=== PATIENT | male | born 1940 | race Caucasian/White ===

== ENCOUNTER 2016-11-30 15:25 | Inpatient (IN) | payer OTHER, MEDICARE ==
[2016-11-30] VITALS (10 sets, daily range): BP systolic 147–159; BP diastolic 80–94; PULSE 90–141; RESP 17–18; TEMP 97.8–98.4; O2SAT 95–98
[2016-11-30] MEDS ORDERED: IPRA0.02 NEB (18:33)
[2016-11-30] MEDS ORDERED: LEVO25TA4 PO (18:33)
[2016-11-30] MEDS ORDERED: APIX2.5T PO (18:33)
[2016-11-30] MEDS ORDERED: SPIR25 PO (18:33)
[2016-11-30] MEDS ORDERED: PROT40TA PO (18:33)
[2016-11-30] MEDS ORDERED: ALBU0.08 NEB (18:33)
[2016-11-30] MEDS ORDERED: TAMS0.4C4 PO (18:33)
[2016-11-30] MEDS ORDERED: LOSA50TA PO (18:33)
[2016-11-30] MEDS ORDERED: METO25TA3 PO (18:33)
[2016-11-30] MEDS ORDERED: CARD120C4 PO (18:33)
[2016-11-30] MEDS ORDERED: CYMB60CA PO (18:33)
[2016-11-30] MEDS ORDERED: MECL1TAB42 (18:33)
[2016-11-30] MEDS ORDERED: FURO20TA PO (18:33)
[2016-11-30] MEDS ORDERED: NITR1SUB3 SL (18:33)
[2016-11-30 19:02] LABS: AUTOMATED NEUTROPHIL # 4.7 TH/MM3 (1.8-7.7); BASOPHIL # 0.1 TH/MM3 (0-0.2); BASOPHIL % 0.8 % (0.0-2.0); EOSINOPHIL # 0.2 TH/MM3 (0-0.4); EOSINOPHIL % 2.5 % (0.0-4.0); HEMATOCRIT 32.7 % (39.0-51.0); HEMO FLAGS DIFF FINAL; LYMPH % 13.7 % (9.0-44.0); MEAN CELL VOLUME 86.7 FL (80.0-100.0); MEAN CORPUSCULAR HEMOGLOBIN 28.3 PG (27.0-34.0); MEAN CORPUSCULAR HGB CONC 32.6 % (32.0-36.0); MONO % 15.8 % (0.0-8.0); NEUT % 67.2 % (16.0-70.0); PLATELET COUNT 237 TH/MM3 (150-450); RED BLOOD COUNT 3.77 MIL/MM3 (4.50-5.90); RED CELL DISTRIBUTION WIDTH 15.2 % (11.6-17.2)
[2016-11-30 19:23] LABS: ANION GAP 7 MEQ/L (5-15); AST (GOT) LESS THAN 3 U/L (15-37); BICARBONATE 28.3 MEQ/L (21.0-32.0); BLOOD UREA NITROGEN 19 MG/DL (7-18); CHLORIDE 90 MEQ/L (98-107); GLOMERULAR FILTRATION RATE 39 ML/MIN (>89); POTASSIUM 4.2 MEQ/L (3.5-5.1); SODIUM (NA) 125 MEQ/L (136-145)
[2016-11-30 19:24] LABS: ALT (GPT) 17 U/L (12-78); APTT (PATIENT) 39.4 SEC (24.3-30.1)
[2016-11-30 19:26] LABS: ALKALINE PHOSPHATASE 126 U/L (45-117); TOTAL BILIRUBIN ADULT 0.4 MG/DL (0.2-1.0)
[2016-11-30] MEDS: AMIODARONE 200 MG TAB PO SCH (19:31)
[2016-11-30] MEDS: RESP: IPRATROPIUM 0.5 MG/2.5 ML NEB NEB SCH ×2 (20:00→23:20)
[2016-11-30] MEDS: APIXABAN 2.5 MG TABLET PO SCH (21:36)
[2016-11-30] MEDS: FUROSEMIDE 40 MG/4 ML VIAL IV PUSH SCH ×2 (21:36→22:00)
[2016-11-30] MEDS: TAMSULOSIN HCL 0.4 MG CAP PO SCH (21:36)
[2016-12-01] VITALS (29 sets, daily range): BP systolic 126–167; BP diastolic 66–93; PULSE 86–126; RESP 14–18; TEMP 98.3–98.7; O2SAT 93–99
[2016-12-01] MEDS: RESP: IPRATROPIUM 0.5 MG/2.5 ML NEB NEB SCH ×5 (03:39→20:06)
[2016-12-01] MEDS: FUROSEMIDE 40 MG/4 ML VIAL IV PUSH SCH ×2 (05:52→13:43)
[2016-12-01] MEDS: LEVOTHYROXINE SODIUM 25 MCG TAB PO SCH (05:52)
--- NOTE | 2016-12-01 06:24 | MA ---
cc: AZAEL BREEN M.D. DATE 11/30/2016 PROCEDURE Cardioversion. INDICATIONS Mr. Drummond is a 75-year-old gentleman with previous atrial fibrillation, ablation seen at my office due to tachyarrhythmia. Heart rate was around 140 beats per minute, symptomatic. The patient was referred to the emergency room and admitted. Decision for cardioversion was taken. The patient already on anticoagulation. The risks, the nature and the benefit of the procedure are clearly stated to him. The risks include pneumothorax, cardiac perforation, stroke and even . The patient understood and agreed to proceed. PROCEDURE After written informed consent was obtained, the patient was evaluated by the anesthesiologist. Anterolateral pads were placed. Subsequently a 200 sync biphasic joule was delivered that converted the patient into sinus rhythm. No incident reported. The patient tolerated procedure. CONCLUSION Successful cardioversion, COMMENT AND RECOMMENDATIONS The patient's Cardizem and metoprolol will be discontinued. Amiodarone will be initiated. If the patient is stable and in sinus rhythm in the morning, will be discharged home. Azael Breen MD HS/SSB /7:30 PM /6:17 AM
--- NOTE | 2016-12-01 07:47 | EKG ---
Date Performed: 11/30/2016 Time Performed: 17:48:10 PTAGE: 75 years EKG: Atrial flutter with rapid ventricular response. Left axis deviation Inferior infarct - age undetermined Non-specific ST/T wave changes Low QRS voltages in precordial leads Abnormal ECG NO PREV IOUS TRACING DOCTOR: Armaan Polanco Interpretating Date/Time 12/01/2016 07:46:29
[2016-12-01] MEDS: AMIODARONE 200 MG TAB PO SCH (08:03)
[2016-12-01] MEDS: SPIRONOLACTONE 25 MG TAB PO SCH (08:03)
[2016-12-01] MEDS: PANTOPRAZOLE SOD 40 MG DELAYED RELEASE TAB PO SCH (08:03)
[2016-12-01] MEDS: LOSARTAN 50 MG TAB PO SCH (08:03)
[2016-12-01] MEDS: APIXABAN 2.5 MG TABLET PO SCH (08:03)
[2016-12-01] MEDS: DULoxetine HCl DR 60 MG CAP PO SCH ×2 (08:05→22:16)
[2016-12-01] MEDS ORDERED: FUROSEMIDE 20 MG TAB PO SCH (09:00)
[2016-12-01] MEDS ORDERED: AMIODARONE INJ 300 MG in DEXTROSE 5% IN WATER 100ML INJ 94 ML IV ONE ×2 (10:00)
[2016-12-01] MEDS ORDERED: AMIODARONE INJ 450 MG in D5W (EXCEL BAG) 241 ML IV SCH (10:20)
--- NOTE | 2016-12-01 11:53 | RADRPT ---
EXAM DATE/TIME: 12/01/2016 11:07 [facility] COMPARISON: No previous studies available for comparison. INDICATIONS : Abdomen pain, distention. MEDICAL HISTORY : None. SURGICAL HISTORY : None. ENCOUNTER: Initial ACUITY: 1 day PAIN SCORE: 6/10 LOCATION: Bilateral abdomen FINDINGS: 2 AP supine views of the abdomen. Moderately distended air-filled colon diffusely. Multiple air-fille d loops of small bowel. Longitudinal metallic rods in the lower thoracic and lumbar region. Severe de generative findings of the lumbar spine. CONCLUSION: Diffuse air-filled distention of the colon, likely representing ileus. Maninder Mg MD on December 01, 2016 at 11:35 Board Certified Radiologist. This report was verified electronically.
--- NOTE | 2016-12-01 13:03 | HHI.PR ---
Subjective Remarks Abdominal pain. Less SOB than yesterday Objective Vital Signs Date Time Temp Pulse Resp B/P Pulse Ox O2 Delivery O2 Flow Rate FiO2 12/01/16 12:00 126 12/01/16 11:00 98.6 97 16 167/83 97 12/01/16 11:00 117 12/01/16 10:00 114 12/01/16 09:17 97 Nasal Cannula 2.00 12/01/16 09:00 114 12/01/16 08:00 114 12/01/16 07:00 110 12/01/16 07:00 98.5 110 14 163/87 97 12/01/16 06:00 117 12/01/16 05:13 100 12/01/16 04:00 108 12/01/16 03:00 105 12/01/16 03:00 98.7 106 18 160/93 97 12/01/16 02:00 105 12/01/16 01:06 106 12/01/16 00:00 108 11/30/16 23:21 97 Nasal Cannula 2.00 11/30/16 23:00 98 11/30/16 23:00 98.4 94 18 159/94 96 11/30/16 22:00 98 11/30/16 21:00 90 11/30/16 20:50 97.8 94 18 156/80 98 11/30/16 20:00 90 11/30/16 19:00 116 11/30/16 18:00 129 11/30/16 17:48 115 11/30/16 17:00 98.1 141 17 147/84 95 I/O 11/30/16 11/30/16 11/30/16 12/01/16 12/01/16 12/01/16 07:00 15:00 23:00 07:00 15:00 23:00 Intake Total 960 ml Output Total 650 ml Balance 310 ml Intake Oral 960 ml Output Urine Total 650 ml # Bowel Movements 1 Result Diagram: 11/30/16183711/30/16 183 Imaging Alert, fully oriented, in bed Lungs: ventilated Heart: S1, S2 irregular, tachycardia Abdomen: distended, no mass, pain on palpation Ext: minimal edema Last Impressions Abdomen X-Ray 12/01/16 0000 Signed Impressions: Service Date/Time: December 11:07 - CONCLUSION: Diffuse air-filled distention of the colon, likely representing ileus. Maninder Mg MD Current Medications Medications (Trade) Dose Ordered Sig/Manuel Route Start Time Stop Time Status Last Admin (Cymbalta Dr) 60 mg DAILY PO 12/01/16 09:00 (Synthroid) 25 mcg DAILY@06 PO 12/01/16 06:00 12/01/16 05:52 (Cozaar) 50 mg DAILY PO 12/01/16 09:00 12/01/16 08:03 (Protonix) 40 mg DAILY PO 12/01/16 09:00 12/01/16 08:03 (Aldactone) 25 mg DAILY PO 12/01/16 09:00 12/01/16 08:03 (Flomax) 0.4 mg HS PO 11/30/16 21:00 11/30/16 21:36 (Lasix Inj) 40 mg Q8HR IV PUSH 11/30/16 19:30 12/01/16 19:00 12/01/16 05:52 Temazepam 15 mg 15 mg HS PRN PO 11/30/16 19:30 (Cordarone Inj/ D5W ([place]) Inj) 250 ml @ 0 mls/hr CONTINUOUS IV 12/01/16 10:20 12/01/16 11:07 Assessment and Plan Problem List: (1) Atrial fibrillation Status: Acute Plan: Previous ablation. Was in atrial tach/ atrial fib with FVR yesterday. Refers abdominal pain in the last 3 days. HR was very high. Was cardioverted and amio initiated. Back into afib. Because of dark stool, eliquis was held. Patient taking Iron. Recent GI work up was apparently negative. Medical management for now. (2) Palpitations Status: Acute Plan: Symptomatic. But improving (3) SOB (shortness of breath) Status: Acute Plan: Edema decreases. SOB improves (4) Abdominal pain Status: Acute Plan: Patient complaining about abdominal discomfort. Dark stool. Recent GI workup was negative. On iron due to chronic anemia. Will request surgery and GI evaluation. Case discussed with patient and general surgery Sarina Sutton MD Dec 01, 2016 13:03
--- NOTE | 2016-12-01 13:20 | PD.CONS ---
HPI History of Present Illness This is a 75 year old [gentleman] was hospitalized by his nps for AF, s /p cardioversion. He began experiencing abdominal pain that "moves around like a turd that's moving through". He had a BM last night that was mostly "gas" and some liquid stool. He has not eaten in 2d, has no appetite. He says he normally has alternating large stools "like a brick" and liquid stools. He has black stools when he takes his iron pill. He has EGD and colonoscopy recently wit Dr Dubose in [place] and does not recall results but says it was nothing "bad. " He also had capsule endoscopy and says the camera stayed in him for 8 days. He was not yet given the results. He is plassing some flatus but less than usual. KUB this morning shows diffuse air filled distention of colon, likely representing ileus. (Nova James) PFSH Past Medical History AF COPD CKD IV hx prostate ca Past Surgical History [place] surgery back surgery peripheral artery stenting TURP (Nova James) Coded Allergies: No Known Allergies (Unverified , 11/30/16) Family History none Social History ETOH 3 drinks x day no tobacco or illicit drugs (Nova James) Review of Systems Constitutional: DENIES: Fever Eyes: DENIES: Blurred vision Ears, nose, mouth, throat: DENIES: Hearing loss Respiratory: DENIES: Cough Cardiovascular: DENIES: Lower Extremity Edema Gastrointestinal: COMPLAINS OF: Abdominal pain, Black stools (when he takes iron), Constipation, Diarrhea, Swelling of Abdomen, DENIES: Bloody stools, Nausea, Vomiting Genitourinary: DENIES: Hematuria Musculoskeletal: DENIES: Muscle aches Integumentary: DENIES: Rash Hematologic/lymphatic: DENIES: Bruising Neurologic: DENIES: Abnormal gait Psychiatric: DENIES: Confusion (Nova James) GI Exam Vitals I&O Vital Signs Date Time Temp Pulse Resp B/P Pulse Ox O2 Delivery O2 Flow Rate FiO2 12/01/16 12:00 126 12/01/16 11:00 98.6 97 16 167/83 97 12/01/16 11:00 117 12/01/16 10:00 114 12/01/16 09:17 97 Nasal Cannula 2.00 12/01/16 09:00 114 12/01/16 08:00 114 12/01/16 07:00 110 12/01/16 07:00 98.5 110 14 163/87 97 12/01/16 06:00 117 12/01/16 05:13 100 12/01/16 04:00 108 12/01/16 03:00 105 12/01/16 03:00 98.7 106 18 160/93 97 12/01/16 02:00 105 12/01/16 01:06 106 12/01/16 00:00 108 11/30/16 23:21 97 Nasal Cannula 2.00 11/30/16 23:00 98 11/30/16 23:00 98.4 94 18 159/94 96 11/30/16 22:00 98 11/30/16 21:00 90 11/30/16 20:50 97.8 94 18 156/80 98 11/30/16 20:00 90 11/30/16 19:00 116 11/30/16 18:00 129 11/30/16 17:48 115 11/30/16 17:00 98.1 141 17 147/84 95 I/O 11/30/16 11/30/16 11/30/16 12/01/16 12/01/16 12/01/16 07:00 15:00 23:00 07:00 15:00 23:00 Intake Total 960 ml Output Total 650 ml Balance 310 ml Intake Oral 960 ml Output Urine Total 650 ml # Bowel Movements 1 Imaging Last Impressions Abdomen X-Ray 12/01/16 0000 Signed Impressions: Service Date/Time: December 11:07 - CONCLUSION: Diffuse air-filled distention of the colon, likely representing ileus. Maninder Mg MD Laboratory Test 11/30/16 18:38 White Blood Count 7.0 TH/MM3 Red Blood Count 3.77 MIL/MM3 Hemoglobin 10.7 GM/DL Hematocrit 32.7 % Mean Corpuscular Volume 86.7 FL Mean Corpuscular Hemoglobin 28.3 PG Mean Corpuscular Hemoglobin 32.6 % Concent Red Cell Distribution Width 15.2 % Platelet Count 237 TH/MM3 Mean Platelet Volume 6.4 FL Neutrophils (%) (Auto) 67.2 % Lymphocytes (%) (Auto) 13.7 % Monocytes (%) (Auto) 15.8 % Eosinophils (%) (Auto) 2.5 % Basophils (%) (Auto) 0.8 % Neutrophils # (Auto) 4.7 TH/MM3 Lymphocytes # (Auto) 1.0 TH/MM3 Monocytes # (Auto) 1.1 TH/MM3 Eosinophils # (Auto) 0.2 TH/MM3 Basophils # (Auto) 0.1 TH/MM3 CBC Comment DIFF FINAL Differential Comment Prothrombin Time 11.0 SEC Prothromb Time International 1.0 RATIO Ratio Activated Partial 39.4 SEC Thromboplast Time Sodium Level 125 MEQ/L Potassium Level 4.2 MEQ/L Chloride Level 90 MEQ/L Carbon Dioxide Level 28.3 MEQ/L Anion Gap 7 MEQ/L Blood Urea Nitrogen 19 MG/DL Creatinine 1.70 MG/DL Estimat Glomerular Filtration 39 ML/MIN Rate Random Glucose 111 MG/DL Calcium Level 9.1 MG/DL Total Bilirubin 0.4 MG/DL Aspartate Amino Transf LESS THAN 3 U/L (AST/SGOT) Alanine Aminotransferase 17 U/L (ALT/SGPT) Alkaline Phosphatase 126 U/L Total Protein 7.8 GM/DL Albumin 3.6 GM/DL Physical Examination HEENT: EOMI; normocephalic; atraumatic; no jaundice. CHEST: CTA CARDIAC: irregularly irr HR ABDOMEN: somewhat firm, distended, diffusely tender; upper abd tympanitic, lower abd dull; bowel sounds are present in all four quadrants. EXTREMITIES: No clubbing, cyanosis, or edema. SKIN: Normal; no rash; no jaundice. SPARERIBS TRIMMER: No focal deficits; alert and oriented times three. (Nova James) Assessment and Plan Plan ASSESSMENT - abd pain - possible ileus. KUB 12/01/16 --> shows diffuse air filled distention of colon, likely representing ileus. Onset abd pain 1 w ago. BM last night mostly gas and some liquid stool. GS following, CTabd pending. PLAN - IV reglan - await results CT - NPO - Further recommendations based on results above This pt seen by myself and Dr Dey and this note is written on his behalf (Nova James) Physician Comments Seen and examined, plan as above, CT pending, conservative treatment for now with rectal tube and Reglan and endoscopic decompression if all fail. Will follow up with you for further recommendations. (Hilaria Dey MD) Nova James Dec 01, 2016 13:20 Hilaria Dey MD Dec 01, 2016 21:53
[2016-12-01] MEDS: METOCLOPRAMIDE HCL 10 MG/2 ML VIAL IV PUSH SCH ×2 (13:43→22:16)
[2016-12-01] MEDS ORDERED: DIATRIZOATE MEGLUM/DIATRIZOATE SOD 9 ML CUP PO ONE (13:45)
[2016-12-01] MEDS ORDERED: METOPROLOL TARTRATE 25 MG TAB PO SCH (14:00)
--- NOTE | 2016-12-01 14:02 | HHI.HP ---
[facility] Ad[facility] Diagnosis Diagnoses: (1) Atrial fibrillation Diagnosis: Principal (2) Palpitations (3) SOB (shortness of breath) (4) Abdominal pain Chief Complaint: Shortness of breath and palpitations Abdominal pain x 3 days Travel History International Travel<30 Days: No Contact w/Intl Traveler <30 Da: No Traveled to Known Affected Are: No History of Present Illness Mr. Drummond is a 75-year-old male patient with a known history of atrial fibrillation with history of ablation 1 week ago, COPD, HTN, CHF, AAA, PAD and CABG x 3 stents. Supposedly patient had an ablation one week ago with Dr. Sutton. Yesterday afternoon patient presented to his office for a follow up appointment. While in his office patient developed shortness of breath and palpitations. EKG was performed and patient was found to be in afib RVR, then sent to the ER immediately. Upon presentation, Dr. Sutton performed a cardioversion and placed on Amiodarone IV infusion with bolus. Hospitalist team consulted for assuming of care and medical management. Patient seen and examined today. He is lying in bed, short of breath and significant abdominal pain and distention. Patient states that he has had abdominal pain on and off for 3 days now, with diminished appetite and PO intake. At this time patient does admit to passing gas and belching. Does admit to dark colored stools with one bout of diarrhea last evening. Patient on iron supplements. Denies any n/v or diarrhea. Denies any recent fever, chills, cough, chest pain or dysuria. Review of Systems Respiratory: COMPLAINS OF: Wheezing, Shortness of breath Cardiovascular: COMPLAINS OF: Palpitations, Dyspnea on Exertion, Orthopnea Gastrointestinal: COMPLAINS OF: Abdominal pain Except as stated in HPI: all other systems reviewed are Neg Past Family Social History Past Medical History Congestive heart failure Coronary artery disease Chronic obstructive pulmonary disease Atrial fibrillation with ablation 1 week ago Abdominal aortic aneurysm Peripheral artery disease Hypertension Benign Prostate hypertrophy Past Surgical History PAD with femoral stenting CABG x 3 stent placement Bilateral cataract surgery Cardiac ablation Cardioversion TURP Reported Medications Active Reported Tamsulosin (Tamsulosin HCl) 0.4 Mg Cap 0.4 Mg PO HS Aldactone (Spironolactone) 25 Mg Tab 25 Mg PO DAILY Protonix (Pantoprazole Sodium) 40 Mg Tab 40 Mg PO DAILY Nitroglycerin SL (Nitroglycerin) 0.4 Mg Subl 0.4 Mg SL DIRECTED PRN ONE TABLET UNDER THE TONGUE NEEDED FOR CHEST PAIN, MAY REPEAT EVERY FIVE MINUTES FOR A TOTAL OF 3 DOSES OR CALL 911 IF NO RELIEF Meclizine 25 (Meclizine HCl) 25 Mg Tab Losartan (Losartan Potassium) 50 Mg Tab 50 Mg PO DAILY Levothyroxine (Levothyroxine Sodium) 25 Mcg Tab 25 Mcg PO DAILY Ipratropium Neb (Ipratropium [place]) 0.5 Mg/2.5 Ml Amp 0.5 Mg NEB Q4HR NEB Furosemide 20 Mg Tab 20 Mg PO DAILY Cymbalta DR (Duloxetine HCl) 60 Mg Capdr 60 Mg PO DAILY Eliquis (Apixaban) 2.5 Mg Tab 2.5 Mg PO BID Albuterol Neb (Albuterol Sulfate) 2.5 Mg/3 Ml Neb 2.5 Mg NEB QID NEB Allergies: Coded Allergies: No Known Allergies (Unverified , 11/30/16) Active Ordered Medications Current Medications Medications (Trade) Dose Ordered Sig/Manuel Route Start Time Stop Time Status Last Admin (Cymbalta Dr) 60 mg DAILY PO 12/01/16 09:00 (Synthroid) 25 mcg DAILY@06 PO 12/01/16 06:00 12/01/16 05:52 (Cozaar) 50 mg DAILY PO 12/01/16 09:00 12/01/16 08:03 (Protonix) 40 mg DAILY PO 12/01/16 09:00 12/01/16 08:03 (Aldactone) 25 mg DAILY PO 12/01/16 09:00 12/01/16 08:03 (Flomax) 0.4 mg HS PO 11/30/16 21:00 11/30/16 21:36 (Lasix Inj) 40 mg Q8HR IV PUSH 11/30/16 19:30 12/01/16 19:00 12/01/16 05:52 Temazepam 15 mg 15 mg HS PRN PO 11/30/16 19:30 (Cordarone Inj/ D5W ([place]) Inj) 250 ml @ 0 mls/hr CONTINUOUS IV 12/01/16 10:20 12/01/16 11:07 Family History Maternal medical history significant for cardiovascular disease. Denies any significant medical history of father's side. Social History Patient is a , with cancer in April of last year. Denies any current tobacco use, states he has stopped smoking 35 years ago. Does admit to 2-3 shots of whiskey daily. Denies any illicit drug use. Physical Exam Vital Signs Vital Signs Date Time Temp Pulse Resp B/P Pulse Ox O2 Delivery O2 Flow Rate FiO2 12/01/16 13:13 93 12/01/16 12:00 126 12/01/16 11:00 98.6 97 16 167/83 97 12/01/16 11:00 117 12/01/16 10:00 114 12/01/16 09:17 97 Nasal Cannula 2.00 12/01/16 09:00 114 12/01/16 08:00 114 12/01/16 07:00 110 12/01/16 07:00 98.5 110 14 163/87 97 12/01/16 06:00 117 12/01/16 05:13 100 12/01/16 04:00 108 12/01/16 03:00 105 12/01/16 03:00 98.7 106 18 160/93 97 12/01/16 02:00 105 12/01/16 01:06 106 12/01/16 00:00 108 11/30/16 23:21 97 Nasal Cannula 2.00 11/30/16 23:00 98 11/30/16 23:00 98.4 94 18 159/94 96 11/30/16 22:00 98 11/30/16 21:00 90 11/30/16 20:50 97.8 94 18 156/80 98 11/30/16 20:00 90 11/30/16 19:00 116 11/30/16 18:00 129 11/30/16 17:48 115 11/30/16 17:00 98.1 141 17 147/84 95 Physical Exam GENERAL: Well-nourished, well-developed patient, lying in bed with presence of abdominal pain and shortness of breath. SKIN: No rashes, ecchymoses or lesions. Warm and dry. HEENT: Atraumatic. Normocephalic. Pupils equal round and reactive. Extraocular motions intact. No scleral icterus. No injection or drainage. Nose without bleeding. Airway patent. NECK: Trachea midline. No JVD or lymphadenopathy. Supple. CARDIOVASCULAR: Irregularly irregular rhythm. No murmur appreciated. No gallops , or rubs. RESPIRATORY: Expiratory wheeze to bilateral bases. Breath sounds equal bilaterally. No wheezes, rales, or rhonchi. GASTROINTESTINAL: Abdomen hard, distended and tender to palpation. Bowel sounds hypoactive x 4. MUSCULOSKELETAL: Extremities without clubbing, cyanosis. Bilateral erythema noted, history of peripheral vascular disease. Bilateral DP pulses 1+. No edema noted. NEUROLOGICAL: Awake and alert. Cranial nerves II through XII intact. Motor and sensory grossly within normal limits. Five out of 5 muscle strength in all muscle groups. Normal speech. Laboratory Laboratory Tests Test 11/30/16 18:38 White Blood Count 7.0 Red Blood Count 3.77 Hemoglobin 10.7 Hematocrit 32.7 Mean Corpuscular Volume 86.7 Mean Corpuscular Hemoglobin 28.3 Mean Corpuscular Hemoglobin 32.6 Concent Red Cell Distribution Width 15.2 Platelet Count 237 Mean Platelet Volume 6.4 Neutrophils (%) (Auto) 67.2 Lymphocytes (%) (Auto) 13.7 Monocytes (%) (Auto) 15.8 Eosinophils (%) (Auto) 2.5 Basophils (%) (Auto) 0.8 Neutrophils # (Auto) 4.7 Lymphocytes # (Auto) 1.0 Monocytes # (Auto) 1.1 Eosinophils # (Auto) 0.2 Basophils # (Auto) 0.1 CBC Comment DIFF FINAL Differential Comment Prothrombin Time 11.0 Prothromb Time International 1.0 Ratio Activated Partial 39.4 Thromboplast Time Sodium Level 125 Potassium Level 4.2 Chloride Level 90 Carbon Dioxide Level 28.3 Anion Gap 7 Blood Urea Nitrogen 19 Creatinine 1.70 Estimat Glomerular Filtration 39 Rate Random Glucose 111 Calcium Level 9.1 Total Bilirubin 0.4 Aspartate Amino Transf LESS THAN 3 (AST/SGOT) Alanine Aminotransferase 17 (ALT/SGPT) Alkaline Phosphatase 126 Total Protein 7.8 Albumin 3.6 Result Diagram: 11/30/16 1838 11/30/16 1838 Imaging Last Impressions Abdomen X-Ray 12/01/16 0000 Signed Impressions: Service Date/Time: December 11:07 - CONCLUSION: Diffuse air-filled distention of the colon, likely representing ileus. Maninder Mg MD Assessment and Plan Assessment and Plan Mr. Drummond is a 75-year-old male patient with a known history of atrial fibrillation with history of ablation 1 week ago, COPD, HTN, CHF, AAA, PAD and CABG x 3 stents. Supposedly patient had an ablation one week ago with Dr. Sutton. Yesterday afternoon patient presented to his office for a follow up appointment. While in his office patient developed shortness of breath and palpitations. EKG was performed and patient was found to be in afib RVR, then sent to the ER immediately. Upon presentation, Dr. Sutton performed a cardioversion and placed on Amiodarone IV infusion with bolus. Hospitalist team consulted for assuming of care and medical management. Atrial fibrillation status post RVR with cardioversion 11/30/16. - Outpatient ablation [address] Sutton. - EKG reviewed, atrial fibrillation with RVR. - Continue Amiodarone drip per cardiology recommendations. - Continue continuous cardiac telemetry. Hypertension, chronic - Spoke with Cardiology. Will start Cardizem 30 mg PO Q6hr.Continue Cozaar 50 mg PO daily. - Monitor HR and BP closely. Acute kidney injury suspect secondary to CHF exacerbation. - Creatinine upon presentation 1.79. Repeat creatinine 1.66. Repeat in am. Follow. - Monitor intake and output. Daily weights. Abdominal ileus, acute - Abdominal x-ray reviewed and showing diffuse air-filled distention of the colon, likely representing ileus. - GI consulted, appreciate input. General surgery consulted, appreciate input. - Rest bowel. NPO for now. Continue Reglan. - Await CT abdomen/pelvis results. Chronic obstructive pulmonary disease - DuoNebs scheduled and PRN for wheezing. Supplemental oxygen as needed to keep O2 sats >92%. - Chest x-ray ordered and reviewed, mild patchy bilateral lower lung zone parenchymal opacity and low lung volumes. Congestive heart failure, acute on chronic - BNP ordered and pending. - Continue Lasix 40 mg IV Q8hr. Continue Spironolactone 25 mg PO daily. - Request 2D-echo results from Dr. Sutton office. - CXR reviewed, see above. Hyponatremia suspect secondary to hypervolemic hyponatremia - Na 125 upon presentation. Repeat 129. Labs in am. - Will likely improve with diuretics. Anemia, unknown origin suspect secondary to GI bleed. - Hemoglobin 10.7/Hematocrit 32.7 upon presentation. Repeat CBC, hemoglobin 10.7/hemoglobin 31.8. Follow. - Stool Hemoccult ordered. Follow. - Dark colored stools. Also on iron replacement. Monitor. - GI following, appreciate input. GI prophylaxis: Protonix 40 mg PO daily. DVT prophylaxis: SCDs. Hold Xarelto for now, per cardiology recommendations. Other chronic medical problems include BPH, depression and hypothyroidism and are stable at this time. Resume home medications as indicated. D/w patient, nursing and Dr. Sheppard. Attestation Patient seen and examined with JERICHO Leonard. The exam, history, and the medical decision-making described in the above note were completed with the assistance of the dictating practitioner. I attest that I had a [id number] encounter with the patient on the same day, and personally performed all of the history, exam, or medical decision making. Discussed case with her thoroughly after seeing the patient, reviewed and agreed with the plan. Please see addendum in History, Physical examination. See below for any errata/additional input: Mr. Drummond is a 75-year-old male patient with a known history of atrial fibrillation with history of ablation 1 week ago, readmitted for atrial fibrillation with RVR. Status post ablation, patient mildly short of breath, still tachycardic, irregular in the 120s. Also with nausea and abdominal pain. Not in distress but mildly short of breath Tachycardic, irregular Bilateral wheezing, no crackles or rhonchi Abdomen mildly distended, decreased bowel sounds No edema Continue Lasix intravenously every 8 hours, monitor BMP. Patient has hyponatremia, could be from hypervolemic hyponatremia, continue diuresis as above Hypertension is uncontrolled including atrial fibrillation. We'll start with metoprolol if okay with cardiology. Continue Cozaar Ileus-management per surgery and GI Recheck CBC and BMP tomorrow Physician Certification 2 Midnight Certification Type: Admission for Inpatient Services Order for Inpatient Services The services are ordered in accordance with Medicare regulations or non- Medicare payer requirements, as applicable. In the case of services not specified as inpatient-only, they are appropriately provided as inpatient services in accordance with the 2-midnight benchmark. Estimated LOS (days): 2 days is the estimated time the patient will need to remain in the hospital, assuming treatment plan goals are met and no additional complications. Post-Hospital Plan: Home Any Salazar Dec 01, 2016 14:02 Justo Sheppard MD Dec 01, 2016 18:08
--- NOTE | 2016-12-01 15:13 | RADRPT ---
EXAM DATE/TIME: 12/01/2016 13:52 [facility] COMPARISON: No previous studies available for comparison. INDICATIONS : Congestion, short of breath. MEDICAL HISTORY : Chronic obstructive pulmonary disease. SURGICAL HISTORY : CABG. ENCOUNTER: Initial ACUITY: 1 day PAIN SCORE: 0/10 LOCATION: Bilateral chest FINDINGS: Single AP view of the chest. Low lung volumes. Median sternotomy wires. Minimal patchy bilateral basi lar opacity. The lungs are otherwise clear. Cardiomediastinal silhouette within normal limits. No louisa dence of pleural effusion or pneumothorax. CONCLUSION: Mild patchy bilateral lower lung zone parenchymal opacity and low lung volumes. Maninder Mg MD on December 01, 2016 at 15:10 Board Certified Radiologist. This report was verified electronically.
[2016-12-01 15:26] LABS: AUTOMATED NEUTROPHIL # 5.4 TH/MM3 (1.8-7.7); BASOPHIL # 0.1 TH/MM3 (0-0.2); BASOPHIL % 0.8 % (0.0-2.0); EOSINOPHIL # 0.1 TH/MM3 (0-0.4); EOSINOPHIL % 1.6 % (0.0-4.0); HEMATOCRIT 31.8 % (39.0-51.0); HEMO FLAGS DIFF FINAL; LYMPH % 13.8 % (9.0-44.0); LYMPHOCYTE # 1.1 TH/MM3 (1.0-4.8); MEAN CORPUSCULAR HEMOGLOBIN 28.7 PG (27.0-34.0); MEAN CORPUSCULAR HGB CONC 33.8 % (32.0-36.0); MONO % 14.8 % (0.0-8.0); PLATELET COUNT 275 TH/MM3 (150-450); RED BLOOD COUNT 3.74 MIL/MM3 (4.50-5.90); RED CELL DISTRIBUTION WIDTH 15.2 % (11.6-17.2); WHITE BLOOD COUNT 7.8 TH/MM3 (4.0-11.0)
[2016-12-01 15:39] LABS: BICARBONATE 29.7 MEQ/L (21.0-32.0); POTASSIUM 3.6 MEQ/L (3.5-5.1)
--- NOTE | 2016-12-01 17:04 | PD.CONS ---
cc: Arnoldo Horowitz MD HPI Service General Surgery Consult Requested By Dr. Ragland Reason for Consult Evaluation of abdominal pain and distention s/p cardiac catheterization Primary Care Physician Non-Staff History of Present Illness This is a 75 year old male with a past medical history of chronic kidney disease , atrial fibulation, hypertension and high cholesterol. He came to the hospital for a cardiac catheterization with Dr. Law. He was complaining of abdominal pain and distention. The patient reports these had this abdominal pain and distention for about 1 week. He's been evaluated by Dr. kristofer Thompson in [facility]. He recently had a colonoscopy, EGD, and capsule EGD. He was scheduled to follow up with him for results of his capsule EGD but has not yet. He reports his last bowel movement was last night and it was liquid and dark. Prior to that he had not had a bowel movement for several days. A General Surgery consultation has been requested for evaluation of abdominal pain and distention. Review of Systems Constitutional: DENIES: Fatigue, Weight gain, Weight loss Endocrine: DENIES: Polydipsia, Polyuria, Polyphagia Eyes: DENIES: Diplopia Ears, nose, mouth, throat: DENIES: Hearing loss, Vertigo Respiratory: DENIES: Apneas, Cough Cardiovascular: DENIES: Chest pain Gastrointestinal: COMPLAINS OF: Abdominal pain, Diarrhea, DENIES: Nausea, Vomiting Genitourinary: DENIES: Urinary frequency, Urinary incontinence Musculoskeletal: DENIES: Joint pain Integumentary: DENIES: Abnormal pigmentation Hematologic/lymphatic: DENIES: Bruising Immunologic/allergic: DENIES: Eczema Neurologic: DENIES: Headache Psychiatric: DENIES: Confusion, Mood changes, Depression Past Family Social History Past Medical History Chronic kidney disease Atrial fibrillation Hypertension next line high cholesterol COPD Past Surgical History CABG 3 TURP Neck and back operations Reported Medications See chart for complete list but please note that the patient does take Eliquis was sent home Allergies: Coded Allergies: No Known Allergies (Unverified , 11/30/16) Active Ordered Medications Current Medications Medications (Trade) Dose Ordered Sig/Manuel Route Start Time Stop Time Status Last Admin (Santos Lamb) 60 mg DAILY PO 12/01/16 09:00 (Synthroid) 25 mcg DAILY@06 PO 12/01/16 06:00 12/01/16 05:52 (Cozaar) 50 mg DAILY PO 12/01/16 09:00 12/01/16 08:03 (Protonix) 40 mg DAILY PO 12/01/16 09:00 12/01/16 08:03 (Aldactone) 25 mg DAILY PO 12/01/16 09:00 12/01/16 08:03 (Flomax) 0.4 mg HS PO 11/30/16 21:00 11/30/16 21:36 (Lasix Inj) 40 mg Q8HR IV PUSH 11/30/16 19:30 12/01/16 19:00 12/01/16 13:43 Temazepam 15 mg 15 mg HS PRN PO 11/30/16 19:30 (Cordarone Inj/ D5W ([place]) Inj) 250 ml @ 0 mls/hr CONTINUOUS IV 12/01/16 10:20 12/01/16 11:07 (Reglan Inj) 5 mg Q8HR IV PUSH 12/01/16 14:00 12/01/16 13:43 (Lopressor) 25 mg Q12HR PO 12/01/16 14:00 12/01/16 14:18 Family History Noncontributory Social History Tobaccoprior use; quit 35 years ago EtOH vodka shots; daily Uses Hemp oil daily Physical Exam Vital Signs Vital Signs Date Time Temp Pulse Resp B/P Pulse Ox O2 Delivery O2 Flow Rate FiO2 12/01/16 16:00 86 12/01/16 15:19 95 21 12/01/16 15:00 98.3 89 16 126/66 99 12/01/16 15:00 99 12/01/16 14:00 114 12/01/16 13:13 93 12/01/16 13:00 112 12/01/16 12:00 126 12/01/16 11:00 98.6 97 16 167/83 97 12/01/16 11:00 117 12/01/16 10:00 114 12/01/16 09:17 97 Nasal Cannula 2.00 12/01/16 09:00 114 12/01/16 08:00 114 12/01/16 07:00 110 12/01/16 07:00 98.5 110 14 163/87 97 12/01/16 06:00 117 12/01/16 05:13 100 12/01/16 04:00 108 12/01/16 03:00 105 12/01/16 03:00 98.7 106 18 160/93 97 12/01/16 02:00 105 12/01/16 01:06 106 12/01/16 00:00 108 11/30/16 23:21 97 Nasal Cannula 2.00 11/30/16 23:00 98 11/30/16 23:00 98.4 94 18 159/94 96 11/30/16 22:00 98 11/30/16 21:00 90 11/30/16 20:50 97.8 94 18 156/80 98 11/30/16 20:00 90 11/30/16 19:00 116 11/30/16 18:00 129 11/30/16 17:48 115 11/30/16 17:00 98.1 141 17 147/84 95 Physical Exam GENERAL: 75 year old male resting in bed in no acute distress. SKIN: Warm and dry. HEAD: Atraumatic. Normocephalic. EYES: Pupils equal and round. No scleral icterus. No injection or drainage. ENT: No nasal bleeding or discharge. Mucous membranes pink and moist. NECK: Trachea midline. CARDIOVASCULAR: Atrial fibrillation; HR in the 90s. RESPIRATORY: No accessory muscle use. Clear to auscultation. Breath sounds equal bilaterally. GASTROINTESTINAL: Abdomen distended, firm. Abdominal tenderness in the left upper quadrant with palpation. MUSCULOSKELETAL: Extremities without clubbing, cyanosis, or edema. No obvious deformities. NEUROLOGICAL: Awake and alert. No obvious cranial nerve deficits. Motor grossly within normal limits. Five out of 5 muscle strength in the arms and legs. Normal speech. PSYCHIATRIC: Appropriate mood and affect; insight and judgment normal. Laboratory Laboratory Tests Test 11/30/16 12/01/16 18:38 14:13 White Blood Count 7.0 7.8 Red Blood Count 3.77 3.74 Hemoglobin 10.7 10.7 Hematocrit 32.7 31.8 Mean Corpuscular Volume 86.7 85.0 Mean Corpuscular Hemoglobin 28.3 28.7 Mean Corpuscular Hemoglobin 32.6 33.8 Concent Red Cell Distribution Width 15.2 15.2 Platelet Count 237 275 Mean Platelet Volume 6.4 6.7 Neutrophils (%) (Auto) 67.2 69.0 Lymphocytes (%) (Auto) 13.7 13.8 Monocytes (%) (Auto) 15.8 14.8 Eosinophils (%) (Auto) 2.5 1.6 Basophils (%) (Auto) 0.8 0.8 Neutrophils # (Auto) 4.7 5.4 Lymphocytes # (Auto) 1.0 1.1 Monocytes # (Auto) 1.1 1.2 Eosinophils # (Auto) 0.2 0.1 Basophils # (Auto) 0.1 0.1 CBC Comment DIFF FINAL DIFF FINAL Differential Comment Prothrombin Time 11.0 Prothromb Time International 1.0 Ratio Activated Partial 39.4 Thromboplast Time Sodium Level 125 129 Potassium Level 4.2 3.6 Chloride Level 90 90 Carbon Dioxide Level 28.3 29.7 Anion Gap 7 9 Blood Urea Nitrogen 19 17 Creatinine 1.70 1.66 Estimat Glomerular Filtration 39 40 Rate Random Glucose 111 110 Calcium Level 9.1 9.4 Total Bilirubin 0.4 Aspartate Amino Transf LESS THAN 3 (AST/SGOT) Alanine Aminotransferase 17 (ALT/SGPT) Alkaline Phosphatase 126 Total Protein 7.8 Albumin 3.6 Date/Time Procedure Status Source Growth 12/01/16 14:27 Stool Occult Blood (STEVEN) Received Stool Stool Pending Result Diagram: 12/01/16 1413 12/01/16 1413 Imaging Last 48 hours Impressions Chest X-Ray 12/01/16 1352 Signed Impressions: Service Date/Time: December 13:52 - CONCLUSION: Mild patchy bilateral lower lung zone parenchymal opacity and low lung volumes. Maninder Mg MD Abdomen X-Ray 12/01/16 0000 Signed Impressions: Service Date/Time: December 11:07 - CONCLUSION: Diffuse air-filled distention of the colon, likely representing ileus. Maninder Mg MD Assessment and Plan Assessment and Plan This is a 75-year-old male status post cardiac catheterization; now with abdominal pain and distention. -KUB reviewed shows air-filled loops of small bowel; questionable ileus -Obtain CT abdomen and pelvis with by mouth and IV contrast -GI consult -Nothing by mouth -Obtain records from Dr. Dubose's office -Thank you for this consult; further plans after CT completed and GI records reviewed Attending Note - Dr. Horowitz Patient has had one week of abdominal distention Diffusely tender and distended. After CT, unless surgical findings, likely needs colonoscopic decompression Will discuss with Dr. Dey The exam, history, and the medical decision-making described in the above note were completed with the assistance of the mid-level provider. I reviewed and agree with the findings presented. I attest that I had a [id number] encounter with the patient on the same day, and personally performed and documented my assessment and findings in the medical record. Discussed Condition With Susanne Roblero Dec 01, 2016 17:04 Arnoldo Horowitz MD Dec 01, 2016 18:33
[2016-12-01] MEDS ORDERED: EPINEPHrine HCL (1:10,000) 1 MG/10 ML SYRINGE ONE (18:41)
[2016-12-01] MEDS ORDERED: ATROPINE SULFATE 1 MG/10 ML SYRINGE ONE (18:42)
[2016-12-01] MEDS ORDERED: IODIXANOL 320 MG/ML 10 ML VIAL (for Rad CT) IV ONE (19:49)
--- NOTE | 2016-12-01 19:52 | RADRPT ---
EXAM DATE/TIME: 12/01/2016 19:21 [place] COMPARISON: No previous studies available for comparison. INDICATIONS : Abdominal pain bloating,distention today. IV CONTRAST: 50 cc Visipaque (iodixanol) IV ORAL CONTRAST: Prescribed oral contrast ingested. RADIATION DOSE: 10.02 CTDIvol (mGy) MEDICAL HISTORY : Cardiovascular disease. Congestive heart failure. Renal insufficiency.HTN,aortic aneusrysm SURGICAL HISTORY : CABG TURP ENCOUNTER: Initial ACUITY: 1 day PAIN SCALE: 8/10 LOCATION: Abdomen TECHNIQUE: Volumetric scanning of the abdomen and pelvis was performed. Using automated exposure control and ad justment of the mA and/or kV according to patient size, radiation dose was kept as low as reasonably achievable to obtain optimal diagnostic quality images. FINDINGS: LOWER LUNGS: Bibasilar consolidation with air bronchograms. No effusions. Coronary artery atherosclerotic calcific ations. LIVER: Homogeneous density without lesion. There is no dilation of the biliary tree. No calcified gallston es. SPLEEN: Normal size without lesion. PANCREAS: Within normal limits. KIDNEYS: Atrophy of the right kidney. Left kidney is unremarkable. ADRENAL GLANDS: Within normal limits. VASCULAR: Diffuse calcified plaque throughout the abdominal aorta with a 2.8 x 2.6 cm infrarenal AAA. BOWEL/MESENTERY: A gas dilated colon is observed. The diameter of the colon slowly tapers within the sigmoid region. N o focal transition point. Scattered diverticuli within the sigmoid. No obstructing mass or lesion. A trace amount of free fluid adjacent to the right lobe of the liver. Small bowel is decompressed. No f ree air. ABDOMINAL WALL: Within normal limits. RETROPERITONEUM: There is no lymphadenopathy. BLADDER: No wall thickening or mass. REPRODUCTIVE: Within normal limits. INGUINAL: There is no lymphadenopathy or hernia. MUSCULOSKELETAL: Postsurgical changes including orthopedic hardware throughout the entire lumbar spine. CONCLUSION: 1. Gas dilated colon without an obstructing mass or lesion. This suggests a colonic ileus. 2. Trace amount of free fluid. 3. Bibasilar atelectasis. 4. Coronary artery atherosclerotic calcifications. 5. 2.8 x 2.6 cm AAA 6. Atrophic right kidney Jem Segundo Jr., MD on December 01, 2016 at 19:47 Board Certified Radiologist. This report was verified electronically.
[2016-12-01] MEDS: TAMSULOSIN HCL 0.4 MG CAP PO SCH (22:16)
[2016-12-01] MEDS: DILTIAZEM HCL 60 MG TAB PO SCH (23:07)
[2016-12-02] VITALS (33 sets, daily range): BP systolic 109–179; BP diastolic 75–136; PULSE 74–115; RESP 18–19; TEMP 97.1–98.5; O2SAT 92–96
[2016-12-02] MEDS ORDERED: DILTIAZEM HCL 30 MG TAB PO SCH
[2016-12-02] MEDS: RESP: IPRATROPIUM 0.5 MG/2.5 ML NEB NEB SCH ×7 (00:28→23:10)
[2016-12-02] MEDS: METOCLOPRAMIDE HCL 10 MG/2 ML VIAL IV PUSH SCH ×3 (06:13→22:58)
[2016-12-02] MEDS: DILTIAZEM HCL 60 MG TAB PO SCH ×2 (06:13→13:15)
[2016-12-02] MEDS: LEVOTHYROXINE SODIUM 25 MCG TAB PO SCH (06:13)
[2016-12-02 06:43] LABS: AUTOMATED NEUTROPHIL # 5.4 TH/MM3 (1.8-7.7); BASOPHIL # 0.1 TH/MM3 (0-0.2); BASOPHIL % 1.1 % (0.0-2.0); EOSINOPHIL # 0.1 TH/MM3 (0-0.4); EOSINOPHIL % 1.4 % (0.0-4.0); HEMATOCRIT 32.6 % (39.0-51.0); HEMO FLAGS DIFF FINAL; LYMPH % 11.5 % (9.0-44.0); LYMPHOCYTE # 0.9 TH/MM3 (1.0-4.8); MEAN CELL VOLUME 85.5 FL (80.0-100.0); MEAN CORPUSCULAR HEMOGLOBIN 28.4 PG (27.0-34.0); MEAN CORPUSCULAR HGB CONC 33.2 % (32.0-36.0); MONO % 14.1 % (0.0-8.0); NEUT % 71.9 % (16.0-70.0); PLATELET COUNT 249 TH/MM3 (150-450); RED BLOOD COUNT 3.81 MIL/MM3 (4.50-5.90); RED CELL DISTRIBUTION WIDTH 15.2 % (11.6-17.2); WHITE BLOOD COUNT 7.5 TH/MM3 (4.0-11.0)
[2016-12-02 07:12] LABS: BICARBONATE 28.3 MEQ/L (21.0-32.0); POTASSIUM 3.4 MEQ/L (3.5-5.1)
[2016-12-02] MEDS: PANTOPRAZOLE SOD 40 MG DELAYED RELEASE TAB PO SCH (09:22)
[2016-12-02] MEDS: SPIRONOLACTONE 25 MG TAB PO SCH (09:22)
[2016-12-02] MEDS: LOSARTAN 50 MG TAB PO SCH (09:23)
[2016-12-02] MEDS ORDERED: PROPOFOL 200 MG/20 ML AMP IV ONE (10:48)
[2016-12-02] MEDS ORDERED: SUGAMMADEX SODIUM 200 MG/2 ML VIAL IV PUSH ONE ×2 (10:51)
--- NOTE | 2016-12-02 11:12 | GIPROC ---
[facility] [address] [facility]. [facility] [place], [address] COLONOSCOPY PROCEDURE REPORT EXAM DATE: 12/02/2016 PATIENT NAME: Arnoldo Drummond MR #: [id number] BIRTHDATE: 1940 ENDOSCOPIST: Hilaria Dey MD ORDER #: [id number] BARGE ENGINEER: STATUS: inpatient INDICATIONS: The patient is a 75 yr old male here for a colonoscopy due to decompression of acute non-toxic megacolon PROCEDURE PERFORMED: Colonoscopy with decompression MEDICATIONS: Per Anesthesia and None. PREP QUALITY: poor PREP TYPE:Other: ESTIMATED BLOOD LOSS: None CONSENT: The patient understands the risks and benefits of the procedure and understands that these risks include, but are not limited to: sedation, allergic reaction, infection, perforation and/or bleeding. Alternative means of evaluation and treatment include, among others: physical exam, x-rays, and/or surgical intervention. The patient elects to proceed with this endoscopic procedure. medical equipment was checked for proper function. Hand hygiene and appropriate measures for infection prevention was taken. After the risks, benefits and alternatives of the procedure were thoroughly explained, Informed consent was verified, confirmed and timeout was successfully executed by the treatment team. A digital exam was performed The New [id number] (Std Gastro) endoscope was introduced through the anus and advanced to the cecum, which was identified by both the appendix and ileocecal valve. The instrument was then slowly withdrawn as the colon was fully examined. COLON FINDINGS: Diverticulum was found in the sigmoid colon with associated colonic spasm. The opening was medium sized. Retroflexion was not performed due to a narrow rectal vault The scope was then completely withdrawn from the patient and the procedure terminated. PROCEDURE WITHDRAWAL TIME:10minutes ADVERSE EVENTS: There were no complications. IMPRESSIONS: 1. Diverticulum in the sigmoid colon 2. Scope advanced to the right colon and air decompressed and suctioned out 3. Poor bowel prep limited mucosal inspection. RECOMMENDATIONS: No treatment RECALL: Return Colonoscopy when more stable and better bowel prep., timing to be determined after outpatient office visit after discharge. Hilaria Dey MD eSigned: Hilaria Dey MD 12/02/2016 11:12 AM cc:
[2016-12-02] MEDS ORDERED: DO NOT ADM ANY ANTICOAGULANT DRUGS PRN (11:45)
--- NOTE | 2016-12-02 13:29 | HHI.PR ---
Subjective Subjective Notes Up to chair Went for decompressive colonoscopy today Objective Vitals/I&O Vital Signs Date Time Temp Pulse Resp B/P Pulse Ox O2 Delivery O2 Flow Rate FiO2 12/02/16 12:20 94 12/02/16 12:00 97.1 19 135/91 96 171/78 12/02/16 11:30 Nasal Cannula 2 12/01/16 15:19 21 Labs Laboratory Tests Test 12/01/16 12/02/16 14:13 06:30 White Blood Count 7.8 7.5 Red Blood Count 3.74 3.81 Hemoglobin 10.7 10.8 Hematocrit 31.8 32.6 Mean Corpuscular Volume 85.0 85.5 Mean Corpuscular Hemoglobin 28.7 28.4 Mean Corpuscular Hemoglobin 33.8 33.2 Concent Red Cell Distribution Width 15.2 15.2 Platelet Count 275 249 Mean Platelet Volume 6.7 6.3 Neutrophils (%) (Auto) 69.0 71.9 Lymphocytes (%) (Auto) 13.8 11.5 Monocytes (%) (Auto) 14.8 14.1 Eosinophils (%) (Auto) 1.6 1.4 Basophils (%) (Auto) 0.8 1.1 Neutrophils # (Auto) 5.4 5.4 Lymphocytes # (Auto) 1.1 0.9 Monocytes # (Auto) 1.2 1.1 Eosinophils # (Auto) 0.1 0.1 Basophils # (Auto) 0.1 0.1 CBC Comment DIFF FINAL DIFF FINAL Differential Comment Sodium Level 129 125 Potassium Level 3.6 3.4 Chloride Level 90 86 Carbon Dioxide Level 29.7 28.3 Anion Gap 9 11 Blood Urea Nitrogen 17 16 Creatinine 1.66 1.63 Estimat Glomerular Filtration 40 41 Rate Random Glucose 110 108 Calcium Level 9.4 9.1 B-Type Natriuretic Peptide 83 Date/Time Procedure Status Source Growth 12/01/16 14:27 Stool Occult Blood (STEVEN) - Final Complete Stool Stool HEMOCCULT POSITIVE Radiology Last 48 hours Impressions Chest X-Ray 12/01/16 1352 Signed Impressions: Service Date/Time: December 13:52 - CONCLUSION: Mild patchy bilateral lower lung zone parenchymal opacity and low lung volumes. Maninder Mg MD Abdomen X-Ray 12/01/16 0000 Signed Impressions: Service Date/Time: December 11:07 - CONCLUSION: Diffuse air-filled distention of the colon, likely representing ileus. Maninder Mg MD Cardiovascular: Regular Lungs: Clear Abdomen: Other (Abdomen round; distended; minimal pain with tenderness ) Extremities: No edema A/P Assessment and Plan 75 year old male s/p cardiac catheterization; with 1 week of abdominal pain/ distention -Had decompressive colonoscopy today -Starts on liquids; encouraged just sips -OOB and mobilize -Monitor labs -GI following -Continue non operative treatment Attending Note - Dr. Horowitz Feeling better since colonoscopy Still distended, but nontender Discussed with patient and Dr. Dey The exam, history, and the medical decision-making described in the above note were completed with the assistance of the mid-level provider. I reviewed and agree with the findings presented. I attest that I had a [id number] encounter with the patient on the same day, and personally performed and documented my assessment and findings in the medical record. Susanne Winslow Dec 02, 2016 13:29 Arnoldo Horowitz MD Dec 02, 2016 18:30
--- NOTE | 2016-12-02 15:26 | HHI.PR ---
Subjective Remarks Feeling better Objective Vital Signs Date Time Temp Pulse Resp B/P Pulse Ox O2 Delivery O2 Flow Rate FiO2 12/02/16 14:00 96 12/02/16 13:00 104 12/02/16 12:20 94 12/02/16 12:00 97.1 95 19 135/91 96 171/78 12/02/16 11:30 97.6 91 19 146/79 97 Nasal Cannula 2 12/02/16 11:18 85 16 94 Nasal Cannula 2 12/02/16 11:15 97.4 91 19 141/67 88 Nasal Cannula 5 12/02/16 11:00 96 12/02/16 10:00 160/89 12/02/16 10:00 104 12/02/16 09:00 104 12/02/16 08:44 92 12/02/16 08:00 104 12/02/16 07:15 97.9 103 18 179/136 95 12/02/16 07:00 99 12/02/16 06:00 101 12/02/16 05:00 103 12/02/16 04:00 102 12/02/16 03:50 97.7 99 18 150/87 94 12/02/16 03:00 103 12/02/16 02:00 94 12/02/16 01:00 106 12/02/16 00:29 93 12/02/16 00:00 100 12/01/16 23:10 98.3 100 18 158/88 95 12/01/16 23:00 103 12/01/16 22:00 98 12/01/16 21:00 96 12/01/16 20:00 104 12/01/16 19:40 98.4 96 18 159/84 98 12/01/16 19:40 104 12/01/16 18:00 98 12/01/16 17:00 93 12/01/16 16:00 86 I/O 12/01/16 12/01/16 12/01/16 12/02/16 12/02/16 12/02/16 07:00 15:00 23:00 07:00 15:00 23:00 Intake Total 960 ml 777 ml 799 ml 500 ml Output Total 650 ml 2225 ml 0 ml Balance 310 ml -1448 ml 799 ml 500 ml Intake Oral 960 ml 480 ml 50 ml 0 ml IV Total 297 ml 749 ml 0 ml Other 500 ml Output Urine Total 650 ml 2225 ml 0 ml Estimated Blood Loss 0 ml # Voids 2 # Bowel Movements 1 1 Result Diagram: 12/02/16 0630 12/02/16 0630 Imaging Alert, fully oriented Lungs: ventilated Heart: S1, Regular, no gallop Abdomen: soft, no mass Ext: no edema Last Impressions Chest X-Ray 12/01/16 1352 Signed Impressions: Service Date/Time: December 13:52 - CONCLUSION: Mild patchy bilateral lower lung zone parenchymal opacity and low lung volumes. Maninder Mg MD Abdomen/Pelvis CT 12/01/16 0000 Signed Impressions: Service Date/Time: December 19:21 - CONCLUSION: 1. Gas dilated colon without an obstructing mass or lesion. This suggests a colonic ileus. 2. Trace amount of free fluid. 3. Bibasilar atelectasis. 4. Coronary artery atherosclerotic calcifications. 5. 2.8 x 2.6 cm AAA 6. Atrophic right kidney Jem Segundo Jr., MD Abdomen X-Ray 12/01/16 0000 Signed Impressions: Service Date/Time: December 11:07 - CONCLUSION: Diffuse air-filled distention of the colon, likely representing ileus. Maninder Mg MD Current Medications Medications (Trade) Dose Ordered Sig/Manuel Route Start Time Stop Time Status Last Admin (Cymbalta Dr) 60 mg DAILY PO 12/01/16 09:00 12/01/16 22:16 (Synthroid) 25 mcg DAILY@06 PO 12/01/16 06:00 12/02/16 06:13 (Cozaar) 50 mg DAILY PO 12/01/16 09:00 12/02/16 09:23 (Protonix) 40 mg DAILY PO 12/01/16 09:00 12/02/16 09:22 (Aldactone) 25 mg DAILY PO 12/01/16 09:00 12/02/16 09:22 (Flomax) 0.4 mg HS PO 11/30/16 21:00 12/01/16 22:16 Temazepam 15 mg 15 mg HS PRN PO 11/30/16 19:30 (Cordarone Inj/ D5W ([place]) Inj) 250 ml @ 0 mls/hr CONTINUOUS IV 12/01/16 10:20 12/01/16 11:07 (Reglan Inj) 5 mg Q8HR IV PUSH 12/01/16 14:00 12/02/16 13:15 (Cardizem) 60 mg Q6HR PO 12/02/16 00:00 12/02/16 13:15 Miscellaneous Information ALL NURSING DEPARTME... UNSCH PRN .XX 12/02/16 11:45 12/03/16 11:44 Assessment and Plan Problem List: (1) Atrial fibrillation Status: Acute Plan: HR control. In atrial tach If continue to improve, can be DH Follow up with me as OP Meds modified PO amio and PO cardizem (2) Palpitations Status: Acute Plan: Doing better (3) SOB (shortness of breath) Status: Acute Plan: Significantly improve (4) Abdominal pain Status: Acute Plan: Doing better Colonoscopy report indicates no significant abnormally Sarina Sutton MD Dec 02, 2016 15:26
--- NOTE | 2016-12-02 16:29 | HHI.PR ---
Subjective Remarks Follow for abdominal pain palpitations next Status post decompressive colonoscopy, feels better, no nausea or vomiting. No abdominal pain. No palpitations or shortness of breath. Objective Vitals Vital Signs Date Time Temp Pulse Resp B/P Pulse Ox O2 Delivery O2 Flow Rate FiO2 12/02/16 16:24 97 12/02/16 15:53 98.1 74 19 113/78 92 12/02/16 15:00 96 12/02/16 14:00 96 12/02/16 13:00 104 12/02/16 12:20 94 12/02/16 12:00 97.1 95 19 135/91 96 171/78 12/02/16 11:30 97.6 91 19 146/79 97 Nasal Cannula 2 12/02/16 11:18 85 16 94 Nasal Cannula 2 12/02/16 11:15 97.4 91 19 141/67 88 Nasal Cannula 5 12/02/16 11:00 96 12/02/16 10:00 160/89 12/02/16 10:00 104 12/02/16 09:00 104 12/02/16 08:44 92 12/02/16 08:00 104 12/02/16 07:15 97.9 103 18 179/136 95 12/02/16 07:00 99 12/02/16 06:00 101 12/02/16 05:00 103 12/02/16 04:00 102 12/02/16 03:50 97.7 99 18 150/87 94 12/02/16 03:00 103 12/02/16 02:00 94 12/02/16 01:00 106 12/02/16 00:29 93 12/02/16 00:00 100 12/01/16 23:10 98.3 100 18 158/88 95 12/01/16 23:00 103 12/01/16 22:00 98 12/01/16 21:00 96 12/01/16 20:00 104 12/01/16 19:40 98.4 96 18 159/84 98 12/01/16 19:40 104 12/01/16 18:00 98 12/01/16 17:00 93 I/O 12/01/16 12/01/16 12/01/16 12/02/16 12/02/16 12/02/16 07:00 15:00 23:00 07:00 15:00 23:00 Intake Total 960 ml 777 ml 799 ml 500 ml Output Total 650 ml 2225 ml 0 ml Balance 310 ml -1448 ml 799 ml 500 ml Intake Oral 960 ml 480 ml 50 ml 0 ml IV Total 297 ml 749 ml 0 ml Other 500 ml Output Urine Total 650 ml 2225 ml 0 ml Estimated Blood Loss 0 ml # Voids 2 # Bowel Movements 1 1 Result Diagram: 12/02/1630 12/02/1630 Objective Remarks Not in distress, well-nourished, looks stated age PERRL, pink conjunctiva without injection, anicteric Nose without bleeding, airway patent, oropharynx clear Supple neck, no masses or thyromegaly, trachea midline Normal rate and irregular rhythm. Clear to auscultation and symmetric bilaterally, normal respiratory effort. Normal bowel sounds, distended, soft, nontender. Extremities without clubbing, cyanosis, or edema. No rash of generalized distribution. Skin is warm and dry. AAO x3, no cranial nerve deficits, moves all 4 extremities, no focal neurologic deficits Normal mood, appropriate affect Procedures Decompressive colonoscopy 12/02/16 A/P Problem List: (1) Atrial fibrillation ICD Code: I48.91 Status: Acute (2) Palpitations ICD Code: R00.2 Status: Acute (3) SOB (shortness of breath) ICD Code: R06.02 Status: Acute (4) Abdominal pain ICD Code: R10.9 Status: Acute Assessment and Plan Mr. Drummond is a 75-year-old male patient with a known history of atrial fibrillation with history of ablation 1 week ago, COPD, HTN, CHF, AAA, PAD and CABG x 3 stents. Supposedly patient had an ablation one week ago with Dr. Sutton. Yesterday afternoon patient presented to his office for a follow up appointment. While in his office patient developed shortness of breath and palpitations. EKG was performed and patient was found to be in afib RVR, then sent to the ER immediately. Upon presentation, Dr. Sutton performed a cardioversion and placed on Amiodarone IV infusion with bolus. Hospitalist team consulted for assuming of care and medical management. Atrial fibrillation status post RVR with cardioversion 11/30/16. - Outpatient ablation [address] Sutton. - EKG reviewed, atrial fibrillation with RVR. - Continue amiodarone, switch to by mouth, continue Cardizem per cardiology. Cleared by cardiology for discharge. Hypertension, chronic - Spoke with Cardiology. Continue Cardizem and amiodarone. Continue Cozaar , switch Cardizem to long-acting - Monitor HR and BP closely. Acute kidney injury suspect secondary to CHF exacerbation. - Creatinine stable, repeat tomorrow. Decrease diuresis. - Monitor intake and output. Daily weights. Abdominal ileus, acute - Abdominal x-ray reviewed and showing diffuse air-filled distention of the colon, likely representing ileus. - GI consulted, appreciate input. General surgery consulted, appreciate input. Status post decompressive colonoscopy, advance diet, discharge tomorrow after cleared by GI and surgery Chronic obstructive pulmonary disease - DuoNebs scheduled and PRN for wheezing. Supplemental oxygen as needed to keep O2 sats >92%. - Chest x-ray ordered and reviewed, mild patchy bilateral lower lung zone parenchymal opacity and low lung volumes. Congestive heart failure, acute on chronic - BNP ordered and pending. - Continue Lasix 40 mg decreased to every 12 hours, continue Aldactone. - CXR reviewed, see above. Hyponatremia suspect secondary to hypervolemic hyponatremia - Could be from a properly anemia, recheck tomorrow. Decrease diuresis. Anemia, unknown origin suspect secondary to GI bleed. - Hemoglobin 10.7/Hematocrit 32.7 upon presentation. Repeat CBC, hemoglobin 10.7/hemoglobin 31.8. Follow. - Stool Hemoccult ordered. Follow. - Dark colored stools. Also on iron replacement. Monitor. - GI following, appreciate input. Hypokalemia-replaced GI prophylaxis: Protonix 40 mg PO daily. DVT prophylaxis: SCDs. Hold Xarelto for now, per cardiology recommendations. Other chronic medical problems include BPH, depression and hypothyroidism and are stable at this time. Resume home medications as indicated. Discharge Planning Possible discharge tomorrow to home, ambulating. Justo Sheppard MD Dec 02, 2016 16:29
[2016-12-02] MEDS ORDERED: POTASSIUM CHLORIDE 10 MEQ CONTROLLED RELEASE TAB PO ONE (16:45)
[2016-12-02] MEDS: DILTIAZEM-CD 240 MG CAP ER PO SCH (17:18)
[2016-12-02] MEDS: DULoxetine HCl DR 60 MG CAP PO SCH (20:46)
[2016-12-02] MEDS: TAMSULOSIN HCL 0.4 MG CAP PO SCH (20:46)
[2016-12-02] MEDS: AMIODARONE 200 MG TAB PO SCH (20:46)
[2016-12-03] VITALS (26 sets, daily range): BP systolic 107–153; BP diastolic 66–93; PULSE 114–147; RESP 18–20; TEMP 97.8–98.6; O2SAT 94–100
[2016-12-03] MEDS ORDERED: DILTIAZEM HCL 25 MG/5 ML VIAL IV ONE (01:00)
[2016-12-03] MEDS ORDERED: AMIODARONE 150 MG/D5W 97 ML BOLUS 10 MINUTES IV ONE ×4 (02:15→10:00)
[2016-12-03] MEDS: AMIODARONE INJ 450 MG in D5W (EXCEL BAG) 241 ML IV SCH ×2 (02:23→09:56)
[2016-12-03] MEDS: RESP: IPRATROPIUM 0.5 MG/2.5 ML NEB NEB SCH ×5 (04:02→21:27)
[2016-12-03 05:43] LABS: BICARBONATE 29.8 MEQ/L (21.0-32.0); MAGNESIUM 2.1 MG/DL (1.5-2.5); POTASSIUM 3.6 MEQ/L (3.5-5.1)
[2016-12-03] MEDS: LEVOTHYROXINE SODIUM 25 MCG TAB PO SCH (06:23)
[2016-12-03] MEDS: METOCLOPRAMIDE HCL 10 MG/2 ML VIAL IV PUSH SCH ×3 (06:23→21:40)
--- NOTE | 2016-12-03 08:33 | HHI.PR ---
Subjective Remarks Follow-up for palpitations, abdominal distention Status post decompressive colonoscopy yesterday, however patient still distended today, mother nauseated but not vomiting. Patient became more tachycardic again in the 130s to 150s, received Cardizem bolus, also retaining urine. Afebrile. Objective Vitals Vital Signs Date Time Temp Pulse Resp B/P Pulse Ox O2 Delivery O2 Flow Rate FiO2 12/03/16 06:00 135 12/03/16 05:00 134 12/03/16 04:00 135 12/03/16 03:52 134 20 122/69 94 12/03/16 03:00 136 12/03/16 03:00 98.6 135 18 114/79 94 12/03/16 02:45 137 18 114/79 94 12/03/16 02:30 140 18 153/91 94 12/03/16 02:00 142 12/03/16 01:00 147 12/03/16 00:14 141 12/02/16 23:10 98.0 106 18 121/77 92 12/02/16 23:10 93 21 12/02/16 23:00 115 12/02/16 22:00 94 12/02/16 21:00 98 12/02/16 20:00 108 12/02/16 19:30 98.5 108 18 159/78 95 12/02/16 19:00 97 12/02/16 18:21 106 12/02/16 17:36 111 12/02/16 17:19 109/75 12/02/16 16:24 97 12/02/16 15:53 98.1 74 19 113/78 92 12/02/16 15:00 96 12/02/16 14:00 96 12/02/16 13:00 104 12/02/16 12:20 94 12/02/16 12:00 97.1 95 19 135/91 96 171/78 12/02/16 11:30 97.6 91 19 146/79 97 Nasal Cannula 2 12/02/16 11:18 85 16 94 Nasal Cannula 2 12/02/16 11:15 97.4 91 19 141/67 88 Nasal Cannula 5 12/02/16 11:00 96 12/02/16 10:00 160/89 12/02/16 10:00 104 12/02/16 09:00 104 12/02/16 08:44 92 I/O 12/02/16 12/02/16 12/02/16 12/03/16 12/03/16 12/03/16 07:00 15:00 23:00 07:00 15:00 23:00 Intake Total 799 ml 500 ml 340 ml 535 ml Output Total 0 ml 300 ml 400 ml Balance 799 ml 500 ml 40 ml 135 ml Intake Oral 50 ml 0 ml 240 ml 350 ml IV Total 749 ml 0 ml 100 ml 185 ml Other 500 ml Output Urine Total 0 ml 300 ml 400 ml Estimated Blood Loss 0 ml Bladder Scan Volume Amount 426 ml 426 ml # Voids 2 2 # Bowel Movements 1 1 1 Result Diagram: 12/02/16 0630 12/03/16 0453 Objective Remarks Not in distress, well-nourished, looks stated age PERRL, pink conjunctiva without injection, anicteric Nose without bleeding Supple neck Tachycardic, irregular rhythm. Clear breath sounds. Normal bowel sounds, more distended, soft, nontender. Extremities without clubbing, cyanosis, 1+ edema. No rash of generalized distribution. Skin is warm and dry. AAO x3, no cranial nerve deficits, moves all 4 extremities, no focal neurologic deficits Normal mood, appropriate affect Procedures Decompressive colonoscopy 12/02/16 A/P Problem List: (1) Atrial fibrillation ICD Code: I48.91 Status: Acute (2) Palpitations ICD Code: R00.2 Status: Acute (3) SOB (shortness of breath) ICD Code: R06.02 Status: Acute (4) Abdominal pain ICD Code: R10.9 Status: Acute Assessment and Plan Mr. Drummond is a 75-year-old male patient with a known history of atrial fibrillation with history of ablation 1 week ago, COPD, HTN, CHF, AAA, PAD and CABG x 3 stents. Supposedly patient had an ablation one week ago with Dr. Sutton. Yesterday afternoon patient presented to his office for a follow up appointment. While in his office patient developed shortness of breath and palpitations. EKG was performed and patient was found to be in afib RVR, then sent to the ER immediately. Upon presentation, Dr. Sutton performed a cardioversion and placed on Amiodarone IV infusion with bolus. Hospitalist team consulted for assuming of care and medical management. Atrial fibrillation status post RVR with cardioversion 11/30/16. - Outpatient ablation by Dr. Sutton. - EKG reviewed, atrial fibrillation with RVR. -Was an oral amiodarone and Cardizem, had an episode of RVR today,? Hypovolemia, hold off Lasix, amiodarone drip restarted. Status post Cardizem boluses. Cardiology following. Check TSH. Hypertension, chronic - Continue Cozaar, Cardizem - Monitor HR and BP closely. Acute kidney injury suspect secondary to CHF exacerbation, possible chronic - Creatinine better, recheck BMP tomorrow. Continue diuresis orally. - Monitor intake and output. Daily weights. Abdominal ileus, acute - Abdominal x-ray reviewed and showing diffuse air-filled distention of the colon, likely representing ileus. - GI consulted, appreciate input. General surgery consulted, appreciate input. Status post decompressive colonoscopy 12/02/16, full liquid diet today, patient distended again, awaiting GI and general surgery. Chronic obstructive pulmonary disease - DuoNebs scheduled and PRN for wheezing. Supplemental oxygen as needed to keep O2 sats >92%. - Chest x-ray ordered and reviewed, mild patchy bilateral lower lung zone parenchymal opacity and low lung volumes. Diastolic Congestive heart failure, acute exacerbation on chronic - Continue Aldactone, hold Lasix. Check BMP tomorrow. Urinary retention-likely secondary to increased intra-abdominal pressure, insert Arroyo catheter, continue Flomax Hyponatremia suspect secondary to hypervolemic hyponatremia - Could be from hypervolemic hyponatremia versus chronic, diuresis decrease, recheck BMP tomorrow. Anemia, unknown origin suspect secondary to GI bleed. - Hemoglobin 10.7/Hematocrit 32.7 upon presentation. Repeat CBC, hemoglobin 10.7/hemoglobin 31.8. Follow. - Stool Hemoccult positive, awaiting GI input. - Dark colored stools. Also on iron replacement. Monitor. Hypokalemia-replaced GI prophylaxis: Protonix 40 mg PO daily. DVT prophylaxis: SCDs. Hold apixaban for now, per cardiology recommendations. Other chronic medical problems include BPH, depression and hypothyroidism and are stable at this time. Resume home medications as indicated. Discharge Planning Ambulating, discharge to home when cleared by cardiology, GI and surgery. Patient not medically ready Justo Sheppard MD Dec 03, 2016 08:33
[2016-12-03] MEDS: DILTIAZEM-CD 240 MG CAP ER PO SCH (09:00)
[2016-12-03] MEDS: AMIODARONE 200 MG TAB PO SCH ×2 (09:25→21:41)
[2016-12-03] MEDS: SPIRONOLACTONE 25 MG TAB PO SCH (09:26)
[2016-12-03] MEDS: PANTOPRAZOLE SOD 40 MG DELAYED RELEASE TAB PO SCH (09:26)
[2016-12-03] MEDS: LOSARTAN 50 MG TAB PO SCH (09:26)
--- NOTE | 2016-12-03 09:26 | PD.CARD.PN ---
Subjective Subjective Remarks Pt feels well but still in rapid A-tach Objective Medications Administered Medications Medications (Trade) Dose Ordered Sig/Manuel Route PRN Reason Start Time Stop Time Status Last Admin Dose Admin Duloxetine HCl (Cymbalta Dr) 60 mg DAILY PO 12/01/16 09:00 12/02/16 20:46 Levothyroxine Sodium (Synthroid) 25 mcg DAILY@06 PO 12/01/16 06:00 12/03/16 06:23 Losartan Potassium (Cozaar) 50 mg DAILY PO 12/01/16 09:00 12/02/16 09:23 Pantoprazole Sodium (Protonix) 40 mg DAILY PO 12/01/16 09:00 12/02/16 09:22 Spironolactone (Aldactone) 25 mg DAILY PO 12/01/16 09:00 12/02/16 09:22 Tamsulosin HCl (Flomax) 0.4 mg HS PO 11/30/16 21:00 12/02/16 20:46 Metoclopramide HCl (Reglan Inj) 5 mg Q8HR IV PUSH 12/01/16 14:00 12/03/16 06:23 Diltiazem HCl (Cardizem Cd) 240 mg DAILY PO 12/02/16 18:00 12/02/16 17:18 Amiodarone HCl 400 mg 400 mg Q12HR PO 12/02/16 21:00 12/07/16 20:59 12/02/16 20:46 Amiodarone HCl/ Dextrose (Cordarone Inj/ D5W ([place]) Inj) 250 ml @ 0 mls/hr CONTINUOUS IV 12/03/16 02:15 12/03/16 02:23 Vital Signs / I&O Vital Signs Date Time Temp Pulse Resp B/P Pulse Ox O2 Delivery O2 Flow Rate FiO2 12/03/16 08:00 135 12/03/16 07:00 98.4 135 18 142/88 100 12/03/16 07:00 137 12/03/16 06:00 135 12/03/16 05:00 134 12/03/16 04:00 135 12/03/16 03:52 134 20 122/69 94 12/03/16 03:00 136 12/03/16 03:00 98.6 135 18 114/79 94 12/03/16 02:45 137 18 114/79 94 12/03/16 02:30 140 18 153/91 94 12/03/16 02:00 142 12/03/16 01:00 147 12/03/16 00:14 141 12/02/16 23:10 98.0 106 18 121/77 92 12/02/16 23:10 93 21 12/02/16 23:00 115 12/02/16 22:00 94 12/02/16 21:00 98 12/02/16 20:00 108 12/02/16 19:30 98.5 108 18 159/78 95 12/02/16 19:00 97 12/02/16 18:21 106 12/02/16 17:36 111 12/02/16 17:19 109/75 12/02/16 16:24 97 12/02/16 15:53 98.1 74 19 113/78 92 12/02/16 15:00 96 12/02/16 14:00 96 12/02/16 13:00 104 12/02/16 12:20 94 12/02/16 12:00 97.1 95 19 135/91 96 171/78 12/02/16 11:30 97.6 91 19 146/79 97 Nasal Cannula 2 12/02/16 11:18 85 16 94 Nasal Cannula 2 12/02/16 11:15 97.4 91 19 141/67 88 Nasal Cannula 5 12/02/16 11:00 96 12/02/16 10:00 160/89 12/02/16 10:00 104 I/O 12/02/16 12/02/16 12/02/16 12/03/16 12/03/16 12/03/16 07:00 15:00 23:00 07:00 15:00 23:00 Intake Total 799 ml 500 ml 340 ml 535 ml Output Total 0 ml 300 ml 400 ml Balance 799 ml 500 ml 40 ml 135 ml Intake Oral 50 ml 0 ml 240 ml 350 ml IV Total 749 ml 0 ml 100 ml 185 ml Other 500 ml Output Urine Total 0 ml 300 ml 400 ml Estimated Blood Loss 0 ml Bladder Scan Volume Amount 426 ml 426 ml # Voids 2 2 # Bowel Movements 1 1 1 Physical Exam GENERAL: This is a well-nourished, well-developed patient, in no apparent distress. CARDIOVASCULAR: Rapid rate and rhythm without murmurs, gallops, or rubs. RESPIRATORY: Clear to auscultation. Breath sounds equal bilaterally. No wheezes , rales, or rhonchi. GASTROINTESTINAL: Abdomen soft, non-tender, nondistended. Normal active bowel sounds MUSCULOSKELETAL: Extremities without clubbing, cyanosis, or edema. NEURO: Alert & Oriented x4 to person, place, time, situation. Moves all ext x4 Laboratory Laboratory Tests Test 12/03/16 04:53 Sodium Level 126 MEQ/L Potassium Level 3.6 MEQ/L Chloride Level 89 MEQ/L Carbon Dioxide Level 29.8 MEQ/L Anion Gap 7 MEQ/L Blood Urea Nitrogen 16 MG/DL Creatinine 1.56 MG/DL Estimat Glomerular Filtration 43 ML/MIN Rate Random Glucose 144 MG/DL Calcium Level 9.2 MG/DL Magnesium Level 2.1 MG/DL Imaging Last Impressions Chest X-Ray 12/01/16 1352 Signed Impressions: Service Date/Time: December 13:52 - CONCLUSION: Mild patchy bilateral lower lung zone parenchymal opacity and low lung volumes. Maninedr Mg MD Abdomen/Pelvis CT 12/01/16 0000 Signed Impressions: Service Date/Time: December 19:21 - CONCLUSION: 1. Gas dilated colon without an obstructing mass or lesion. This suggests a colonic ileus. 2. Trace amount of free fluid. 3. Bibasilar atelectasis. 4. Coronary artery atherosclerotic calcifications. 5. 2.8 x 2.6 cm AAA 6. Atrophic right kidney Jem Segundo Jr., MD Abdomen X-Ray 12/01/16 0000 Signed Impressions: Service Date/Time: December 11:07 - CONCLUSION: Diffuse air-filled distention of the colon, likely representing ileus. Maninder Mg MD Assessment and Plan Problem List: (1) Atrial fibrillation Assessment and Plan: /Atrial tachycardia; increased his diltiazem, will restart eliquis, though it looks like he was on low dose, it seems he is a candidate for full dose given his age/weight; will start at 5mg bid and can be reduced by primary wire rope sales representative if they feel appropriate. Isaiah Arreguin MD Dec 03, 2016 09:26
[2016-12-03] MEDS ORDERED: APIXABAN 2.5 MG TABLET PO SCH (09:30)
[2016-12-03] MEDS ORDERED: DILTIAZEM-CD 120 MG CAP ER PO ONE (11:45)
[2016-12-03] MEDS: APIXABAN 5 MG TABLET PO SCH ×2 (11:59→21:41)
--- NOTE | 2016-12-03 12:31 | HHI.GIFU ---
Subjective Remarks Patient is sitting up in chair, cont. to feel distended, he is (+) for flatus and bms. No nausea or vomiting or pain (Escobar Ghotra) Objective Vitals I&O Vital Signs Date Time Temp Pulse Resp B/P Pulse Ox O2 Delivery O2 Flow Rate FiO2 12/03/16 12:00 131 12/03/16 11:00 97.8 133 20 135/66 95 12/03/16 11:00 131 12/03/16 10:00 131 12/03/16 09:00 133 12/03/16 08:00 135 12/03/16 07:00 98.4 135 18 142/88 100 12/03/16 07:00 137 12/03/16 06:00 135 12/03/16 05:00 134 12/03/16 04:00 135 12/03/16 03:52 134 20 122/69 94 12/03/16 03:00 136 12/03/16 03:00 98.6 135 18 114/79 94 12/03/16 02:45 137 18 114/79 94 12/03/16 02:30 140 18 153/91 94 12/03/16 02:00 142 12/03/16 01:00 147 12/03/16 00:14 141 12/02/16 23:10 98.0 106 18 121/77 92 12/02/16 23:10 93 21 12/02/16 23:00 115 12/02/16 22:00 94 12/02/16 21:00 98 12/02/16 20:00 108 12/02/16 19:30 98.5 108 18 159/78 95 12/02/16 19:00 97 12/02/16 18:21 106 12/02/16 17:36 111 12/02/16 17:19 109/75 12/02/16 16:24 97 12/02/16 15:53 98.1 74 19 113/78 92 12/02/16 15:00 96 12/02/16 14:00 96 12/02/16 13:00 104 I/O 12/02/16 12/02/16 12/02/16 12/03/16 12/03/16 12/03/16 07:00 15:00 23:00 07:00 15:00 23:00 Intake Total 799 ml 500 ml 340 ml 535 ml Output Total 0 ml 300 ml 400 ml Balance 799 ml 500 ml 40 ml 135 ml Intake Oral 50 ml 0 ml 240 ml 350 ml IV Total 749 ml 0 ml 100 ml 185 ml Other 500 ml Output Urine Total 0 ml 300 ml 400 ml Estimated Blood Loss 0 ml Bladder Scan Volume Amount 426 ml 426 ml # Voids 2 2 # Bowel Movements 1 1 1 Laboratory Laboratory Tests Test 12/03/16 04:53 Sodium Level 126 Potassium Level 3.6 Chloride Level 89 Carbon Dioxide Level 29.8 Anion Gap 7 Blood Urea Nitrogen 16 Creatinine 1.56 Estimat Glomerular Filtration 43 Rate Random Glucose 144 Calcium Level 9.2 Magnesium Level 2.1 Thyroid Stimulating Hormone 4.430 3rd Gen Date/Time Procedure Status Source Growth 12/01/16 14:27 Stool Occult Blood (STEVEN) - Final Complete Stool Stool HEMOCCULT POSITIVE Imaging Last Impressions Chest X-Ray 12/01/16 1352 Signed Impressions: Service Date/Time: December 13:52 - CONCLUSION: Mild patchy bilateral lower lung zone parenchymal opacity and low lung volumes. Maninder Mg MD Abdomen/Pelvis CT 12/01/16 0000 Signed Impressions: Service Date/Time: December 19:21 - CONCLUSION: 1. Gas dilated colon without an obstructing mass or lesion. This suggests a colonic ileus. 2. Trace amount of free fluid. 3. Bibasilar atelectasis. 4. Coronary artery atherosclerotic calcifications. 5. 2.8 x 2.6 cm AAA 6. Atrophic right kidney Jem Segundo Jr., MD Abdomen X-Ray 12/01/16 0000 Signed Impressions: Service Date/Time: December 11:07 - CONCLUSION: Diffuse air-filled distention of the colon, likely representing ileus. Maninder Mg MD Physical Exam HEENT:normocephalic; atraumatic; no jaundice. NECK: Neck is supple, no JVD, no lymphadenopathy. CHEST: Chest is clear to auscultation and percussion. CARDIAC: Regular rate and rhythm with no murmur gallop or rubs. ABDOMEN: Firm, distended, nontender; no hepatosplenomegaly; bowel sounds hypoactive EXTREMITIES: No clubbing, cyanosis, or edema. SKIN: Normal; no rash; no jaundice. SENIOR CYTOGENETIC TECHNOLOGIST: No focal deficits; alert and oriented times three. (Escobar Ghotra) Assessment and Plan Plan ASSESSMENT - Ileus. Patient cont. 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 KUB 12/01/16 --> shows diffuse air filled distention of colon, likely representing ileus. CT on (12/01/16) 1. Gas dilated colon without an obstructing mass or lesion. This suggests a colonic ileus. 2. Trace amount of free fluid. 3. Bibasilar atelectasis. 4. Coronary artery atherosclerotic calcifications. 5. 2.8 x 2.6 cm AAA 6. Atrophic right kidney - Anemia/heme (+) stools- No signs of bleeding, will need EGD/repeat colonoscopy at some point with better prep PLAN - Full liquids - KUB today - GS on the case - Cont. Reglan - Further recommendations based on results above This pt seen by myself and Dr Dey and this note is written on his behalf (Escobar Ghotra) Physician Comments Seen and examined, plan as above, slight improvement since yesterday, will follow up with you. (Hilaria Dey MD) Escobar Ghotra Dec 03, 2016 12:31 Hilaria Dey MD Dec 03, 2016 17:55
--- NOTE | 2016-12-03 12:43 | HHI.PR ---
Subjective Subjective Notes DAILY PROGRESS NOTE FOR SURGICAL ATTENDING, DR. JOSUE BYRD Patient says he feels better after colonoscopy Objective Vitals/I&O Vital Signs Date Time Temp Pulse Resp B/P Pulse Ox O2 Delivery O2 Flow Rate FiO2 12/03/16 12:00 131 12/03/16 11:00 97.8 20 135/66 95 12/02/16 23:10 21 12/02/16 11:30 Nasal Cannula 2 Labs Laboratory Tests Test 12/03/16 04:53 Sodium Level 126 Potassium Level 3.6 Chloride Level 89 Carbon Dioxide Level 29.8 Anion Gap 7 Blood Urea Nitrogen 16 Creatinine 1.56 Estimat Glomerular Filtration 43 Rate Random Glucose 144 Calcium Level 9.2 Magnesium Level 2.1 Thyroid Stimulating Hormone 4.430 3rd Gen Date/Time Procedure Status Source Growth 12/01/16 14:27 Stool Occult Blood (STEVEN) - Final Complete Stool Stool HEMOCCULT POSITIVE Radiology Last Impressions Chest X-Ray 12/01/16 1352 Signed Impressions: Service Date/Time: December 13:52 - CONCLUSION: Mild patchy bilateral lower lung zone parenchymal opacity and low lung volumes. Maninder Mg MD Abdomen/Pelvis CT 12/01/16 0000 Signed Impressions: Service Date/Time: December 19:21 - CONCLUSION: 1. Gas dilated colon without an obstructing mass or lesion. This suggests a colonic ileus. 2. Trace amount of free fluid. 3. Bibasilar atelectasis. 4. Coronary artery atherosclerotic calcifications. 5. 2.8 x 2.6 cm AAA 6. Atrophic right kidney Jem Segundo Jr., MD Abdomen X-Ray 12/01/16 0000 Signed Impressions: Service Date/Time: December 11:07 - CONCLUSION: Diffuse air-filled distention of the colon, likely representing ileus. Maninder Mg MD Cardiovascular: Irregular Lungs: Clear Abdomen: Other Narrative Exam Passing flatus Slightly distended abdomen no rebound guarding Distant bowel sounds A/P Problem List: (1) Adynamic ileus (2) Atrial fibrillation (3) Palpitations (4) SOB (shortness of breath) (5) Abdominal pain Assessment and Plan 75 her old gentleman who had a ablation for atrial fibrillation that apparently didn't work now has a colonic ileus which is improving. Attending Statement NOTE FOR SURGICAL ATTENDING, DR. JOSUE BYRD I attest that I had a [id number] encounter with the patient on the same day, and personally performed and documented my assessment and findings in the medical record. The following services were provided during this hospital visit: Chart data review, vital sign assessments/reviewing monitor data Review of consultations notes if present. Medication orders/review and/or management Ordering and/or reviewing lab tests Ordering and/or interpreting/reviewing x-rays and/or diagnostic studies Care of the patient and discussion of the patient with the care team Documentation time To help prompt me to consider important information that might be impacting today's encounter and assessment, information from prior notes written by myself or my colleagues may have been "brought forward/copy and pasted" into today's note. Problem Qualifiers (1) Abdominal pain: Qualified Code: R10.84 - Generalized abdominal pain Josue Byrd MD Dec 03, 2016 12:43
[2016-12-03 13:42] LABS: FREE T3 2.45 PG/ML (2.18-3.98); FREE T4 1.75 NG/DL (0.76-1.46)
--- NOTE | 2016-12-03 13:44 | RADRPT ---
EXAM DATE/TIME: 12/03/2016 12:46 [facility] COMPARISON: ABDOMEN KUB ONLY, December 01, 2016, 11:07. INDICATIONS : Abdominal pain. Possible ileus. MEDICAL HISTORY : Cardiovascular disease. Congestive heart failure. Renal insufficiency.HTN,aortic aneusrysm SURGICAL HISTORY : CABG. Lumbar fusion. ENCOUNTER: Subsequent ACUITY: 3 days PAIN SCORE: 10/10 LOCATION: Bilateral abdomen. FINDINGS: 2 supine AP views of the abdomen. Longitudinal rods of the thoracic lumbar spine. Diffuse air-filled distention of the transverse colon unchanged. CONCLUSION: Diffuse air-filled distention of the transverse colon unchanged, likely representing ileus. Maninder Mg MD on December 03, 2016 at 13:41 Board Certified Radiologist. This report was verified electronically.
[2016-12-03] MEDS: TAMSULOSIN HCL 0.4 MG CAP PO SCH (21:41)
[2016-12-03] MEDS: DULoxetine HCl DR 60 MG CAP PO SCH (21:46)
[2016-12-04] VITALS (28 sets, daily range): BP systolic 67–144; BP diastolic 27–89; PULSE 57–129; RESP 18–27; TEMP 97.4–98.6; O2SAT 90–99
[2016-12-04] MEDS: RESP: IPRATROPIUM 0.5 MG/2.5 ML NEB NEB SCH ×7 (00:05→23:15)
[2016-12-04] MEDS: TEMAZEPAM 15 MG CAP PO PRN (00:25)
[2016-12-04] MEDS: AMIODARONE INJ 450 MG in D5W (EXCEL BAG) 241 ML IV SCH (03:32)
[2016-12-04 06:10] LABS: BICARBONATE 28.3 MEQ/L (21.0-32.0); POTASSIUM 3.4 MEQ/L (3.5-5.1)
[2016-12-04] MEDS: LEVOTHYROXINE SODIUM 25 MCG TAB PO SCH (06:18)
[2016-12-04] MEDS: METOCLOPRAMIDE HCL 10 MG/2 ML VIAL IV PUSH SCH ×3 (06:19→22:08)
[2016-12-04] MEDS: PANTOPRAZOLE SOD 40 MG DELAYED RELEASE TAB PO SCH (08:34)
[2016-12-04] MEDS: APIXABAN 5 MG TABLET PO SCH ×2 (08:34→22:09)
[2016-12-04] MEDS: SPIRONOLACTONE 25 MG TAB PO SCH (08:34)
[2016-12-04] MEDS: LOSARTAN 50 MG TAB PO SCH (08:34)
[2016-12-04] MEDS: DILTIAZEM-CD 180 MG CAP ER PO SCH (08:34)
[2016-12-04] MEDS: AMIODARONE 200 MG TAB PO SCH ×2 (08:34→22:08)
[2016-12-04] MEDS ORDERED: POTASSIUM CHLORIDE 25 MEQ EFFERVESCENT TAB PO ONE (08:45)
--- NOTE | 2016-12-04 09:19 | HHI.PR ---
Subjective Remarks Follow-up for ileus, atrial fibrillation Patient still with atrial fibrillation and RVR, mild palpitations, no chest pain , no shortness of breath. Still feels bloated and distended, just had a bowel movement now. No nausea or vomiting. Good urine output Objective Vitals Vital Signs Date Time Temp Pulse Resp B/P Pulse Ox O2 Delivery O2 Flow Rate FiO2 12/04/16 09:00 127 12/04/16 08:00 129 12/04/16 07:47 95 12/04/16 07:00 128 12/04/16 07:00 98.0 129 18 144/87 95 12/04/16 06:29 128 12/04/16 05:13 112 12/04/16 04:10 114 12/04/16 03:17 125 12/04/16 03:16 97.8 127 20 134/77 99 12/04/16 02:52 126 12/04/16 01:06 128 12/04/16 00:58 127 12/03/16 23:20 130 12/03/16 23:20 98.2 130 20 144/93 95 12/03/16 22:00 128 12/03/16 21:28 21 12/03/16 21:00 128 12/03/16 20:00 98.4 127 18 132/77 96 12/03/16 20:00 129 12/03/16 20:00 126 12/03/16 18:00 128 12/03/16 17:00 127 12/03/16 16:00 114 12/03/16 15:00 98.0 130 20 107/68 95 12/03/16 15:00 129 12/03/16 14:00 130 12/03/16 13:00 128 12/03/16 12:00 131 12/03/16 11:00 97.8 133 20 135/66 95 12/03/16 11:00 131 12/03/16 10:00 131 I/O 12/03/16 12/03/16 12/03/16 12/04/16 12/04/16 12/04/16 07:00 15:00 23:00 07:00 15:00 23:00 Intake Total 535 ml 1313 ml 673 ml Output Total 400 ml 400 ml 200 ml Balance 135 ml 913 ml 473 ml Intake Oral 350 ml 960 ml 460 ml IV Total 185 ml 353 ml 213 ml Output Urine Total 400 ml 400 ml 200 ml Bladder Scan Volume Amount 426 ml 103 ml 41 ml 231 ml 426 ml # Bowel Movements 1 1 Result Diagram: 12/02/16 0630 12/04/16 0421 Imaging Last Impressions Abdomen X-Ray 12/03/16 0000 Signed Impressions: Service Date/Time: Saturday, December 03, 2016 12:46 - CONCLUSION: Diffuse air-filled distention of the transverse colon unchanged, likely representing ileus. Maninder Mg MD Chest X-Ray 12/01/16 1352 Signed Impressions: Service Date/Time: December 13:52 - CONCLUSION: Mild patchy bilateral lower lung zone parenchymal opacity and low lung volumes. Maninder Mg MD Abdomen/Pelvis CT 12/01/16 0000 Signed Impressions: Service Date/Time: December 19:21 - CONCLUSION: 1. Gas dilated colon without an obstructing mass or lesion. This suggests a colonic ileus. 2. Trace amount of free fluid. 3. Bibasilar atelectasis. 4. Coronary artery atherosclerotic calcifications. 5. 2.8 x 2.6 cm AAA 6. Atrophic right kidney Jem Segundo Jr., MD Objective Remarks Not in distress, well-nourished, looks stated age PERRL, pink conjunctiva without injection, anicteric Supple neck Tachycardic, irregular rhythm. Clear breath sounds. No crackles. Normal bowel sounds, still very distended, soft, nontender. Extremities without clubbing, cyanosis, trace to 1+ edema. No rash of generalized distribution. Skin is warm and dry. AAO x3, no cranial nerve deficits, moves all 4 extremities, no focal neurologic deficits Normal mood, appropriate affect Procedures Decompressive colonoscopy 12/02/16 A/P Problem List: (1) Atrial fibrillation ICD Code: I48.91 Status: Acute (2) Palpitations ICD Code: R00.2 Status: Acute (3) SOB (shortness of breath) ICD Code: R06.02 Status: Acute (4) Abdominal pain ICD Code: R10.9 Status: Acute Assessment and Plan Mr. Drummond is a 75-year-old male patient with a known history of atrial fibrillation with history of ablation 1 week ago, COPD, HTN, CHF, AAA, PAD and CABG x 3 stents. Supposedly patient had an ablation one week ago with Dr. Sutton. Yesterday afternoon patient presented to his office for a follow up appointment. While in his office patient developed shortness of breath and palpitations. EKG was performed and patient was found to be in afib RVR, then sent to the ER immediately. Upon presentation, Dr. Sutton performed a cardioversion and placed on Amiodarone IV infusion with bolus. Hospitalist team consulted for assuming of care and medical management. Atrial fibrillation status post RVR with cardioversion 11/30/16. - Outpatient ablation by Dr. Sutton about a week ago. EKG reviewed, atrial fibrillation with RVR. Still in RVR, continue intravenous amiodarone, oral amiodarone, increase Cardizem orally. TSH high, no correlation with free T4, follow-up as outpatient. Cardiology following. Eliquis restarted per cardiology Hypertension, chronic-continue Cozaar and Cardizem. Acute kidney injury suspect secondary to CHF exacerbation, possible chronic - Creatinine better each day. Abdominal ileus, acute - Abdominal x-ray reviewed and showing diffuse air-filled distention of the colon, likely representing ileus. - GI consulted, appreciate input Status post decompressive colonoscopy 12/02, continue full liquid diet,Repeat KUB consistent with ileus but passing bowels, a lot of gas. Start simethicone. Awaiting input from GI and surgery. Chronic obstructive pulmonary disease - DuoNebs scheduled and PRN for wheezing. Supplemental oxygen as needed to keep O2 sats >92%. - Chest x-ray ordered and reviewed, mild patchy bilateral lower lung zone parenchymal opacity and low lung volumes. Lung windows from KUB appears good. Diastolic Congestive heart failure, acute exacerbation on chronic - Continue Aldactone, restart Lasix. Urinary retention-likely secondary to increased intra-abdominal pressure, resolved. Continue Flomax Hyponatremia suspect secondary to hypervolemic hyponatremia, resume Lasix, start sodium chloride tablets. Recheck tomorrow. Anemia, unknown origin suspect secondary to GI bleed. - Hemoglobin 10.7/Hematocrit 32.7 upon presentation. Repeat CBC, hemoglobin 10.7/hemoglobin 31.8. Follow. - Stool Hemoccult positive, awaiting GI input. - Dark colored stools. Also on iron replacement. Monitor. Hypokalemia-replaced GI prophylaxis: Protonix 40 mg PO daily. DVT prophylaxis: SCDs. Resume apixaban Discharge Planning Ambulating, discharge to home when cleared by cardiology, GI and surgery. Patient not medically ready Problem Qualifiers (1) Abdominal pain: Qualified Code: R10.84 - Generalized abdominal pain Justo Sheppard MD Dec 04, 2016 09:19
--- NOTE | 2016-12-04 09:36 | PD.CARD.PN ---
Subjective Subjective Remarks No complaints, still rapid afib on tele. Objective Medications Administered Medications Medications (Trade) Dose Ordered Sig/Manuel Route PRN Reason Start Time Stop Time Status Last Admin Dose Admin Levothyroxine Sodium (Synthroid) 25 mcg DAILY@06 PO 12/01/16 06:00 12/04/16 06:18 Losartan Potassium (Cozaar) 50 mg DAILY PO 12/01/16 09:00 12/04/16 08:34 Pantoprazole Sodium (Protonix) 40 mg DAILY PO 12/01/16 09:00 12/04/16 08:34 Spironolactone (Aldactone) 25 mg DAILY PO 12/01/16 09:00 12/04/16 08:34 Tamsulosin HCl (Flomax) 0.4 mg HS PO 11/30/16 21:00 12/03/16 21:41 Temazepam (Restoril) 15 mg HS PRN PO SLEEP 11/30/16 19:30 12/04/16 00:25 Metoclopramide HCl (Reglan Inj) 5 mg Q8HR IV PUSH 12/01/16 14:00 12/04/16 06:19 Amiodarone HCl 400 mg 400 mg Q12HR PO 12/02/16 21:00 12/07/16 20:59 12/04/16 08:34 Amiodarone HCl/ Dextrose (Cordarone Inj/ D5W ([facility]) Inj) 250 ml @ 0 mls/hr CONTINUOUS IV 12/03/16 02:15 12/04/16 03:32 Diltiazem HCl (Cardizem Cd) 360 mg DAILY PO 12/04/16 09:00 12/04/16 08:34 Apixaban (Eliquis) 5 mg BID PO 12/03/16 11:45 12/04/16 08:34 Vital Signs / I&O Vital Signs Date Time Temp Pulse Resp B/P Pulse Ox O2 Delivery O2 Flow Rate FiO2 12/04/16 09:00 127 12/04/16 08:00 129 12/04/16 07:47 95 12/04/16 07:00 128 12/04/16 07:00 98.0 129 18 144/87 95 12/04/16 06:29 128 12/04/16 05:13 112 12/04/16 04:10 114 12/04/16 03:17 125 12/04/16 03:16 97.8 127 20 134/77 99 12/04/16 02:52 126 12/04/16 01:06 128 12/04/16 00:58 127 12/03/16 23:20 130 12/03/16 23:20 98.2 130 20 144/93 95 12/03/16 22:00 128 12/03/16 21:28 21 12/03/16 21:00 128 12/03/16 20:00 98.4 127 18 132/77 96 12/03/16 20:00 129 12/03/16 20:00 126 12/03/16 18:00 128 12/03/16 17:00 127 12/03/16 16:00 114 12/03/16 15:00 98.0 130 20 107/68 95 12/03/16 15:00 129 12/03/16 14:00 130 12/03/16 13:00 128 12/03/16 12:00 131 12/03/16 11:00 97.8 133 20 135/66 95 12/03/16 11:00 131 12/03/16 10:00 131 I/O 12/03/16 12/03/16 12/03/16 12/04/16 12/04/16 12/04/16 07:00 15:00 23:00 07:00 15:00 23:00 Intake Total 535 ml 1313 ml 673 ml Output Total 400 ml 400 ml 200 ml Balance 135 ml 913 ml 473 ml Intake Oral 350 ml 960 ml 460 ml IV Total 185 ml 353 ml 213 ml Output Urine Total 400 ml 400 ml 200 ml Bladder Scan Volume Amount 426 ml 103 ml 41 ml 231 ml 426 ml # Bowel Movements 1 1 Physical Exam GENERAL: This is a well-nourished, well-developed patient, in no apparent distress. CARDIOVASCULAR: Rapid rate and rhythm without murmurs, gallops, or rubs. RESPIRATORY: Clear to auscultation. Breath sounds equal bilaterally. No wheezes , rales, or rhonchi. GASTROINTESTINAL: Abdomen soft, non-tender, nondistended. Normal active bowel sounds MUSCULOSKELETAL: Extremities without clubbing, cyanosis, or edema. NEURO: Alert & Oriented x4 to person, place, time, situation. Moves all ext x4 Laboratory Laboratory Tests Test 12/04/16 04:21 Sodium Level 124 MEQ/L Potassium Level 3.4 MEQ/L Chloride Level 89 MEQ/L Carbon Dioxide Level 28.3 MEQ/L Anion Gap 7 MEQ/L Blood Urea Nitrogen 13 MG/DL Creatinine 1.47 MG/DL Estimat Glomerular Filtration 47 ML/MIN Rate Random Glucose 117 MG/DL Calcium Level 8.8 MG/DL B-Type Natriuretic Peptide 59 PG/ML Imaging Last Impressions Abdomen X-Ray 12/03/16 0000 Signed Impressions: Service Date/Time: Saturday, December 03, 2016 12:46 - CONCLUSION: Diffuse air-filled distention of the transverse colon unchanged, likely representing ileus. Maninder Mg MD Chest X-Ray 12/01/16 1352 Signed Impressions: Service Date/Time: December 13:52 - CONCLUSION: Mild patchy bilateral lower lung zone parenchymal opacity and low lung volumes. Maninder Mg MD Abdomen/Pelvis CT 12/01/16 0000 Signed Impressions: Service Date/Time: December 19:21 - CONCLUSION: 1. Gas dilated colon without an obstructing mass or lesion. This suggests a colonic ileus. 2. Trace amount of free fluid. 3. Bibasilar atelectasis. 4. Coronary artery atherosclerotic calcifications. 5. 2.8 x 2.6 cm AAA 6. Atrophic right kidney Jem Segundo Jr., MD Assessment and Plan Problem List: (1) Atrial fibrillation Assessment and Plan: /Atrial tachycardia; added lopressor, on eliquis; will try to get him off amio ggt as rates improve. Isaiah Arreguin MD Dec 04, 2016 09:36
[2016-12-04] MEDS: SODIUM CHLORIDE 1 GRAM TAB PO SCH ×3 (09:46→17:47)
[2016-12-04] MEDS ORDERED: METOPROLOL TARTRATE 50 MG TAB PO SCH (10:00)
[2016-12-04] MEDS ORDERED: BACL10TA PO (11:15)
--- NOTE | 2016-12-04 11:19 | HHI.GIFU ---
Subjective Remarks Sitting up in chair. Continues to have abdominal distention, but states it is improving. +Flatus and bowel movement. Reports bowel movement was liquid. No nausea and vomiting. (Shanna Madrigal) Objective Vitals I&O Vital Signs Date Time Temp Pulse Resp B/P Pulse Ox O2 Delivery O2 Flow Rate FiO2 12/04/16 10:00 128 12/04/16 09:00 127 12/04/16 08:00 129 12/04/16 07:47 95 12/04/16 07:00 128 12/04/16 07:00 98.0 129 18 144/87 95 12/04/16 06:29 128 12/04/16 05:13 112 12/04/16 04:10 114 12/04/16 03:17 125 12/04/16 03:16 97.8 127 20 134/77 99 12/04/16 02:52 126 12/04/16 01:06 128 12/04/16 00:58 127 12/03/16 23:20 130 12/03/16 23:20 98.2 130 20 144/93 95 12/03/16 22:00 128 12/03/16 21:28 21 12/03/16 21:00 128 12/03/16 20:00 98.4 127 18 132/77 96 12/03/16 20:00 129 12/03/16 20:00 126 12/03/16 18:00 128 12/03/16 17:00 127 12/03/16 16:00 114 12/03/16 15:00 98.0 130 20 107/68 95 12/03/16 15:00 129 12/03/16 14:00 130 12/03/16 13:00 128 12/03/16 12:00 131 I/O 12/03/16 12/03/16 12/03/16 12/04/16 12/04/16 12/04/16 07:00 15:00 23:00 07:00 15:00 23:00 Intake Total 535 ml 1313 ml 673 ml Output Total 400 ml 400 ml 200 ml Balance 135 ml 913 ml 473 ml Intake Oral 350 ml 960 ml 460 ml IV Total 185 ml 353 ml 213 ml Output Urine Total 400 ml 400 ml 200 ml Bladder Scan Volume Amount 426 ml 103 ml 41 ml 231 ml 426 ml # Bowel Movements 1 1 Laboratory Laboratory Tests Test 12/04/16 04:21 Sodium Level 124 Potassium Level 3.4 Chloride Level 89 Carbon Dioxide Level 28.3 Anion Gap 7 Blood Urea Nitrogen 13 Creatinine 1.47 Estimat Glomerular Filtration 47 Rate Random Glucose 117 Calcium Level 8.8 Magnesium Level 2.0 B-Type Natriuretic Peptide 59 Date/Time Procedure Status Source Growth 12/01/16 14:27 Stool Occult Blood (STEVEN) - Final Complete Stool Stool HEMOCCULT POSITIVE Imaging Last Impressions Abdomen X-Ray 12/03/16 0000 Signed Impressions: Service Date/Time: Saturday, December 03, 2016 12:46 - CONCLUSION: Diffuse air-filled distention of the transverse colon unchanged, likely representing ileus. Maninder Mg MD Chest X-Ray 12/01/16 1352 Signed Impressions: Service Date/Time: December 13:52 - CONCLUSION: Mild patchy bilateral lower lung zone parenchymal opacity and low lung volumes. Maninder Mg MD Abdomen/Pelvis CT 12/01/16 0000 Signed Impressions: Service Date/Time: December 19:21 - CONCLUSION: 1. Gas dilated colon without an obstructing mass or lesion. This suggests a colonic ileus. 2. Trace amount of free fluid. 3. Bibasilar atelectasis. 4. Coronary artery atherosclerotic calcifications. 5. 2.8 x 2.6 cm AAA 6. Atrophic right kidney Jem Segundo Jr., MD Physical Exam HEENT: PERRLA, normocephalic; atraumatic; no jaundice. NECK: Neck is supple, no JVD, no lymphadenopathy. CHEST: CTA CARDIAC: RRR. ABDOMEN: Firm, distended, nontender; no hepatosplenomegaly; bowel sounds hypoactive EXTREMITIES: No clubbing, cyanosis, or edema. SKIN: Normal; no rash; no jaundice. [employer]: No focal deficits; alert and oriented times three. 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 Scope advanced to the right colon and air decompressed and suctioned out. Poor bowel prep limited mucosal inspection. KUB 12/01/16--shows diffuse air filled distention of colon, likely representing ileus. CT on (12/01/16) 1. Gas dilated colon without an obstructing mass or lesion. This suggests a colonic ileus. 2. Trace amount of free fluid. 3. Bibasilar atelectasis. 4. Coronary artery atherosclerotic calcifications. 5. 2.8 x 2.6 cm AAA 6. Atrophic right kidney Abdomen X-Ray 12/03/16--Diffuse air-filled distention of the transverse colon unchanged, likely representing ileus. Anemia/heme (+) stools, No signs of bleeding, will need EGD/repeat colonoscopy at some point with better prep PLAN -Full liquids -GS following -Cont. Reglan -Supportive care. Patient seen and examined by Dr. Dey and myself and this note is written on his behalf. (Shanna Madrigal) Physician Comments Seen and examined, doing better today and had a BM this morning. Will follow up with you. (Hilaria Dey MD) Shanna Madrigal Dec 04, 2016 11:19 Hilaria Dey MD Dec 04, 2016 22:48
[2016-12-04] MEDS ORDERED: SODIUM CHLORID 0.9% 500 ML INJ 500 ML IV ONE (11:45)
--- NOTE | 2016-12-04 13:49 | RADRPT ---
EXAM DATE/TIME: 12/04/2016 12:40 [facility] COMPARISON: CHEST SINGLE AP, December 01, 2016, 13:52. INDICATIONS : Short of breath. MEDICAL HISTORY : Cardiovascular disease. Congestive heart failure. SURGICAL HISTORY : CABG. ENCOUNTER: Subsequent ACUITY: 4 - 6 days PAIN SCORE: 0/10 LOCATION: Bilateral chest FINDINGS: Single AP view of the chest. Median sternotomy wires. Low lung volumes. Increased bilateral lower lob e atelectasis. No evidence of pneumothorax. Cardiomediastinal silhouette unchanged. CONCLUSION: Low lung volumes. Increased lower lung opacity bilaterally likely representing atelectasis. Maninder Mg MD on December 04, 2016 at 13:45 Board Certified Radiologist. This report was verified electronically.
[2016-12-04] MEDS: SODIUM CHLOR 0.9% 1000 ML INJ 1,000 ML IV SCH ×2 (13:55→21:45)
[2016-12-04] MEDS: ACETAMINOPHEN 325 MG TAB PO PRN ×2 (13:55→22:07)
--- NOTE | 2016-12-04 14:09 | PD.CONS ---
[facility] Service Critical Care Medicine Consult Requested By Dr. Sheppard Reason for Consult Hypotension Primary Care Physician Non-Staff History of Present Illness Mr. Drummond is a 75-year-old male patient with a known history of atrial fibrillation with history of ablation 1 week ago, COPD, HTN, CHF, AAA, PAD and CABG x 3 stents. Supposedly patient had an ablation one week ago with Dr. Sutton. On 11/30 afternoon patient presented to his office for a follow up appointment. While in his office patient developed shortness of breath and palpitations. EKG was performed and patient was found to be in afib RVR, then sent to the ER immediately. Upon presentation, Dr. Sutton performed a cardioversion and placed on Amiodarone IV infusion with bolus. 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 Patient was admitted by hospitalist service with cardiology consult. He was diagnosed to have an ileus and Gen. surgery evaluated the patient as well. He underwent a decompression colonoscopy on 12/02 by GI with some improvement in his abdominal distention. Patient was initiated on amiodarone drip as he converted back to a flutter fib with RVR and was restarted on metoprolol as well as was placed on Cardizem by cardiology. Aldactone and losartan were continued. Today Cardizem dose was increased to 360 mg daily by cardiology and amiodarone was switched to by mouth. Patient subsequently developed hypotension with systolic blood pressure in the 70s. He received normal saline 500 cc bolus and was transferred to the ICU and critical care medicine was consulted for hypotension. When I evaluated the patient in the ICU he was on a nonrebreather facemask with systolic blood pressure in the 90s having this completed his fluid bolus. He denied any chest pain. He did have lightheadedness and dizziness earlier which appeared to be improving. His O2 sats 100% on nonrebreather facemask and I switched him to 50% Ventimask on which she was comfortable. Stat chest x-ray ordered by me revealed poor story from and no obvious infiltrates or effusions with some dilated bowel loops noted on the film as well. History was obtained by reviewing records and discussion with Dr. Sheppard. ROS - General Review of Systems Respiratory: COMPLAINS OF: Minimal Shortness of breath Cardiovascular: COMPLAINS OF: Palpitations, Dyspnea on Exertion, Orthopnea, dizziness Gastrointestinal: COMPLAINS OF: Abdominal pain Except as stated in HPI: all other systems reviewed are Neg PFSH Past Family Social History Past Medical History Congestive heart failure Coronary artery disease Chronic obstructive pulmonary disease Atrial fibrillation with ablation 1 week ago Abdominal aortic aneurysm Peripheral artery disease Hypertension Benign Prostate hypertrophy Past Surgical History PAD with femoral stenting CABG x 3 stent placement Bilateral cataract surgery Cardiac ablation Cardioversion TURP Reported Medications Active Reported Tamsulosin (Tamsulosin HCl) 0.4 Mg Cap 0.4 Mg PO HS Aldactone (Spironolactone) 25 Mg Tab 25 Mg PO DAILY Protonix (Pantoprazole Sodium) 40 Mg Tab 40 Mg PO DAILY Nitroglycerin SL (Nitroglycerin) 0.4 Mg Subl 0.4 Mg SL DIRECTED PRN ONE TABLET UNDER THE TONGUE NEEDED FOR CHEST PAIN, MAY REPEAT EVERY FIVE MINUTES FOR A TOTAL OF 3 DOSES OR CALL 911 IF NO RELIEF Meclizine 25 (Meclizine HCl) 25 Mg Tab Losartan (Losartan Potassium) 50 Mg Tab 50 Mg PO DAILY Levothyroxine (Levothyroxine Sodium) 25 Mcg Tab 25 Mcg PO DAILY Ipratropium Neb (Ipratropium [place]) 0.5 Mg/2.5 Ml Amp 0.5 Mg NEB Q4HR NEB Furosemide 20 Mg Tab 20 Mg PO DAILY Cymbalta DR (Duloxetine HCl) 60 Mg Capdr 60 Mg PO DAILY Eliquis (Apixaban) 2.5 Mg Tab 2.5 Mg PO BID Albuterol Neb (Albuterol Sulfate) 2.5 Mg/3 Ml Neb 2.5 Mg NEB QID NEB Allergies: Coded Allergies: No Known Allergies (Unverified , 11/30/16) Administered Medications Medications (Trade) Dose Ordered Sig/Manuel Route PRN Reason Start Time Stop Time Status Last Admin Dose Admin Levothyroxine Sodium (Synthroid) 25 mcg DAILY@06 PO 12/01/16 06:00 12/04/16 06:18 Losartan Potassium (Cozaar) 50 mg DAILY PO 12/01/16 09:00 Future Hold 12/04/16 08:34 Pantoprazole Sodium (Protonix) 40 mg DAILY PO 12/01/16 09:00 12/04/16 08:34 Spironolactone (Aldactone) 25 mg DAILY PO 12/01/16 09:00 Future Hold 12/04/16 08:34 Tamsulosin HCl (Flomax) 0.4 mg HS PO 11/30/16 21:00 12/03/16 21:41 Temazepam (Restoril) 15 mg HS PRN PO SLEEP 11/30/16 19:30 12/04/16 00:25 Metoclopramide HCl (Reglan Inj) 5 mg Q8HR IV PUSH 12/01/16 14:00 12/04/16 06:19 Amiodarone HCl 400 mg 400 mg Q12HR PO 12/02/16 21:00 12/07/16 20:59 12/04/16 08:34 Amiodarone HCl/ Dextrose (Cordarone Inj/ D5W ([place]) Inj) 250 ml @ 0 mls/hr CONTINUOUS IV 12/03/16 02:15 12/04/16 03:32 Diltiazem HCl (Cardizem Cd) 360 mg DAILY PO 12/04/16 09:00 12/04/16 08:34 Apixaban (Eliquis) 5 mg BID PO 12/03/16 11:45 12/04/16 08:34 Sodium Chloride (Sodium Chloride) 1 gm TID PO 12/04/16 09:00 12/04/16 09:46 Metoprolol Tartrate (Lopressor) 50 mg Q12HR PO 12/04/16 10:00 Hold 12/04/16 09:46 Physical Exam Vital Signs Vital Signs Date Time Temp Pulse Resp B/P Pulse Ox O2 Delivery O2 Flow Rate FiO2 12/04/16 12:09 96 Non-Rebreather 15.00 100 12/04/16 11:46 98 Non-Rebreather 100 12/04/16 11:30 67/27 12/04/16 11:21 103/73 12/04/16 11:00 98.6 57 18 79/50 94 12/04/16 11:00 57 12/04/16 10:00 128 12/04/16 09:00 127 12/04/16 08:00 129 12/04/16 07:47 95 12/04/16 07:00 128 12/04/16 07:00 98.0 129 18 144/87 95 12/04/16 06:29 128 12/04/16 05:13 112 12/04/16 04:10 114 12/04/16 03:17 125 12/04/16 03:16 97.8 127 20 134/77 99 12/04/16 02:52 126 12/04/16 01:06 128 12/04/16 00:58 127 12/03/16 23:20 130 12/03/16 23:20 98.2 130 20 144/93 95 12/03/16 22:00 128 12/03/16 21:28 21 12/03/16 21:00 128 12/03/16 20:00 98.4 127 18 132/77 96 12/03/16 20:00 129 12/03/16 20:00 126 12/03/16 18:00 128 12/03/16 17:00 127 12/03/16 16:00 114 12/03/16 15:00 98.0 130 20 107/68 95 12/03/16 15:00 129 12/03/16 14:00 130 Physical Exam HEENT/Neuro: No pallor or icterus, tongue moist, EDU, Awake alert oriented 3 , nonfocal grossly, moving all 4 extremities Neck: No JVD Chest/pulmonary: CTA bilaterally Cardiovascular: S1-S2 regular no gallop or murmur GI/abdomen: Soft, nontender, bowel sounds present Extremities: Warm bilaterally, no edema Laboratory Laboratory Tests Test 12/04/16 04:21 Sodium Level 124 Potassium Level 3.4 Chloride Level 89 Carbon Dioxide Level 28.3 Anion Gap 7 Blood Urea Nitrogen 13 Creatinine 1.47 Estimat Glomerular Filtration 47 Rate Random Glucose 117 Calcium Level 8.8 Magnesium Level 2.0 B-Type Natriuretic Peptide 59 Date/Time Procedure Status Source Growth 12/01/16 14:27 Stool Occult Blood (STEVEN) - Final Complete Stool Stool HEMOCCULT POSITIVE Result Diagram: 12/02/16 0630 12/04/16 0421 Imaging Chest x-ray portable done on 12/04 which was personally reviewed: Poor respiratory film, patchy lower lobe infiltrates bilaterally, no effusions Last Impressions Abdomen X-Ray 12/03/16 0000 Signed Impressions: Service Date/Time: Saturday, December 03, 2016 12:46 - CONCLUSION: Diffuse air-filled distention of the transverse colon unchanged, likely representing ileus. Maninder Mg MD Chest X-Ray 12/01/16 1352 Signed Impressions: Service Date/Time: December 13:52 - CONCLUSION: Mild patchy bilateral lower lung zone parenchymal opacity and low lung volumes. Maninder Mg MD Abdomen/Pelvis CT 12/01/16 0000 Signed Impressions: Service Date/Time: December 19:21 - CONCLUSION: 1. Gas dilated colon without an obstructing mass or lesion. This suggests a colonic ileus. 2. Trace amount of free fluid. 3. Bibasilar atelectasis. 4. Coronary artery atherosclerotic calcifications. 5. 2.8 x 2.6 cm AAA 6. Atrophic right kidney Jem Segundo Jr., MD Assessment and Plan Assessment and Plan Mr. 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 On 12/01 found to be in afib RVR sent to the ER. Upon presentation, Dr. Sutton performed a cardioversion and placed on Amiodarone IV infusion with bolus. Hospitalist team consulted for assuming of care and medical management. Hypotension: Secondary to antihypertensives as well as increase in Cardizem dose as well as metoprolol. Hold all antihypertensives Cardizem and metoprolol until improvement in blood pressure and then reintroduced gradually. Received 500 cc normal saline bolus earlier with good response. Atrial fibrillation status post RVR with cardioversion 11/30/16. - Outpatient ablation by Dr. Sutton about a week ago. EKG reviewed, atrial fibrillation with RVR. Amiodarone switched to by mouth on 12/04, Cardizem dose increased by Dr. Trevino on 12/04. TSH high, no correlation with free T4, follow -up as outpatient. Cardiology following. Eliquis restarted per cardiology. Will hold metoprolol and Cardizem at this time due to hypotension Hypertension, chronic-On Cozaar and Cardizem - both will be held due to hypotension Acute kidney injury suspect secondary to CHF exacerbation, possible chronic -Follow intake output, monitor and replete elect lites, follow BUN/ creatinine. Hyponatremia noted. - Hold Aldactone and losartan view of hypotension Abdominal ileus, acute - Abdominal x-ray reviewed and showing diffuse air-filled distention of the colon, likely representing ileus. - GI consulted, appreciate input Status post decompressive colonoscopy 12/02, continue full liquid diet,Repeat KUB consistent with ileus but passing bowels, a lot of gas. On simethicone. Awaiting input from GI and surgery. Chronic obstructive pulmonary disease - DuoNebs scheduled and PRN for wheezing. Supplemental oxygen as needed to keep O2 sats >92%. - Chest x-ray ordered and reviewed, mild patchy bilateral lower lung zone parenchymal opacity and low lung volumes. Lung windows from KUB appears good. Diastolic Congestive heart failure, acute exacerbation on chronic -Hold Aldactone and diuretics still improvement in blood pressure. We'll obtain 2-D echo to reassess LV function. Urinary retention-resolved. Continue Flomax Hyponatremia suspect secondary to hypervolemic hyponatremia, resume Lasix, start sodium chloride tablets. Recheck tomorrow. Anemia, unknown origin suspect secondary to GI bleed. - Hemoglobin 10.7/Hematocrit 32.7 upon presentation. Repeat CBC, hemoglobin 10.7/hemoglobin 31.8. Follow. - Stool Hemoccult positive, awaiting GI input. - Dark colored stools. Also on iron replacement. Monitor. Hypokalemia-replaced GI prophylaxis: Protonix 40 mg PO daily. DVT prophylaxis: SCDs. On apixaban Discussed with Dr. Sheppard. Condition critical due to hypotension. Time spent on critical care excluding procedures 45 minutes. Sotero Goodson MD Dec 04, 2016 14:09
--- NOTE | 2016-12-04 19:14 | RADRPT ---
EXAM DATE/TIME: 12/04/2016 18:37 [facility] COMPARISON: ABDOMEN KUB ONLY, December 03, 2016, 12:46. INDICATIONS : Abdominal distention. MEDICAL HISTORY : Cardiovascular disease. Congestive heart failure. SURGICAL HISTORY : CABG. ENCOUNTER: Subsequent ACUITY: 4 - 6 days PAIN SCORE: 0/10 LOCATION: Bilateral Abdomen FINDINGS: A single erect view of the abdomen demonstrates the lower lungs to be clear. No evidence of free int raperitoneal gas. Gaseous distention of multiple bowel loops slightly improved. Multiple rods in the thoracolumbar spine. Postsurgical changes. CONCLUSION: Gaseous distention multiple bowel loops likely large bowel, slightly improved. Amando De Jesus MD on December 04, 2016 at 19:11 Board Certified Radiologist. This report was verified electronically.
[2016-12-04] MEDS ORDERED: IOHEXOL 350 MG/ML 10 ML VIAL (for RAD DIAG) IV ONE (20:38)
--- NOTE | 2016-12-04 20:48 | RADRPT ---
EXAM DATE/TIME: 12/04/2016 20:28 [facility] COMPARISON: CT ABDOMEN & PELVIS W CONTRAST, December 01, 2016, 19:21. INDICATIONS : Obstruction. IV CONTRAST: 90 cc Omnipaque 350 (iohexol) IV ORAL CONTRAST: No oral contrast ingested. RADIATION DOSE: 19.53 CTDIvol (mGy) MEDICAL HISTORY : Cardiovascular disease. Hypertension. CVA. Skin cancer. SURGICAL HISTORY : Thoracic/Lumbar surgery. ENCOUNTER: Initial ACUITY: 1 day PAIN SCALE: 6/10 LOCATION: Bilateral abdomen TECHNIQUE: Volumetric scanning of the abdomen and pelvis was performed. Using automated exposure control and ad justment of the mA and/or kV according to patient size, radiation dose was kept as low as reasonably achievable to obtain optimal diagnostic quality images. FINDINGS: LOWER LUNGS: Bibasilar consolidation. LIVER: Homogeneous density without lesion. There is no dilation of the biliary tree. No calcified gallston es. Minimal ascites. SPLEEN: Normal size without lesion. PANCREAS: Within normal limits. KIDNEYS: HR the right kidney. There is no mass, stone or hydronephrosis. ADRENAL GLANDS: Within normal limits. VASCULAR: There is no aortic aneurysm. Excessive atherosclerotic changes BOWEL/MESENTERY: Diverticulosis of the colon. Gaseous distention of the transverse colon and ascending colon There is no free intraperitoneal air or fluid. ABDOMINAL WALL: Within normal limits. RETROPERITONEUM: There is no lymphadenopathy. BLADDER: No wall thickening or mass. REPRODUCTIVE: Within normal limits. INGUINAL: There is no lymphadenopathy or hernia. MUSCULOSKELETAL: Fusion of thoracolumbar spine. CONCLUSION: 1. Diverticulosis of the colon without diverticulitis. 2. Gaseous distention of the ascending and transverse colon likely ileus. No obstruction. 3. Atrophic right kidney. 4. Minimal perihepatic ascites. 5. Bibasilar consolidation. 6. Bulging of the abdominal aorta with extensive atherosclerotic changes but no Amando De Jesus MD on December 04, 2016 at 20:42 Board Certified Radiologist. This report was verified electronically.
--- NOTE | 2016-12-04 20:51 | HHI.PR ---
Subjective Subjective Notes halicat this am, sent to ICU, mentating well, severe distension, tympani bm this am Objective Vitals/I&O Vital Signs Date Time Temp Pulse Resp B/P Pulse Ox O2 Delivery O2 Flow Rate FiO2 12/04/16 18:00 100 12/04/16 16:00 97.4 19 111/55 92 12/04/16 15:53 Venturi Mask 6.00 50 Labs Laboratory Tests Test 12/04/16 12/04/16 12/04/16 12/04/16 04:21 12:00 13:01 17:20 Sodium Level 124 Potassium Level 3.4 Chloride Level 89 Carbon Dioxide Level 28.3 Anion Gap 7 Blood Urea Nitrogen 13 Creatinine 1.47 Estimat Glomerular Filtration 47 Rate Random Glucose 117 Calcium Level 8.8 Magnesium Level 2.0 B-Type Natriuretic Peptide 59 Nasal Screen MRSA (PCR) MRSA NOT DETECTED Troponin I LESS THAN 0.02 LESS THAN 0.02 Date/Time Procedure Status Source Growth 12/01/16 14:27 Stool Occult Blood (STEVEN) - Final Complete Stool Stool HEMOCCULT POSITIVE Radiology Last Impressions Chest X-Ray 12/01/16 1352 Signed Impressions: Service Date/Time: December 13:52 - CONCLUSION: Mild patchy bilateral lower lung zone parenchymal opacity and low lung volumes. Maninder Mg MD Abdomen/Pelvis CT 12/01/16 0000 Signed Impressions: Service Date/Time: December 19:21 - CONCLUSION: 1. Gas dilated colon without an obstructing mass or lesion. This suggests a colonic ileus. 2. Trace amount of free fluid. 3. Bibasilar atelectasis. 4. Coronary artery atherosclerotic calcifications. 5. 2.8 x 2.6 cm AAA 6. Atrophic right kidney Jem Segundo Jr., MD Abdomen X-Ray 12/01/16 0000 Signed Impressions: Service Date/Time: December 11:07 - CONCLUSION: Diffuse air-filled distention of the colon, likely representing ileus. Maninder Mg MD Cardiovascular: Regular Lungs: Clear Abdomen: Other (severely distended, tympanic abdomen, +diffuse ttp, no rebound, no guarding) A/P Problem List: (1) Adynamic ileus (2) Atrial fibrillation (3) Palpitations (4) SOB (shortness of breath) (5) Abdominal pain Assessment and Plan 75 her old gentleman who had a ablation for atrial fibrillation that apparently didn't work now has a colonic ileus vs ogilvies vs obstruction PLAN Will repeat CT to evaluate abdomen place pinto continue ICU, monitor closely check labs Problem Qualifiers (1) Abdominal pain: Qualified Code: R10.84 - Generalized abdominal pain Salas Burrell MD Dec 04, 2016 20:51
[2016-12-04] MEDS: DULoxetine HCl DR 60 MG CAP PO SCH (22:08)
[2016-12-04] MEDS: TAMSULOSIN HCL 0.4 MG CAP PO SCH (22:09)
[2016-12-04 23:58] LABS: AUTOMATED NEUTROPHIL # 8.1 TH/MM3 (1.8-7.7); BASOPHIL # 0.2 TH/MM3 (0-0.2); BASOPHIL % 1.6 % (0.0-2.0); EOSINOPHIL % 0.1 % (0.0-4.0); HEMATOCRIT 29.5 % (39.0-51.0); HEMO FLAGS DIFF FINAL; LYMPH % 3.8 % (9.0-44.0); LYMPHOCYTE # 0.4 TH/MM3 (1.0-4.8); MEAN CELL VOLUME 86.6 FL (80.0-100.0); MEAN CORPUSCULAR HEMOGLOBIN 29.6 PG (27.0-34.0); MEAN CORPUSCULAR HGB CONC 34.2 % (32.0-36.0); MONO % 9.4 % (0.0-8.0); NEUT % 85.1 % (16.0-70.0); PLATELET COUNT 265 TH/MM3 (150-450); RED BLOOD COUNT 3.41 MIL/MM3 (4.50-5.90); RED CELL DISTRIBUTION WIDTH 15.1 % (11.6-17.2); WHITE BLOOD COUNT 9.5 TH/MM3 (4.0-11.0)
[2016-12-05] VITALS (39 sets, daily range): BP systolic 103–154; BP diastolic 46–104; PULSE 97–116; RESP 13–30; TEMP 97.5–98.1; O2SAT 67–100
[2016-12-05 00:27] LABS: ANION GAP 7 MEQ/L (5-15); BICARBONATE 27.4 MEQ/L (21.0-32.0); BLOOD UREA NITROGEN 20 MG/DL (7-18); CHLORIDE 91 MEQ/L (98-107); GLOMERULAR FILTRATION RATE 28 ML/MIN (>89); POTASSIUM 5.2 MEQ/L (3.5-5.1); SODIUM (NA) 125 MEQ/L (136-145)
[2016-12-05] MEDS: RESP: IPRATROPIUM 0.5 MG/2.5 ML NEB NEB SCH ×6 (03:58→23:30)
[2016-12-05] MEDS: LEVOTHYROXINE SODIUM 25 MCG TAB PO SCH (05:36)
[2016-12-05] MEDS: METOCLOPRAMIDE HCL 10 MG/2 ML VIAL IV PUSH SCH ×3 (05:36→22:49)
[2016-12-05] MEDS: SODIUM CHLOR 0.9% 1000 ML INJ 1,000 ML IV SCH (07:45)
[2016-12-05] MEDS ORDERED: SODIUM CHLOR 0.9% 1000 ML INJ 1,000 ML IV SCH (08:00)
--- NOTE | 2016-12-05 08:00 | PD.CARD.PN ---
Subjective Subjective Remarks Events of yesterday noted, mildly fast a-tach/aflutter on tele, currently getting a breathing treatment. Objective Medications Administered Medications Medications (Trade) Dose Ordered Sig/Manuel Route PRN Reason Start Time Stop Time Status Last Admin Dose Admin Levothyroxine Sodium (Synthroid) 25 mcg DAILY@06 PO 12/01/16 06:00 12/05/16 05:36 Losartan Potassium (Cozaar) 50 mg DAILY PO 12/01/16 09:00 Future Hold 12/04/16 08:34 Pantoprazole Sodium (Protonix) 40 mg DAILY PO 12/01/16 09:00 12/04/16 08:34 Spironolactone (Aldactone) 25 mg DAILY PO 12/01/16 09:00 Future Hold 12/04/16 08:34 Tamsulosin HCl (Flomax) 0.4 mg HS PO 11/30/16 21:00 12/04/16 22:09 Temazepam (Restoril) 15 mg HS PRN PO SLEEP 11/30/16 19:30 12/04/16 00:25 Metoclopramide HCl (Reglan Inj) 5 mg Q8HR IV PUSH 12/01/16 14:00 12/05/16 05:36 Amiodarone HCl 400 mg 400 mg Q12HR PO 12/02/16 21:00 12/07/16 20:59 12/04/16 22:08 Amiodarone HCl/ Dextrose (Cordarone Inj/ D5W ([place]) Inj) 250 ml @ 0 mls/hr CONTINUOUS IV 12/03/16 02:15 12/04/16 03:32 Diltiazem HCl (Cardizem Cd) 360 mg DAILY PO 12/04/16 09:00 12/04/16 08:34 Apixaban (Eliquis) 5 mg BID PO 12/03/16 11:45 12/04/16 22:09 Duloxetine HCl (Cymbalta Dr) 60 mg HS PO 12/04/16 21:00 12/04/16 22:08 Sodium Chloride (Sodium Chloride) 1 gm TID PO 12/04/16 09:00 12/04/16 17:47 Metoprolol Tartrate 50 mg 50 mg Q12HR PO 12/04/16 10:00 Hold 12/04/16 09:46 Sodium Chloride (NS 1000 ml Inj) 1,000 ml @ 100 mls/hr Q10H IV 12/04/16 11:45 12/04/16 21:45 Acetaminophen (Tylenol) 650 mg Q6HR PRN PO pain 1 TO 10 12/04/16 13:15 12/04/16 22:07 Vital Signs / I&O Vital Signs Date Time Temp Pulse Resp B/P Pulse Ox O2 Delivery O2 Flow Rate FiO2 12/05/16 07:36 92 Partial Rebreather 15.00 12/05/16 06:00 111 12/05/16 05:30 111 14 100 12/05/16 05:00 112 12/05/16 05:00 112 13 118/68 100 12/05/16 04:30 110 14 100 12/05/16 04:00 97.7 110 30 136/66 95 12/05/16 04:00 110 12/05/16 03:30 109 19 100 12/05/16 03:00 109 14 125/68 100 12/05/16 03:00 109 12/05/16 02:30 108 15 99 12/05/16 02:00 109 12/05/16 02:00 109 23 124/85 99 12/05/16 01:30 108 16 100 12/05/16 01:02 106 16 120/83 98 12/05/16 01:02 106 12/05/16 01:00 106 18 154/104 97 12/05/16 01:00 106 12/05/16 00:00 97.6 105 15 152/75 100 12/05/16 00:00 102 12/04/16 23:15 96 Partial Rebreather 15.00 12/04/16 23:12 15 12/04/16 22:00 102 12/04/16 21:45 95 Non-Rebreather 100 12/04/16 21:17 95 Venturi Mask 6.00 50 12/04/16 20:00 100 12/04/16 20:00 97.5 104 18 137/89 95 12/04/16 18:00 100 12/04/16 16:00 97.4 87 19 111/55 92 12/04/16 16:00 87 12/04/16 15:53 94 Venturi Mask 6.00 50 12/04/16 14:00 61 12/04/16 12:09 96 Non-Rebreather 15.00 100 12/04/16 12:00 87 12/04/16 12:00 97.6 87 27 93/60 90 12/04/16 11:46 98 Non-Rebreather 100 12/04/16 11:30 67/27 12/04/16 11:21 103/73 12/04/16 11:00 98.6 57 18 79/50 94 12/04/16 11:00 57 12/04/16 10:00 128 12/04/16 09:00 127 12/04/16 08:00 129 I/O 12/04/16 12/04/16 12/04/16 12/05/16 12/05/16 12/05/16 07:00 15:00 23:00 07:00 15:00 23:00 Intake Total 673 ml 50 ml 876 ml 825 ml Output Total 200 ml 0 ml 0 ml Balance 473 ml 50 ml 876 ml 825 ml Intake Oral 460 ml 50 ml 120 ml 120 ml IV Total 213 ml 756 ml 705 ml Output Urine Total 200 ml 0 ml 0 ml Bladder Scan Volume Amount 231 ml 31 ml 63 ml # Voids 1 Physical Exam GENERAL: This is a well-nourished, well-developed patient, in no apparent distress. CARDIOVASCULAR: Rapid rate and rhythm without murmurs, gallops, or rubs. RESPIRATORY: slight wheezes GASTROINTESTINAL: Abdomen soft, non-tender, nondistended. Normal active bowel sounds MUSCULOSKELETAL: Extremities without clubbing, cyanosis, or edema. NEURO: Alert & Oriented x4 to person, place, time, situation. Moves all ext x4 Laboratory Laboratory Tests Test 12/04/16 12/04/16 12/04/16 12/04/16 12:00 13:01 17:20 23:31 Nasal Screen MRSA (PCR) MRSA NOT DETECTED Troponin I LESS THAN 0.02 LESS THAN 0.02 LESS THAN 0.02 NG/ML NG/ML NG/ML White Blood Count 9.5 TH/MM3 Red Blood Count 3.41 MIL/MM3 Hemoglobin 10.1 GM/DL Hematocrit 29.5 % Mean Corpuscular Volume 86.6 FL Mean Corpuscular Hemoglobin 29.6 PG Mean Corpuscular Hemoglobin 34.2 % Concent Red Cell Distribution Width 15.1 % Platelet Count 265 TH/MM3 Mean Platelet Volume 6.8 FL Neutrophils (%) (Auto) 85.1 % Lymphocytes (%) (Auto) 3.8 % Monocytes (%) (Auto) 9.4 % Eosinophils (%) (Auto) 0.1 % Basophils (%) (Auto) 1.6 % Neutrophils # (Auto) 8.1 TH/MM3 Lymphocytes # (Auto) 0.4 TH/MM3 Monocytes # (Auto) 0.9 TH/MM3 Eosinophils # (Auto) 0.0 TH/MM3 Basophils # (Auto) 0.2 TH/MM3 CBC Comment DIFF FINAL Differential Comment Sodium Level 125 MEQ/L Potassium Level 5.2 MEQ/L Chloride Level 91 MEQ/L Carbon Dioxide Level 27.4 MEQ/L Anion Gap 7 MEQ/L Blood Urea Nitrogen 20 MG/DL Creatinine 2.30 MG/DL Estimat Glomerular Filtration 28 ML/MIN Rate Random Glucose 131 MG/DL Calcium Level 8.4 MG/DL Imaging Last Impressions Chest X-Ray 12/04/16 Signed Impressions: Service Date/Time: Sunday, December 04, 2016 12:40 - CONCLUSION: Low lung volumes. Increased lower lung opacity bilaterally likely representing atelectasis. Maninder Mg MD Abdomen/Pelvis CT 12/04/16 Signed Impressions: Service Date/Time: Sunday, December 04, 2016 20:28 - CONCLUSION: 1. Diverticulosis of the colon without diverticulitis. 2. Gaseous distention of the ascending and transverse colon likely ileus. No obstruction. 3. Atrophic right kidney. 4. Minimal perihepatic ascites. 5. Bibasilar consolidation. 6. Bulging of the abdominal aorta with extensive atherosclerotic changes but no Amando De Jesus MD Abdomen X-Ray 12/04/16 Signed Impressions: Service Date/Time: Sunday, December 04, 2016 18:37 - CONCLUSION: Gaseous distention multiple bowel loops likely large bowel, slightly improved. Amando De Jesus MD Assessment and Plan Problem List: (1) Atrial fibrillation Assessment and Plan: /Atrial tachycardia; restarted lower dose lopressor, on eliquis; will try to get him off amio ggt as rates improve. (2) Adynamic ileus (3) AFIA (acute kidney injury) Assessment and Plan: will give more fluids today, if doesn't improve may need renal input. Isaiah Arreguin MD Dec 05, 2016 08:00
[2016-12-05] MEDS: DILTIAZEM-CD 180 MG CAP ER PO SCH (08:04)
[2016-12-05] MEDS: AMIODARONE 200 MG TAB PO SCH ×2 (08:04→22:49)
[2016-12-05] MEDS: APIXABAN 5 MG TABLET PO SCH ×2 (09:00→21:00)
[2016-12-05] MEDS: SODIUM CHLORIDE 1 GRAM TAB PO SCH ×2 (09:00→13:00)
[2016-12-05] MEDS: PANTOPRAZOLE SOD 40 MG DELAYED RELEASE TAB PO SCH (09:00)
[2016-12-05] MEDS: METOPROLOL TARTRATE 25 MG TAB PO SCH ×2 (09:00→22:50)
[2016-12-05] MEDS ORDERED: FUROSEMIDE 20 MG TAB PO SCH (09:00)
--- NOTE | 2016-12-05 11:18 | EKG ---
Date Performed: 12/04/2016 Time Performed: 17:40:45 PTAGE: 75 years EKG: ATRIAL FLUTTER/TACHYCARDIA NONSPECIFIC T-WAVE ABNORMALITY ABNORMAL RHYTHM ECG Compared to p rior tracing no significant change PREVIOUS TRACING : 12/04/2016 15.26 DOCTOR: Emre Duarte Interpretating Date/Time 12/05/2016 11:16:19
--- NOTE | 2016-12-05 11:18 | EKG ---
Date Performed: 12/04/2016 Time Performed: 15:26:43 PTAGE: 75 years EKG: ATRIAL FLUTTER/TACHYCARDIA NONSPECIFIC T-WAVE ABNORMALITY ABNORMAL RHYTHM ECG Compared to p rior tracing no significant change PREVIOUS TRACING : 11/30/2016 17.48 DOCTOR: Emre Duarte Interpretating Date/Time 12/05/2016 11:16:27
--- NOTE | 2016-12-05 12:10 | HHI.GIFU ---
Subjective Remarks Pt resting in bed, receiving breathing treatment. he ate breakfast this morning. (Nova James) Objective Vitals I&O Vital Signs Date Time Temp Pulse Resp B/P Pulse Ox O2 Delivery O2 Flow Rate FiO2 12/05/16 10:00 112 12/05/16 08:00 112 12/05/16 08:00 98.0 110 18 126/68 100 12/05/16 07:36 92 Partial Rebreather 15.00 12/05/16 06:00 111 12/05/16 05:30 111 14 100 12/05/16 05:00 112 12/05/16 05:00 112 13 118/68 100 12/05/16 04:30 110 14 100 12/05/16 04:00 97.7 110 30 136/66 95 12/05/16 04:00 110 12/05/16 03:30 109 19 100 12/05/16 03:00 109 14 125/68 100 12/05/16 03:00 109 12/05/16 02:30 108 15 99 12/05/16 02:00 109 12/05/16 02:00 109 23 124/85 99 12/05/16 01:30 108 16 100 12/05/16 01:02 106 16 120/83 98 12/05/16 01:02 106 12/05/16 01:00 106 18 154/104 97 12/05/16 01:00 106 12/05/16 00:00 97.6 105 15 152/75 100 12/05/16 00:00 102 12/04/16 23:15 96 Partial Rebreather 15.00 12/04/16 23:12 15 12/04/16 22:00 102 12/04/16 21:45 95 Non-Rebreather 100 12/04/16 21:17 95 Venturi Mask 6.00 50 12/04/16 20:00 100 12/04/16 20:00 97.5 104 18 137/89 95 12/04/16 18:00 100 12/04/16 16:00 97.4 87 19 111/55 92 12/04/16 16:00 87 12/04/16 15:53 94 Venturi Mask 6.00 50 12/04/16 14:00 61 12/04/16 12:09 96 Non-Rebreather 15.00 100 I/O 12/04/16 12/04/16 12/04/16 12/05/16 12/05/16 12/05/16 07:00 15:00 23:00 07:00 15:00 23:00 Intake Total 673 ml 50 ml 876 ml 825 ml Output Total 200 ml 0 ml 0 ml Balance 473 ml 50 ml 876 ml 825 ml Intake Oral 460 ml 50 ml 120 ml 120 ml IV Total 213 ml 756 ml 705 ml Output Urine Total 200 ml 0 ml 0 ml Bladder Scan Volume Amount 231 ml 31 ml 63 ml 500 ml # Voids 1 Laboratory Laboratory Tests Test 12/04/16 12/04/16 12/04/16 13:01 17:20 23:31 Troponin I LESS THAN 0.02 LESS THAN 0.02 LESS THAN 0.02 White Blood Count 9.5 Red Blood Count 3.41 Hemoglobin 10.1 Hematocrit 29.5 Mean Corpuscular Volume 86.6 Mean Corpuscular Hemoglobin 29.6 Mean Corpuscular Hemoglobin 34.2 Concent Red Cell Distribution Width 15.1 Platelet Count 265 Mean Platelet Volume 6.8 Neutrophils (%) (Auto) 85.1 Lymphocytes (%) (Auto) 3.8 Monocytes (%) (Auto) 9.4 Eosinophils (%) (Auto) 0.1 Basophils (%) (Auto) 1.6 Neutrophils # (Auto) 8.1 Lymphocytes # (Auto) 0.4 Monocytes # (Auto) 0.9 Eosinophils # (Auto) 0.0 Basophils # (Auto) 0.2 CBC Comment DIFF FINAL Differential Comment Sodium Level 125 Potassium Level 5.2 Chloride Level 91 Carbon Dioxide Level 27.4 Anion Gap 7 Blood Urea Nitrogen 20 Creatinine 2.30 Estimat Glomerular Filtration 28 Rate Random Glucose 131 Calcium Level 8.4 Date/Time Procedure Status Source Growth 12/01/16 14:27 Stool Occult Blood (STEVEN) - Final Complete Stool Stool HEMOCCULT POSITIVE Imaging Last Impressions Chest X-Ray 12/04/16 0000 Signed Impressions: Service Date/Time: Sunday, December 04, 2016 12:40 - CONCLUSION: Low lung volumes. Increased lower lung opacity bilaterally likely representing atelectasis. Maninder Mg MD Abdomen/Pelvis CT 12/04/16 0000 Signed Impressions: Service Date/Time: Sunday, December 04, 2016 20:28 - CONCLUSION: 1. Diverticulosis of the colon without diverticulitis. 2. Gaseous distention of the ascending and transverse colon likely ileus. No obstruction. 3. Atrophic right kidney. 4. Minimal perihepatic ascites. 5. Bibasilar consolidation. 6. Bulging of the abdominal aorta with extensive atherosclerotic changes but no Amando De Jesus MD Abdomen X-Ray 12/04/16 0000 Signed Impressions: Service Date/Time: Sunday, December 04, 2016 18:37 - CONCLUSION: Gaseous distention multiple bowel loops likely large bowel, slightly improved. Amando De Jesus MD Physical Exam HEENT: PERRLA, normocephalic; atraumatic; no jaundice. CHEST: wheezes CARDIAC: RRR. ABDOMEN: Firm, distended, nontender; no hepatosplenomegaly; bowel sounds hypoactive EXTREMITIES: No clubbing, cyanosis, or edema. SKIN: Normal; no rash; no jaundice. RAMP ATTENDANT: No focal deficits; alert and oriented times three. (Nova James [facility]) Assessment and Plan Plan ASSESSMENT - Ileus- Patient continues to have abdominal distension, he is (+) for flatus and large BM liquid stools, no N/V or abdominal pain CT 12-04-16--> 1. Diverticulosis of the colon without diverticulitis. 2. Gaseous distention of the ascending and transverse colon likely ileus. No obstruction. 3. Atrophic right kidney. 4. Minimal perihepatic ascites S/P decompressive colonoscopy on (12/02/16)--Diverticulum in the sigmoid colon. Scope advanced to the right colon and air decompressed and suctioned out. Poor bowel prep limited mucosal inspection. KUB 12/01/16--shows diffuse air filled distention of colon, likely representing ileus. CT on (12/01/16) 1. Gas dilated colon without an obstructing mass or lesion. This suggests a colonic ileus. 2. Trace amount of free fluid. 3. Bibasilar atelectasis. 4. Coronary artery atherosclerotic calcifications. 5. 2.8 x 2.6 cm AAA 6. Atrophic right kidney Abdomen X-Ray 12/03/16--Diffuse air-filled distention of the transverse colon unchanged, likely representing ileus. - Anemia/heme (+) stools, No signs of bleeding, will need EGD/repeat colonoscopy at some point with better prep PLAN - colonoscopy tomorrow - NPO today - obtain consents - golytely prep -GS following -Cont. Reglan -Supportive care. Patient seen and examined by Dr. Dey and myself and this note is written on his behalf. (Nova James) Physician Comments Seen and examined, will start bowel prep for colonoscopy tomorrow. had BM this AM and passing minimal flatus. X- Ray improved from previous one. Further recommendations to follow. (Hilaria Dey MD) Nova James Dec 05, 2016 12:10 Hilaria Dey MD Dec 05, 2016 14:05
--- NOTE | 2016-12-05 13:32 | HHI.CCPN ---
Subjective Remarks/Hospital Course 12/04: Mr. Drummond is a 75-year-old male patient with a known history of atrial fibrillation with history of ablation 1 week ago, COPD, HTN, CHF, AAA, PAD and CABG x 3 stents. Supposedly patient had an ablation one week ago with Dr. Sutton. On 11/30 afternoon patient presented to his office for a follow up appointment. While in his office patient developed shortness of breath and palpitations. EKG was performed and patient was found to be in afib RVR, then sent to the ER immediately. Upon presentation, Dr. Sutton performed a cardioversion and placed on Amiodarone IV infusion with bolus. Patient had abdominal pain on and off for 3 days [employer], with diminished appetite and PO intake. Patient was admitted by hospitalist service with cardiology consult. He was diagnosed to have an ileus and Gen. surgery evaluated the patient as well. He underwent a decompression colonoscopy on 12/02 by GI with some improvement in his abdominal distention. Patient was initiated on amiodarone drip as he converted back to a flutter fib with RVR and was restarted on metoprolol as well as was placed on Cardizem by cardiology. Aldactone and losartan were continued. Today Cardizem dose was increased to 360 mg daily by cardiology and amiodarone was switched to by mouth. Patient subsequently developed hypotension with systolic blood pressure in the 70s. He received normal saline 500 cc bolus and was transferred to the ICU and critical care medicine was consulted for hypotension. When I evaluated the patient in the ICU he was on a nonrebreather facemask with systolic blood pressure in the 90s having this completed his fluid bolus. He denied any chest pain. He did have lightheadedness and dizziness earlier which appeared to be improving. His O2 sats 100% on nonrebreather facemask and I switched him to 50% Ventimask on which she was comfortable. Stat chest x-ray ordered by me revealed poor story from and no obvious infiltrates or effusions with some dilated bowel loops noted on the film as well. History was obtained by reviewing records and discussion with Dr. Sheppard. 12/05: Sitting up in bed comfortably. Abdominal distention still persists. Lesions blood pressure improved yesterday following fluid bolus. Antihypertensives beta anca were held yesterday. By mouth Cardizem and amiodarone have been continued. Patient underwent CT abdomen and pelvis with oral contrast which is ordered by Dr. Burrell from general surgery in view of abdominal distention which revealed ileus. Patient denies any chest pain. He has minimal shortness of breath though appears comfortable on Ventimask. No further hypotension since yesterday. Objective Vital Signs Date Time Temp Pulse Resp B/P Pulse Ox O2 Delivery O2 Flow Rate FiO2 12/05/16 10:00 112 12/05/16 08:00 98.0 18 126/68 100 12/05/16 07:36 Partial Rebreather 15.00 12/04/16 21:45 100 Intake and Output 12/04/16 12/04/16 12/05/16 08:00 16:00 00:00 Intake Total 673 ml 50 ml 876 ml Output Total 200 ml 0 ml 0 ml Balance 473 ml 50 ml 876 ml Result Diagram: 12/04/16 2331 12/04/16 2331 Imaging Chest x-ray portable done on 12/04 which was personally reviewed: Poor respiratory film, patchy lower lobe infiltrates bilaterally, no effusions Last Impressions Abdomen X-Ray 12/03/16 0000 Signed Impressions: Service Date/Time: Saturday, December 03, 2016 12:46 - CONCLUSION: Diffuse air-filled distention of the transverse colon unchanged, likely representing ileus. Maninder Mg MD Chest X-Ray 12/01/16 1352 Signed Impressions: Service Date/Time: December 13:52 - CONCLUSION: Mild patchy bilateral lower lung zone parenchymal opacity and low lung volumes. Maninder Mg MD Abdomen/Pelvis CT 12/01/16 0000 Signed Impressions: Service Date/Time: December 19:21 - CONCLUSION: 1. Gas dilated colon without an obstructing mass or lesion. This suggests a colonic ileus. 2. Trace amount of free fluid. 3. Bibasilar atelectasis. 4. Coronary artery atherosclerotic calcifications. 5. 2.8 x 2.6 cm AAA 6. Atrophic right kidney Jem Segundo Jr., MD Objective Remarks HEENT/Neuro: No pallor or icterus, tongue moist, EDU, Awake alert oriented 3 , nonfocal grossly, moving all 4 extremities Neck: No JVD Chest/pulmonary: CTA bilaterally Cardiovascular: S1-S2 regular no gallop or murmur GI/abdomen: Distended, firm, nontender, bowel sounds sluggish. No guarding Extremities: Warm bilaterally, bilateral edema Procedures Decompressive colonoscopy 12/02/16 A/P Assessment and Plan Mr. Drummond is a 75-year-old male patient with a known history of atrial fibrillation with history of ablation 1 week [employer], COPD, HTN, CHF, AAA, PAD and CABG x 3 stents. On 12/01 found to be in afib RVR sent to the ER. Upon presentation, Dr. Sutton performed a cardioversion and placed on Amiodarone IV infusion with bolus. Hospitalist team consulted for assuming of care and medical management. Hypotension: Secondary to antihypertensives as well as increase in Cardizem dose as well as metoprolol. Hold all antihypertensives Cardizem and metoprolol until improvement in blood pressure and then reintroduced gradually. Received 500 cc normal saline bolus earlier with good response. Continue to hold losartan and Aldactone. Cardizem and by mouth amiodarone being continued. Low- dose metoprolol resumed by Dr. Trevino. Follow-up 2-D echo Atrial fibrillation status post RVR with cardioversion 11/30/16. - Outpatient ablation by Dr. Sutton about a week ago. EKG reviewed, atrial fibrillation with RVR. Amiodarone switched to by mouth on 12/04, Cardizem dose increased by Dr. Arreguin on 12/04. TSH high, no correlation with free T4, follow-up as outpatient. Cardiology following. Eliquis restarted per cardiology. Cardizem and by mouth amiodarone being continued. Low-dose metoprolol resumed by Dr. Trevino. Follow-up 2-D echo Hypertension, continue holding losartan and Aldactone due to hypotension and 6/ oh. Lasix held. Vision receiving fluids. On by mouth Cardizem which will be continued as well as low-dose metoprolol Acute kidney injury suspect secondary to CHF exacerbation, possible chronic -Follow intake output, monitor and replete elect lites, follow BUN/ creatinine. Hyponatremia noted. - Hold Aldactone and losartan view of hypotension. Lasix held in view of hypotension on 12/04 and patient received fluids. Abdominal ileus, acute - Abdominal x-ray reviewed and showing diffuse air-filled distention of the colon, likely representing ileus. - GI consulted, appreciate input Status post decompressive colonoscopy 12/02, continue full liquid diet,Repeat KUB consistent with ileus but passing bowels, a lot of gas. On simethicone. CT abdomen pelvis revealed significant ileus. GI and general surgery following. Plan for decompressive colonoscopy to be repeated on 12/06 per my discussion with Dr. Burrell from general surgery. Chronic obstructive pulmonary disease - DuoNebs scheduled and PRN for wheezing. Supplemental oxygen as needed to keep O2 sats >92%. - Chest x-ray ordered and reviewed, mild patchy bilateral lower lung zone parenchymal opacity and low lung volumes. Lung windows from KUB appears good. Diastolic Congestive heart failure, acute exacerbation on chronic -Hold Aldactone and diuretics still improvement in blood pressure. We'll obtain 2-D echo to reassess LV function. Urinary retention-resolved. Continue Flomax Hyponatremia- hold Lasix and salt tabs at this time. Follow serial sodium levels. Anemia, unknown origin suspect secondary to GI bleed. - Hemoglobin 10.7/Hematocrit 32.7 upon presentation. Repeat CBC, hemoglobin 10.7/hemoglobin 31.8. Follow. - Stool Hemoccult positive, awaiting GI input. - Dark colored stools. Also on iron replacement. Monitor. Hypokalemia-replaced GI prophylaxis: Protonix 40 mg PO daily. DVT prophylaxis: SCDs. On apixaban Discussed with Dr. Sheppard. Discussed with Dr. Arreguin Patient will be transferred to hospitalist service for further medical management, critical care will be available as needed. Sotero Goodson MD Dec 05, 2016 13:32
--- NOTE | 2016-12-05 14:22 | HHI.PR ---
Subjective Subjective Notes Resting in bed Reports abdominal pain seems slightly better today Objective Vitals/I&O Vital Signs Date Time Temp Pulse Resp B/P Pulse Ox O2 Delivery O2 Flow Rate FiO2 12/05/16 10:00 112 12/05/16 08:00 98.0 18 126/68 100 12/05/16 07:36 Partial Rebreather 15.00 12/04/16 21:45 100 Labs Laboratory Tests Test 12/04/16 12/04/16 17:20 23:31 Troponin I LESS THAN 0.02 LESS THAN 0.02 White Blood Count 9.5 Red Blood Count 3.41 Hemoglobin 10.1 Hematocrit 29.5 Mean Corpuscular Volume 86.6 Mean Corpuscular Hemoglobin 29.6 Mean Corpuscular Hemoglobin 34.2 Concent Red Cell Distribution Width 15.1 Platelet Count 265 Mean Platelet Volume 6.8 Neutrophils (%) (Auto) 85.1 Lymphocytes (%) (Auto) 3.8 Monocytes (%) (Auto) 9.4 Eosinophils (%) (Auto) 0.1 Basophils (%) (Auto) 1.6 Neutrophils # (Auto) 8.1 Lymphocytes # (Auto) 0.4 Monocytes # (Auto) 0.9 Eosinophils # (Auto) 0.0 Basophils # (Auto) 0.2 CBC Comment DIFF FINAL Differential Comment Sodium Level 125 Potassium Level 5.2 Chloride Level 91 Carbon Dioxide Level 27.4 Anion Gap 7 Blood Urea Nitrogen 20 Creatinine 2.30 Estimat Glomerular Filtration 28 Rate Random Glucose 131 Calcium Level 8.4 Date/Time Procedure Status Source Growth 12/01/16 14:27 Stool Occult Blood (STEVEN) - Final Complete Stool Stool HEMOCCULT POSITIVE Radiology Last Impressions Chest X-Ray 12/01/16 1352 Signed Impressions: Service Date/Time: December 13:52 - CONCLUSION: Mild patchy bilateral lower lung zone parenchymal opacity and low lung volumes. Maninder Mg MD Abdomen/Pelvis CT 12/01/16 0000 Signed Impressions: Service Date/Time: December 19:21 - CONCLUSION: 1. Gas dilated colon without an obstructing mass or lesion. This suggests a colonic ileus. 2. Trace amount of free fluid. 3. Bibasilar atelectasis. 4. Coronary artery atherosclerotic calcifications. 5. 2.8 x 2.6 cm AAA 6. Atrophic right kidney Jem Segundo Jr., MD Abdomen X-Ray 12/01/16 0000 Signed Impressions: Service Date/Time: December 11:07 - CONCLUSION: Diffuse air-filled distention of the colon, likely representing ileus. Maninder Mg MD Cardiovascular: Regular Lungs: Clear Abdomen: Other (Abdomen distended; LUQ more tender with palpation than other quadrants ) Extremities: No edema A/P Problem List: (1) Adynamic ileus (2) Atrial fibrillation (3) Palpitations (4) SOB (shortness of breath) (5) Abdominal pain Assessment and Plan 75 year old male s/p cardiac catheterization; with 1 week of abdominal pain/ distention -Had decompressive colonoscopy last week -Repeat CT scan yesterday -Strict NPO -Plan for decompressive colonoscopy tomorrow -Monitor labs -Repeat KUB at 1400 today Attending Note - Dr. Horowitz Very distended still Requiring NRB to maintain adequate oxygenation Colonic ileus Agree with NG tube Following with you The exam, history, and the medical decision-making described in the above note were completed with the assistance of the mid-level provider. I reviewed and agree with the findings presented. I attest that I had a [id number] encounter with the patient on the same day, and personally performed and documented my assessment and findings in the medical record. Problem Qualifiers (1) Abdominal pain: Qualified Code: R10.84 - Generalized abdominal pain Susanne Winslow Dec 05, 2016 14:22 Arnoldo Horowitz MD Dec 05, 2016 18:47
--- NOTE | 2016-12-05 14:47 | EKG ---
Date Performed: 12/04/2016 Time Performed: 12:07:58 PTAGE: 75 years EKG: Atrial flutter with 4:1 conduction The patient is no longer in rapid atrial fibrillation co mpared to prior tracing Abnormal ECG PREVIOUS TRACING : 11/30/2016 17.48 DOCTOR: Emre Duarte Interpretating Date/Time 12/05/2016 14:45:29
--- NOTE | 2016-12-05 15:13 | RADRPT ---
EXAM DATE/TIME: 12/05/2016 14:26 [place] COMPARISON: ABDOMEN KUB ONLY, December 03, 2016, 12:46. INDICATIONS : Colic ileus MEDICAL HISTORY : Stroke. skin cancer SURGICAL HISTORY : Thoracic and lumbar surgery ENCOUNTER: Initial ACUITY: 4 - 6 days PAIN SCORE: 6/10 LOCATION: Bilateral abdomen FINDINGS: 2 portable supine views of the abdomen show no significant change. A dilated gas filled colon is agai n seen. Small bowel is decompressed. Stomach is decompressed. 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 Bilateral hip osteoarthritis. Clear lung bases. Median sternotomy wires. CONCLUSION: Unchanged gaseous distention of the colon consistent with colonic ileus. Jem Segundo Jr., MD on December 05, 2016 at 15:00 Board Certified Radiologist. This report was verified electronically.
[2016-12-05] MEDS ORDERED: PEG (High)/E-LYTE SOLN 4000 ML BTL PO ONE (16:00)
--- NOTE | 2016-12-05 16:36 | PD.CONS ---
[facility] Service Nephrology Consult Requested By Hamzah Reason for Consult Hyponatremia, edema, CKD evaluation Primary Care Physician Non-Staff History of Present Illness This is a 75 y/o male patient. He was admitted on 11/30 from Cardiology office. The following is taken from Critical care note: This pt has a known history of atrial fibrillation with history of ablation 1 week prior to admission, also has COPD, HTN, CHF, AAA, PAD and CABG x 3 stents. On 11/30 the patient presented to Dr. Sutton's office for a follow up appointment. While in his office patient developed shortness of breath and palpitations. EKG was performed and patient was found to be in A fib RVR, and sent to the ER immediately. Upon presentation, Dr. Sutton performed a cardioversion and placed him on Amiodarone IV infusion with bolus. Patient had abdominal pain on and off for 3 days prior, also had diminished appetite and PO intake. Patient was admitted by the hospitalist service with cardiology following. He was diagnosed with an ileus and surgery did evaluate the patient. He underwent a decompression colonoscopy on 12/02 by GI with some improvement in his abdominal distention. He is due for repeat procedure tomorrow. For the A fib, he was then started on amiodarone drip as he converted back to a flutter fib with RVR , later restarted on both metoprolol and Cardizem by cardiology. Aldactone and losartan were continued at that time. His Cardizem dose was increased yesterday, he then subsequently developed hypotension with systolic BP in the 70s. He received IVF boluses and was transferred to the ICU. His creatinine on arrival was 1.7 that improved to 1.3. Today it measures 2.3. His K is 5.2. Also he has been hyponatremic this admission, admitted with Na of 125, it has been fluctuant but today is the same. He has lower extremity edema and clinically is hypervolemic. He is on NS @ 100cc/hr and NaCl tabs TID. He is on oxygen via face mask. there are no labs for comparison. We were consulted for evaluation of edema, possible CKD, and hyponatremia. (Christie Fleming) Review of Systems Constitutional: COMPLAINS OF: Fatigue, DENIES: Weight gain Respiratory: COMPLAINS OF: Shortness of breath Cardiovascular: COMPLAINS OF: Lower Extremity Edema, Orthopnea, DENIES: Chest pain Gastrointestinal: COMPLAINS OF: Abdominal pain, Black stools, Constipation, DENIES: Nausea Neurologic: DENIES: Abnormal gait (Christie Fleming) Past Family Social History Allergies: Coded Allergies: Plavix (Verified Allergy, Unknown, hives, 12/02/16) Past Medical History Congestive heart failure Coronary artery disease s/p CABG Chronic obstructive pulmonary disease Atrial fibrillation with ablation 1 week ago Abdominal aortic aneurysm Peripheral artery disease Hypertension Benign Prostate hypertrophy Past Surgical History PAD with femoral stenting CABG x 3 stent placement Bilateral cataract surgery Cardiac ablation Cardioversion TURP Reported Medications Tamsulosin (Tamsulosin HCl) 0.4 Mg Cap 0.4 Mg PO HS Aldactone (Spironolactone) 25 Mg Tab 25 Mg PO DAILY Protonix (Pantoprazole Sodium) 40 Mg Tab 40 Mg PO DAILY Nitroglycerin SL (Nitroglycerin) 0.4 Mg Subl 0.4 Mg SL DIRECTED PRN ONE TABLET UNDER THE TONGUE NEEDED FOR CHEST PAIN, MAY REPEAT EVERY FIVE MINUTES FOR A TOTAL OF 3 DOSES OR CALL 911 IF NO RELIEF Meclizine 25 (Meclizine HCl) 25 Mg Tab Losartan (Losartan Potassium) 50 Mg Tab 50 Mg PO DAILY Levothyroxine (Levothyroxine Sodium) 25 Mcg Tab 25 Mcg PO DAILY Ipratropium Neb (Ipratropium [place]) 0.5 Mg/2.5 Ml Amp 0.5 Mg NEB Q4HR NEB Furosemide 20 Mg Tab 20 Mg PO DAILY Cymbalta DR (Duloxetine HCl) 60 Mg Capdr 60 Mg PO DAILY Eliquis (Apixaban) 2.5 Mg Tab 2.5 Mg PO BID Albuterol Neb (Albuterol Sulfate) 2.5 Mg/3 Ml Neb 2.5 Mg NEB QID NEB Active Ordered Medications Current Medications Medications (Trade) Dose Ordered Sig/Manuel Route Start Time Stop Time Status Last Admin (Synthroid) 25 mcg DAILY@06 PO 12/01/16 06:00 12/05/16 05:36 (Protonix) 40 mg DAILY PO 12/01/16 09:00 12/05/16 09:00 (Flomax) 0.4 mg HS PO 11/30/16 21:00 12/04/16 22:09 (Restoril) 15 mg HS PRN PO 11/30/16 19:30 12/04/16 00:25 (Reglan Inj) 5 mg Q8HR IV PUSH 12/01/16 14:00 12/05/16 14:00 (Cordarone) 400 mg Q12HR PO 12/02/16 21:00 12/07/16 20:59 12/05/16 08:04 Amiodarone HCl 200 mg 200 mg DAILY PO 12/08/16 09:00 (Cordarone Inj/ D5W (Kimberly) Inj) 250 ml @ 0 mls/hr CONTINUOUS IV 12/03/16 02:15 12/04/16 03:32 (Cardizem Cd) 360 mg DAILY PO 12/04/16 09:00 12/05/16 08:04 (Eliquis) 5 mg BID PO 12/03/16 11:45 12/05/16 09:00 (Cymbalta Dr) 60 mg HS PO 12/04/16 21:00 12/04/16 22:08 (Sodium Chloride) 1 gm TID PO 12/04/16 09:00 12/05/16 13:00 Acetaminophen 650 mg 650 mg Q6HR PRN PO 12/04/16 13:15 12/04/16 22:07 (NS 1000 ml Inj) 1,000 ml @ 100 mls/hr Q10H IV 12/05/16 08:00 12/05/16 17:59 12/05/16 08:00 (Lopressor) 25 mg Q12HR PO 12/05/16 09:00 12/05/16 09:00 Family History No hx of renal disorders Social History former smoker, quit 35 yrs ago former heavy ETOH , 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 (Christie Fleming) Physical Exam Vital Signs Vital Signs Date Time Temp Pulse Resp B/P Pulse Ox O2 Delivery O2 Flow Rate FiO2 12/05/16 16:00 98 12/05/16 16:00 98.1 110 22 112/62 95 12/05/16 14:00 97 12/05/16 14:00 111 12/05/16 12:01 106 21 110/46 84 12/05/16 12:00 112 12/05/16 12:00 98.0 111 18 112/56 100 12/05/16 12:00 106 24 82 12/05/16 11:45 103 20 82 12/05/16 11:30 104 20 87 12/05/16 11:15 109 19 95 12/05/16 11:13 109 19 103/68 96 12/05/16 11:00 109 26 96 12/05/16 10:45 108 19 95 12/05/16 10:30 110 23 87 12/05/16 10:15 109 22 96 12/05/16 10:00 112 12/05/16 10:00 113 14 130/71 100 12/05/16 09:45 113 13 100 12/05/16 09:30 112 14 100 12/05/16 09:15 112 25 91 12/05/16 09:00 107 20 127/58 67 12/05/16 08:45 111 20 81 12/05/16 08:30 115 28 100 12/05/16 08:15 115 14 100 12/05/16 08:00 112 12/05/16 08:00 114 16 142/75 100 12/05/16 08:00 98.0 110 18 126/68 100 12/05/16 07:36 92 Partial Rebreather 15.00 12/05/16 06:00 111 12/05/16 05:30 111 14 100 12/05/16 05:00 112 12/05/16 05:00 112 13 118/68 100 12/05/16 04:30 110 14 100 12/05/16 04:00 97.7 110 30 136/66 95 12/05/16 04:00 110 12/05/16 03:30 109 19 100 12/05/16 03:00 109 14 125/68 100 12/05/16 03:00 109 12/05/16 02:30 108 15 99 12/05/16 02:00 109 12/05/16 02:00 109 23 124/85 99 12/05/16 01:30 108 16 100 12/05/16 01:02 106 16 120/83 98 12/05/16 01:02 106 12/05/16 01:00 106 18 154/104 97 12/05/16 01:00 106 12/05/16 00:00 97.6 105 15 152/75 100 12/05/16 00:00 102 12/04/16 23:15 96 Partial Rebreather 15.00 12/04/16 23:12 15 12/04/16 22:00 102 12/04/16 21:45 95 Non-Rebreather 100 12/04/16 21:17 95 Venturi Mask 6.00 50 12/04/16 20:00 100 12/04/16 20:00 97.5 104 18 137/89 95 12/04/16 18:00 100 Physical Exam Elderly male, appears younger than stated age on oxygen via mask. awake/alert/no neuro deficit Lungs: scattered rales, no wheezing Cardiac: S1S2, irreg irreg, tachycardic 110s. Abd; taut, firm, slightly tender, hyperactive bowel sounds Ext: 3+ edema, no weeping : some hematuria, no sediment Laboratory Laboratory Tests Test 12/04/16 12/04/16 17:20 23:31 Troponin I LESS THAN 0.02 LESS THAN 0.02 White Blood Count 9.5 Red Blood Count 3.41 Hemoglobin 10.1 Hematocrit 29.5 Mean Corpuscular Volume 86.6 Mean Corpuscular Hemoglobin 29.6 Mean Corpuscular Hemoglobin 34.2 Concent Red Cell Distribution Width 15.1 Platelet Count 265 Mean Platelet Volume 6.8 Neutrophils (%) (Auto) 85.1 Lymphocytes (%) (Auto) 3.8 Monocytes (%) (Auto) 9.4 Eosinophils (%) (Auto) 0.1 Basophils (%) (Auto) 1.6 Neutrophils # (Auto) 8.1 Lymphocytes # (Auto) 0.4 Monocytes # (Auto) 0.9 Eosinophils # (Auto) 0.0 Basophils # (Auto) 0.2 CBC Comment DIFF FINAL Differential Comment Sodium Level 125 Potassium Level 5.2 Chloride Level 91 Carbon Dioxide Level 27.4 Anion Gap 7 Blood Urea Nitrogen 20 Creatinine 2.30 Estimat Glomerular Filtration 28 Rate Random Glucose 131 Calcium Level 8.4 Date/Time Procedure Status Source Growth 12/01/16 14:27 Stool Occult Blood (STEVEN) - Final Complete Stool Stool HEMOCCULT POSITIVE (Christie Fleming) Result Diagram: 12/04/16 2331 12/04/16 2331 Imaging Last Impressions Abdomen X-Ray 12/05/16 1400 Signed Impressions: Service Date/Time: Monday, December 05, 2016 14:26 - CONCLUSION: Unchanged gaseous distention of the colon consistent with colonic ileus. Jem Segundo Jr., MD Chest X-Ray 12/04/16 0000 Signed Impressions: Service Date/Time: Sunday, December 04, 2016 12:40 - CONCLUSION: Low lung volumes. Increased lower lung opacity bilaterally likely representing atelectasis. Maninder Mg MD Abdomen/Pelvis CT 12/04/16 0000 Signed Impressions: Service Date/Time: Sunday, December 04, 2016 20:28 - CONCLUSION: 1. Diverticulosis of the colon without diverticulitis. 2. Gaseous distention of the ascending and transverse colon likely ileus. No obstruction. 3. Atrophic right kidney. 4. Minimal perihepatic ascites. 5. Bibasilar consolidation. 6. Bulging of the abdominal aorta with extensive atherosclerotic changes but no Amando De Jesus MD (Christie Fleming) Assessment and Plan Problem List: (1) AFIA (acute kidney injury) Plan: In a pt with no baseline labs for comparison. His admission creatinine was 1.7, which initially improved to 1.4. Creatinine is worse today which coincides with hypotension from last night, May have suffered renal hypoperfusion that may progress to ATN. he had 500 ml urine return with pinto placement this afternoon, he is non oliguric he has lower extremity edema and is clinically hypervolemic, needs diuresis stop IVF and NaCl tabs, begin Bumex 2 mg IV BID check UA for analysis of protein monitor renal function and electrolytes daily avoid nephrotoxic medications (2) Hyponatremia Plan: Possibly chronic, fluctuant but stable asymptomatic he is clinically hypervolemic, stop NaCl tabs and IVF begin Loop diuretic begin oral fluid restriction 2D echo to evaluate LVEF has been taken (3) Atrial fibrillation Plan: cardiology is following he failed cardioversion x 2 on po amiodarone and Lopressor follow rhythm/rate (4) Abdominal pain Plan: GI following due to decompression colonoscopy tomorrow (Christie Fleming) Problem List: (1) AFIA (acute kidney injury) Plan: In a pt with no baseline labs for comparison. His admission creatinine was 1.7, which initially improved to 1.4. Creatinine is worse today which coincides with hypotension from last night, May have suffered renal hypoperfusion that may progress to ATN. he had 500 ml urine return with pinto placement this afternoon, he is non oliguric he has lower extremity edema and is clinically hypervolemic, needs diuresis stop IVF and NaCl tabs, begin Bumex 2 mg IV BID check UA for analysis of protein monitor renal function and electrolytes daily avoid nephrotoxic medications (2) Hyponatremia Plan: Possibly chronic, fluctuant but stable asymptomatic he is clinically hypervolemic, stop NaCl tabs and IVF begin Loop diuretic begin oral fluid restriction 2D echo to evaluate LVEF has been taken (3) Atrial fibrillation Plan: cardiology is following he failed cardioversion x 2 on po amiodarone and Lopressor follow rhythm/rate (4) Abdominal pain Plan: GI following due to decompression colonoscopy tomorrow Assessment and Plan patient was seen and examined. AFIA could be due to ATN, cholesterol embolization is a consideration. Positive fluid balance for several days. Start loop diuretics. His abdomen is distended. GI and surgery on the case. His prognosis is guarded at this time. At risk for multiple complications. ( Pedro Luo MD) Problem Qualifiers (1) Abdominal pain: Qualified Code: R10.84 - Generalized abdominal pain Christie Fleming Dec 05, 2016 16:36 Pedro Luo MD Dec 05, 2016 17:45
[2016-12-05 16:51] LABS: BICARBONATE 25.2 MEQ/L (21.0-32.0); POTASSIUM 4.9 MEQ/L (3.5-5.1)
[2016-12-05] MEDS: BUMETANIDE INJ 1 MG/4 ML VIAL IV PUSH SCH (18:00)
[2016-12-05 18:09] LABS: BLOOD GAS BASE EXCESS -4.5 mmol/L (-2-2); BLOOD GAS CARBOXYHEMOGLOBIN 1.3 % (0-4); BLOOD GAS HCO3 22 mmol/L (22-26); BLOOD GAS METHEMOGLOBIN 1.1 % (0-2); BLOOD GAS O2 HGB SATURATION 87 % (90-100); BLOOD GAS OXYGEN CONTENT 11.6 Vol % (12.0-20.0); BLOOD GAS PCO2 59 mmHg (38-42); BLOOD GAS PO2 66 mmHg (61-120); BLOOD GAS TOTAL HGB 9.4 G/DL (12.0-16.0); TEMP CORR TO 98.6
[2016-12-05 18:11] LABS: CRITICAL VALUE YES; DRAW SITE LT RADIAL; FIO2 100 %; LITER FLOW 15 L/M; NUMBER OF ARTERIAL PUNCTURES 1; STAT NO; ULNAR PULSE PRESENT
[2016-12-05 19:36] LABS: BLOOD, URINE MOD (NEG); COMMENT (UR) CULTURE INDICATED; CULTURE IF INDICATED CULTURE INDICATED; GLUCOSE,URINE NEG (NEG); KETONE, URINE NEG (NEG); MUCUS URINE FEW /lpf (OCC); NITRITE,URINE NEG (NEG); PH, URINE 5.5 (5.0-8.5); SQUAMOUS EPITHELIAL CELL URINE 1 /hpf (0-5); URINE COLOR YELLOW (YELLW/STRAW)
[2016-12-05] MEDS: TAMSULOSIN HCL 0.4 MG CAP PO SCH (22:49)
[2016-12-05] MEDS: DULoxetine HCl DR 60 MG CAP PO SCH (22:49)
[2016-12-06] VITALS (43 sets, daily range): BP systolic 84–140; BP diastolic 41–80; PULSE 95–127; RESP 0–24; TEMP 97–100.6; O2SAT 81–100
[2016-12-06] MEDS ORDERED: ETOMIDATE 20 MG/10 ML VIAL ONE (01:15)
[2016-12-06] MEDS ORDERED: MIDAZOLAM HCL 5 MG/ML VIAL (1 ML) ONE (01:28)
[2016-12-06] MEDS ORDERED: PROPOFOL 1000 MG/100 ML INJ 100 ML ONE ×2 (01:29→06:20)
[2016-12-06 01:43] LABS: BLOOD GAS BASE EXCESS -3.2 mmol/L (-2-2); BLOOD GAS CARBOXYHEMOGLOBIN 1.3 % (0-4); BLOOD GAS HCO3 24 mmol/L (22-26); BLOOD GAS METHEMOGLOBIN 1.1 % (0-2); BLOOD GAS O2 HGB SATURATION 84 % (90-100); BLOOD GAS OXYGEN CONTENT 11.3 Vol % (12.0-20.0); BLOOD GAS PCO2 67 mmHg (38-42); BLOOD GAS PO2 61 mmHg (61-120); BLOOD GAS TOTAL HGB 9.6 G/DL (12.0-16.0); TEMP CORR TO 98.6
[2016-12-06 01:44] LABS: CRITICAL VALUE YES; DRAW SITE LT RADIAL; LITER FLOW 15 L/M; NUMBER OF ARTERIAL PUNCTURES 1; STAT YES; ULNAR PULSE PRESENT
--- NOTE | 2016-12-06 02:27 | RADRPT ---
EXAM DATE/TIME: 12/06/2016 01:41 [place] COMPARISON: No previous studies available for comparison. INDICATIONS : Post intubation and central line placement. MEDICAL HISTORY : Cardiovascular disease. Congestive heart failure. SURGICAL HISTORY : CABG. ENCOUNTER: Subsequent ACUITY: 1 week PAIN SCORE: Non-responsive. LOCATION: Bilateral chest FINDINGS: A single view of the chest demonstrates the lungs to be poorly aerated without evidence of mass, infi ltrate or effusion. The cardiomediastinal contours are unremarkable. Osseous structures are intact. Nasogastric tube in good position. Endotracheal tube in excellent position. Right subclavian central line in good position CONCLUSION: New right subclavian central venous catheter placed in good position. No visible pneu mothorax. Tiny bilateral pleural effusions with small lung volumes. Juvencio Knowles MD on December 06, 2016 at 2:24 Board Certified Radiologist. This report was verified electronically.
[2016-12-06 02:50] LABS: BLOOD GAS BASE EXCESS -3.6 mmol/L (-2-2); BLOOD GAS CARBOXYHEMOGLOBIN 1.5 % (0-4); BLOOD GAS HCO3 22 mmol/L (22-26); BLOOD GAS O2 HGB SATURATION 93 % (90-100); BLOOD GAS OXYGEN CONTENT 11.8 Vol % (12.0-20.0); BLOOD GAS PCO2 44 mmHg (38-42); BLOOD GAS PO2 80 mmHg (61-120); BLOOD GAS TOTAL HGB 8.9 G/DL (12.0-16.0); CRITICAL VALUE NO; OXYGEN DEVICE VENTILATOR; TEMP CORR TO 98.6
[2016-12-06 02:51] LABS: DRAW SITE RT BRACHIAL; FIO2 100 %; NUMBER OF ARTERIAL PUNCTURES 1; STAT NO; VENT SETTINGS PC/AC
[2016-12-06] MEDS: RESP: IPRATROPIUM 0.5 MG/2.5 ML NEB NEB SCH ×6 (03:25→23:49)
--- NOTE | 2016-12-06 03:32 | PD.PROCEDR ---
Procedure Note Procedure Endotracheal Intubation A time-out was completed verifying correct patient, procedure, site, positioning , and special equipment if applicable. The patient was placed in a flat position. Sedation was obtained using Etomidate 20mg. The patient was easily ventilated using an ambu bag. The [employer]/ MAC 4 BLADE was used and inserted into the oropharynx at which time there was a Grade 1 view of the vocal cords. A 8-croatian endotracheal tube was inserted and visualized going through the vocal cords. The stylette was removed. Colorimetric change was visualized on the CO2 meter. Breath sounds were heard in both lung palafox equally. The endotracheal tube was placed at 23 cm, measured at the teeth. A chest x-ray was ordered to assess for pneumothorax and verify endotrachealtube placement. Estimated Blood Loss: 0 The patient tolerated the procedure well and there were no complications. Henry Meade MD Dec 06, 2016 03:32
--- NOTE | 2016-12-06 03:32 | PD.PROCEDR ---
Procedure Note Procedure Centerline placement A time-out was completed verifying correct patient, procedure, site, positioning , and special equipment if applicable. The patient was placed in a dependent position appropriate for central line placement based on the vein to be cannulated. The patients right shoulder was prepped and draped in sterile fashion. 1% Lidocaine was used to anesthetize the surrounding skin area. A triple lumen 9-[place] catheter was introduced into the the right subclavian vein using the Seldinger technique. The catheter was threaded smoothly over the guide wire and appropriate blood return was obtained. Each lumen of the catheter was evacuated of air and flushed with sterile saline. The catheter was then sutured in place to the skin and a sterile dressing applied. Perfusion to the extremity distal to the point of catheter insertion was checked and found to be adequate. Estimated Blood Loss: 1ml The patient tolerated the procedure well and there were no complications. Henry Meade MD Dec 06, 2016 03:32
[2016-12-06] MEDS: LEVOTHYROXINE SODIUM 25 MCG TAB PO SCH ×2 (06:00→08:07)
[2016-12-06] MEDS: METOCLOPRAMIDE HCL 10 MG/2 ML VIAL IV PUSH SCH ×3 (06:26→23:10)
[2016-12-06 06:33] LABS: BASOPHIL % 0.3 % (0.0-2.0); HEMATOCRIT 26.9 % (39.0-51.0); HEMO FLAGS DIFF FINAL; LYMPH % 4.9 % (9.0-44.0); LYMPHOCYTE # 0.4 TH/MM3 (1.0-4.8); MEAN CELL VOLUME 85.9 FL (80.0-100.0); MEAN CORPUSCULAR HEMOGLOBIN 28.9 PG (27.0-34.0); MEAN CORPUSCULAR HGB CONC 33.6 % (32.0-36.0); MONO % 15.1 % (0.0-8.0); NEUT % 79.7 % (16.0-70.0); PLATELET COUNT 238 TH/MM3 (150-450); RED BLOOD COUNT 3.13 MIL/MM3 (4.50-5.90); RED CELL DISTRIBUTION WIDTH 15.2 % (11.6-17.2); WHITE BLOOD COUNT 8.8 TH/MM3 (4.0-11.0)
[2016-12-06 07:01] LABS: ALKALINE PHOSPHATASE 120 U/L (45-117); ALT (GPT) 32 U/L (12-78); ANION GAP 9 MEQ/L (5-15); AST (GOT) 12 U/L (15-37); BICARBONATE 27.2 MEQ/L (21.0-32.0); BLOOD UREA NITROGEN 30 MG/DL (7-18); CHLORIDE 95 MEQ/L (98-107); GLOMERULAR FILTRATION RATE 20 ML/MIN (>89); POTASSIUM 3.9 MEQ/L (3.5-5.1); SODIUM (NA) 131 MEQ/L (136-145); TOTAL BILIRUBIN ADULT 0.4 MG/DL (0.2-1.0)
[2016-12-06] MEDS: APIXABAN 5 MG TABLET PO SCH ×2 (08:06→23:11)
[2016-12-06] MEDS: AMIODARONE 200 MG TAB PO SCH ×2 (08:06→23:10)
[2016-12-06] MEDS: PANTOPRAZOLE SOD 40 MG DELAYED RELEASE TAB PO SCH (08:06)
[2016-12-06] MEDS: BUMETANIDE INJ 1 MG/4 ML VIAL IV PUSH SCH (08:06)
[2016-12-06] MEDS: DILTIAZEM-CD 180 MG CAP ER PO SCH (08:06)
[2016-12-06] MEDS: METOPROLOL TARTRATE 25 MG TAB PO SCH ×2 (08:07→23:10)
[2016-12-06] MEDS ORDERED: AMIODARONE 200 MG TAB PO SCH (09:00)
--- NOTE | 2016-12-06 09:16 | EC ---
Study Study Date:12/05/2016 STUDY CONCLUSIONS SUMMARY - Left ventricle: The cavity size was normal. Wall thickness was normal. Systolic function was mildly to moderately reduced. The estimated ejection fraction was in the range of 40% to 45%. Wall motion was normal; there were no regional wall motion abnormalities. - Mitral valve: Mild regurgitation. If LV function is below 40, please consider prescribing an ACEI or ARB or document rationale for non-use. PROCEDURE DATA STUDY STATUS: Elective. Procedure: Transthoracic echocardiography. Image quality was good. Scanning was performed from the parasternal, apical, and subcostal acoustic windows. Study completion: The patient tolerated the procedure well. Transthoracic echocardiography. M-mode, complete 2D, complete spectral Doppler, and color Doppler. Patient status: Inpatient. CARDIAC ANATOMY LEFT VENTRICLE: The cavity size was normal. Wall thickness was normal. Systolic function was mildly to moderately reduced. The estimated ejection fraction was in the range of 40% to 45%. Wall motion was normal; there were no regional wall motion abnormalities. AORTIC VALVE: Trileaflet; normal thickness leaflets. Doppler: Transvalvular velocity was within the normal range. There was no stenosis. No regurgitation. AORTA: Aortic root: The aortic root was normal in size. MITRAL VALVE: Structurally normal valve. Doppler: Transvalvular velocity was within the normal range. There was no evidence for stenosis. Mild regurgitation. Peak gradient: 3mm Hg (D). LEFT ATRIUM: The atrium was normal in size. RIGHT VENTRICLE: The cavity size was normal. Wall thickness was normal. PULMONIC VALVE: Doppler: Transvalvular velocity was within the normal range. There was no evidence for stenosis. No regurgitation. TRICUSPID VALVE: Structurally normal valve. Doppler: Transvalvular velocity was within the normal range. No regurgitation. PULMONARY ARTERY: The main pulmonary artery was normal-sized. Systolic pressure was within the normal range. RIGHT ATRIUM: The atrium was normal in size. PERICARDIUM: There was no pericardial effusion. SYSTEMIC VEINS: Inferior vena cava: The vessel was normal in size. BASIC MEASUREMENTS ADULT NORMAL Left ventricle LV internal dimension, ED, chordal level, *39 mm 43-52 PLAX LV internal dimension, ES, chordal level, 31.3 mm 23-38 PLAX Fractional shortening, chordal level, PLAX *20 % >29 LV posterior wall thickness, ED 7.95 mm IVS/LVPW ratio, ED 1.21 <1.3 Ventricular septum Septal thickness, ED 9.62 mm Aortic valve Leaflet separation 23 mm 15-26 Left atrium Anterior-posterior dimension 42 mm Right ventricle RV internal dimension, ED, PLAX 19.2 mm 19-38 BASIC MEASUREMENTS ADULT NORMAL Aortic valve Leaflet separation 23 mm 15-26 Aorta Root diameter, ED 36 mm 20-37 DOPPLER MEASUREMENTS ADULT NORMAL Mitral valve Peak E-wave velocity 82.8 cm/s Peak A-wave velocity 31.8 cm/s Peak gradient, D 3 mm Hg Peak E/A ratio 2.6 Tricuspid valve Regurgitant peak velocity 252 cm/s Peak RV-RA gradient, S 25 mm Hg Maximal regurgitant velocity 252 cm/s LEGEND: Mean values are shown as u=mean value. Asterisk (*) abrams values outside specified normal range. Prepared and signed by Umesh Crowder [id number]
[2016-12-06] MEDS: PROPOFOL 1000 MG/100 ML IV SCH ×4 (09:24→23:09)
--- NOTE | 2016-12-06 10:39 | HHI.NPPN ---
Subjective General Problems: Edema Renal Failure: Chronic, Acute Interval History He was intubated. Now sedated. Sodium is better. Creatinine is worse. (Christie Fleming) Review of Systems General General Remarks unable to obtain (Christie Fleming) Objective Data Data 12/05/16 12/06/16 19:00 07:00 Intake Total 1180 ml Output Total 650 ml 550 ml Balance 530 ml -550 ml Intake Oral 380 ml IV Total 800 ml Output Urine Total 650 ml 550 ml Bladder Scan Volume Amount 500 ml 400 ml # Voids 1 Vital Signs Date Time Temp Pulse Resp B/P Pulse Ox O2 Delivery O2 Flow Rate FiO2 12/06/16 10:00 96 12/06/16 08:00 120 12/06/16 08:00 97.0 120 133/78 100 12/06/16 07:49 99 80 12/06/16 07:00 122 0 116/76 91 12/06/16 06:30 99 80 12/06/16 06:00 117 0 110/76 95 12/06/16 06:00 124 12/06/16 05:00 121 0 117/69 100 12/06/16 04:45 120 139/80 97 12/06/16 04:15 98 90 12/06/16 04:00 120 20 140/78 100 12/06/16 04:00 120 12/06/16 04:00 98.0 120 20 140/78 100 12/06/16 02:00 103 12/06/16 01:30 98 100 12/06/16 00:00 117 12/06/16 00:00 97.7 117 24 90 12/05/16 22:00 116 12/05/16 20:10 91 Non-Rebreather 15.00 100 12/05/16 20:00 112 12/05/16 20:00 97.5 112 20 127/75 94 12/05/16 18:00 98 12/05/16 16:00 98 12/05/16 16:00 98.1 110 22 112/62 95 12/05/16 14:00 97 12/05/16 14:00 111 12/05/16 12:01 106 21 110/46 84 12/05/16 12:00 112 12/05/16 12:00 98.0 111 18 112/56 100 12/05/16 12:00 106 24 82 12/05/16 11:45 103 20 82 12/05/16 11:30 104 20 87 12/05/16 11:15 109 19 95 12/05/16 11:13 109 19 103/68 96 12/05/16 11:00 109 26 96 12/05/16 10:45 108 19 95 (Christie Fleming) -: 12/06/16 0454 12/06/16 0454 Microbiology 12/05/16 Urine Culture, Received Pending Imaging Last 72 hours Impressions Chest X-Ray 12/06/16 0000 Signed Impressions: Service Date/Time: Tuesday, December 06, 2016 01:41 - CONCLUSION: New right subclavian central venous catheter placed in good position. No visible pneumothorax. Tiny bilateral pleural effusions with small lung volumes. Juvencio Knowles MD Abdomen X-Ray 12/05/16 1400 Signed Impressions: Service Date/Time: Monday, December 05, 2016 14:26 - CONCLUSION: Unchanged gaseous distention of the colon consistent with colonic ileus. Jem Segudno Jr., MD Chest X-Ray 12/04/16 0000 Signed Impressions: Service Date/Time: Sunday, December 04, 2016 12:40 - CONCLUSION: Low lung volumes. Increased lower lung opacity bilaterally likely representing atelectasis. Maninder Mg MD Abdomen/Pelvis CT 12/04/16 0000 Signed Impressions: Service Date/Time: Sunday, December 04, 2016 20:28 - CONCLUSION: 1. Diverticulosis of the colon without diverticulitis. 2. Gaseous distention of the ascending and transverse colon likely ileus. No obstruction. 3. Atrophic right kidney. 4. Minimal perihepatic ascites. 5. Bibasilar consolidation. 6. Bulging of the abdominal aorta with extensive atherosclerotic changes but no Amando De Jesus MD Abdomen X-Ray 12/04/16 0000 Signed Impressions: Service Date/Time: Sunday, December 04, 2016 18:37 - CONCLUSION: Gaseous distention multiple bowel loops likely large bowel, slightly improved. Amando De Jesus MD Tubes & Lines: [place] Drip Comment propofol (Christie Fleming) Physical Exam General Appearance: Well Developed, Well Nourished, Comfortable Appearance Remarks intubated, sedated (Christie Fleming) Throat Throat Exam: Oral Mucosa [place] & Moist (Christie Fleming) Pulmonary Resp Exam: No Distress, Rhonchi Resp Remarks with wheezing on right (Christie Flmeing) Cardiology CV Exam: Regular, Tachycardia (Christie Fleming) Gastrointestinal/Abdomen GI Remarks round, taut, firm distended (Christie Fleming) Musculoskeletal MS Exam: Joints Intact, Normal Tone (Christie Fleming) Integumentary Skin Exam: Warm, Dry (Christie Fleming) Extremeties Extremities Exam: Pedal Pulses Palpable, Moderate Edema, Pitting Edema ( Christie Fleming) Neurologic Neuro Exam: Unresponsive, Sedated (Christie Fleming) Psychiatric Psych Exam: Appropriate Responses (Christie Fleming) VTE Prophylaxis VTE Remarks Apixaban (Christie Fleming) Assessment/Plan Assessment Summary: AFIA/Acute Renal Failure, Fluid/Volume Overload, Hypertension Electrolyte Assessment: Hyponatremia Problem List: (1) AFIA (acute kidney injury) Plan: In a pt with no baseline labs for comparison. His admission creatinine was 1.7, suspected ATN from hypotension, renal function is worse today blood pressure is better today, he has good urine output continue diuresis with Bumex but reduce dosage to once daily UA has trace proteinuria monitor renal function and electrolytes daily avoid nephrotoxic medications (2) Hyponatremia Plan: hypervolemic, improving off IVF and NaCl tabs continue diuresis 2D echo to evaluate LVEF has been taken (3) Atrial fibrillation Plan: cardiology is following, in Sinus tach today he failed cardioversion x 2 since arrival on po amiodarone and Lopressor follow rhythm/rate (4) Abdominal pain Plan: GI following due to decompression colonoscopy (Christie Fleming) Plan patient was seen and examined. Renal function is worse. He is now intubated. Reduce the dose of diuretic. No immediate need for dialysis. Notes were reviewed. (Pedro Luo MD) Problem Qualifiers (1) Abdominal pain: Qualified Code: R10.84 - Generalized abdominal pain Christie Fleming Dec 06, 2016 10:38 Pedro Luo MD Dec 06, 2016 15:08
--- NOTE | 2016-12-06 11:50 | PD.CARD.PN ---
Subjective Subjective Remarks Events of yesterday noted, currently intubated, sedated, reasonable afib rates on tele. Objective Medications Administered Medications Medications (Trade) Dose Ordered Sig/Manuel Route PRN Reason Start Time Stop Time Status Last Admin Dose Admin Levothyroxine Sodium (Synthroid) 25 mcg DAILY@06 PO 12/01/16 06:00 12/06/16 08:07 Pantoprazole Sodium (Protonix) 40 mg DAILY PO 12/01/16 09:00 12/06/16 08:06 Tamsulosin HCl (Flomax) 0.4 mg HS PO 11/30/16 21:00 12/05/16 22:49 Temazepam (Restoril) 15 mg HS PRN PO SLEEP 11/30/16 19:30 12/04/16 00:25 Metoclopramide HCl (Reglan Inj) 5 mg Q8HR IV PUSH 12/01/16 14:00 12/06/16 06:26 Amiodarone HCl 400 mg 400 mg Q12HR PO 12/02/16 21:00 12/07/16 20:59 12/06/16 08:06 Amiodarone HCl/ Dextrose (Cordarone Inj/ D5W ([place]) Inj) 250 ml @ 0 mls/hr CONTINUOUS IV 12/03/16 02:15 12/04/16 03:32 Diltiazem HCl (Cardizem Cd) 360 mg DAILY PO 12/04/16 09:00 12/06/16 08:06 Apixaban (Eliquis) 5 mg BID PO 12/03/16 11:45 12/06/16 08:06 Duloxetine HCl (Cymbalta Dr) 60 mg HS PO 12/04/16 21:00 12/05/16 22:49 Acetaminophen (Tylenol) 650 mg Q6HR PRN PO pain 1 TO 10 12/04/16 13:15 12/04/16 22:07 Metoprolol Tartrate (Lopressor) 25 mg Q12HR PO 12/05/16 09:00 12/06/16 08:07 Bumetanide 2 mg 2 mg BID@09,18 IV PUSH 12/05/16 18:00 12/06/16 08:06 Propofol (Diprivan 1000 Mg/100ml Inj) 100 ml @ 0 mls/hr TITRATE IV 12/06/16 08:00 12/06/16 09:24 Vital Signs / I&O Vital Signs Date Time Temp Pulse Resp B/P Pulse Ox O2 Delivery O2 Flow Rate FiO2 12/06/16 10:00 96 12/06/16 08:00 120 12/06/16 08:00 97.0 120 133/78 100 12/06/16 08:00 80 12/06/16 07:49 99 80 12/06/16 07:00 122 0 116/76 91 12/06/16 06:30 99 80 12/06/16 06:00 117 0 110/76 95 12/06/16 06:00 124 12/06/16 05:00 121 0 117/69 100 12/06/16 04:45 120 139/80 97 12/06/16 04:15 98 90 12/06/16 04:00 120 20 140/78 100 12/06/16 04:00 120 12/06/16 04:00 98.0 120 20 140/78 100 12/06/16 02:00 103 12/06/16 01:30 98 100 12/06/16 00:00 117 12/06/16 00:00 97.7 117 24 90 12/05/16 22:00 116 12/05/16 20:10 91 Non-Rebreather 15.00 100 12/05/16 20:00 112 12/05/16 20:00 97.5 112 20 127/75 94 12/05/16 18:00 98 12/05/16 16:00 98 12/05/16 16:00 98.1 110 22 112/62 95 12/05/16 14:00 97 12/05/16 14:00 111 12/05/16 12:01 106 21 110/46 84 12/05/16 12:00 112 12/05/16 12:00 98.0 111 18 112/56 100 12/05/16 12:00 106 24 82 I/O 12/05/16 12/05/16 12/05/16 12/06/16 12/06/16 12/06/16 07:00 15:00 23:00 07:00 15:00 23:00 Intake Total 825 ml 1180 ml Output Total 650 ml 550 ml Balance 825 ml 530 ml -550 ml Intake Oral 120 ml 380 ml IV Total 705 ml 800 ml Output Urine Total 650 ml 550 ml Bladder Scan Volume Amount 63 ml 500 ml 400 ml # Voids 1 1 Physical Exam GENERAL: Intubated, sedated CARDIOVASCULAR: Mildly rapid rate and rhythm without murmurs, gallops, or rubs. RESPIRATORY: vent sounds GASTROINTESTINAL: Abdomen soft, non-tender, nondistended. Normal active bowel sounds MUSCULOSKELETAL: Extremities without clubbing, cyanosis, or edema. NEURO: Alert & Oriented x4 to person, place, time, situation. Moves all ext x4 Laboratory Laboratory Tests Test 12/05/16 12/05/16 12/05/16 12/06/16 15:40 18:00 18:01 00:55 Sodium Level 126 MEQ/L Potassium Level 4.9 MEQ/L Chloride Level 92 MEQ/L Carbon Dioxide Level 25.2 MEQ/L Anion Gap 9 MEQ/L Blood Urea Nitrogen 25 MG/DL Creatinine 2.75 MG/DL Estimat Glomerular Filtration 23 ML/MIN Rate Random Glucose 138 MG/DL Serum Osmolality 282 MOSM/KG Uric Acid 7.4 MG/DL Calcium Level 7.9 MG/DL Urine Color YELLOW Urine Turbidity HAZY Urine pH 5.5 Urine Specific [place] 1.040 Urine Protein 30 mg/dL Urine Glucose (UA) NEG mg/dL Urine Ketones NEG mg/dL Urine Occult Blood MOD Urine Nitrite NEG Urine Bilirubin NEG Urine Urobilinogen LESS THAN 2.0 MG/DL Urine Leukocyte Esterase LARGE Urine RBC 94 /hpf Urine WBC 99 /hpf Urine Squamous Epithelial 1 /hpf Cells Urine Mucus FEW /lpf Microscopic Urinalysis Comment CULTURE INDICATED Urine Osmolality 342 MOSM/KG Blood Gas Puncture Site LT RADIAL LT RADIAL Blood Gas Patient Temperature 98.6 98.6 Blood Gas HCO3 22 mmol/L 24 mmol/L Blood Gas Base Excess -4.5 mmol/L -3.2 mmol/L Blood Gas Oxygen Saturation 87 % 84 % Arterial Blood pH 7.21 7.18 Arterial Blood Partial 59 mmHg 67 mmHg Pressure CO2 Arterial Blood Partial 66 mmHg 61 mmHg Pressure O2 Arterial Blood Oxygen Content 11.6 Vol % 11.3 Vol % Arterial Blood 1.3 % 1.3 % Carboxyhemoglobin Arterial Blood Methemoglobin 1.1 % 1.1 % Blood Gas Hemoglobin 9.4 G/DL 9.6 G/DL Oxygen Delivery Device Non-Rebreathing Non-Rebreathing Mask Mask Blood Gas Liter Flow 15 L/M 15 L/M Blood Gas Inspired Oxygen 100 % Test 12/06/16 12/06/16 02:35 04:54 Blood Gas Puncture Site RT BRACHIAL Blood Gas Patient Temperature 98.6 Blood Gas HCO3 22 mmol/L Blood Gas Base Excess -3.6 mmol/L Blood Gas Oxygen Saturation 93 % Arterial Blood pH 7.31 Arterial Blood Partial 44 mmHg Pressure CO2 Arterial Blood Partial 80 mmHg Pressure O2 Arterial Blood Oxygen Content 11.8 Vol % Arterial Blood 1.5 % Carboxyhemoglobin Arterial Blood Methemoglobin 1.0 % Blood Gas Hemoglobin 8.9 G/DL Oxygen Delivery Device VENTILATOR Blood Gas Ventilator Setting PC/AC Blood Gas Inspired Oxygen 100 % White Blood Count 8.8 TH/MM3 Red Blood Count 3.13 MIL/MM3 Hemoglobin 9.0 GM/DL Hematocrit 26.9 % Mean Corpuscular Volume 85.9 FL Mean Corpuscular Hemoglobin 28.9 PG Mean Corpuscular Hemoglobin 33.6 % Concent Red Cell Distribution Width 15.2 % Platelet Count 238 TH/MM3 Mean Platelet Volume 7.1 FL Neutrophils (%) (Auto) 79.7 % Lymphocytes (%) (Auto) 4.9 % Monocytes (%) (Auto) 15.1 % Eosinophils (%) (Auto) 0.0 % Basophils (%) (Auto) 0.3 % Neutrophils # (Auto) 7.0 TH/MM3 Lymphocytes # (Auto) 0.4 TH/MM3 Monocytes # (Auto) 1.3 TH/MM3 Eosinophils # (Auto) 0.0 TH/MM3 Basophils # (Auto) 0.0 TH/MM3 CBC Comment DIFF FINAL Differential Comment Sodium Level 131 MEQ/L Potassium Level 3.9 MEQ/L Chloride Level 95 MEQ/L Carbon Dioxide Level 27.2 MEQ/L Anion Gap 9 MEQ/L Blood Urea Nitrogen 30 MG/DL Creatinine 3.06 MG/DL Estimat Glomerular Filtration 20 ML/MIN Rate Random Glucose 104 MG/DL Calcium Level 8.5 MG/DL Total Bilirubin 0.4 MG/DL Aspartate Amino Transf 12 U/L (AST/SGOT) Alanine Aminotransferase 32 U/L (ALT/SGPT) Alkaline Phosphatase 120 U/L Total Protein 7.2 GM/DL Albumin 3.4 GM/DL Imaging Last Impressions Chest X-Ray 12/06/16 0000 Signed Impressions: Service Date/Time: Tuesday, December 06, 2016 01:41 - CONCLUSION: New right subclavian central venous catheter placed in good position. No visible pneumothorax. Tiny bilateral pleural effusions with small lung volumes. Juvencio Knowles MD Abdomen X-Ray 12/05/16 1400 Signed Impressions: Service Date/Time: Monday, December 05, 2016 14:26 - CONCLUSION: Unchanged gaseous distention of the colon consistent with colonic ileus. Jem Segundo Jr., MD Abdomen/Pelvis CT 12/04/16 0000 Signed Impressions: Service Date/Time: Sunday, December 04, 2016 20:28 - CONCLUSION: 1. Diverticulosis of the colon without diverticulitis. 2. Gaseous distention of the ascending and transverse colon likely ileus. No obstruction. 3. Atrophic right kidney. 4. Minimal perihepatic ascites. 5. Bibasilar consolidation. 6. Bulging of the abdominal aorta with extensive atherosclerotic changes but no Amando Alejandro De Jesus MD Assessment and Plan Problem List: (1) Atrial fibrillation Assessment and Plan: rates improved, off amio ggt; on eliquis (2) AFIA (acute kidney injury) Assessment and Plan: increasing Cr; renal on board (3) Adynamic ileus Assessment and Plan: apparently is going to get a colonoscopy (4) Cardiomyopathy Assessment and Plan: LVEF 40-45; on BB, sil/arb held due to AFIA Isaiah Arreguin MD Dec 06, 2016 11:50
--- NOTE | 2016-12-06 13:21 | HHI.PR ---
Subjective Subjective Notes Intubated overnight INGRID Castellano at bedside Objective Vitals/I&O Vital Signs Date Time Temp Pulse Resp B/P Pulse Ox O2 Delivery O2 Flow Rate FiO2 12/06/16 12:00 100.4 107 125/58 81 12/06/16 12:00 50 12/06/16 07:00 0 12/05/16 20:10 Non-Rebreather 15.00 Labs Laboratory Tests Test 12/05/16 12/05/16 12/05/16 12/06/16 15:40 18:00 18:01 00:55 Sodium Level 126 Potassium Level 4.9 Chloride Level 92 Carbon Dioxide Level 25.2 Anion Gap 9 Blood Urea Nitrogen 25 Creatinine 2.75 Estimat Glomerular Filtration 23 Rate Random Glucose 138 Serum Osmolality 282 Uric Acid 7.4 Calcium Level 7.9 Urine Color YELLOW Urine Turbidity HAZY Urine pH 5.5 Urine Specific [place] 1.040 Urine Protein 30 Urine Glucose (UA) NEG Urine Ketones NEG Urine Occult Blood MOD Urine Nitrite NEG Urine Bilirubin NEG Urine Urobilinogen LESS THAN 2.0 Urine Leukocyte Esterase LARGE Urine RBC 94 Urine WBC 99 Urine Squamous Epithelial 1 Cells Urine Mucus FEW Microscopic Urinalysis Comment CULTURE INDICATED Urine Osmolality 342 Blood Gas Puncture Site LT RADIAL LT RADIAL Blood Gas Patient Temperature 98.6 98.6 Blood Gas HCO3 22 24 Blood Gas Base Excess -4.5 -3.2 Blood Gas Oxygen Saturation 87 84 Arterial Blood pH 7.21 7.18 Arterial Blood Partial 59 67 Pressure CO2 Arterial Blood Partial 66 61 Pressure O2 Arterial Blood Oxygen Content 11.6 11.3 Arterial Blood 1.3 1.3 Carboxyhemoglobin Arterial Blood Methemoglobin 1.1 1.1 Blood Gas Hemoglobin 9.4 9.6 Oxygen Delivery Device Non-Rebreathing Non-Rebreathing Mask Mask Blood Gas Liter Flow 15 15 Blood Gas Inspired Oxygen 100 Test 12/06/16 12/06/16 02:35 04:54 Blood Gas Puncture Site RT BRACHIAL Blood Gas Patient Temperature 98.6 Blood Gas HCO3 22 Blood Gas Base Excess -3.6 Blood Gas Oxygen Saturation 93 Arterial Blood pH 7.31 Arterial Blood Partial 44 Pressure CO2 Arterial Blood Partial 80 Pressure O2 Arterial Blood Oxygen Content 11.8 Arterial Blood 1.5 Carboxyhemoglobin Arterial Blood Methemoglobin 1.0 Blood Gas Hemoglobin 8.9 Oxygen Delivery Device VENTILATOR Blood Gas Ventilator Setting PC/AC Blood Gas Inspired Oxygen 100 White Blood Count 8.8 Red Blood Count 3.13 Hemoglobin 9.0 Hematocrit 26.9 Mean Corpuscular Volume 85.9 Mean Corpuscular Hemoglobin 28.9 Mean Corpuscular Hemoglobin 33.6 Concent Red Cell Distribution Width 15.2 Platelet Count 238 Mean Platelet Volume 7.1 Neutrophils (%) (Auto) 79.7 Lymphocytes (%) (Auto) 4.9 Monocytes (%) (Auto) 15.1 Eosinophils (%) (Auto) 0.0 Basophils (%) (Auto) 0.3 Neutrophils # (Auto) 7.0 Lymphocytes # (Auto) 0.4 Monocytes # (Auto) 1.3 Eosinophils # (Auto) 0.0 Basophils # (Auto) 0.0 CBC Comment DIFF FINAL Differential Comment Sodium Level 131 Potassium Level 3.9 Chloride Level 95 Carbon Dioxide Level 27.2 Anion Gap 9 Blood Urea Nitrogen 30 Creatinine 3.06 Estimat Glomerular Filtration 20 Rate Random Glucose 104 Calcium Level 8.5 Total Bilirubin 0.4 Aspartate Amino Transf 12 (AST/SGOT) Alanine Aminotransferase 32 (ALT/SGPT) Alkaline Phosphatase 120 Total Protein 7.2 Albumin 3.4 Date/Time Procedure Status Source Growth 12/05/16 18:00 Urine Culture Received Urine Clean Catch Pending 12/01/16 14:27 Stool Occult Blood (STEVEN) - Final Complete Stool Stool HEMOCCULT POSITIVE Radiology Last Impressions Chest X-Ray 12/01/16 1352 Signed Impressions: Service Date/Time: December 13:52 - CONCLUSION: Mild patchy bilateral lower lung zone parenchymal opacity and low lung volumes. Maninder Mg MD Abdomen/Pelvis CT 12/01/16 0000 Signed Impressions: Service Date/Time: December 19:21 - CONCLUSION: 1. Gas dilated colon without an obstructing mass or lesion. This suggests a colonic ileus. 2. Trace amount of free fluid. 3. Bibasilar atelectasis. 4. Coronary artery atherosclerotic calcifications. 5. 2.8 x 2.6 cm AAA 6. Atrophic right kidney Jem Segundo Jr., MD Abdomen X-Ray 12/01/16 0000 Signed Impressions: Service Date/Time: December 11:07 - CONCLUSION: Diffuse air-filled distention of the colon, likely representing ileus. Maninder Mg MD Cardiovascular: Regular Lungs: Clear Abdomen: Other (distended; NGT in place ) Extremities: No edema A/P Problem List: (1) Adynamic ileus (2) Atrial fibrillation (3) Palpitations (4) SOB (shortness of breath) (5) Abdominal pain Assessment and Plan 75 year old male s/p cardiac catheterization; with 1 week of abdominal pain/ distention -Repeat decompressive colonoscopy today -NGT to LIWS -Monitor labs; now with elevated BUN/Cr---nephrology following Attending Note - Dr. Horowitz Distended still As above The exam, history, and the medical decision-making described in the above note were completed with the assistance of the mid-level provider. I reviewed and agree with the findings presented. I attest that I had a [id number] encounter with the patient on the same day, and personally performed and documented my assessment and findings in the medical record. Problem Qualifiers (1) Abdominal pain: Qualified Code: R10.84 - Generalized abdominal pain Susanne Winslow Dec 06, 2016 13:21 Arnoldo Horowitz MD Dec 08, 2016 13:47
--- NOTE | 2016-12-06 16:28 | HHI.CCPN ---
Subjective Remarks/Hospital Course 12/04: Mr. Drummond is a 75-year-old male patient with a known history of atrial fibrillation with history of ablation 1 week ago, COPD, HTN, CHF, AAA, PAD and CABG x 3 stents. Supposedly patient had an ablation one week ago with Dr. Sutton. On 11/30 afternoon patient presented to his office for a follow up appointment. While in his office patient developed shortness of breath and palpitations. EKG was performed and patient was found to be in afib RVR, then sent to the ER immediately. Upon presentation, Dr. Sutton performed a cardioversion and placed on Amiodarone IV infusion with bolus. 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 Patient was admitted by hospitalist service with cardiology consult. He was diagnosed to have an ileus and Gen. surgery evaluated the patient as well. He underwent a decompression colonoscopy on 12/02 by GI with some improvement in his abdominal distention. Patient was initiated on amiodarone drip as he converted back to a flutter fib with RVR and was restarted on metoprolol as well as was placed on Cardizem by cardiology. Aldactone and losartan were continued. Today Cardizem dose was increased to 360 mg daily by cardiology and amiodarone was switched to by mouth. Patient subsequently developed hypotension with systolic blood pressure in the 70s. He received normal saline 500 cc bolus and was transferred to the ICU and critical care medicine was consulted for hypotension. When I evaluated the patient in the ICU he was on a nonrebreather facemask with systolic blood pressure in the 90s having this completed his fluid bolus. He denied any chest pain. He did have lightheadedness and dizziness earlier which appeared to be improving. His O2 sats 100% on nonrebreather facemask and I switched him to 50% Ventimask on which she was comfortable. Stat chest x-ray ordered by me revealed poor story from and no obvious infiltrates or effusions with some dilated bowel loops noted on the film as well. History was obtained by reviewing records and discussion with Dr. Sheppard. 12/05: Sitting up in bed comfortably. Abdominal distention still persists. Lesions blood pressure improved yesterday following fluid bolus. Antihypertensives beta anca were held yesterday. By mouth Cardizem and amiodarone have been continued. Patient underwent CT abdomen and pelvis with oral contrast which is ordered by Dr. Burrell from general surgery in view of abdominal distention which revealed ileus. Patient denies any chest pain. He has minimal shortness of breath though appears comfortable on Ventimask. No further hypotension since yesterday. 12/06: Patient developed worsening shortness of breath and abdominal distention last evening and eventually started retaining CO2. NG tube was placed for colonoscopy prep however patient did not tolerated well. He was eventually intubated and placed on mechanical ventilation and a central line was placed. When I evaluated the patient this morning he is sedated, orally intubated on mechanical ventilation with abdominal distention awaiting colonoscopy. He is in A. fib and rate is relatively well controlled currently. He is maintaining his blood pressure. He has been diuresed with Lasix. Objective Vital Signs Date Time Temp Pulse Resp B/P Pulse Ox O2 Delivery O2 Flow Rate FiO2 12/06/16 15:50 98 50 12/06/16 14:00 107 12/06/16 12:00 100.4 125/58 12/06/16 07:00 0 12/05/16 20:10 Non-Rebreather 15.00 Intake and Output 12/05/16 12/05/16 12/06/16 08:00 16:00 00:00 Intake Total 825 ml 1180 ml Output Total 650 ml Balance 825 ml 530 ml Result Diagram: 12/06/16 0454 12/06/16 0454 Other Results Laboratory Tests Test 12/05/16 12/05/16 12/06/16 12/06/16 18:00 18:01 00:55 02:35 Urine Color YELLOW Urine Turbidity HAZY Urine pH 5.5 Urine Specific [place] 1.040 Urine Protein 30 mg/dL Urine Glucose (UA) NEG mg/dL Urine Ketones NEG mg/dL Urine Occult Blood MOD Urine Nitrite NEG Urine Bilirubin NEG Urine Urobilinogen LESS THAN 2.0 MG/DL Urine Leukocyte Esterase LARGE Urine RBC 94 /hpf Urine WBC 99 /hpf Urine Squamous Epithelial 1 /hpf Cells Urine Mucus FEW /lpf Microscopic Urinalysis Comment CULTURE INDICATED Urine Osmolality 342 MOSM/KG Blood Gas Puncture Site LT RADIAL LT RADIAL RT BRACHIAL Blood Gas Patient Temperature 98.6 98.6 98.6 Blood Gas HCO3 22 mmol/L 24 mmol/L 22 mmol/L Blood Gas Base Excess -4.5 mmol/L -3.2 mmol/L -3.6 mmol/L Blood Gas Oxygen Saturation 87 % 84 % 93 % Arterial Blood pH 7.21 7.18 7.31 Arterial Blood Partial 59 mmHg 67 mmHg 44 mmHg Pressure CO2 Arterial Blood Partial 66 mmHg 61 mmHg 80 mmHg Pressure O2 Arterial Blood Oxygen Content 11.6 Vol % 11.3 Vol % 11.8 Vol % Arterial Blood 1.3 % 1.3 % 1.5 % Carboxyhemoglobin Arterial Blood Methemoglobin 1.1 % 1.1 % 1.0 % Blood Gas Hemoglobin 9.4 G/DL 9.6 G/DL 8.9 G/DL Oxygen Delivery Device Non-Rebreathing Non-Rebreathing VENTILATOR Mask Mask Blood Gas Liter Flow 15 L/M 15 L/M Blood Gas Inspired Oxygen 100 % 100 % Blood Gas Ventilator Setting PC/AC Test 12/06/16 04:54 White Blood Count 8.8 TH/MM3 Red Blood Count 3.13 MIL/MM3 Hemoglobin 9.0 GM/DL Hematocrit 26.9 % Mean Corpuscular Volume 85.9 FL Mean Corpuscular Hemoglobin 28.9 PG Mean Corpuscular Hemoglobin 33.6 % Concent Red Cell Distribution Width 15.2 % Platelet Count 238 TH/MM3 Mean Platelet Volume 7.1 FL Neutrophils (%) (Auto) 79.7 % Lymphocytes (%) (Auto) 4.9 % Monocytes (%) (Auto) 15.1 % Eosinophils (%) (Auto) 0.0 % Basophils (%) (Auto) 0.3 % Neutrophils # (Auto) 7.0 TH/MM3 Lymphocytes # (Auto) 0.4 TH/MM3 Monocytes # (Auto) 1.3 TH/MM3 Eosinophils # (Auto) 0.0 TH/MM3 Basophils # (Auto) 0.0 TH/MM3 CBC Comment DIFF FINAL Differential Comment Sodium Level 131 MEQ/L Potassium Level 3.9 MEQ/L Chloride Level 95 MEQ/L Carbon Dioxide Level 27.2 MEQ/L Anion Gap 9 MEQ/L Blood Urea Nitrogen 30 MG/DL Creatinine 3.06 MG/DL Estimat Glomerular Filtration 20 ML/MIN Rate Random Glucose 104 MG/DL Calcium Level 8.5 MG/DL Total Bilirubin 0.4 MG/DL Aspartate Amino Transf 12 U/L (AST/SGOT) Alanine Aminotransferase 32 U/L (ALT/SGPT) Alkaline Phosphatase 120 U/L Total Protein 7.2 GM/DL Albumin 3.4 GM/DL Imaging Last 48 hours Impressions Chest X-Ray 12/06/16 0000 Signed Impressions: Service Date/Time: Tuesday, December 06, 2016 01:41 - CONCLUSION: New right subclavian central venous catheter placed in good position. No visible pneumothorax. Tiny bilateral pleural effusions with small lung volumes. Juvencio Knowles MD Abdomen X-Ray 12/05/16 1400 Signed Impressions: Service Date/Time: Monday, December 05, 2016 14:26 - CONCLUSION: Unchanged gaseous distention of the colon consistent with colonic ileus. Jem Segundo Jr., MD Chest x-ray portable done on 12/04 which was personally reviewed: Poor respiratory film, patchy lower lobe infiltrates bilaterally, no effusions Last Impressions Abdomen X-Ray 12/03/16 0000 Signed Impressions: Service Date/Time: Saturday, December 03, 2016 12:46 - CONCLUSION: Diffuse air-filled distention of the transverse colon unchanged, likely representing ileus. Maninder Mg MD Chest X-Ray 12/01/16 1352 Signed Impressions: Service Date/Time: December 13:52 - CONCLUSION: Mild patchy bilateral lower lung zone parenchymal opacity and low lung volumes. Maninder Mg MD Abdomen/Pelvis CT 12/01/16 0000 Signed Impressions: Service Date/Time: December 19:21 - CONCLUSION: 1. Gas dilated colon without an obstructing mass or lesion. This suggests a colonic ileus. 2. Trace amount of free fluid. 3. Bibasilar atelectasis. 4. Coronary artery atherosclerotic calcifications. 5. 2.8 x 2.6 cm AAA 6. Atrophic right kidney Jem Segundo Jr., MD Objective Remarks HEENT/Neuro: No pallor or icterus, tongue moist. Sedated, orally intubated. moving all 4 extremities on lightening sedation Neck: No JVD Chest/pulmonary: Orally intubated on mechanical ventilation, good air entry bilaterally though decreased at bases, scattered rhonchi, no wheezing or crackles. Cardiovascular: S1-S2 irregularly irregular no gallop or murmur GI/abdomen: Distended, firm, nontender, bowel sounds sluggish. No guarding Extremities: Warm bilaterally, bilateral edema Procedures Decompressive colonoscopy 12/02/16 Urinary Catheter: Yes Assessment to: Continue Vascular Central Line Catheter: Yes Assessment to: Continue Date of Insertion: Dec 05, 2016 Line: Central Venous Catheter A/P Assessment and Plan Mr. 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 On 12/01 found to be in afib RVR sent to the ER. Upon presentation, Dr. Sutton performed a cardioversion and placed on Amiodarone IV infusion with bolus. Hospitalist team consulted for assuming of care and medical management. Acute respiratory failure on mechanical ventilation COPD Patient intubated and placed on mechanical ventilation on 12/05 for worsening respiratory distress partially secondary to worsening abdominal distention with restriction. Continue mechanical ventilation, vent bundle, bronchodilators as needed. Awaiting colonoscopy for decompression prior to attempting C Pap trials. Hypotension: Secondary to antihypertensives as well as increase in Cardizem dose as well as metoprolol. Hold all antihypertensives Cardizem and metoprolol until improvement in blood pressure and then reintroduced gradually. Received 500 cc normal saline bolus earlier with good response. Continue to hold losartan and Aldactone. Cardizem and by mouth amiodarone being continued. 2-D echo with minimally depressed LV function with EF 45% Atrial fibrillation status post RVR with cardioversion 11/30/16. - Outpatient ablation by Dr. Sutton about a week ago. EKG reviewed, atrial fibrillation with RVR. Amiodarone switched to by mouth on 12/04, Cardizem dose increased by Dr. Arreguin on 12/04. TSH high, no correlation with free T4, follow-up as outpatient. Cardiology following. Eliquis restarted per cardiology. Cardizem and by mouth amiodarone being continued. Follow-up 2-D echo Hypertension, continue holding losartan and Aldactone due to hypotension. Cardizem being continued. Acute kidney injury suspect secondary to CHF exacerbation, possible chronic -Follow intake output, monitor and replete elect lites, follow BUN/ creatinine. Hyponatremia noted. - Hold Aldactone and losartan view of hypotension. Lasix held in view of hypotension on 12/04 . Evaluated by nephrology and is currently on Bumex for mobilizing fluid. Abdominal ileus, acute - Abdominal x-ray reviewed and showing diffuse air-filled distention of the colon, likely representing ileus. - GI consulted, appreciate input Status post decompressive colonoscopy 12/02, continue full liquid diet,Repeat KUB consistent with ileus but passing bowels, a lot of gas. On simethicone. CT abdomen pelvis revealed significant ileus. GI and general surgery following. Plan for decompressive colonoscopy to be repeated on 12/06 per my discussion with Dr. Burrell from general surgery. Diastolic Congestive heart failure, acute exacerbation on chronic -Hold Aldactone and diuretics still improvement in blood pressure. 2-D echo revealed LV function to be around 45%, RV appeared normal. Urinary retention-resolved. Continue Flomax Hyponatremia- hold Lasix and salt tabs at this time. Follow serial sodium levels. Anemia, unknown origin suspect secondary to GI bleed. - Hemoglobin 10.7/Hematocrit 32.7 upon presentation. Repeat CBC, hemoglobin 10.7/hemoglobin 31.8. Follow. - Stool Hemoccult positive, awaiting GI input. - Dark colored stools. Also on iron replacement. Monitor. Hypokalemia-replaced GI prophylaxis: Protonix 40 mg PO daily. DVT prophylaxis: SCDs. On apixaban Discussed with Dr. Arreguin Time spent on critical care excluding procedures 35 minutes Sotero Goodson MD Dec 06, 2016 16:28
[2016-12-06] MEDS ORDERED: PROPOFOL 200 MG/20 ML AMP IV PUSH ONE (16:52)
--- NOTE | 2016-12-06 16:56 | GIPROC ---
[facility] [address] [facility]. [facility], [id number] COLONOSCOPY PROCEDURE REPORT EXAM DATE: 12/06/2016 PATIENT NAME: Arnoldo Drummond MR #: [id number] BIRTHDATE: 1940 ENDOSCOPIST: Hilaria Dey MD ORDER #: [id number] AUGER PRESS OPERATOR: Jeremy Ttae and Peggy Wilkinson STATUS: inpatient INDICATIONS: The patient is a 75 yr old male here for a colonoscopy due to therapy of for previously diagnosed megacolon PROCEDURE PERFORMED: Colonoscopy, screening MEDICATIONS: Per Anesthesia and None. PREP QUALITY: poor PREP TYPE:GoLytely ESTIMATED BLOOD LOSS: None CONSENT: The patient understands the risks and benefits of the procedure and understands that these risks include, but are not limited to: sedation, allergic reaction, infection, perforation and/or bleeding. Alternative means of evaluation and treatment include, among others: physical exam, x-rays, and/or surgical intervention. The patient elects to proceed with this endoscopic procedure. medical equipment was checked for proper function. Hand hygiene and appropriate measures for infection prevention was taken. After the risks, benefits and alternatives of the procedure were thoroughly explained, Informed consent was verified, confirmed and timeout was successfully executed by the treatment team. A digital exam was performed The New [id number] (Std Gastro) and [id number] endoscope was introduced through the anus and advanced to the cecum, which was identified by both the appendix and ileocecal valve. The instrument was then slowly withdrawn as the colon was fully examined. COLON FINDINGS: Diverticulum was found in the sigmoid colon with associated colonic spasm. The opening was small. Retroflexed views revealed no abnormalities The scope was then completely withdrawn from the patient and the procedure terminated. PROCEDURE WITHDRAWAL TIME:15minutes ADVERSE EVENTS: There were no complications. IMPRESSIONS: 1. Diverticulum in the sigmoid colon 2. Fecal material throughout the colon limiting the exam 3. Colonic decompression done and rectal tube placed RECOMMENDATIONS: No treatment RECALL: Return 1 month Colonoscopy Hilaria Dey MD eSigned: Hilaria Dey MD 12/06/2016 4:56 PM cc:
[2016-12-06] MEDS: DULoxetine HCl DR 60 MG CAP PO SCH (21:00)
[2016-12-06] MEDS: TAMSULOSIN HCL 0.4 MG CAP PO SCH (23:09)
[2016-12-06] MEDS: CHLORHEXIDINE 0.12% (ORAL KIT) 15 ML CUP MT SCH (23:10)
[2016-12-07] VITALS (41 sets, daily range): BP systolic 99–160; BP diastolic 56–81; PULSE 68–119; RESP 20; TEMP 97–99.5; O2SAT 94–100
[2016-12-07] MEDS: PROPOFOL 1000 MG/100 ML IV SCH ×6 (01:02→18:49)
[2016-12-07] MEDS: RESP: IPRATROPIUM 0.5 MG/2.5 ML NEB NEB SCH ×5 (04:01→19:59)
[2016-12-07] MEDS: LEVOTHYROXINE SODIUM 25 MCG TAB PO SCH (04:59)
[2016-12-07] MEDS: METOCLOPRAMIDE HCL 10 MG/2 ML VIAL IV PUSH SCH ×3 (05:02→21:24)
[2016-12-07 05:59] LABS: AUTOMATED NEUTROPHIL # 4.6 TH/MM3 (1.8-7.7); BASOPHIL # 0.1 TH/MM3 (0-0.2); EOSINOPHIL # 0.1 TH/MM3 (0-0.4); EOSINOPHIL % 1.3 % (0.0-4.0); HEMATOCRIT 26.2 % (39.0-51.0); HEMO FLAGS DIFF FINAL; LYMPH % 9.9 % (9.0-44.0); LYMPHOCYTE # 0.7 TH/MM3 (1.0-4.8); MEAN CELL VOLUME 84.4 FL (80.0-100.0); MEAN CORPUSCULAR HEMOGLOBIN 28.4 PG (27.0-34.0); MEAN CORPUSCULAR HGB CONC 33.7 % (32.0-36.0); MONO % 22.1 % (0.0-8.0); NEUT % 64.7 % (16.0-70.0); PLATELET COUNT 214 TH/MM3 (150-450); RED CELL DISTRIBUTION WIDTH 15.1 % (11.6-17.2); WHITE BLOOD COUNT 7.1 TH/MM3 (4.0-11.0)
[2016-12-07 06:25] LABS: BICARBONATE 26.4 MEQ/L (21.0-32.0)
[2016-12-07 06:28] LABS: POTASSIUM 2.7 MEQ/L (3.5-5.1)
[2016-12-07] MEDS: CHLORHEXIDINE 0.12% (ORAL KIT) 15 ML CUP MT SCH ×2 (07:41→21:22)
[2016-12-07] MEDS: DILTIAZEM-CD 180 MG CAP ER PO SCH (08:09)
[2016-12-07] MEDS: METOPROLOL TARTRATE 25 MG TAB PO SCH ×2 (08:09→21:22)
[2016-12-07] MEDS: PANTOPRAZOLE SOD 40 MG DELAYED RELEASE TAB PO SCH (08:09)
[2016-12-07] MEDS: AMIODARONE 200 MG TAB PO SCH (08:09)
[2016-12-07] MEDS: APIXABAN 5 MG TABLET PO SCH ×2 (08:09→21:22)
[2016-12-07] MEDS ORDERED: POTASSIUM CHLOR 40 MEQ PREMIX 100 ML IV ONE (08:15)
[2016-12-07] MEDS: POTASSIUM CHLOR 40 MEQ PREMIX 100 ML IV SCH ×3 (08:20→14:16)
[2016-12-07] MEDS ORDERED: BUMETANIDE INJ 1 MG/4 ML VIAL IV PUSH SCH (09:00)
[2016-12-07] MEDS ORDERED: POTASSIUM PHOSPHATE/SODIUM PHOSPHATE 250 MG TAB PO ONE (10:15)
--- NOTE | 2016-12-07 12:02 | HHI.NPPN ---
Subjective General Problems: Edema Renal Failure: Chronic, Acute Interval History Remains intubated, sedated. Renal function is stable. He is hypokalemia. Sodium has improved. (Christie Fleming) Review of Systems General General Remarks unable to obtain (Christie Fleming) Objective Data Data 12/06/16 12/07/16 19:00 07:00 Intake Total 274 ml 410 ml Output Total 675 ml 650 ml Balance -401 ml -240 ml IV Total 274 ml 410 ml Output Urine Total 525 ml 650 ml Gastric Drainage Total 150 ml # Bowel Movements 2 5 Vital Signs Date Time Temp Pulse Resp B/P Pulse Ox O2 Delivery O2 Flow Rate FiO2 12/07/16 10:00 70 12/07/16 09:00 71 121/59 100 12/07/16 08:38 100 35 12/07/16 08:30 106 141/63 99 12/07/16 08:00 89 12/07/16 08:00 40 12/07/16 08:00 98.0 89 134/61 100 12/07/16 07:30 107 151/81 100 12/07/16 07:00 104 129/76 99 12/07/16 06:30 74 117/56 100 12/07/16 06:00 82 135/71 99 12/07/16 06:00 82 12/07/16 05:30 96 127/60 12/07/16 05:00 79 133/74 100 12/07/16 04:30 75 117/57 100 12/07/16 04:01 100 40 12/07/16 04:00 50 12/07/16 04:00 74 126/59 100 12/07/16 04:00 97.9 74 126/59 100 12/07/16 04:00 74 12/07/16 02:00 73 12/07/16 01:28 100 45 12/07/16 00:00 50 12/07/16 00:00 115 12/07/16 00:00 99.5 115 118/58 100 12/06/16 22:05 100 45 12/06/16 22:00 127 12/06/16 20:04 100 50 12/06/16 20:00 100.2 109 111/57 100 12/06/16 20:00 50 12/06/16 20:00 108 12/06/16 18:00 102 12/06/16 17:22 100 50 12/06/16 17:00 108 96 12/06/16 16:58 107 92/47 100 12/06/16 16:55 108 88/50 100 12/06/16 16:52 110 91/50 100 12/06/16 16:51 107 101/50 100 12/06/16 16:45 109 84/43 100 12/06/16 16:43 110 85/41 92 12/06/16 16:40 107 95/53 100 12/06/16 16:38 109 91/51 100 12/06/16 16:35 112 90/45 97 12/06/16 16:33 114 91/51 94 12/06/16 16:30 100.6 112 113/50 81 12/06/16 16:27 111 113/54 97 12/06/16 16:25 111 107/55 93 12/06/16 16:23 120 118/59 95 12/06/16 16:00 50 12/06/16 16:00 119 111/63 98 12/06/16 16:00 106 12/06/16 15:50 98 50 12/06/16 15:00 109 113/56 97 12/06/16 14:00 107 12/06/16 14:00 107 113/56 100 12/06/16 13:00 108 97/62 99 12/06/16 12:00 107 125/58 81 12/06/16 12:00 100.4 107 125/58 81 12/06/16 12:00 107 12/06/16 12:00 50 (Christie Fleming) -: 12/07/16 0535 12/07/16 0535 Imaging Last 72 hours Impressions Chest X-Ray 12/06/16 0000 Signed Impressions: Service Date/Time: Tuesday, December 06, 2016 01:41 - CONCLUSION: New right subclavian central venous catheter placed in good position. No visible pneumothorax. Tiny bilateral pleural effusions with small lung volumes. Juvencio Knowles MD Abdomen X-Ray 12/05/16 1400 Signed Impressions: Service Date/Time: Monday, December 05, 2016 14:26 - CONCLUSION: Unchanged gaseous distention of the colon consistent with colonic ileus. Jem Segundo Jr., MD Tubes & Lines: [place]rip Comment propofol (Christie Fleming. CLINICAL NURSING INSTRUCTOR) Physical Exam General Appearance: Well Developed, Well Nourished, Comfortable Appearance Remarks intubated, sedated (Christie Fleming. CLINICAL NURSING INSTRUCTOR) Throat Throat Exam: Oral Mucosa [place] & Moist (Christie Fleming B. CLINICAL NURSING INSTRUCTOR) Pulmonary Resp Exam: No Distress, Rhonchi Resp Remarks with wheezing on right (Christie Fleming. CLINICAL NURSING INSTRUCTOR) Cardiology CV Exam: Good Perfusion, Irregular, Tachycardia (Christie Fleming B. CLINICAL NURSING INSTRUCTOR) Gastrointestinal/Abdomen GI Exam: Bowel Sounds Present GI Remarks round, soft, distended (Christie Fleming. CLINICAL NURSING INSTRUCTOR) Musculoskeletal MS Exam: Joints Intact, Normal Tone, Unable to Ambulate (Christie Fleming B. CLINICAL NURSING INSTRUCTOR) Integumentary Skin Exam: Warm, Dry (Christie Fleming B. CLINICAL NURSING INSTRUCTOR) Extremeties Extremities Exam: Pedal Pulses Palpable, Trace Edema (Christie Fleming. CLINICAL NURSING INSTRUCTOR) Neurologic Neuro Exam: Unresponsive, Sedated (Christie Fleming B. CLINICAL NURSING INSTRUCTOR) Psychiatric Psych Exam: Appropriate Responses (Christie Fleming CLINICAL NURSING INSTRUCTOR) VTE Prophylaxis VTE Remarks Apixaban (Christie Fleming CLINICAL NURSING INSTRUCTOR) Assessment/Plan Assessment Summary: AFIA/Acute Renal Failure, Fluid/Volume Overload, Hypertension Electrolyte Assessment: Hypokalemia, Hyponatremia Problem List: (1) AFIA (acute kidney injury) Plan: In a pt with no baseline labs for comparison. His admission creatinine was 1.7, nonoliguric renal failure, suspected ATN from hypotension, renal function is stable today blood pressure improved stop bumex and begin IVF at 30 cc/hr (0.9%NS) continue to replace potassium monitor renal function and electrolytes daily avoid nephrotoxic medications (2) Hyponatremia Plan: was hypervolemic, serum Na level is improving off IVF and NaCl tabs stop Bumex, begin 0.9% NS @ 30 cc/hr LVEF 40-45% (3) Atrial fibrillation Plan: cardiology is following he failed cardioversion x 2 since arrival on po amiodarone and Lopressor follow rhythm/rate (4) Abdominal pain Plan: GI following s/p decompression colonoscopy (5) SOB (shortness of breath) Plan: with respiratory failure due to abdominal distension and fluid overload vent settings: A/C 20/500/35/10 ween when able (Christie Fleming) Plan patient was seen and examined. Agree with above assessment and plan. (Pedro Luo MD) Problem Qualifiers (1) Abdominal pain: Qualified Code: R10.84 - Generalized abdominal pain Christie Fleming Dec 07, 2016 12:02 Pedro Luo MD Dec 07, 2016 21:08
[2016-12-07] MEDS: SODIUM CHLOR 0.9% 1000 ML INJ 1,000 ML IV SCH (12:43)
--- NOTE | 2016-12-07 15:17 | HHI.PR ---
Subjective Subjective Notes Intubated/Sedated Objective Vitals/I&O Vital Signs Date Time Temp Pulse Resp B/P Pulse Ox O2 Delivery O2 Flow Rate FiO2 12/07/16 14:58 99 35 12/07/16 14:00 107 12/07/16 12:00 97.0 99/67 12/06/16 07:00 0 12/05/16 20:10 Non-Rebreather 15.00 Labs Laboratory Tests Test 12/07/16 05:35 White Blood Count 7.1 Red Blood Count 3.10 Hemoglobin 8.8 Hematocrit 26.2 Mean Corpuscular Volume 84.4 Mean Corpuscular Hemoglobin 28.4 Mean Corpuscular Hemoglobin 33.7 Concent Red Cell Distribution Width 15.1 Platelet Count 214 Mean Platelet Volume 6.8 Neutrophils (%) (Auto) 64.7 Lymphocytes (%) (Auto) 9.9 Monocytes (%) (Auto) 22.1 Eosinophils (%) (Auto) 1.3 Basophils (%) (Auto) 2.0 Neutrophils # (Auto) 4.6 Lymphocytes # (Auto) 0.7 Monocytes # (Auto) 1.6 Eosinophils # (Auto) 0.1 Basophils # (Auto) 0.1 CBC Comment DIFF FINAL Differential Comment Sodium Level 132 Potassium Level 2.7 Chloride Level 95 Carbon Dioxide Level 26.4 Anion Gap 11 Blood Urea Nitrogen 32 Creatinine 3.09 Estimat Glomerular Filtration 20 Rate Random Glucose 85 Calcium Level 7.8 Phosphorus Level 2.3 Albumin 2.7 Date/Time Procedure Status Source Growth 12/05/16 18:00 Urine Culture - Final Complete Urine Clean Catch Lactobacillus Species Radiology Last Impressions Chest X-Ray 12/01/16 1352 Signed Impressions: Service Date/Time: December 13:52 - CONCLUSION: Mild patchy bilateral lower lung zone parenchymal opacity and low lung volumes. Maninder Mg MD Abdomen/Pelvis CT 12/01/16 0000 Signed Impressions: Service Date/Time: December 19:21 - CONCLUSION: 1. Gas dilated colon without an obstructing mass or lesion. This suggests a colonic ileus. 2. Trace amount of free fluid. 3. Bibasilar atelectasis. 4. Coronary artery atherosclerotic calcifications. 5. 2.8 x 2.6 cm AAA 6. Atrophic right kidney Jem Segundo Jr., MD Abdomen X-Ray 12/01/16 0000 Signed Impressions: Service Date/Time: December 11:07 - CONCLUSION: Diffuse air-filled distention of the colon, likely representing ileus. Maninder Mg MD Cardiovascular: Regular Lungs: Clear Abdomen: Non-distended, Non-tender Extremities: No edema A/P Problem List: (1) Adynamic ileus (2) Atrial fibrillation (3) Palpitations (4) SOB (shortness of breath) (5) Abdominal pain Assessment and Plan 75 year old male s/p cardiac catheterization; with 1 week of abdominal pain/ distention -Repeat decompressive colonoscopy yesterday -Rectal tube left in place to LIWS -NGT to LIWS -Monitor labs; now with elevated BUN/Cr---nephrology following -Continue non op treatment -Discussed with INGRID Castellano at bedside Attending Note - Dr. Horowitz Abdomen remains softer today Improved ileus Following with you The exam, history, and the medical decision-making described in the above note were completed with the assistance of the mid-level provider. I reviewed and agree with the findings presented. I attest that I had a [id number] encounter with the patient on the same day, and personally performed and documented my assessment and findings in the medical record. Problem Qualifiers (1) Abdominal pain: Qualified Code: R10.84 - Generalized abdominal pain Susanne Winslow Dec 07, 2016 15:17 Arnoldo Horowitz MD Dec 08, 2016 13:44
--- NOTE | 2016-12-07 17:22 | HHI.CCPN ---
Subjective Remarks/Hospital Course 12/04: Mr. Drummond is a 75-year-old male patient with a known history of atrial fibrillation with history of ablation 1 week ago, COPD, HTN, CHF, AAA, PAD and CABG x 3 stents. Supposedly patient had an ablation one week ago with Dr. Sutton. On 11/30 afternoon patient presented to his office for a follow up appointment. While in his office patient developed shortness of breath and palpitations. EKG was performed and patient was found to be in afib RVR, then sent to the ER immediately. Upon presentation, Dr. Sutton performed a cardioversion and placed on Amiodarone IV infusion with bolus. 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 Patient was admitted by hospitalist service with cardiology consult. He was diagnosed to have an ileus and Gen. surgery evaluated the patient as well. He underwent a decompression colonoscopy on 12/02 by GI with some improvement in his abdominal distention. Patient was initiated on amiodarone drip as he converted back to a flutter fib with RVR and was restarted on metoprolol as well as was placed on Cardizem by cardiology. Aldactone and losartan were continued. Today Cardizem dose was increased to 360 mg daily by cardiology and amiodarone was switched to by mouth. Patient subsequently developed hypotension with systolic blood pressure in the 70s. He received normal saline 500 cc bolus and was transferred to the ICU and critical care medicine was consulted for hypotension. When I evaluated the patient in the ICU he was on a nonrebreather facemask with systolic blood pressure in the 90s having this completed his fluid bolus. He denied any chest pain. He did have lightheadedness and dizziness earlier which appeared to be improving. His O2 sats 100% on nonrebreather facemask and I switched him to 50% Ventimask on which she was comfortable. Stat chest x-ray ordered by me revealed poor story from and no obvious infiltrates or effusions with some dilated bowel loops noted on the film as well. History was obtained by reviewing records and discussion with Dr. Sheppard. 12/05: Sitting up in bed comfortably. Abdominal distention still persists. Lesions blood pressure improved yesterday following fluid bolus. Antihypertensives beta anca were held yesterday. By mouth Cardizem and amiodarone have been continued. Patient underwent CT abdomen and pelvis with oral contrast which is ordered by Dr. Burrell from general surgery in view of abdominal distention which revealed ileus. Patient denies any chest pain. He has minimal shortness of breath though appears comfortable on Ventimask. No further hypotension since yesterday. 12/06: Patient developed worsening shortness of breath and abdominal distention last evening and eventually started retaining CO2. NG tube was placed for colonoscopy prep however patient did not tolerated well. He was eventually intubated and placed on mechanical ventilation and a central line was placed. When I evaluated the patient this morning he is sedated, orally intubated on mechanical ventilation with abdominal distention awaiting colonoscopy. He is in A. fib and rate is relatively well controlled currently. He is maintaining his blood pressure. He has been diuresed with Lasix. 12/07: Remains sedated, orally intubated on mechanical ventilation. Underwent decompressive colonoscopy on 12/06 with placement of rectal tube. Significant amount of colonic contents evacuated. Abdominal less distended this morning. Objective Vital Signs Date Time Temp Pulse Resp B/P Pulse Ox O2 Delivery O2 Flow Rate FiO2 12/07/16 14:58 99 35 12/07/16 14:00 107 12/07/16 12:00 97.0 99/67 12/06/16 07:00 0 12/05/16 20:10 Non-Rebreather 15.00 Intake and Output 12/06/16 12/06/16 12/06/16 07:59 15:59 23:59 Intake Total 274 ml Output Total 550 ml 675 ml Balance -550 ml -401 ml Result Diagram: 12/07/16 0535 12/07/16 0535 Other Results Laboratory Tests Test 12/07/16 05:35 White Blood Count 7.1 TH/MM3 Red Blood Count 3.10 MIL/MM3 Hemoglobin 8.8 GM/DL Hematocrit 26.2 % Mean Corpuscular Volume 84.4 FL Mean Corpuscular Hemoglobin 28.4 PG Mean Corpuscular Hemoglobin 33.7 % Concent Red Cell Distribution Width 15.1 % Platelet Count 214 TH/MM3 Mean Platelet Volume 6.8 FL Neutrophils (%) (Auto) 64.7 % Lymphocytes (%) (Auto) 9.9 % Monocytes (%) (Auto) 22.1 % Eosinophils (%) (Auto) 1.3 % Basophils (%) (Auto) 2.0 % Neutrophils # (Auto) 4.6 TH/MM3 Lymphocytes # (Auto) 0.7 TH/MM3 Monocytes # (Auto) 1.6 TH/MM3 Eosinophils # (Auto) 0.1 TH/MM3 Basophils # (Auto) 0.1 TH/MM3 CBC Comment DIFF FINAL Differential Comment Sodium Level 132 MEQ/L Potassium Level 2.7 MEQ/L Chloride Level 95 MEQ/L Carbon Dioxide Level 26.4 MEQ/L Anion Gap 11 MEQ/L Blood Urea Nitrogen 32 MG/DL Creatinine 3.09 MG/DL Estimat Glomerular Filtration 20 ML/MIN Rate Random Glucose 85 MG/DL Calcium Level 7.8 MG/DL Phosphorus Level 2.3 MG/DL Albumin 2.7 GM/DL Imaging Last 48 hours Impressions Chest X-Ray 12/06/16 0000 Signed Impressions: Service Date/Time: Tuesday, December 06, 2016 01:41 - CONCLUSION: New right subclavian central venous catheter placed in good position. No visible pneumothorax. Tiny bilateral pleural effusions with small lung volumes. Juvencio Knowles MD Abdomen X-Ray 12/05/16 1400 Signed Impressions: Service Date/Time: Monday, December 05, 2016 14:26 - CONCLUSION: Unchanged gaseous distention of the colon consistent with colonic ileus. Jem Segundo Jr., MD Chest x-ray portable done on 12/04 which was personally reviewed: Poor respiratory film, patchy lower lobe infiltrates bilaterally, no effusions Last Impressions Abdomen X-Ray 12/03/16 0000 Signed Impressions: Service Date/Time: Saturday, December 03, 2016 12:46 - CONCLUSION: Diffuse air-filled distention of the transverse colon unchanged, likely representing ileus. Maninder Mg MD Chest X-Ray 12/01/16 1352 Signed Impressions: Service Date/Time: December 13:52 - CONCLUSION: Mild patchy bilateral lower lung zone parenchymal opacity and low lung volumes. Maninder Mg MD Abdomen/Pelvis CT 12/01/16 0000 Signed Impressions: Service Date/Time: December 19:21 - CONCLUSION: 1. Gas dilated colon without an obstructing mass or lesion. This suggests a colonic ileus. 2. Trace amount of free fluid. 3. Bibasilar atelectasis. 4. Coronary artery atherosclerotic calcifications. 5. 2.8 x 2.6 cm AAA 6. Atrophic right kidney Jem Segundo Jr., MD Objective Remarks HEENT/Neuro: No pallor or icterus, tongue moist. Sedated, orally intubated. moving all 4 extremities on lightening sedation Neck: No JVD Chest/pulmonary: Orally intubated on mechanical ventilation, good air entry bilaterally though decreased at bases, scattered rhonchi, no wheezing or crackles. Cardiovascular: S1-S2 irregularly irregular no gallop or murmur GI/abdomen: Distended, firm, nontender, bowel sounds sluggish. No guarding Extremities: Warm bilaterally, bilateral edema Procedures Decompressive colonoscopy 12/02/16 Date of Insertion: Dec 05, 2016 Line: Central Venous Catheter A/P Assessment and Plan Mr. 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 On 12/01 found to be in afib RVR sent to the ER. Upon presentation, Dr. Sutton performed a cardioversion and placed on Amiodarone IV infusion with bolus. Hospitalist team consulted for assuming of care and medical management. Acute respiratory failure on mechanical ventilation COPD Patient intubated and placed on mechanical ventilation on 12/05 for worsening respiratory distress partially secondary to worsening abdominal distention with restriction. Continue mechanical ventilation, vent bundle, bronchodilators as needed. Awaiting colonoscopy for decompression prior to attempting C Pap trials. Hypotension: Secondary to antihypertensives as well as increase in Cardizem dose as well as metoprolol. Hold all antihypertensives Cardizem and metoprolol until improvement in blood pressure and then reintroduced gradually. Received 500 cc normal saline bolus earlier with good response. Continue to hold losartan and Aldactone. Cardizem and by mouth amiodarone being continued. 2-D echo with minimally depressed LV function with EF 45% Atrial fibrillation status post RVR with cardioversion 11/30/16. - Outpatient ablation by Dr. Sutton about a week ago. EKG reviewed, atrial fibrillation with RVR. Amiodarone switched to by mouth on 12/04, Cardizem dose increased by Dr. Arreguin on 12/04. TSH high, no correlation with free T4, follow-up as outpatient. Cardiology following. Eliquis restarted per cardiology. Cardizem and by mouth amiodarone being continued. Follow-up 2-D echo Hypertension, continue holding losartan and Aldactone due to hypotension. Cardizem being continued. Acute kidney injury suspect secondary to CHF exacerbation, possible chronic -Follow intake output, monitor and replete elect lites, follow BUN/ creatinine. Hyponatremia noted. - Hold Aldactone and losartan view of hypotension. Lasix held in view of hypotension on 12/04 . Evaluated by nephrology and is currently on Bumex for mobilizing fluid. Abdominal ileus, acute - Abdominal x-ray reviewed and showing diffuse air-filled distention of the colon, likely representing ileus. - GI consulted, appreciate input Status post decompressive colonoscopy 12/02, continue full liquid diet,Repeat KUB consistent with ileus but passing bowels, a lot of gas. On simethicone. CT abdomen pelvis revealed significant ileus. GI and general surgery following. S/p repeat decompressive colonoscopy on 12/06 with insertion of rectal tube. Diastolic Congestive heart failure, acute exacerbation on chronic -Hold Aldactone and diuretics till improvement in blood pressure. 2-D echo revealed LV function to be around 45%, RV appeared normal. Urinary retention-resolved. Continue Flomax Hyponatremia- hold Lasix and salt tabs at this time. Follow serial sodium levels. Anemia, unknown origin suspect secondary to GI bleed. - Hemoglobin 10.7/Hematocrit 32.7 upon presentation. Repeat CBC, hemoglobin 10.7/hemoglobin 31.8. Follow. - Stool Hemoccult positive, awaiting GI input. - Dark colored stools. Also on iron replacement. Monitor. Hypokalemia-replaced GI prophylaxis: Protonix 40 mg PO daily. DVT prophylaxis: SCDs. On apixaban Time spent on critical care excluding procedures 35 minutes Sotero Goodson MD Dec 07, 2016 17:22
[2016-12-07] MEDS: TAMSULOSIN HCL 0.4 MG CAP PO SCH (21:00)
[2016-12-07] MEDS: DULoxetine HCl DR 60 MG CAP PO SCH (21:00)
[2016-12-08] VITALS (20 sets, daily range): BP systolic 146–183; BP diastolic 70–94; PULSE 81–125; RESP 18–24; TEMP 97.8–99.7; O2SAT 93–100
[2016-12-08] MEDS: RESP: IPRATROPIUM 0.5 MG/2.5 ML NEB NEB SCH ×7 (00:29→23:45)
[2016-12-08] MEDS: PROPOFOL 1000 MG/100 ML IV SCH (02:38)
[2016-12-08] MEDS: LEVOTHYROXINE SODIUM 25 MCG TAB PO SCH (05:06)
[2016-12-08] MEDS: METOCLOPRAMIDE HCL 10 MG/2 ML VIAL IV PUSH SCH ×3 (05:06→20:47)
[2016-12-08 05:30] LABS: BICARBONATE 20.4 MEQ/L (21.0-32.0); POTASSIUM 3.8 MEQ/L (3.5-5.1)
[2016-12-08] MEDS: DILTIAZEM-CD 180 MG CAP ER PO SCH (08:06)
[2016-12-08] MEDS: APIXABAN 5 MG TABLET PO SCH ×2 (08:06→20:47)
[2016-12-08] MEDS: PANTOPRAZOLE SOD 40 MG DELAYED RELEASE TAB PO SCH (08:06)
[2016-12-08] MEDS: AMIODARONE 200 MG TAB PO SCH (08:06)
[2016-12-08] MEDS: CHLORHEXIDINE 0.12% (ORAL KIT) 15 ML CUP MT SCH ×2 (08:06→20:00)
[2016-12-08] MEDS: METOPROLOL TARTRATE 25 MG TAB PO SCH ×2 (08:06→20:46)
--- NOTE | 2016-12-08 11:34 | HHI.CCPN ---
Subjective Remarks/Hospital Course 12/04: Mr. Drummond is a 75-year-old male patient with a known history of atrial fibrillation with history of ablation 1 week ago, COPD, HTN, CHF, AAA, PAD and CABG x 3 stents. Supposedly patient had an ablation one week ago with Dr. Sutton. On 11/30 afternoon patient presented to his office for a follow up appointment. While in his office patient developed shortness of breath and palpitations. EKG was performed and patient was found to be in afib RVR, then sent to the ER immediately. Upon presentation, Dr. Sutton performed a cardioversion and placed on Amiodarone IV infusion with bolus. 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 Patient was admitted by hospitalist service with cardiology consult. He was diagnosed to have an ileus and Gen. surgery evaluated the patient as well. He underwent a decompression colonoscopy on 12/02 by GI with some improvement in his abdominal distention. Patient was initiated on amiodarone drip as he converted back to a flutter fib with RVR and was restarted on metoprolol as well as was placed on Cardizem by cardiology. Aldactone and losartan were continued. Today Cardizem dose was increased to 360 mg daily by cardiology and amiodarone was switched to by mouth. Patient subsequently developed hypotension with systolic blood pressure in the 70s. He received normal saline 500 cc bolus and was transferred to the ICU and critical care medicine was consulted for hypotension. When I evaluated the patient in the ICU he was on a nonrebreather facemask with systolic blood pressure in the 90s having this completed his fluid bolus. He denied any chest pain. He did have lightheadedness and dizziness earlier which appeared to be improving. His O2 sats 100% on nonrebreather facemask and I switched him to 50% Ventimask on which she was comfortable. Stat chest x-ray ordered by me revealed poor story from and no obvious infiltrates or effusions with some dilated bowel loops noted on the film as well. History was obtained by reviewing records and discussion with Dr. Sheppard. 12/05: Sitting up in bed comfortably. Abdominal distention still persists. Lesions blood pressure improved yesterday following fluid bolus. Antihypertensives beta anca were held yesterday. By mouth Cardizem and amiodarone have been continued. Patient underwent CT abdomen and pelvis with oral contrast which is ordered by Dr. Burrell from general surgery in view of abdominal distention which revealed ileus. Patient denies any chest pain. He has minimal shortness of breath though appears comfortable on Ventimask. No further hypotension since yesterday. 12/06: Patient developed worsening shortness of breath and abdominal distention last evening and eventually started retaining CO2. NG tube was placed for colonoscopy prep however patient did not tolerated well. He was eventually intubated and placed on mechanical ventilation and a central line was placed. When I evaluated the patient this morning he is sedated, orally intubated on mechanical ventilation with abdominal distention awaiting colonoscopy. He is in A. fib and rate is relatively well controlled currently. He is maintaining his blood pressure. He has been diuresed with Lasix. 12/07: Remains sedated, orally intubated on mechanical ventilation. Underwent decompressive colonoscopy on 12/06 with placement of rectal tube. Significant amount of colonic contents evacuated. Abdominal less distended this morning. 12/08: Remains sedated, orally intubated on mechanical ventilation. Abdomen remains soft. Objective Vital Signs Date Time Temp Pulse Resp B/P Pulse Ox O2 Delivery O2 Flow Rate FiO2 12/08/16 10:00 100 12/08/16 08:08 98 35 12/08/16 08:00 99.7 22 147/71 12/05/16 20:10 Non-Rebreather 15.00 Intake and Output 12/07/16 12/07/16 12/08/16 08:00 16:00 00:00 Intake Total 410 ml 607 ml 430 ml Output Total 650 ml 1300 ml 850 ml Balance -240 ml -693 ml -420 ml Result Diagram: 12/07/16 0535 12/08/16 0435 Other Results Microbiology Date/Time Procedure Status Source Growth 12/05/16 18:00 Urine Culture - Final Complete Urine Clean Catch Lactobacillus Species Imaging Last 48 hours Impressions Chest X-Ray 12/06/16 0000 Signed Impressions: Service Date/Time: Tuesday, December 06, 2016 01:41 - CONCLUSION: New right subclavian central venous catheter placed in good position. No visible pneumothorax. Tiny bilateral pleural effusions with small lung volumes. Juvencio Knowles MD Abdomen X-Ray 12/05/16 1400 Signed Impressions: Service Date/Time: Monday, December 05, 2016 14:26 - CONCLUSION: Unchanged gaseous distention of the colon consistent with colonic ileus. Jem Segundo Jr., MD Chest x-ray portable done on 12/04 which was personally reviewed: Poor respiratory film, patchy lower lobe infiltrates bilaterally, no effusions Last Impressions Abdomen X-Ray 12/03/16 0000 Signed Impressions: Service Date/Time: Saturday, December 03, 2016 12:46 - CONCLUSION: Diffuse air-filled distention of the transverse colon unchanged, likely representing ileus. Maninder Mg MD Chest X-Ray 12/01/16 1352 Signed Impressions: Service Date/Time: December 13:52 - CONCLUSION: Mild patchy bilateral lower lung zone parenchymal opacity and low lung volumes. Maninder Mg MD Abdomen/Pelvis CT 12/01/16 0000 Signed Impressions: Service Date/Time: December 19:21 - CONCLUSION: 1. Gas dilated colon without an obstructing mass or lesion. This suggests a colonic ileus. 2. Trace amount of free fluid. 3. Bibasilar atelectasis. 4. Coronary artery atherosclerotic calcifications. 5. 2.8 x 2.6 cm AAA 6. Atrophic right kidney Jem Segundo Jr., MD Objective Remarks HEENT/Neuro: No pallor or icterus, tongue moist. Sedated, orally intubated. moving all 4 extremities on lightening sedation Neck: No JVD Chest/pulmonary: Orally intubated on mechanical ventilation, good air entry bilaterally though decreased at bases, scattered rhonchi, no wheezing or crackles. Cardiovascular: S1-S2 irregularly irregular no gallop or murmur GI/abdomen: soft, nontender, bowel sounds sluggish. No guarding Extremities: Warm bilaterally, bilateral edema Procedures Decompressive colonoscopy 12/02/16 Date of Insertion: Dec 05, 2016 Line: Central Venous Catheter A/P Assessment and Plan Mr. 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 On 12/01 found to be in afib RVR sent to the ER. Upon presentation, Dr. Sutton performed a cardioversion and placed on Amiodarone IV infusion with bolus. Hospitalist team consulted for assuming of care and medical management. Acute respiratory failure on mechanical ventilation COPD Patient intubated and placed on mechanical ventilation on 12/05 for worsening respiratory distress partially secondary to worsening abdominal distention with restriction. Continue mechanical ventilation, vent bundle, bronchodilators as needed. CPAP TRIALS to decide extubation Hypotension: Secondary to antihypertensives as well as increase in Cardizem dose as well as metoprolol. Hold all antihypertensives Cardizem and metoprolol until improvement in blood pressure and then reintroduced gradually. Received 500 cc normal saline bolus earlier with good response. Continue to hold losartan and Aldactone. Cardizem and by mouth amiodarone being continued. 2-D echo with minimally depressed LV function with EF 45% Atrial fibrillation status post RVR with cardioversion 11/30/16. - Outpatient ablation by Dr. Sutton about a week ago. EKG reviewed, atrial fibrillation with RVR. Amiodarone switched to by mouth on 12/04, Cardizem dose increased by Dr. Arreguin on 12/04. TSH high, no correlation with free T4, follow-up as outpatient. Cardiology following. Eliquis restarted per cardiology. Cardizem and by mouth amiodarone being continued. Follow-up 2-D echo Hypertension, continue holding losartan and Aldactone due to hypotension. Cardizem being continued. Acute kidney injury suspect secondary to CHF exacerbation, possible chronic -Follow intake output, monitor and replete elect lites, follow BUN/ creatinine. Hyponatremia noted. - Hold Aldactone and losartan view of hypotension. Lasix held in view of hypotension on 12/04 . Evaluated by nephrology and is currently on Bumex for mobilizing fluid. Abdominal ileus, acute - Abdominal x-ray reviewed and showing diffuse air-filled distention of the colon, likely representing ileus. - GI consulted, appreciate input Status post decompressive colonoscopy 12/02, continue full liquid diet,Repeat KUB consistent with ileus but passing bowels, a lot of gas. On simethicone. CT abdomen pelvis revealed significant ileus. GI and general surgery following. S/p repeat decompressive colonoscopy on 12/06 with insertion of rectal tube. Diastolic Congestive heart failure, acute exacerbation on chronic -Hold Aldactone and diuretics till improvement in blood pressure. 2-D echo revealed LV function to be around 45%, RV appeared normal. Urinary retention-resolved. Continue Flomax Hyponatremia- hold Lasix and salt tabs at this time. Follow serial sodium levels. Anemia, unknown origin suspect secondary to GI bleed. - Hemoglobin 10.7/Hematocrit 32.7 upon presentation. Repeat CBC, hemoglobin 10.7/hemoglobin 31.8. Follow. - Stool Hemoccult positive, awaiting GI input. - Dark colored stools. Also on iron replacement. Monitor. Hypokalemia-replaced GI prophylaxis: Protonix 40 mg PO daily. DVT prophylaxis: SCDs. On apixaban Time spent on critical care excluding procedures 35 minutes Sotero Goodson MD Dec 08, 2016 11:34
[2016-12-08] MEDS: SODIUM CHLOR 0.9% 1000 ML INJ 1,000 ML IV SCH (11:58)
--- NOTE | 2016-12-08 12:01 | HHI.NPPN ---
Subjective General Problems: Edema Renal Failure: Chronic, Acute Interval History Remains intubated. Eyes open, follows commands. Renal function is better. ( Christie Fleming) Review of Systems General General Remarks unable to obtain (Christie Fleming) Objective Data Data 12/07/16 12/08/16 19:00 07:00 Intake Total 607 ml 725 ml Output Total 1300 ml 1350 ml Balance -693 ml -625 ml Intake Oral 0 ml IV Total 607 ml 725 ml Output Urine Total 1100 ml 1200 ml Stool Total 200 ml 150 ml Vital Signs Date Time Temp Pulse Resp B/P Pulse Ox O2 Delivery O2 Flow Rate FiO2 12/08/16 10:00 100 12/08/16 08:08 98 35 12/08/16 08:00 119 12/08/16 08:00 90 12/08/16 08:00 35 12/08/16 08:00 99.7 119 22 147/71 93 12/08/16 08:00 35 12/08/16 06:00 116 12/08/16 04:00 102 12/08/16 04:00 35 12/08/16 04:00 97.8 102 20 152/73 94 12/08/16 03:55 99 35 12/08/16 02:00 86 12/08/16 00:31 96 35 12/08/16 00:00 84 12/08/16 00:00 98.1 84 20 146/80 100 12/08/16 00:00 35 12/07/16 22:00 82 12/07/16 21:00 98.0 102 20 156/78 99 12/07/16 20:30 95 147/67 100 12/07/16 20:02 99 35 12/07/16 20:00 87 138/66 99 12/07/16 20:00 35 12/07/16 20:00 87 12/07/16 18:00 85 12/07/16 17:30 107 143/79 100 12/07/16 17:00 82 151/64 99 12/07/16 16:30 83 135/64 99 12/07/16 16:00 98.3 82 160/68 99 12/07/16 16:00 107 12/07/16 16:00 35 12/07/16 15:30 82 140/63 100 12/07/16 15:00 83 133/63 99 12/07/16 14:58 99 35 12/07/16 14:30 90 119/64 99 12/07/16 14:00 83 106/66 98 12/07/16 14:00 107 12/07/16 13:30 70 107/61 99 12/07/16 13:00 75 102/62 100 12/07/16 12:39 99 35 12/07/16 12:30 95 102/75 100 12/07/16 12:00 103 99/67 94 12/07/16 12:00 97.0 103 99/67 94 12/07/16 12:00 35 12/07/16 12:00 103 (Christie Fleming) -: 12/07/16 0535 12/08/16 0435 Imaging Last 72 hours Impressions Chest X-Ray 12/06/16 0000 Signed Impressions: Service Date/Time: Tuesday, December 06, 2016 01:41 - CONCLUSION: New right subclavian central venous catheter placed in good position. No visible pneumothorax. Tiny bilateral pleural effusions with small lung volumes. Juvencio Knowles MD Abdomen X-Ray 12/05/16 1400 Signed Impressions: Service Date/Time: Monday, December 05, 2016 14:26 - CONCLUSION: Unchanged gaseous distention of the colon consistent with colonic ileus. Jem Segundo Jr., MD Tubes & Lines: [place]rip Comment amiodarone (Christie Fleming) Physical Exam General Appearance: Well Developed, Well Nourished, Comfortable Appearance Remarks intubated, sedated (Christie Fleming) Eyes Eye Exam: Pupils Equal (Christie Fleming) Throat Throat Exam: Oral Mucosa [place] & Moist (Christie Fleming) Pulmonary Resp Exam: No Distress, Rhonchi Resp Remarks with wheezing on right (Christie Fleming) Cardiology CV Exam: Good Perfusion, Irregular, Tachycardia (Christie Fleming) Gastrointestinal/Abdomen GI Exam: Bowel Sounds Present GI Remarks round, soft, distended rectal tube (Christie Fleming) Musculoskeletal MS Exam: Joints Intact, Normal Tone, Unable to Ambulate (Christie Fleming) Integumentary Skin Exam: Warm, Dry (Christie Fleming) Extremeties Extremities Exam: Pedal Pulses Palpable, Trace Edema (Christie Fleming) Neurologic Neuro Exam: Unresponsive, Sedated (Christie Fleming) Psychiatric Psych Exam: Appropriate Responses (Christie Fleming) VTE Prophylaxis VTE Remarks Apixaban (Christie Fleming) Assessment/Plan Assessment Summary: AFIA/Acute Renal Failure, Fluid/Volume Overload, Hypertension Problem List: (1) AFIA (acute kidney injury) Plan: In a pt with no baseline labs for comparison. His admission creatinine was 1.7, nonoliguric renal failure, suspected ATN from hypotension, renal function improved blood pressure stable continue IVF at 30 cc/hr (0.9%NS) potassium has corrected monitor renal function and electrolytes daily avoid nephrotoxic medications (2) Hyponatremia Plan: corrected, continue 0.9% NS @ 30 cc/hr LVEF 40-45% (3) Atrial fibrillation Plan: cardiology is following he failed cardioversion x 2 since arrival on IV amiodarone follow rhythm/rate (4) Abdominal pain Plan: GI following s/p decompression colonoscopy he has rectal bag (5) SOB (shortness of breath) Plan: with respiratory failure due to abdominal distension and fluid overload vent settings: A/C 20/500/35/10 ween when able (Christie Fleming) Plan patient was seen and examined. Agree with above assessment and plan. Renal function has improved. (Pedro Luo MD) Problem Qualifiers (1) Abdominal pain: Qualified Code: R10.84 - Generalized abdominal pain Christie Fleming Dec 08, 2016 12:01 Pedro Luo MD Dec 09, 2016 16:49
--- NOTE | 2016-12-08 12:01 | HHI.PR ---
Subjective Subjective Notes Resting in bed; able to answer yes and no ??s On CPAP trial INGRID García at bedside Objective Vitals/I&O Vital Signs Date Time Temp Pulse Resp B/P Pulse Ox O2 Delivery O2 Flow Rate FiO2 12/08/16 10:00 100 12/08/16 08:08 98 35 12/08/16 08:00 99.7 22 147/71 12/05/16 20:10 Non-Rebreather 15.00 Labs Laboratory Tests Test 12/08/16 04:35 Sodium Level 135 Potassium Level 3.8 Chloride Level 99 Carbon Dioxide Level 20.4 Anion Gap 16 Blood Urea Nitrogen 27 Creatinine 2.40 Estimat Glomerular Filtration 26 Rate Random Glucose 88 Calcium Level 8.2 Phosphorus Level 3.2 Albumin 2.7 Date/Time Procedure Status Source Growth 12/05/16 18:00 Urine Culture - Final Complete Urine Clean Catch Lactobacillus Species Radiology Last Impressions Chest X-Ray 12/01/16 1352 Signed Impressions: Service Date/Time: December 13:52 - CONCLUSION: Mild patchy bilateral lower lung zone parenchymal opacity and low lung volumes. Maninder Mg MD Abdomen/Pelvis CT 12/01/16 0000 Signed Impressions: Service Date/Time: December 19:21 - CONCLUSION: 1. Gas dilated colon without an obstructing mass or lesion. This suggests a colonic ileus. 2. Trace amount of free fluid. 3. Bibasilar atelectasis. 4. Coronary artery atherosclerotic calcifications. 5. 2.8 x 2.6 cm AAA 6. Atrophic right kidney Jem Segundo Jr., MD Abdomen X-Ray 12/01/16 0000 Signed Impressions: Service Date/Time: December 11:07 - CONCLUSION: Diffuse air-filled distention of the colon, likely representing ileus. Maninder Mg MD Cardiovascular: Regular Lungs: Clear Abdomen: Non-distended, Non-tender Extremities: Other (minimal generalized edema ) A/P Problem List: (1) Adynamic ileus (2) Atrial fibrillation (3) Palpitations (4) SOB (shortness of breath) (5) Abdominal pain Assessment and Plan 75 year old male s/p cardiac catheterization; with 1 week of abdominal pain/ distention -Repeat decompressive colonoscopy -Rectal tube left in place to LIWS -NGT to LIWS -Monitor labs; --nephrology following ---BUN/Cr trending down -Continue non op treatment -Discussed with INGRID García at bedside -Discussed with Attending Note - Dr. Horowitz Abdomen remains soft On CPAP trials; likely to be extubated soon Would continue NG today Improved The exam, history, and the medical decision-making described in the above note were completed with the assistance of the mid-level provider. I reviewed and agree with the findings presented. I attest that I had a [id number] encounter with the patient on the same day, and personally performed and documented my assessment and findings in the medical record. Problem Qualifiers (1) Abdominal pain: Qualified Code: R10.84 - Generalized abdominal pain Susanne Winslow Dec 08, 2016 12:01 Arnoldo Horowitz MD Dec 08, 2016 13:46
--- NOTE | 2016-12-08 12:58 | HHI.GIFU ---
Subjective Remarks Still intubated, abdomen is much softer, and rectal tube in place. Objective Vitals I&O Vital Signs Date Time Temp Pulse Resp B/P Pulse Ox O2 Delivery O2 Flow Rate FiO2 12/08/16 12:07 97 35 12/08/16 12:07 35 12/08/16 12:00 81 12/08/16 12:00 35 12/08/16 12:00 99.1 81 20 149/70 96 12/08/16 10:46 100 35 12/08/16 10:46 35 12/08/16 10:00 100 12/08/16 08:08 98 35 12/08/16 08:00 119 12/08/16 08:00 90 12/08/16 08:00 35 12/08/16 08:00 99.7 119 22 147/71 93 12/08/16 08:00 35 12/08/16 06:00 116 12/08/16 04:00 102 12/08/16 04:00 35 12/08/16 04:00 97.8 102 20 152/73 94 12/08/16 03:55 99 35 12/08/16 02:00 86 12/08/16 00:31 96 35 12/08/16 00:00 84 12/08/16 00:00 98.1 84 20 146/80 100 12/08/16 00:00 35 12/07/16 22:00 82 12/07/16 21:00 98.0 102 20 156/78 99 12/07/16 20:30 95 147/67 100 12/07/16 20:02 99 35 12/07/16 20:00 87 138/66 99 12/07/16 20:00 35 12/07/16 20:00 87 12/07/16 18:00 85 12/07/16 17:30 107 143/79 100 12/07/16 17:00 82 151/64 99 12/07/16 16:30 83 135/64 99 12/07/16 16:00 98.3 82 160/68 99 12/07/16 16:00 107 12/07/16 16:00 35 12/07/16 15:30 82 140/63 100 12/07/16 15:00 83 133/63 99 12/07/16 14:58 99 35 12/07/16 14:30 90 119/64 99 6/7/17 14:00 83 106/66 98 12/07/16 14:00 107 12/07/16 13:30 70 107/61 99 12/07/16 13:00 75 102/62 100 I/O 12/07/16 12/07/16 12/07/16 12/08/16 12/08/16 12/08/16 07:00 15:00 23:00 07:00 15:00 23:00 Intake Total 410 ml 607 ml 430 ml 295 ml Output Total 650 ml 1300 ml 850 ml 500 ml Balance -240 ml -693 ml -420 ml -205 ml Intake Oral 0 ml 0 ml IV Total 410 ml 607 ml 430 ml 295 ml Output Urine Total 650 ml 1100 ml 800 ml 400 ml Stool Total 200 ml 50 ml 100 ml # Bowel Movements 5 Laboratory Laboratory Tests Test 12/08/16 04:35 Sodium Level 135 Potassium Level 3.8 Chloride Level 99 Carbon Dioxide Level 20.4 Anion Gap 16 Blood Urea Nitrogen 27 Creatinine 2.40 Estimat Glomerular Filtration 26 Rate Random Glucose 88 Calcium Level 8.2 Phosphorus Level 3.2 Albumin 2.7 Date/Time Procedure Status Source Growth 12/05/16 18:00 Urine Culture - Final Complete Urine Clean Catch Lactobacillus Species Physical Exam HEENT: PERRLA, normocephalic; atraumatic; no jaundice. CHEST: wheezes CARDIAC: RRR. ABDOMEN: minimal distension, nontender; no hepatosplenomegaly; bowel sounds hypoactive EXTREMITIES: No clubbing, cyanosis, or edema. SKIN: Normal; no rash; no jaundice. [employer]: still intubated Assessment and Plan Plan ASSESSMENT - Ileus- Patient continues to have abdominal distension, he is (+) for flatus and large BM liquid stools, no N/V or abdominal pain CT 12-04-16--> 1. Diverticulosis of the colon without diverticulitis. 2. Gaseous distention of the ascending and transverse colon likely ileus. No obstruction. 3. Atrophic right kidney. 4. Minimal perihepatic ascites S/P decompressive colonoscopy on (12/02/16)--Diverticulum in the sigmoid colon. Scope advanced to the right colon and air decompressed and suctioned out. Poor bowel prep limited mucosal inspection. KUB 12/01/16--shows diffuse air filled distention of colon, likely representing ileus. CT on (12/01/16) 1. Gas dilated colon without an obstructing mass or lesion. This suggests a colonic ileus. 2. Trace amount of free fluid. 3. Bibasilar atelectasis. 4. Coronary artery atherosclerotic calcifications. 5. 2.8 x 2.6 cm AAA 6. Atrophic right kidney Abdomen X-Ray 12/03/16--Diffuse air-filled distention of the transverse colon unchanged, likely representing ileus. - Anemia/heme (+) stools, No signs of bleeding, will need EGD/repeat colonoscopy at some point with better prep PLAN - Rectal tube to gravity - Liquid diet after extubation -GS following -Cont. Reglan -Supportive care. Hilaria Dey MD Dec 08, 2016 12:58
[2016-12-08] MEDS: TAMSULOSIN HCL 0.4 MG CAP PO SCH (20:46)
[2016-12-08] MEDS: DULoxetine HCl DR 60 MG CAP PO SCH (20:47)
[2016-12-09] VITALS (12 sets, daily range): BP systolic 155–176; BP diastolic 88–97; PULSE 110–126; RESP 17–32; TEMP 98.2–99.6; O2SAT 90–99
[2016-12-09] MEDS: RESP: IPRATROPIUM 0.5 MG/2.5 ML NEB NEB SCH ×6 (03:37→23:05)
[2016-12-09] MEDS: LEVOTHYROXINE SODIUM 25 MCG TAB PO SCH (05:19)
[2016-12-09] MEDS: METOCLOPRAMIDE HCL 10 MG/2 ML VIAL IV PUSH SCH ×3 (05:19→23:46)
[2016-12-09] MEDS: CHLORHEXIDINE 0.12% (ORAL KIT) 15 ML CUP MT SCH ×2 (08:00→20:00)
[2016-12-09] MEDS: DILTIAZEM-CD 180 MG CAP ER PO SCH (08:37)
[2016-12-09] MEDS: AMIODARONE 200 MG TAB PO SCH (08:37)
[2016-12-09] MEDS: PANTOPRAZOLE SOD 40 MG DELAYED RELEASE TAB PO SCH (08:37)
[2016-12-09] MEDS: METOPROLOL TARTRATE 25 MG TAB PO SCH ×3 (08:37→19:57)
[2016-12-09] MEDS: APIXABAN 5 MG TABLET PO SCH ×2 (08:37→19:56)
[2016-12-09 09:17] LABS: AUTOMATED NEUTROPHIL # 5.4 TH/MM3 (1.8-7.7); BASOPHIL # 0.1 TH/MM3 (0-0.2); BASOPHIL % 1.3 % (0.0-2.0); EOSINOPHIL # 0.1 TH/MM3 (0-0.4); EOSINOPHIL % 1.4 % (0.0-4.0); HEMO FLAGS DIFF FINAL; LYMPH % 8.2 % (9.0-44.0); LYMPHOCYTE # 0.7 TH/MM3 (1.0-4.8); MEAN CELL VOLUME 86.9 FL (80.0-100.0); MEAN CORPUSCULAR HEMOGLOBIN 28.1 PG (27.0-34.0); MEAN CORPUSCULAR HGB CONC 32.4 % (32.0-36.0); NEUT % 65.1 % (16.0-70.0); PLATELET COUNT 293 TH/MM3 (150-450); RED BLOOD COUNT 3.46 MIL/MM3 (4.50-5.90); RED CELL DISTRIBUTION WIDTH 15.4 % (11.6-17.2); WHITE BLOOD COUNT 8.4 TH/MM3 (4.0-11.0)
[2016-12-09 09:33] LABS: ANION GAP 11 MEQ/L (5-15); AST (GOT) 5 U/L (15-37); BICARBONATE 24.7 MEQ/L (21.0-32.0); BLOOD UREA NITROGEN 18 MG/DL (7-18); CHLORIDE 103 MEQ/L (98-107); GLOMERULAR FILTRATION RATE 39 ML/MIN (>89); POTASSIUM 3.9 MEQ/L (3.5-5.1); SODIUM (NA) 139 MEQ/L (136-145)
[2016-12-09 09:34] LABS: ALT (GPT) 21 U/L (12-78)
[2016-12-09 09:39] LABS: ALKALINE PHOSPHATASE 104 U/L (45-117); TOTAL BILIRUBIN ADULT 0.4 MG/DL (0.2-1.0)
--- NOTE | 2016-12-09 09:40 | HHI.NPPN ---
Subjective General Problems: Edema Renal Failure: Chronic, Acute Interval History He was extubated. Renal function is better. (Christie Fleming) Review of Systems General Constitutional: Fatigue (Christie Fleming) Objective Data Data 12/08/16 12/09/16 19:00 07:00 Intake Total 453 ml 465 ml Output Total 625 ml 1575 ml Balance -172 ml -1110 ml Intake Oral 25 ml IV Total 353 ml 440 ml Tube Irrigant 100 ml Output Urine Total 625 ml 1500 ml Stool Total 75 ml Vital Signs Date Time Temp Pulse Resp B/P Pulse Ox O2 Delivery O2 Flow Rate FiO2 12/09/16 07:35 99 Simple Mask 10.00 12/09/16 04:00 98.9 124 17 156/91 97 12/09/16 00:00 98.8 125 18 155/96 96 12/08/16 23:40 100 35 12/08/16 22:00 122 12/08/16 20:42 99 Simple Mask 8.00 12/08/16 20:00 125 12/08/16 20:00 99.0 125 24 183/94 97 12/08/16 18:00 125 12/08/16 16:00 122 12/08/16 16:00 99.3 122 18 173/86 94 12/08/16 14:38 94 35 12/08/16 14:00 83 12/08/16 12:07 97 35 12/08/16 12:07 35 12/08/16 12:00 81 12/08/16 12:00 35 12/08/16 12:00 99.1 81 20 149/70 96 12/08/16 10:46 100 35 12/08/16 10:46 35 12/08/16 10:00 100 (Christie Fleming) -: 12/09/16 0850 12/09/16 0850 Tubes & Lines: [place]roy[place]rip Comment amiodarone (Christie Fleming) Physical Exam General Appearance: Well Developed, Well Nourished, No Acute Distress, Comfortable ( Christie Fleming) Eyes Eye Exam: Pupils Equal (Christie Fleming) Throat Throat Exam: Oral Mucosa [place] & Moist (Christie Fleming) Pulmonary Resp Exam: Clear Bilaterally, Breath Sounds Equal, No Distress Resp Remarks shallow respirations (Christie Fleming) Cardiology CV Exam: Good Perfusion, Irregular, Tachycardia (Christie Fleming) Gastrointestinal/Abdomen GI Exam: Bowel Sounds Present GI Remarks round, soft, distended rectal tube (Christie Fleming) Musculoskeletal MS Exam: Joints Intact, Normal Tone, Unable to Ambulate (Christie Fleming) Integumentary Skin Exam: Warm, Dry (Christie Fleming) Extremeties Extremities Exam: Pedal Pulses Palpable, Trace Edema Extremeties Remarks chronic lower extremity edema (Christie Fleming) Neurologic Neuro Exam: Unresponsive, Sedated (Christie Fleming) Psychiatric Psych Exam: Appropriate Responses (Christie Fleming) VTE Prophylaxis VTE Remarks Apixaban (Christie Fleming) Assessment/Plan Discussed Condition With: Patient Assessment Summary: AFIA/Acute Renal Failure, Fluid/Volume Overload, Hypertension Problem List: (1) AFIA (acute kidney injury) Plan: In a pt with no baseline labs for comparison. His admission creatinine was 1.7, nonoliguric renal failure, suspected ATN from hypotension renal function has improved blood pressure stable continue IVF at 30 cc/hr (0.9%NS) until tolerating oral fluids/passed swallow evaluation monitor renal function and electrolytes daily avoid nephrotoxic medications (2) Hyponatremia Plan: corrected, continue 0.9% NS @ 30 cc/hr LVEF 40-45% (3) Atrial fibrillation Plan: cardiology is following he failed cardioversion x 2 since arrival on IV amiodarone follow rhythm/rate (4) Abdominal pain Plan: GI following s/p decompression colonoscopy he has rectal bag (5) SOB (shortness of breath) Plan: initially due to fluid overload s/p extubation, on venti mask improved (Christie Fleming) Plan patient was seen and examined. Renal function has improved. IVF can be stopped if he starts taking PO. May change to 1/2NS if he develops hypernatremia. ( Pedro Luo MD) Problem Qualifiers (1) Abdominal pain: Qualified Code: R10.84 - Generalized abdominal pain Christie Fleming Dec 09, 2016 09:40 Pedro Luo MD Dec 09, 2016 17:07
[2016-12-09] MEDS: SODIUM CHLOR 0.9% 1000 ML INJ 1,000 ML IV SCH (12:20)
--- NOTE | 2016-12-09 13:31 | HHI.PR ---
Subjective Subjective Notes Resting in bed Objective Vitals/I&O Vital Signs Date Time Temp Pulse Resp B/P Pulse Ox O2 Delivery O2 Flow Rate FiO2 12/09/16 10:00 115 12/09/16 08:00 99.6 18 170/88 99 12/09/16 07:35 Simple Mask 10.00 12/08/16 23:40 35 Labs Laboratory Tests Test 12/09/16 08:50 White Blood Count 8.4 Red Blood Count 3.46 Hemoglobin 9.7 Hematocrit 30.0 Mean Corpuscular Volume 86.9 Mean Corpuscular Hemoglobin 28.1 Mean Corpuscular Hemoglobin 32.4 Concent Red Cell Distribution Width 15.4 Platelet Count 293 Mean Platelet Volume 6.5 Neutrophils (%) (Auto) 65.1 Lymphocytes (%) (Auto) 8.2 Monocytes (%) (Auto) 24.0 Eosinophils (%) (Auto) 1.4 Basophils (%) (Auto) 1.3 Neutrophils # (Auto) 5.4 Lymphocytes # (Auto) 0.7 Monocytes # (Auto) 2.0 Eosinophils # (Auto) 0.1 Basophils # (Auto) 0.1 CBC Comment DIFF FINAL Differential Comment Sodium Level 139 Potassium Level 3.9 Chloride Level 103 Carbon Dioxide Level 24.7 Anion Gap 11 Blood Urea Nitrogen 18 Creatinine 1.73 Estimat Glomerular Filtration 39 Rate Random Glucose 87 Calcium Level 8.2 Phosphorus Level 3.6 Magnesium Level 2.0 Total Bilirubin 0.4 Aspartate Amino Transf 5 (AST/SGOT) Alanine Aminotransferase 21 (ALT/SGPT) Alkaline Phosphatase 104 Total Protein 7.3 Albumin 2.9 Date/Time Procedure Status Source Growth 12/05/16 18:00 Urine Culture - Final Complete Urine Clean Catch Lactobacillus Species Radiology Last Impressions Chest X-Ray 12/01/16 1352 Signed Impressions: Service Date/Time: December 13:52 - CONCLUSION: Mild patchy bilateral lower lung zone parenchymal opacity and low lung volumes. Maninder Mg MD Abdomen/Pelvis CT 12/01/16 0000 Signed Impressions: Service Date/Time: December 19:21 - CONCLUSION: 1. Gas dilated colon without an obstructing mass or lesion. This suggests a colonic ileus. 2. Trace amount of free fluid. 3. Bibasilar atelectasis. 4. Coronary artery atherosclerotic calcifications. 5. 2.8 x 2.6 cm AAA 6. Atrophic right kidney Jem Segundo Jr., MD Abdomen X-Ray 12/01/16 0000 Signed Impressions: Service Date/Time: December 11:07 - CONCLUSION: Diffuse air-filled distention of the colon, likely representing ileus. Maninder Mg MD Cardiovascular: Regular Lungs: Clear Abdomen: Other (minimally distended ) Extremities: No edema A/P Problem List: (1) Adynamic ileus (2) Atrial fibrillation (3) Palpitations (4) SOB (shortness of breath) (5) Abdominal pain Assessment and Plan 75 year old male s/p cardiac catheterization; with 1 week of abdominal pain/ distention -Okay for sips of water -s/p Repeat decompressive colonoscopy -Rectal tube left in place to LIWS -Monitor labs; --nephrology following ---BUN/Cr trending down -Continue non op treatment Attending Note - Dr. Horowitz Abdomen soft, nontender Improving; will advance diet tomorrow if he advances. The exam, history, and the medical decision-making described in the above note were completed with the assistance of the mid-level provider. I reviewed and agree with the findings presented. I attest that I had a [id number] encounter with the patient on the same day, and personally performed and documented my assessment and findings in the medical record. Problem Qualifiers (1) Abdominal pain: Qualified Code: R10.84 - Generalized abdominal pain Susanne Winslow Dec 09, 2016 13:31 Arnoldo Horowitz MD Dec 10, 2016 12:26
--- NOTE | 2016-12-09 13:56 | HHI.CCPN ---
Subjective Remarks/Hospital Course 12/04: Mr. Drummond is a 75-year-old male patient with a known history of atrial fibrillation with history of ablation 1 week ago, COPD, HTN, CHF, AAA, PAD and CABG x 3 stents. Supposedly patient had an ablation one week ago with Dr. Sutton. On 11/30 afternoon patient presented to his office for a follow up appointment. While in his office patient developed shortness of breath and palpitations. EKG was performed and patient was found to be in afib RVR, then sent to the ER immediately. Upon presentation, Dr. Sutton performed a cardioversion and placed on Amiodarone IV infusion with bolus. 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 Patient was admitted by hospitalist service with cardiology consult. He was diagnosed to have an ileus and Gen. surgery evaluated the patient as well. He underwent a decompression colonoscopy on 12/02 by GI with some improvement in his abdominal distention. Patient was initiated on amiodarone drip as he converted back to a flutter fib with RVR and was restarted on metoprolol as well as was placed on Cardizem by cardiology. Aldactone and losartan were continued. Today Cardizem dose was increased to 360 mg daily by cardiology and amiodarone was switched to by mouth. Patient subsequently developed hypotension with systolic blood pressure in the 70s. He received normal saline 500 cc bolus and was transferred to the ICU and critical care medicine was consulted for hypotension. When I evaluated the patient in the ICU he was on a nonrebreather facemask with systolic blood pressure in the 90s having this completed his fluid bolus. He denied any chest pain. He did have lightheadedness and dizziness earlier which appeared to be improving. His O2 sats 100% on nonrebreather facemask and I switched him to 50% Ventimask on which she was comfortable. Stat chest x-ray ordered by me revealed poor story from and no obvious infiltrates or effusions with some dilated bowel loops noted on the film as well. History was obtained by reviewing records and discussion with Dr. Sheppard. 12/05: Sitting up in bed comfortably. Abdominal distention still persists. Lesions blood pressure improved yesterday following fluid bolus. Antihypertensives beta anca were held yesterday. By mouth Cardizem and amiodarone have been continued. Patient underwent CT abdomen and pelvis with oral contrast which is ordered by Dr. Burrell from general surgery in view of abdominal distention which revealed ileus. Patient denies any chest pain. He has minimal shortness of breath though appears comfortable on Ventimask. No further hypotension since yesterday. 12/06: Patient developed worsening shortness of breath and abdominal distention last evening and eventually started retaining CO2. NG tube was placed for colonoscopy prep however patient did not tolerated well. He was eventually intubated and placed on mechanical ventilation and a central line was placed. When I evaluated the patient this morning he is sedated, orally intubated on mechanical ventilation with abdominal distention awaiting colonoscopy. He is in A. fib and rate is relatively well controlled currently. He is maintaining his blood pressure. He has been diuresed with Lasix. 12/07: Remains sedated, orally intubated on mechanical ventilation. Underwent decompressive colonoscopy on 12/06 with placement of rectal tube. Significant amount of colonic contents evacuated. Abdominal less distended this morning. 12/08: Remains sedated, orally intubated on mechanical ventilation. Abdomen remains soft. 12/09: Extubated on 12/08. On facemask O2 this morning being titrated down to nasal cannula. Resting in bed. Denies any abdominal pain. Abdominal distention seems to be improving. Rectal tube remains in place. Remains in A. fib with heart rate 120s Objective Vital Signs Date Time Temp Pulse Resp B/P Pulse Ox O2 Delivery O2 Flow Rate FiO2 12/09/16 12:00 98.5 120 20 157/97 90 12/09/16 07:35 Simple Mask 10.00 12/08/16 23:40 35 Intake and Output 12/08/16 12/08/16 12/09/16 08:00 16:00 00:00 Intake Total 295 ml 453 ml 242 ml Output Total 500 ml 625 ml 850 ml Balance -205 ml -172 ml -608 ml Result Diagram: 12/09/16 0850 12/09/16 0850 Other Results Laboratory Tests Test 12/09/16 08:50 White Blood Count 8.4 TH/MM3 Red Blood Count 3.46 MIL/MM3 Hemoglobin 9.7 GM/DL Hematocrit 30.0 % Mean Corpuscular Volume 86.9 FL Mean Corpuscular Hemoglobin 28.1 PG Mean Corpuscular Hemoglobin 32.4 % Concent Red Cell Distribution Width 15.4 % Platelet Count 293 TH/MM3 Mean Platelet Volume 6.5 FL Neutrophils (%) (Auto) 65.1 % Lymphocytes (%) (Auto) 8.2 % Monocytes (%) (Auto) 24.0 % Eosinophils (%) (Auto) 1.4 % Basophils (%) (Auto) 1.3 % Neutrophils # (Auto) 5.4 TH/MM3 Lymphocytes # (Auto) 0.7 TH/MM3 Monocytes # (Auto) 2.0 TH/MM3 Eosinophils # (Auto) 0.1 TH/MM3 Basophils # (Auto) 0.1 TH/MM3 CBC Comment DIFF FINAL Differential Comment Sodium Level 139 MEQ/L Potassium Level 3.9 MEQ/L Chloride Level 103 MEQ/L Carbon Dioxide Level 24.7 MEQ/L Anion Gap 11 MEQ/L Blood Urea Nitrogen 18 MG/DL Creatinine 1.73 MG/DL Estimat Glomerular Filtration 39 ML/MIN Rate Random Glucose 87 MG/DL Calcium Level 8.2 MG/DL Phosphorus Level 3.6 MG/DL Magnesium Level 2.0 MG/DL Total Bilirubin 0.4 MG/DL Aspartate Amino Transf 5 U/L (AST/SGOT) Alanine Aminotransferase 21 U/L (ALT/SGPT) Alkaline Phosphatase 104 U/L Total Protein 7.3 GM/DL Albumin 2.9 GM/DL Imaging Last 48 hours Impressions Chest X-Ray 12/06/16 0000 Signed Impressions: Service Date/Time: Tuesday, December 06, 2016 01:41 - CONCLUSION: New right subclavian central venous catheter placed in good position. No visible pneumothorax. Tiny bilateral pleural effusions with small lung volumes. Juvencio Knowles MD Abdomen X-Ray 12/05/16 1400 Signed Impressions: Service Date/Time: Monday, December 05, 2016 14:26 - CONCLUSION: Unchanged gaseous distention of the colon consistent with colonic ileus. Jem Segundo Jr., MD Chest x-ray portable done on 12/04 which was personally reviewed: Poor respiratory film, patchy lower lobe infiltrates bilaterally, no effusions Last Impressions Abdomen X-Ray 12/03/16 0000 Signed Impressions: Service Date/Time: Saturday, December 03, 2016 12:46 - CONCLUSION: Diffuse air-filled distention of the transverse colon unchanged, likely representing ileus. Maninder Mg MD Chest X-Ray 12/01/16 1352 Signed Impressions: Service Date/Time: December 13:52 - CONCLUSION: Mild patchy bilateral lower lung zone parenchymal opacity and low lung volumes. Maninder Mg MD Abdomen/Pelvis CT 12/01/16 0000 Signed Impressions: Service Date/Time: , December 01, 2016 19:21 - CONCLUSION: 1. Gas dilated colon without an obstructing mass or lesion. This suggests a colonic ileus. 2. Trace amount of free fluid. 3. Bibasilar atelectasis. 4. Coronary artery atherosclerotic calcifications. 5. 2.8 x 2.6 cm AAA 6. Atrophic right kidney Jem Segundo Jr., MD Objective Remarks HEENT/Neuro: No pallor or icterus, tongue moist. Sedated, orally intubated. moving all 4 extremities on lightening sedation Neck: No JVD Chest/pulmonary: Orally intubated on mechanical ventilation, good air entry bilaterally though decreased at bases, scattered rhonchi, no wheezing or crackles. Cardiovascular: S1-S2 irregularly irregular no gallop or murmur GI/abdomen: soft, nontender, bowel sounds sluggish. No guarding Extremities: Warm bilaterally, bilateral edema Procedures Decompressive colonoscopy 12/02/16 Date of Insertion: Dec 05, 2016 Line: Central Venous Catheter A/P Assessment and Plan Mr. 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 On 12/01 found to be in afib RVR sent to the ER. Upon presentation, Dr. Sutton performed a cardioversion and placed on Amiodarone IV infusion with bolus. Hospitalist team consulted for assuming of care and medical management. Acute respiratory failure on mechanical ventilation COPD Patient intubated and placed on mechanical ventilation on 12/05 for worsening respiratory distress partially secondary to worsening abdominal distention with restriction. Continue mechanical ventilation, vent bundle, bronchodilators as needed. CPAP TRIALS to decide extubation Hypotension: Secondary to antihypertensives as well as increase in Cardizem dose as well as metoprolol. Hold all antihypertensives Cardizem and metoprolol until improvement in blood pressure and then reintroduced gradually. Received 500 cc normal saline bolus earlier with good response. Continue to hold losartan and Aldactone. Cardizem and by mouth amiodarone being continued. 2-D echo with minimally depressed LV function with EF 45% Atrial fibrillation status post RVR with cardioversion 11/30/16. - Outpatient ablation by Dr. Sutton about a week ago. EKG reviewed, atrial fibrillation with RVR. Amiodarone switched to by mouth on 12/04, Cardizem dose increased by Dr. Arreguin on 12/04. TSH high, no correlation with free T4, follow-up as outpatient. Cardiology following. Eliquis restarted per cardiology. Cardizem and by mouth amiodarone being continued. Follow-up 2-D echo. Increase Lopressor to 25 mg by mouth 4 times a day on 12/09 from every 12 hourly. Hypertension, continue holding losartan and Aldactone due to hypotension. Cardizem being continued. Acute kidney injury suspect secondary to CHF exacerbation, possible chronic -Follow intake output, monitor and replete elect lites, follow BUN/ creatinine. Hyponatremia noted. - Hold Aldactone and losartan view of hypotension. Lasix held in view of hypotension on 12/04 . Evaluated by nephrology and is currently on Bumex for mobilizing fluid. Abdominal ileus, acute - Abdominal x-ray reviewed and showing diffuse air-filled distention of the colon, likely representing ileus. - GI consulted, appreciate input Status post decompressive colonoscopy 12/02, continue full liquid diet,Repeat KUB consistent with ileus but passing bowels, a lot of gas. On simethicone. CT abdomen pelvis revealed significant ileus. GI and general surgery following. S/p repeat decompressive colonoscopy on 12/06 with insertion of rectal tube. Diastolic Congestive heart failure, acute exacerbation on chronic -Hold Aldactone and diuretics till improvement in blood pressure. 2-D echo revealed LV function to be around 45%, RV appeared normal. Urinary retention-resolved. Continue Flomax Hyponatremia- followed by renal. Sec to diuretics. Anemia, unknown origin suspect secondary to GI bleed. - Hemoglobin 10.7/Hematocrit 32.7 upon presentation. Repeat CBC, hemoglobin 10.7/hemoglobin 31.8. Follow. - Stool Hemoccult positive, awaiting GI input. - Dark colored stools. Also on iron replacement. Monitor. Hypokalemia-replaced GI prophylaxis: Protonix 40 mg PO daily. DVT prophylaxis: SCDs. On apixaban Sotero Goodson MD Dec 09, 2016 13:56
--- NOTE | 2016-12-09 16:38 | HHI.GIFU ---
Subjective Remarks Pt extubated yesterday. REceiving breathing tx, nonverbal. Indicates no pain, n/v. Per RN he had BM yesterday. (Nova James) Objective Vitals I&O Vital Signs Date Time Temp Pulse Resp B/P Pulse Ox O2 Delivery O2 Flow Rate FiO2 12/09/16 16:00 98.5 122 18 176/93 95 12/09/16 16:00 122 12/09/16 14:00 120 12/09/16 12:00 98.5 120 20 157/97 90 12/09/16 12:00 120 12/09/16 10:00 115 12/09/16 08:00 123 12/09/16 08:00 99.6 123 18 170/88 99 12/09/16 07:35 99 Simple Mask 10.00 12/09/16 04:00 98.9 124 17 156/91 97 12/09/16 00:00 98.8 125 18 155/96 96 12/08/16 23:40 100 35 12/08/16 22:00 122 12/08/16 20:42 99 Simple Mask 8.00 12/08/16 20:00 125 12/08/16 20:00 99.0 125 24 183/94 97 12/08/16 18:00 125 I/O 12/08/16 12/08/16 12/08/16 12/09/16 12/09/16 12/09/16 07:00 15:00 23:00 07:00 15:00 23:00 Intake Total 295 ml 453 ml 242 ml 223 ml 660 ml Output Total 500 ml 625 ml 850 ml 725 ml 700 ml Balance -205 ml -172 ml -608 ml -502 ml -40 ml Intake Oral 0 ml 25 ml 400 ml IV Total 295 ml 353 ml 217 ml 223 ml 260 ml Tube Irrigant 100 ml Output Urine Total 400 ml 625 ml 800 ml 700 ml 700 ml Stool Total 100 ml 50 ml 25 ml Laboratory Laboratory Tests Test 12/09/16 08:50 White Blood Count 8.4 Red Blood Count 3.46 Hemoglobin 9.7 Hematocrit 30.0 Mean Corpuscular Volume 86.9 Mean Corpuscular Hemoglobin 28.1 Mean Corpuscular Hemoglobin 32.4 Concent Red Cell Distribution Width 15.4 Platelet Count 293 Mean Platelet Volume 6.5 Neutrophils (%) (Auto) 65.1 Lymphocytes (%) (Auto) 8.2 Monocytes (%) (Auto) 24.0 Eosinophils (%) (Auto) 1.4 Basophils (%) (Auto) 1.3 Neutrophils # (Auto) 5.4 Lymphocytes # (Auto) 0.7 Monocytes # (Auto) 2.0 Eosinophils # (Auto) 0.1 Basophils # (Auto) 0.1 CBC Comment DIFF FINAL Differential Comment Sodium Level 139 Potassium Level 3.9 Chloride Level 103 Carbon Dioxide Level 24.7 Anion Gap 11 Blood Urea Nitrogen 18 Creatinine 1.73 Estimat Glomerular Filtration 39 Rate Random Glucose 87 Calcium Level 8.2 Phosphorus Level 3.6 Magnesium Level 2.0 Total Bilirubin 0.4 Aspartate Amino Transf 5 (AST/SGOT) Alanine Aminotransferase 21 (ALT/SGPT) Alkaline Phosphatase 104 Total Protein 7.3 Albumin 2.9 Date/Time Procedure Status Source Growth 12/05/16 18:00 Urine Culture - Final Complete Urine Clean Catch Lactobacillus Species Physical Exam HEENT: PERRLA, normocephalic; atraumatic; no jaundice. CHEST: wheezes, rhonchi, belly breathing CARDIAC: RRR. ABDOMEN: minimal distension, soft, nontender; no hepatosplenomegaly; bowel sounds hypoactive EXTREMITIES: No clubbing, cyanosis, or edema. SKIN: Normal; no rash; no jaundice. [employer]: AO (Nova James) Assessment and Plan Plan ASSESSMENT - Ileus- improving. s/p [address] 12-04-16--> 1. Diverticulosis of the colon without diverticulitis. 2. Gaseous distention of the ascending and transverse colon likely ileus. No obstruction. 3. Atrophic right kidney. 4. Minimal perihepatic ascites S/P decompressive colonoscopy on (12/02/16)--Diverticulum in the sigmoid colon. Scope advanced to the right colon and air decompressed and suctioned out. Poor bowel prep limited mucosal inspection. KUB 12/01/16--shows diffuse air filled distention of colon, likely representing ileus. CT on (12/01/16) 1. Gas dilated colon without an obstructing mass or lesion. This suggests a colonic ileus. 2. Trace amount of free fluid. 3. Bibasilar atelectasis. 4. Coronary artery atherosclerotic calcifications. 5. 2.8 x 2.6 cm AAA 6. Atrophic right kidney Abdomen X-Ray 12/03/16--Diffuse air-filled distention of the transverse colon unchanged, likely representing ileus. - Anemia/heme (+) stools, No signs of bleeding, will need EGD/repeat colonoscopy at some point with better prep PLAN - Rectal tube to gravity - diet per GS -GS following - continue REglan -Supportive care. This pt seen by myself and Dr Marie and this note is written on his behalf (Nova James) Physician Comments patient seen and examined agree with above cont current supportive care monitor labs (Jagdish Marie MD) Nova James Dec 09, 2016 16:38 Jagdish Marie MD Dec 09, 2016 18:16
[2016-12-09] MEDS: LABETALOL HCL 100 MG/20 ML VIAL IV PUSH PRN (19:53)
[2016-12-09] MEDS: TAMSULOSIN HCL 0.4 MG CAP PO SCH (19:56)
[2016-12-09] MEDS: DULoxetine HCl DR 60 MG CAP PO SCH (19:56)
[2016-12-09] MEDS ORDERED: LABETALOL HCL 100 MG/20 ML VIAL IV SCH (22:30)
[2016-12-10] VITALS (19 sets, daily range): BP systolic 145–189; BP diastolic 78–110; PULSE 84–127; RESP 16–28; TEMP 97.1–98.4; O2SAT 87–99
[2016-12-10] MEDS: LABETALOL HCL 100 MG/20 ML VIAL IV PUSH PRN ×3 (00:06→20:52)
[2016-12-10] MEDS: TEMAZEPAM 15 MG CAP PO PRN ×2 (02:34→23:17)
[2016-12-10] MEDS: RESP: IPRATROPIUM 0.5 MG/2.5 ML NEB NEB SCH ×6 (03:20→23:40)
[2016-12-10 04:11] LABS: AUTOMATED NEUTROPHIL # 4.7 TH/MM3 (1.8-7.7); BASOPHIL # 0.1 TH/MM3 (0-0.2); EOSINOPHIL # 0.2 TH/MM3 (0-0.4); EOSINOPHIL % 2.8 % (0.0-4.0); HEMATOCRIT 29.8 % (39.0-51.0); HEMO FLAGS DIFF FINAL; LYMPH % 10.8 % (9.0-44.0); LYMPHOCYTE # 0.8 TH/MM3 (1.0-4.8); MEAN CORPUSCULAR HEMOGLOBIN 28.4 PG (27.0-34.0); MONO % 24.2 % (0.0-8.0); NEUT % 61.2 % (16.0-70.0); PLATELET COUNT 320 TH/MM3 (150-450); RED BLOOD COUNT 3.46 MIL/MM3 (4.50-5.90); RED CELL DISTRIBUTION WIDTH 15.5 % (11.6-17.2); WHITE BLOOD COUNT 7.6 TH/MM3 (4.0-11.0)
[2016-12-10 04:37] LABS: ALT (GPT) 20 U/L (12-78); ANION GAP 10 MEQ/L (5-15); AST (GOT) 7 U/L (15-37); BICARBONATE 27.1 MEQ/L (21.0-32.0); BLOOD UREA NITROGEN 16 MG/DL (7-18); CHLORIDE 101 MEQ/L (98-107); GLOMERULAR FILTRATION RATE 50 ML/MIN (>89); SODIUM (NA) 138 MEQ/L (136-145)
[2016-12-10 04:40] LABS: ALKALINE PHOSPHATASE 102 U/L (45-117); TOTAL BILIRUBIN ADULT 0.5 MG/DL (0.2-1.0)
[2016-12-10] MEDS: METOCLOPRAMIDE HCL 10 MG/2 ML VIAL IV PUSH SCH ×3 (06:36→20:08)
[2016-12-10] MEDS: LEVOTHYROXINE SODIUM 25 MCG TAB PO SCH (06:36)
[2016-12-10] MEDS: CHLORHEXIDINE 0.12% (ORAL KIT) 15 ML CUP MT SCH ×2 (08:00→20:00)
[2016-12-10] MEDS: METOPROLOL TARTRATE 25 MG TAB PO SCH ×4 (08:43→20:08)
[2016-12-10] MEDS: AMIODARONE 200 MG TAB PO SCH (08:43)
[2016-12-10] MEDS: APIXABAN 5 MG TABLET PO SCH ×2 (08:43→20:08)
[2016-12-10] MEDS: DILTIAZEM-CD 180 MG CAP ER PO SCH (08:43)
[2016-12-10] MEDS: PANTOPRAZOLE SOD 40 MG DELAYED RELEASE TAB PO SCH (08:43)
--- NOTE | 2016-12-10 09:22 | HHI.CCPN ---
Subjective Remarks/Hospital Course 12/04: Mr. Drummond is a 75-year-old male patient with a known history of atrial fibrillation with history of ablation 1 week ago, COPD, HTN, CHF, AAA, PAD and CABG x 3 stents. Supposedly patient had an ablation one week ago with Dr. Sutton. On 11/30 afternoon patient presented to his office for a follow up appointment. While in his office patient developed shortness of breath and palpitations. EKG was performed and patient was found to be in afib RVR, then sent to the ER immediately. Upon presentation, Dr. Sutton performed a cardioversion and placed on Amiodarone IV infusion with bolus. 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 Patient was admitted by hospitalist service with cardiology consult. He was diagnosed to have an ileus and Gen. surgery evaluated the patient as well. He underwent a decompression colonoscopy on 12/02 by GI with some improvement in his abdominal distention. Patient was initiated on amiodarone drip as he converted back to a flutter fib with RVR and was restarted on metoprolol as well as was placed on Cardizem by cardiology. Aldactone and losartan were continued. Today Cardizem dose was increased to 360 mg daily by cardiology and amiodarone was switched to by mouth. Patient subsequently developed hypotension with systolic blood pressure in the 70s. He received normal saline 500 cc bolus and was transferred to the ICU and critical care medicine was consulted for hypotension. When I evaluated the patient in the ICU he was on a nonrebreather facemask with systolic blood pressure in the 90s having this completed his fluid bolus. He denied any chest pain. He did have lightheadedness and dizziness earlier which appeared to be improving. His O2 sats 100% on nonrebreather facemask and I switched him to 50% Ventimask on which she was comfortable. Stat chest x-ray ordered by me revealed poor story from and no obvious infiltrates or effusions with some dilated bowel loops noted on the film as well. History was obtained by reviewing records and discussion with Dr. Sheppard. 12/05: Sitting up in bed comfortably. Abdominal distention still persists. Lesions blood pressure improved yesterday following fluid bolus. Antihypertensives beta anca were held yesterday. By mouth Cardizem and amiodarone have been continued. Patient underwent CT abdomen and pelvis with oral contrast which is ordered by Dr. Burrell from general surgery in view of abdominal distention which revealed ileus. Patient denies any chest pain. He has minimal shortness of breath though appears comfortable on Ventimask. No further hypotension since yesterday. 12/06: Patient developed worsening shortness of breath and abdominal distention last evening and eventually started retaining CO2. NG tube was placed for colonoscopy prep however patient did not tolerated well. He was eventually intubated and placed on mechanical ventilation and a central line was placed. When I evaluated the patient this morning he is sedated, orally intubated on mechanical ventilation with abdominal distention awaiting colonoscopy. He is in A. fib and rate is relatively well controlled currently. He is maintaining his blood pressure. He has been diuresed with Lasix. 12/07: Remains sedated, orally intubated on mechanical ventilation. Underwent decompressive colonoscopy on 12/06 with placement of rectal tube. Significant amount of colonic contents evacuated. Abdominal less distended this morning. 12/08: Remains sedated, orally intubated on mechanical ventilation. Abdomen remains soft. 12/09: Extubated on 12/08. On facemask O2 this morning being titrated down to nasal cannula. Resting in bed. Denies any abdominal pain. Abdominal distention seems to be improving. Rectal tube remains in place. Remains in A. fib with heart rate 120s 12/10 Patient is lying in bed in NAD. Afebrile. Renal function is improving with Cr: 1.39 from 1.73. Objective Vital Signs Date Time Temp Pulse Resp B/P Pulse Ox O2 Delivery O2 Flow Rate FiO2 12/10/16 07:31 94 Nasal Cannula 4.00 12/10/16 06:00 110 12/10/16 04:00 98.4 154/84 12/10/16 00:00 28 12/08/16 23:40 35 Intake and Output 12/09/16 12/09/16 12/10/16 08:00 16:00 00:00 Intake Total 223 ml 660 ml 750 ml Output Total 725 ml 700 ml 850 ml Balance -502 ml -40 ml -100 ml Result Diagram: 12/10/16 0340 12/10/16 0340 Other Results Laboratory Tests Test 12/10/16 03:40 White Blood Count 7.6 TH/MM3 Red Blood Count 3.46 MIL/MM3 Hemoglobin 9.8 GM/DL Hematocrit 29.8 % Mean Corpuscular Volume 86.0 FL Mean Corpuscular Hemoglobin 28.4 PG Mean Corpuscular Hemoglobin 33.0 % Concent Red Cell Distribution Width 15.5 % Platelet Count 320 TH/MM3 Mean Platelet Volume 6.7 FL Neutrophils (%) (Auto) 61.2 % Lymphocytes (%) (Auto) 10.8 % Monocytes (%) (Auto) 24.2 % Eosinophils (%) (Auto) 2.8 % Basophils (%) (Auto) 1.0 % Neutrophils # (Auto) 4.7 TH/MM3 Lymphocytes # (Auto) 0.8 TH/MM3 Monocytes # (Auto) 1.9 TH/MM3 Eosinophils # (Auto) 0.2 TH/MM3 Basophils # (Auto) 0.1 TH/MM3 CBC Comment DIFF FINAL Differential Comment Sodium Level 138 MEQ/L Potassium Level 4.0 MEQ/L Chloride Level 101 MEQ/L Carbon Dioxide Level 27.1 MEQ/L Anion Gap 10 MEQ/L Blood Urea Nitrogen 16 MG/DL Creatinine 1.39 MG/DL Estimat Glomerular Filtration 50 ML/MIN Rate Random Glucose 105 MG/DL Calcium Level 8.9 MG/DL Total Bilirubin 0.5 MG/DL Aspartate Amino Transf 7 U/L (AST/SGOT) Alanine Aminotransferase 20 U/L (ALT/SGPT) Alkaline Phosphatase 102 U/L Total Protein 7.2 GM/DL Albumin 2.7 GM/DL Imaging Last Impressions Chest X-Ray 12/06/16 0000 Signed Impressions: Service Date/Time: Tuesday, December 06, 2016 01:41 - CONCLUSION: New right subclavian central venous catheter placed in good position. No visible pneumothorax. Tiny bilateral pleural effusions with small lung volumes. Juvencio Knowles MD Abdomen X-Ray 12/05/16 1400 Signed Impressions: Service Date/Time: Monday, December 05, 2016 14:26 - CONCLUSION: Unchanged gaseous distention of the colon consistent with colonic ileus. Jem Segundo Jr., MD Abdomen/Pelvis CT 12/04/16 0000 Signed Impressions: Service Date/Time: Sunday, December 04, 2016 20:28 - CONCLUSION: 1. Diverticulosis of the colon without diverticulitis. 2. Gaseous distention of the ascending and transverse colon likely ileus. No obstruction. 3. Atrophic right kidney. 4. Minimal perihepatic ascites. 5. Bibasilar consolidation. 6. Bulging of the abdominal aorta with extensive atherosclerotic changes but no Amando De Jesus MD Objective Remarks GENERAL: Patient is lying in bed in NAD SKIN: Warm and dry. HEAD: Normocephalic. EYES: No scleral icterus. No injection or drainage. NECK: Supple, trachea midline. No JVD or lymphadenopathy. CARDIOVASCULAR: Regular rate and rhythm without murmurs, gallops, or rubs. RESPIRATORY: Breath sounds equal bilaterally. No accessory muscle use. GASTROINTESTINAL: Abdomen soft, non-tender, nondistended. MUSCULOSKELETAL: No cyanosis, or edema. Neuro: Awake and alert. Procedures Decompressive colonoscopy 12/02/16 Date of Insertion: Dec 05, 2016 Line: Central Venous Catheter A/P Assessment and Plan Mr. 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 On 12/01 found to be in afib RVR sent to the ER. Upon presentation, Dr. Sutton performed a cardioversion and placed on Amiodarone IV infusion with bolus. Neuro: Awake and alert Pulm: Resp insuff s/p extubation COPD Continue with oxygen keep sat >92% Bronchodilators, NIPPV PRN for resp distress Check CXR CV: Atrial fibrillation status post RVR with cardioversion 11/30/16. Outpatient ablation by Dr. Sutton about a week ago. Hypertension, Monitor HR and BP keep MAP>65mmHg On Lopressor 25mg QID, Amiodarone 200mg daily, Cardizem CD 360 mg daily, Eliquis 5mg BID Echo showed EF 40-45% Acute kidney injury...improving Monitor renal function, I/O's, avoid nephrotoxins. Renal function is improving with Cr:1.39 from 1.73 Renal is following- Dr. Luo Urinary retention-resolved. Continue Flomax GI: -Repeat KUB today - Abdominal x-ray reviewed and showing diffuse air-filled distention of the colon, likely representing ileus. - GI is following- Status post decompressive colonoscopy 12/02/16, continue full liquid diet,Repeat KUB consistent with ileus but passing bowels, a lot of gas. On simethicone. CT abdomen pelvis revealed significant ileus. GI and general surgery following. S/p repeat decompressive colonoscopy on 12/06 with insertion of rectal tube. Heme: Anemia Monitor CBC ID: Monitor for signs of infections ( Fever, WBC) panculture if spikes a fever Endo: SSI if needed for glycemic control On Synthroid 25mcg daily. TSH:4.4 GI prophylaxis: Protonix 40 mg PO daily. DVT prophylaxis: SCDs. On Eliquis 5mg BID Will sign off and transfer care to [facility] Level 3 Alexus Freed MD Dec 10, 2016 09:22
--- NOTE | 2016-12-10 10:19 | RADRPT ---
EXAM DATE/TIME: 12/10/2016 09:18 [facility] COMPARISON: CT ABDOMEN & PELVIS W CONTRAST, December 04, 2016, 20:28. CHEST SINGLE AP, December 06, 2016, 1:41. INDICATIONS : Shortness of breath. MEDICAL HISTORY : Chronic obstructive pulmonary disease. Cardiovascular disease. Congestive heart failure. SURGICAL HISTORY : CABG. Cervical and lumbar. ENCOUNTER: Subsequent ACUITY: 2 weeks PAIN SCORE: 0/10 LOCATION: Bilateral chest FINDINGS: ET tube and nasogastric tube have been removed. The lungs remain under aerated. Bibasilar parenchym al changes persist, stable in the interval. Evidence for previous cervical and lumbar spinal fixation is noted. Degenerative changes are present about both shoulders. CONCLUSION: Relatively stable chest following extubation. Chaitanya Pennington MD FACR on December 10, 2016 at 10:09 Board Certified Radiologist. This report was verified electronically.
--- NOTE | 2016-12-10 10:21 | RADRPT ---
EXAM DATE/TIME: 12/10/2016 09:18 [facility] COMPARISON: ABDOMEN KUB ONLY, December 05, 2016, 14:26. INDICATIONS : Abdominal distention. colic ileus. MEDICAL HISTORY : Chronic obstructive pulmonary disease. Stroke. skin cancer. Cardiovascula r disease. Congestive heart failure. SURGICAL HISTORY : CABG. Thoracic and lumbar surgery. ENCOUNTER: Subsequent ACUITY: 1 week PAIN SCORE: 0/10 LOCATION: Abdomen FINDINGS: Patient has a tube overlying the bladder. Previous spinal fixation is noted. There is minimal gaseo us distention of ascending colon. There is no free air. CONCLUSION: Interval improvement with less gaseous distention. Chaitanya Pennington MD FACR on December 10, 2016 at 10:18 Board Certified Radiologist. This report was verified electronically.
--- NOTE | 2016-12-10 11:23 | HHI.NPPN ---
Subjective General Problems: Edema Renal Failure: Chronic, Acute History of Present Illness 75 y/o male patient with a known history of atrial fibrillation with history of ablation 1 week prior to admission, also has COPD, HTN, CHF, AAA, PAD and CABG x 3 stents. On 11/30 the patient presented to Dr. Sutton's office for a follow up appointment. While in his office patient developed shortness of breath and palpitations. EKG was performed and patient was found to be in A fib RVR, and sent to the ER immediately. Additional Remarks Patient is alert, feeling better, no SOB, no chest pain. Review of Systems General Constitutional: Fatigue Cardiovascular Cardiac: REYNOSO Objective Data Data 12/09/16 12/10/16 19:00 07:00 Intake Total 660 ml 1160 ml Output Total 700 ml 1300 ml Balance -40 ml -140 ml Intake Oral 400 ml 950 ml IV Total 260 ml 210 ml Output Urine Total 700 ml 1300 ml Bladder Scan Volume Amount 400 ml # Bowel Movements 0 Vital Signs Date Time Temp Pulse Resp B/P Pulse Ox O2 Delivery O2 Flow Rate FiO2 12/10/16 10:00 126 146/95 88 12/10/16 10:00 116 12/10/16 09:30 122 145/86 93 12/10/16 09:00 124 153/91 92 12/10/16 08:30 118 189/89 95 12/10/16 08:00 116 12/10/16 08:00 98.3 110 171/81 94 12/10/16 07:31 94 Nasal Cannula 4.00 12/10/16 07:30 113 147/89 95 12/10/16 07:00 111 159/92 91 12/10/16 06:31 112 167/81 98 12/10/16 06:00 110 12/10/16 06:00 110 146/78 97 12/10/16 04:00 109 12/10/16 04:00 98.4 109 154/84 95 12/10/16 00:00 97.4 121 28 154/93 94 12/10/16 00:00 121 12/09/16 22:00 126 12/09/16 20:00 98.2 110 32 173/96 95 12/09/16 20:00 110 12/09/16 19:38 97 Nasal Cannula 4.00 12/09/16 18:00 126 12/09/16 16:00 98.5 122 18 176/93 95 12/09/16 16:00 122 12/09/16 14:00 120 12/09/16 12:00 98.5 120 20 157/97 90 12/09/16 12:00 120 -: 12/10/16 0340 12/10/16 0340 Tubes & Lines: Arroy[place]rip Comment amiodarone Physical Exam General Appearance: Well Developed, Well Nourished, No Acute Distress, Comfortable Eyes Eye Exam: Pupils Equal Throat Throat Exam: Oral Mucosa [place] & Moist Pulmonary Resp Exam: Clear Bilaterally, Breath Sounds Equal, No Distress Cardiology CV Exam: Good Perfusion, Irregular, Tachycardia Gastrointestinal/Abdomen GI Exam: Bowel Sounds Present Musculoskeletal MS Exam: Joints Intact, Normal Tone, Unable to Ambulate Integumentary Skin Exam: Warm, Dry Extremeties Extremities Exam: Trace Edema Neurologic Neuro Exam: Alert, Awake, Oriented, Unresponsive, Sedated Psychiatric Psych Exam: Appropriate Responses Assessment/Plan Discussed Condition With: Patient Assessment Summary: AFIA/Acute Renal Failure, Fluid/Volume Overload, Hypertension Problem List: (1) AFIA (acute kidney injury) Plan: In a pt with no baseline labs for comparison. His admission creatinine was 1.7, nonoliguric renal failure, suspected ATN from hypotension renal function has improved blood pressure stable and HR controlled. Creatinine continue to improve. Patient has chronic kidney disease and develop AFIA. (2) Hyponatremia Plan: corrected, continue 0.9% NS @ 30 cc/hr LVEF 40-45% (3) Atrial fibrillation Plan: cardiology is following he failed cardioversion x 2 since arrival on IV amiodarone follow rhythm/rate (4) Abdominal pain Plan: GI following s/p decompression colonoscopy he has rectal bag (5) SOB (shortness of breath) Plan: initially due to fluid overload s/p extubation, on venti mask improved Problem Qualifiers (1) Abdominal pain: Qualified Code: R10.84 - Generalized abdominal pain Ginger Dubose MD Dec 10, 2016 11:23
--- NOTE | 2016-12-10 12:30 | HHI.PR ---
Subjective Subjective Notes Resting comfortably in bed. No abdominal discomfort. Objective Vitals/I&O Vital Signs Date Time Temp Pulse Resp B/P Pulse Ox O2 Delivery O2 Flow Rate FiO2 12/10/16 10:00 126 146/95 88 12/10/16 08:00 98.3 12/10/16 07:31 Nasal Cannula 4.00 12/10/16 00:00 28 12/08/16 23:40 35 Labs Laboratory Tests Test 12/10/16 03:40 White Blood Count 7.6 Red Blood Count 3.46 Hemoglobin 9.8 Hematocrit 29.8 Mean Corpuscular Volume 86.0 Mean Corpuscular Hemoglobin 28.4 Mean Corpuscular Hemoglobin 33.0 Concent Red Cell Distribution Width 15.5 Platelet Count 320 Mean Platelet Volume 6.7 Neutrophils (%) (Auto) 61.2 Lymphocytes (%) (Auto) 10.8 Monocytes (%) (Auto) 24.2 Eosinophils (%) (Auto) 2.8 Basophils (%) (Auto) 1.0 Neutrophils # (Auto) 4.7 Lymphocytes # (Auto) 0.8 Monocytes # (Auto) 1.9 Eosinophils # (Auto) 0.2 Basophils # (Auto) 0.1 CBC Comment DIFF FINAL Differential Comment Sodium Level 138 Potassium Level 4.0 Chloride Level 101 Carbon Dioxide Level 27.1 Anion Gap 10 Blood Urea Nitrogen 16 Creatinine 1.39 Estimat Glomerular Filtration 50 Rate Random Glucose 105 Calcium Level 8.9 Total Bilirubin 0.5 Aspartate Amino Transf 7 (AST/SGOT) Alanine Aminotransferase 20 (ALT/SGPT) Alkaline Phosphatase 102 Total Protein 7.2 Albumin 2.7 Date/Time Procedure Status Source Growth 12/05/16 18:00 Urine Culture - Final Complete Urine Clean Catch Lactobacillus Species Radiology Last Impressions Chest X-Ray 12/01/16 1352 Signed Impressions: Service Date/Time: December 13:52 - CONCLUSION: Mild patchy bilateral lower lung zone parenchymal opacity and low lung volumes. Maninder Mg MD Abdomen/Pelvis CT 12/01/16 0000 Signed Impressions: Service Date/Time: December 19:21 - CONCLUSION: 1. Gas dilated colon without an obstructing mass or lesion. This suggests a colonic ileus. 2. Trace amount of free fluid. 3. Bibasilar atelectasis. 4. Coronary artery atherosclerotic calcifications. 5. 2.8 x 2.6 cm AAA 6. Atrophic right kidney Jem Segundo Jr., MD Abdomen X-Ray 12/01/16 0000 Signed Impressions: Service Date/Time: December 11:07 - CONCLUSION: Diffuse air-filled distention of the colon, likely representing ileus. Maninder Mg MD Abdomen: Non-tender Narrative Exam Minimal abdominal distention; nontender A/P Problem List: (1) Adynamic ileus (2) Atrial fibrillation (3) Palpitations (4) SOB (shortness of breath) (5) Abdominal pain Assessment and Plan 75 year old male s/p cardiac catheterization; with 1 week of abdominal pain/ distention -Tolerating clear liquids -s/p Repeat decompressive colonoscopy -Rectal tube left in place to LIWS -Continue non op treatment -Advance diet tomorrow if he continues to improve Problem Qualifiers (1) Abdominal pain: Qualified Code: R10.84 - Generalized abdominal pain Arnoldo Horowitz MD Dec 10, 2016 12:30
--- NOTE | 2016-12-10 13:41 | HHI.GIFU ---
Subjective Remarks Comfortable in bed denies any pain nausea or vomiting Objective Vitals I&O Vital Signs Date Time Temp Pulse Resp B/P Pulse Ox O2 Delivery O2 Flow Rate FiO2 12/10/16 12:00 116 12/10/16 12:00 98.3 127 159/110 87 12/10/16 10:00 126 146/95 88 12/10/16 10:00 116 12/10/16 09:30 122 145/86 93 12/10/16 09:00 124 153/91 92 12/10/16 08:30 118 189/89 95 12/10/16 08:00 116 12/10/16 08:00 98.3 110 171/81 94 12/10/16 07:31 94 Nasal Cannula 4.00 12/10/16 07:30 113 147/89 95 12/10/16 07:00 111 159/92 91 12/10/16 06:31 112 167/81 98 12/10/16 06:00 110 12/10/16 06:00 110 146/78 97 12/10/16 04:00 109 12/10/16 04:00 98.4 109 154/84 95 12/10/16 00:00 97.4 121 28 154/93 94 12/10/16 00:00 121 12/09/16 22:00 126 12/09/16 20:00 98.2 110 32 173/96 95 12/09/16 20:00 110 12/09/16 19:38 97 Nasal Cannula 4.00 12/09/16 18:00 126 12/09/16 16:00 98.5 122 18 176/93 95 12/09/16 16:00 122 12/09/16 14:00 120 I/O 12/09/16 12/09/16 12/09/16 12/10/16 12/10/16 12/10/16 07:00 15:00 23:00 07:00 15:00 23:00 Intake Total 223 ml 660 ml 750 ml 410 ml Output Total 725 ml 700 ml 850 ml 450 ml Balance -502 ml -40 ml -100 ml -40 ml Intake Oral 400 ml 750 ml 200 ml IV Total 223 ml 260 ml 210 ml Output Urine Total 700 ml 700 ml 850 ml 450 ml Stool Total 25 ml Bladder Scan Volume Amount 400 ml # Bowel Movements 0 0 Laboratory Laboratory Tests Test 12/10/16 03:40 White Blood Count 7.6 Red Blood Count 3.46 Hemoglobin 9.8 Hematocrit 29.8 Mean Corpuscular Volume 86.0 Mean Corpuscular Hemoglobin 28.4 Mean Corpuscular Hemoglobin 33.0 Concent Red Cell Distribution Width 15.5 Platelet Count 320 Mean Platelet Volume 6.7 Neutrophils (%) (Auto) 61.2 Lymphocytes (%) (Auto) 10.8 Monocytes (%) (Auto) 24.2 Eosinophils (%) (Auto) 2.8 Basophils (%) (Auto) 1.0 Neutrophils # (Auto) 4.7 Lymphocytes # (Auto) 0.8 Monocytes # (Auto) 1.9 Eosinophils # (Auto) 0.2 Basophils # (Auto) 0.1 CBC Comment DIFF FINAL Differential Comment Sodium Level 138 Potassium Level 4.0 Chloride Level 101 Carbon Dioxide Level 27.1 Anion Gap 10 Blood Urea Nitrogen 16 Creatinine 1.39 Estimat Glomerular Filtration 50 Rate Random Glucose 105 Calcium Level 8.9 Total Bilirubin 0.5 Aspartate Amino Transf 7 (AST/SGOT) Alanine Aminotransferase 20 (ALT/SGPT) Alkaline Phosphatase 102 Total Protein 7.2 Albumin 2.7 Date/Time Procedure Status Source Growth 12/05/16 18:00 Urine Culture - Final Complete Urine Clean Catch Lactobacillus Species Physical Exam HEENT: PERRLA, normocephalic; atraumatic; no jaundice. CHEST: wheezes, rhonchi, belly breathing CARDIAC: RRR. ABDOMEN: Nondistended, soft, nontender; no hepatosplenomegaly; bowel sounds hypoactive EXTREMITIES: No clubbing, cyanosis, or edema. SKIN: Normal; no rash; no jaundice. STRATEGIC INSIGHTS LEAD: AO Assessment and Plan Plan ASSESSMENT - Ileus- improving. s/p [address] 12-04-16--> 1. Diverticulosis of the colon without diverticulitis. 2. Gaseous distention of the ascending and transverse colon likely ileus. No obstruction. 3. Atrophic right kidney. 4. Minimal perihepatic ascites S/P decompressive colonoscopy on (12/02/16)--Diverticulum in the sigmoid colon. Scope advanced to the right colon and air decompressed and suctioned out. Poor bowel prep limited mucosal inspection. KUB 12/01/16--shows diffuse air filled distention of colon, likely representing ileus. CT on (12/01/16) 1. Gas dilated colon without an obstructing mass or lesion. This suggests a colonic ileus. 2. Trace amount of free fluid. 3. Bibasilar atelectasis. 4. Coronary artery atherosclerotic calcifications. 5. 2.8 x 2.6 cm AAA 6. Atrophic right kidney Abdomen X-Ray 12/03/16--Diffuse air-filled distention of the transverse colon unchanged, likely representing ileus. - Anemia/heme (+) stools, No signs of bleeding, will need EGD/repeat colonoscopy at some point with better prep PLAN - Rectal tube to gravity - diet per GS -GS following - continue REglan -Supportive care. Ileus seems to have resolved with good results this point Not much to add from a GI standpoint We will sign off Jagdish Marie MD Dec 10, 2016 13:41
[2016-12-10] MEDS: TAMSULOSIN HCL 0.4 MG CAP PO SCH (20:08)
[2016-12-10] MEDS: DULoxetine HCl DR 60 MG CAP PO SCH (20:08)
[2016-12-11] VITALS (13 sets, daily range): BP systolic 118–177; BP diastolic 78–120; PULSE 71–128; RESP 16–24; TEMP 97.7–98.9; O2SAT 93–98
[2016-12-11] MEDS: RESP: IPRATROPIUM 0.5 MG/2.5 ML NEB NEB SCH ×5 (03:32→23:23)
[2016-12-11] MEDS: METOCLOPRAMIDE HCL 10 MG/2 ML VIAL IV PUSH SCH ×3 (05:18→22:53)
[2016-12-11] MEDS: LEVOTHYROXINE SODIUM 25 MCG TAB PO SCH (05:18)
[2016-12-11 05:22] LABS: AUTOMATED NEUTROPHIL # 4.2 TH/MM3 (1.8-7.7); BASOPHIL # 0.1 TH/MM3 (0-0.2); BASOPHIL % 1.5 % (0.0-2.0); EOSINOPHIL # 0.3 TH/MM3 (0-0.4); EOSINOPHIL % 4.7 % (0.0-4.0); HEMATOCRIT 28.2 % (39.0-51.0); HEMO FLAGS DIFF FINAL; LYMPH % 11.6 % (9.0-44.0); LYMPHOCYTE # 0.8 TH/MM3 (1.0-4.8); MEAN CELL VOLUME 85.3 FL (80.0-100.0); MEAN CORPUSCULAR HEMOGLOBIN 29.2 PG (27.0-34.0); MEAN CORPUSCULAR HGB CONC 34.2 % (32.0-36.0); MONO % 20.6 % (0.0-8.0); NEUT % 61.6 % (16.0-70.0); PLATELET COUNT 307 TH/MM3 (150-450); RED CELL DISTRIBUTION WIDTH 15.6 % (11.6-17.2); WHITE BLOOD COUNT 6.8 TH/MM3 (4.0-11.0)
[2016-12-11 06:56] LABS: BICARBONATE 27.6 MEQ/L (21.0-32.0); POTASSIUM 3.8 MEQ/L (3.5-5.1)
[2016-12-11] MEDS: CHLORHEXIDINE 0.12% (ORAL KIT) 15 ML CUP MT SCH ×2 (08:00→20:00)
[2016-12-11] MEDS: APIXABAN 5 MG TABLET PO SCH ×2 (08:14→20:11)
[2016-12-11] MEDS: AMIODARONE 200 MG TAB PO SCH (08:14)
[2016-12-11] MEDS: METOPROLOL TARTRATE 25 MG TAB PO SCH ×4 (08:14→20:11)
[2016-12-11] MEDS: PANTOPRAZOLE SOD 40 MG DELAYED RELEASE TAB PO SCH (08:14)
[2016-12-11] MEDS: DILTIAZEM-CD 180 MG CAP ER PO SCH (08:14)
--- NOTE | 2016-12-11 11:02 | HHI.PR ---
Subjective Subjective Notes denies nausea or abdominal pain, +flatus, occasional burping Objective Vitals/I&O Vital Signs Date Time Temp Pulse Resp B/P Pulse Ox O2 Delivery O2 Flow Rate FiO2 12/11/16 10:00 106 12/11/16 08:00 97.7 16 152/96 97 12/11/16 07:35 Nasal Cannula 6.00 12/08/16 23:40 35 Labs Laboratory Tests Test 12/11/16 05:04 White Blood Count 6.8 Red Blood Count 3.30 Hemoglobin 9.6 Hematocrit 28.2 Mean Corpuscular Volume 85.3 Mean Corpuscular Hemoglobin 29.2 Mean Corpuscular Hemoglobin 34.2 Concent Red Cell Distribution Width 15.6 Platelet Count 307 Mean Platelet Volume 6.4 Neutrophils (%) (Auto) 61.6 Lymphocytes (%) (Auto) 11.6 Monocytes (%) (Auto) 20.6 Eosinophils (%) (Auto) 4.7 Basophils (%) (Auto) 1.5 Neutrophils # (Auto) 4.2 Lymphocytes # (Auto) 0.8 Monocytes # (Auto) 1.4 Eosinophils # (Auto) 0.3 Basophils # (Auto) 0.1 CBC Comment DIFF FINAL Differential Comment Sodium Level 140 Potassium Level 3.8 Chloride Level 104 Carbon Dioxide Level 27.6 Anion Gap 8 Blood Urea Nitrogen 13 Creatinine 1.19 Estimat Glomerular Filtration 59 Rate Random Glucose 123 Calcium Level 8.1 Radiology Last Impressions Chest X-Ray 12/01/16 1352 Signed Impressions: Service Date/Time: December 13:52 - CONCLUSION: Mild patchy bilateral lower lung zone parenchymal opacity and low lung volumes. Maninder Mg MD Abdomen/Pelvis CT 12/01/16 0000 Signed Impressions: Service Date/Time: December 19:21 - CONCLUSION: 1. Gas dilated colon without an obstructing mass or lesion. This suggests a colonic ileus. 2. Trace amount of free fluid. 3. Bibasilar atelectasis. 4. Coronary artery atherosclerotic calcifications. 5. 2.8 x 2.6 cm AAA 6. Atrophic right kidney Jem Segundo Jr., MD Abdomen X-Ray 12/01/16 0000 Signed Impressions: Service Date/Time: December 11:07 - CONCLUSION: Diffuse air-filled distention of the colon, likely representing ileus. Maninder Mg MD Abdomen: Other (soft non tender, mild distension ) A/P Problem List: (1) Adynamic ileus (2) Atrial fibrillation (3) Palpitations (4) SOB (shortness of breath) (5) Abdominal pain Assessment and Plan 75 her old gentleman who had a ablation for atrial fibrillation that apparently didn't work now has a colonic ileus vs ogilvies vs obstruction PLAN -Tolerating clear liquids -s/p Repeat decompressive colonoscopy -Continue non op treatment -Advance diet to fulls Problem Qualifiers (1) Abdominal pain: Qualified Code: R10.84 - Generalized abdominal pain Salas Burrell MD Dec 11, 2016 11:02
--- NOTE | 2016-12-11 12:25 | HHI.NPPN ---
Subjective General Problems: Edema Renal Failure: Chronic, Acute History of Present Illness 75 y/o male patient with a known history of atrial fibrillation with history of ablation 1 week prior to admission, also has COPD, HTN, CHF, AAA, PAD and CABG x 3 stents. On 11/30 the patient presented to Dr. Sutton's office for a follow up appointment. While in his office patient developed shortness of breath and palpitations. EKG was performed and patient was found to be in A fib RVR, and sent to the ER immediately. Additional Remarks Patient is alert, feeling better, no SOB, has cough and sore throat. Review of Systems General Constitutional: Fatigue Cardiovascular Cardiac: REYNOSO Objective Data Data 12/10/16 12/11/16 19:00 07:00 Intake Total 724 ml 725 ml Output Total 600 ml 600 ml Balance 124 ml 125 ml Intake Oral 480 ml 500 ml IV Total 244 ml 225 ml Output Urine Total 600 ml 600 ml # Bowel Movements 0 Vital Signs Date Time Temp Pulse Resp B/P Pulse Ox O2 Delivery O2 Flow Rate FiO2 12/11/16 12:00 106 12/11/16 10:00 106 12/11/16 08:00 106 12/11/16 08:00 97.7 128 16 152/96 97 12/11/16 07:35 97 Nasal Cannula 6.00 12/11/16 06:00 124 12/11/16 04:00 115 12/11/16 04:00 97.9 115 24 118/78 98 12/11/16 02:00 110 12/11/16 00:00 88 12/11/16 00:00 97.8 88 22 150/95 97 12/10/16 22:00 85 12/10/16 20:17 95 Simple Mask 10.00 12/10/16 20:00 97.1 84 22 167/92 99 12/10/16 20:00 84 12/10/16 18:00 116 12/10/16 16:00 116 12/10/16 16:00 98.4 84 16 146/82 99 12/10/16 14:00 116 -: 12/11/16 0504 12/11/16 0504 Tubes & Lines: Arroyo Drip Comment amiodarone Physical Exam General Appearance: Well Developed, Well Nourished, No Acute Distress, Comfortable Eyes Eye Exam: Pupils Equal Throat Throat Exam: Oral Mucosa [place] & Moist Pulmonary Resp Exam: Clear Bilaterally, Breath Sounds Equal, No Distress Cardiology CV Exam: Good Perfusion, Irregular, Tachycardia Gastrointestinal/Abdomen GI Exam: Bowel Sounds Present Musculoskeletal MS Exam: Joints Intact, Normal Tone, Unable to Ambulate Integumentary Skin Exam: Warm, Dry Extremeties Extremities Exam: Trace Edema Neurologic Neuro Exam: Alert, Awake, Oriented, Unresponsive, Sedated Psychiatric Psych Exam: Appropriate Responses Assessment/Plan Discussed Condition With: Patient Assessment Summary: AFIA/Acute Renal Failure, Fluid/Volume Overload, Hypertension Problem List: (1) AFIA (acute kidney injury) Plan: In a pt with no baseline labs for comparison. His admission creatinine was 1.7, nonoliguric renal failure, suspected ATN from hypotension renal function has improved blood pressure stable and HR controlled. Creatinine continue to improve. Patient has chronic kidney disease and develop AFIA. Now Creatinine is 1.1. Mucinex for cough. (2) Hyponatremia Plan: corrected, continue 0.9% NS @ 30 cc/hr LVEF 40-45% (3) Atrial fibrillation Plan: cardiology is following he failed cardioversion x 2 since arrival on IV amiodarone follow rhythm/rate (4) Abdominal pain Plan: GI following s/p decompression colonoscopy he has rectal bag (5) SOB (shortness of breath) Plan: initially due to fluid overload s/p extubation, on venti mask improved Problem Qualifiers (1) Abdominal pain: Qualified Code: R10.84 - Generalized abdominal pain Ginger Dubose MD Dec 11, 2016 12:25
[2016-12-11] MEDS: guaiFENesin E.R. 600 MG TAB PO SCH ×2 (12:30→20:11)
--- NOTE | 2016-12-11 14:05 | HHI.PR ---
Subjective Remarks Follow-up atrial fibrillation rapid ventricular response post ablation complicated by ileus 12/11/16-patient seen and examined, still short of breath with labile BP. Afebrile and denies any chest pain. Objective Vitals Vital Signs Date Time Temp Pulse Resp B/P Pulse Ox O2 Delivery O2 Flow Rate FiO2 12/11/16 12:00 98.4 117 164/120 95 12/11/16 12:00 106 12/11/16 10:00 106 12/11/16 08:00 106 12/11/16 08:00 97.7 128 16 152/96 97 12/11/16 07:35 97 Nasal Cannula 6.00 12/11/16 06:00 124 12/11/16 04:00 115 12/11/16 04:00 97.9 115 24 118/78 98 12/11/16 02:00 110 12/11/16 00:00 88 12/11/16 00:00 97.8 88 22 150/95 97 12/10/16 22:00 85 12/10/16 20:17 95 Simple Mask 10.00 12/10/16 20:00 97.1 84 22 167/92 99 12/10/16 20:00 84 12/10/16 18:00 116 12/10/16 16:00 116 12/10/16 16:00 98.4 84 16 146/82 99 12/10/16 14:00 116 I/O 12/10/16 12/10/16 12/10/16 12/11/16 12/11/16 12/11/16 07:00 15:00 23:00 07:00 15:00 23:00 Intake Total 410 ml 724 ml 425 ml 300 ml Output Total 450 ml 600 ml 350 ml 250 ml Balance -40 ml 124 ml 75 ml 50 ml Intake Oral 200 ml 480 ml 200 ml 300 ml IV Total 210 ml 244 ml 225 ml Output Urine Total 450 ml 600 ml 350 ml 250 ml # Bowel Movements 0 0 0 Result Diagram: 12/11/16 0504 12/11/16 0504 Imaging Last Impressions Chest X-Ray 12/10/16 0000 Signed Impressions: Service Date/Time: Saturday, December 10, 2016 09:18 - CONCLUSION: Relatively stable chest following extubation. Chaitanya Pennington MD FACR Abdomen X-Ray 12/10/16 0000 Signed Impressions: Service Date/Time: Saturday, December 10, 2016 09:18 - CONCLUSION: Interval improvement with less gaseous distention. Chaitanya Pennington MD FACR Abdomen/Pelvis CT 12/04/16 0000 Signed Impressions: Service Date/Time: Sunday, December 04, 2016 20:28 - CONCLUSION: 1. Diverticulosis of the colon without diverticulitis. 2. Gaseous distention of the ascending and transverse colon likely ileus. No obstruction. 3. Atrophic right kidney. 4. Minimal perihepatic ascites. 5. Bibasilar consolidation. 6. Bulging of the abdominal aorta with extensive atherosclerotic changes but no Amando De Jesus MD Objective Remarks GENERAL: NAD SKIN: Warm and dry. HEAD: Normocephalic. EYES: No scleral icterus. No injection or drainage. NECK: Supple, trachea midline. No JVD or lymphadenopathy. CARDIOVASCULAR: Irregular Regular rate and rhythm without murmurs, gallops, or rubs. RESPIRATORY: Breath sounds decrease bilaterally. No accessory muscle use. GASTROINTESTINAL: Abdomen soft, non-tender, nondistended. MUSCULOSKELETAL: No cyanosis, or edema. BACK: Nontender without obvious deformity. No CVA tenderness. : Rectal bag in place Procedures Decompressive colonoscopy 12/02/16 Date of Insertion: Dec 05, 2016 Line: Central Venous Catheter A/P Problem List: (1) Atrial fibrillation ICD Code: I48.91 Status: Acute (2) Palpitations ICD Code: R00.2 Status: Acute (3) SOB (shortness of breath) ICD Code: R06.02 Status: Acute (4) Abdominal pain ICD Code: R10.9 Status: Acute (5) Adynamic ileus ICD Code: K56.0 Status: Acute (6) AFIA (acute kidney injury) ICD Code: N17.9 Status: Acute Assessment and Plan Every 5 year-old man with Adynamic Ileus Status post decompressive colonoscopy 12/02/16, S/p repeat decompressive colonoscopy on 12/06 with insertion of rectal tube. May need repeat decompressive colonoscopy. Continue with simethicone. Advance diet as tolerated Appreciate input from GI, general surgery Respiratory insufficiency Started post extubation DuoNeb when necessary, keep oxygen saturation above 90% Atrial fibrillation rapid ventricular response Currently on Cardizem 260 mg daily, amiodarone 400 mg daily and Eliquis 5 mg twice a day 2-D echo with EF 40-45% Hypertension Continue with Lopressor Hypothyroidism On Synthroid 25 g daily Acute renal failure Resolved GI prophylaxis: Protonix 40 mg PO daily. DVT prophylaxis: SCDs. On Eliquis 5mg BID Problem Qualifiers (1) Abdominal pain: Qualified Code: R10.84 - Generalized abdominal pain Amando Schulz MD Dec 11, 2016 14:05
[2016-12-11] MEDS: TAMSULOSIN HCL 0.4 MG CAP PO SCH (20:11)
[2016-12-11] MEDS: DULoxetine HCl DR 60 MG CAP PO SCH (20:11)
[2016-12-11] MEDS: TEMAZEPAM 15 MG CAP PO PRN (22:53)
[2016-12-12] VITALS (15 sets, daily range): BP systolic 144–180; BP diastolic 68–86; PULSE 70–91; RESP 20–24; TEMP 97.3–98.6; O2SAT 76–99
[2016-12-12] MEDS: RESP: IPRATROPIUM 0.5 MG/2.5 ML NEB NEB SCH ×5 (03:31→20:16)
[2016-12-12] MEDS: LEVOTHYROXINE SODIUM 25 MCG TAB PO SCH (05:51)
[2016-12-12] MEDS: METOCLOPRAMIDE HCL 10 MG/2 ML VIAL IV PUSH SCH ×3 (05:51→20:34)
[2016-12-12] MEDS: CHLORHEXIDINE 0.12% (ORAL KIT) 15 ML CUP MT SCH ×2 (08:00→19:51)
[2016-12-12] MEDS: AMIODARONE 200 MG TAB PO SCH (09:00)
[2016-12-12] MEDS: APIXABAN 5 MG TABLET PO SCH ×2 (09:00→19:49)
[2016-12-12] MEDS: DILTIAZEM-CD 180 MG CAP ER PO SCH (09:00)
[2016-12-12] MEDS: PANTOPRAZOLE SOD 40 MG DELAYED RELEASE TAB PO SCH (09:00)
[2016-12-12] MEDS: METOPROLOL TARTRATE 25 MG TAB PO SCH ×4 (09:00→19:49)
[2016-12-12] MEDS: guaiFENesin E.R. 600 MG TAB PO SCH ×2 (09:00→19:49)
--- NOTE | 2016-12-12 10:02 | HHI.NPPN ---
Subjective General Problems: Edema Renal Failure: Chronic, Acute Interval History Sitting up eating breakfast. He looks better today. No labs available from today. Adequate urine output. (Christie Fleming) Review of Systems General Constitutional: Fatigue (Christie Fleming) Cardiovascular Cardiac: REYNOSO (Christie Fleming) Objective Data Data 12/11/16 12/12/16 19:00 07:00 Intake Total 360 ml 850 ml Output Total 500 ml 400 ml Balance -140 ml 450 ml Intake Oral 360 ml 600 ml IV Total 250 ml Output Urine Total 500 ml 400 ml # Bowel Movements 0 Vital Signs Date Time Temp Pulse Resp B/P Pulse Ox O2 Delivery O2 Flow Rate FiO2 12/12/16 07:33 99 Simple Mask 7.00 12/12/16 06:00 81 12/12/16 04:00 80 12/12/16 04:00 98.4 80 22 149/69 96 12/12/16 02:00 75 12/12/16 00:00 76 12/12/16 00:00 98.6 76 20 144/68 99 12/11/16 22:00 77 12/11/16 20:00 83 12/11/16 20:00 98.4 83 22 177/84 95 12/11/16 18:00 106 12/11/16 16:00 98.9 71 93 12/11/16 16:00 106 12/11/16 14:00 106 12/11/16 12:00 98.4 117 164/120 95 12/11/16 12:00 106 12/11/16 10:00 106 (Christie Fleming) -: 12/11/16 0504 12/11/16 0504 Imaging Last 72 hours Impressions Chest X-Ray 12/10/16 0000 Signed Impressions: Service Date/Time: Saturday, December 10, 2016 09:18 - CONCLUSION: Relatively stable chest following extubation. Chaitanya Pennington MD FACR Abdomen X-Ray 12/10/16 0000 Signed Impressions: Service Date/Time: Saturday, December 10, 2016 09:18 - CONCLUSION: Interval improvement with less gaseous distention. Chaitanya Pennington MD FACR Tubes & Lines: [place] (Christie Fleming) Physical Exam General Appearance: Well Developed, Well Nourished, No Acute Distress, Comfortable ( Christie Fleming) Eyes Eye Exam: Pupils Equal (Christie Fleming) Throat Throat Exam: Oral Mucosa [place] & Moist (Christie Fleming) Pulmonary Resp Exam: Clear Bilaterally, Breath Sounds Equal, No Distress Resp Remarks shallow respirations (Christie Fleming) Cardiology CV Exam: Good Perfusion, Irregular, Tachycardia (Christie Fleming) Gastrointestinal/Abdomen GI Exam: Bowel Sounds Present GI Remarks round, soft, distended rectal tube (Christie Fleming) Musculoskeletal MS Exam: Joints Intact, Normal Tone, Unable to Ambulate (Christie Fleming) Integumentary Skin Exam: Warm, Dry (Christie Fleming) Extremeties Extremities Exam: Trace Edema Extremeties Remarks chronic lower extremity edema (Christie Fleming) Neurologic Neuro Exam: Alert, Awake, Oriented, Unresponsive, Sedated (Christie Fleming) Psychiatric Psych Exam: Appropriate Responses (Christie Fleming) VTE Prophylaxis VTE Remarks Apixaban (Christie Fleming) Assessment/Plan Discussed Condition With: Patient Assessment Summary: AFIA/Acute Renal Failure, Fluid/Volume Overload, Hypertension Problem List: (1) AFIA (acute kidney injury) Plan: In a pt with no baseline labs for comparison. His admission creatinine was 1.7, nonoliguric renal failure, suspected ATN from hypotension renal function improved blood pressure stable and HR controlled. good urine output potassium is normal remove pinto when able (2) Hyponatremia Plan: corrected monitor fluid status LVEF 40-45% (3) Atrial fibrillation Plan: cardiology is following he failed cardioversion x 2 since arrival off IV amiodarone He is in NSR with rate in 80s (4) Abdominal pain Plan: GI following s/p decompression colonoscopy appreciate recommendations (5) SOB (shortness of breath) Plan: initially due to fluid overload s/p extubation, on venti mask improved Plan we will sign off at this time, please call us if needed (Christie Fleming ) Plan patient was seen and examined. His renal function has improved, we will see him as needed. (Pedro Luo MD) Problem Qualifiers (1) Abdominal pain: Qualified Code: R10.84 - Generalized abdominal pain Christie Fleming Dec 12, 2016 10:01 Pedro Luo MD Dec 13, 2016 14:45
[2016-12-12] MEDS: RESP: ALBUTEROL 2.5 MG/IPRATROPIUM 0.5 MG NEB (PRN) NEB (11:17)
--- NOTE | 2016-12-12 13:53 | HHI.PR ---
Subjective Remarks Follow-up atrial fibrillation rapid ventricular response post ablation complicated by ileus 12/11/16-patient seen and examined, still short of breath with labile BP. Afebrile and denies any chest pain. 12/12/16-patient seen and examined, afebrile, requiring simple mask, positive for shortness of breath, labile BP Objective Vitals Vital Signs Date Time Temp Pulse Resp B/P Pulse Ox O2 Delivery O2 Flow Rate FiO2 12/12/16 12:00 77 12/12/16 12:00 98.4 77 180/86 96 12/12/16 10:00 77 12/12/16 08:00 77 12/12/16 08:00 97.8 91 170/75 76 12/12/16 07:33 99 Simple Mask 7.00 12/12/16 06:00 81 12/12/16 04:00 80 12/12/16 04:00 98.4 80 22 149/69 96 12/12/16 02:00 75 12/12/16 00:00 76 12/12/16 00:00 98.6 76 20 144/68 99 12/11/16 22:00 77 12/11/16 20:00 83 12/11/16 20:00 98.4 83 22 177/84 95 12/11/16 18:00 106 12/11/16 16:00 98.9 71 93 12/11/16 16:00 106 12/11/16 14:00 106 I/O 12/11/16 12/11/16 12/11/16 12/12/16 12/12/16 12/12/16 06:59 14:59 22:59 06:59 14:59 22:59 Intake Total 300 ml 360 ml 550 ml 300 ml Output Total 250 ml 500 ml 200 ml 200 ml Balance 50 ml -140 ml 350 ml 100 ml Intake Oral 300 ml 360 ml 300 ml 300 ml IV Total 250 ml Output Urine Total 250 ml 500 ml 200 ml 200 ml # Bowel Movements 0 0 0 Result Diagram: 12/11/16 0504 12/11/16 0504 Objective Remarks GENERAL: NAD SKIN: Warm and dry. HEAD: Normocephalic. EYES: No scleral icterus. No injection or drainage. NECK: Supple, trachea midline. No JVD or lymphadenopathy. CARDIOVASCULAR: Irregular Regular rate and rhythm without murmurs, gallops, or rubs. RESPIRATORY: Breath sounds decrease bilaterally. No accessory muscle use. GASTROINTESTINAL: Abdomen soft, non-tender, nondistended. MUSCULOSKELETAL: No cyanosis, or edema. BACK: Nontender without obvious deformity. No CVA tenderness. : Rectal bag in place Procedures Decompressive colonoscopy 12/02/16 Date of Insertion: Dec 05, 2016 Line: Central Venous Catheter A/P Problem List: (1) Atrial fibrillation ICD Code: I48.91 Status: Acute (2) Palpitations ICD Code: R00.2 Status: Acute (3) SOB (shortness of breath) ICD Code: R06.02 Status: Acute (4) Abdominal pain ICD Code: R10.9 Status: Acute (5) Adynamic ileus ICD Code: K56.0 Status: Acute (6) AFIA (acute kidney injury) ICD Code: N17.9 Status: Acute Assessment and Plan Every 5 year-old man with Adynamic Ileus Status post decompressive colonoscopy 12/02/16, S/p repeat decompressive colonoscopy on 12/06 with insertion of rectal tube. May need repeat decompressive colonoscopy. Continue with simethicone. Advance diet as tolerated Appreciate input from GI, general surgery Respiratory insufficiency Startus post extubation DuoNeb when necessary, keep oxygen saturation above 90% Atrial fibrillation rapid ventricular response Currently on Cardizem 260 mg daily, amiodarone 400 mg daily and Eliquis 5 mg twice a day 2-D echo with EF 40-45% Hypertension Continue with Lopressor, Vasotec when necessary Hypothyroidism On Synthroid 25 g daily Acute renal failure Resolved GI prophylaxis: Protonix 40 mg PO daily. DVT prophylaxis: SCDs. On Eliquis 5mg BID Problem Qualifiers (1) Abdominal pain: Qualified Code: R10.84 - Generalized abdominal pain Amando Schulz MD Dec 12, 2016 13:53
[2016-12-12] MEDS ORDERED: ENALAPRILAT 1.25 MG/ML VIAL IV PUSH PRN (14:00)
--- NOTE | 2016-12-12 15:10 | HHI.PR ---
Subjective Subjective Notes Resting in bed Feeling better today Reports multiple episodes of gas this AM Objective Vitals/I&O Vital Signs Date Time Temp Pulse Resp B/P Pulse Ox O2 Delivery O2 Flow Rate FiO2 12/12/16 14:00 77 12/12/16 12:00 98.4 180/86 96 12/12/16 07:33 Simple Mask 7.00 12/12/16 04:00 22 12/08/16 23:40 35 Radiology Last Impressions Chest X-Ray 12/01/16 1352 Signed Impressions: Service Date/Time: December 13:52 - CONCLUSION: Mild patchy bilateral lower lung zone parenchymal opacity and low lung volumes. Maninder Mg MD Abdomen/Pelvis CT 12/01/16 0000 Signed Impressions: Service Date/Time: December 19:21 - CONCLUSION: 1. Gas dilated colon without an obstructing mass or lesion. This suggests a colonic ileus. 2. Trace amount of free fluid. 3. Bibasilar atelectasis. 4. Coronary artery atherosclerotic calcifications. 5. 2.8 x 2.6 cm AAA 6. Atrophic right kidney Jem Segundo Jr., MD Abdomen X-Ray 12/01/16 0000 Signed Impressions: Service Date/Time: December 11:07 - CONCLUSION: Diffuse air-filled distention of the colon, likely representing ileus. Maninder Mg MD Cardiovascular: Regular Lungs: Clear Abdomen: Non-distended, Non-tender Extremities: No edema A/P Problem List: (1) Adynamic ileus (2) Atrial fibrillation (3) Palpitations (4) SOB (shortness of breath) (5) Abdominal pain Assessment and Plan 75 year old male s/p cardiac catheterization; with 1 week of abdominal pain/ distention -Continue full liquids -s/p Repeat decompressive colonoscopy -Rectal tube removed -Monitor labs; --nephrology following ---BUN/Cr trending down -Continue non op treatment Attending Note - Dr. Horowitz Abdomen less distended Still gets SOB when he lays supine; not sure etiology of this The exam, history, and the medical decision-making described in the above note were completed with the assistance of the mid-level provider. I reviewed and agree with the findings presented. I attest that I had a [id number] encounter with the patient on the same day, and personally performed and documented my assessment and findings in the medical record. Problem Qualifiers (1) Abdominal pain: Qualified Code: R10.84 - Generalized abdominal pain Susanne Winslow Dec 12, 2016 15:09 Arnoldo Horowitz MD Dec 13, 2016 19:41
[2016-12-12] MEDS: TAMSULOSIN HCL 0.4 MG CAP PO SCH (19:49)
[2016-12-12] MEDS: DULoxetine HCl DR 60 MG CAP PO SCH (19:49)
[2016-12-13] VITALS (13 sets, daily range): BP systolic 148–175; BP diastolic 71–80; PULSE 72–120; RESP 22–24; TEMP 97.4–98.1; O2SAT 95–100
[2016-12-13] MEDS: RESP: IPRATROPIUM 0.5 MG/2.5 ML NEB NEB SCH ×6 (00:18→22:59)
[2016-12-13] MEDS: METOCLOPRAMIDE HCL 10 MG/2 ML VIAL IV PUSH SCH ×3 (06:04→20:59)
[2016-12-13] MEDS: LEVOTHYROXINE SODIUM 25 MCG TAB PO SCH (06:04)
[2016-12-13] MEDS: CHLORHEXIDINE 0.12% (ORAL KIT) 15 ML CUP MT SCH ×2 (08:00→20:00)
[2016-12-13] MEDS: APIXABAN 5 MG TABLET PO SCH ×2 (08:52→20:59)
[2016-12-13] MEDS: METOPROLOL TARTRATE 25 MG TAB PO SCH ×4 (08:52→20:59)
[2016-12-13] MEDS: AMIODARONE 200 MG TAB PO SCH (08:53)
[2016-12-13] MEDS: DILTIAZEM-CD 180 MG CAP ER PO SCH (08:53)
[2016-12-13] MEDS: guaiFENesin E.R. 600 MG TAB PO SCH ×2 (08:53→20:59)
[2016-12-13] MEDS: PANTOPRAZOLE SOD 40 MG DELAYED RELEASE TAB PO SCH (08:53)
--- NOTE | 2016-12-13 12:55 | HHI.PR ---
Subjective Remarks Follow-up atrial fibrillation rapid ventricular response post ablation complicated by ileus 12/11/16-patient seen and examined, still short of breath with labile BP. Afebrile and denies any chest pain. 12/12/16-patient seen and examined, afebrile, requiring simple mask, positive for shortness of breath, labile BP 12/13/16-patient seen and examined, still requiring high oxygen output wITH significant shortness of breath Objective Vitals Vital Signs Date Time Temp Pulse Resp B/P Pulse Ox O2 Delivery O2 Flow Rate FiO2 12/13/16 12:00 80 12/13/16 12:00 98.0 120 22 164/76 97 12/13/16 10:00 80 12/13/16 08:00 97.8 80 22 166/76 97 12/13/16 08:00 80 12/13/16 07:29 96 Simple Mask 8.00 12/13/16 06:00 76 12/13/16 04:00 97.6 77 22 175/80 97 12/13/16 04:00 77 12/13/16 02:00 72 12/13/16 00:00 97.4 76 22 168/77 98 12/13/16 00:00 76 12/12/16 22:00 71 12/12/16 20:28 96 12/12/16 20:16 93 Simple Mask 6.00 12/12/16 20:00 97.3 90 24 153/78 87 12/12/16 20:00 90 12/12/16 18:00 77 12/12/16 16:00 77 12/12/16 16:00 98.2 70 163/86 93 12/12/16 14:00 77 I/O 12/12/16 12/12/16 12/12/16 12/13/16 12/13/16 12/13/16 07:00 15:00 23:00 07:00 15:00 23:00 Intake Total 300 ml 520 ml 300 ml 300 ml Output Total 200 ml 600 ml 350 ml 250 ml Balance 100 ml -80 ml -50 ml 50 ml Intake Oral 300 ml 520 ml 300 ml 300 ml Output Urine Total 200 ml 600 ml 350 ml 250 ml # Bowel Movements 0 0 0 Result Diagram: 12/11/16 0504 12/11/16 0504 Objective Remarks GENERAL: NAD SKIN: Warm and dry. HEAD: Normocephalic. EYES: No scleral icterus. No injection or drainage. NECK: Supple, trachea midline. No JVD or lymphadenopathy. CARDIOVASCULAR: Irregular Regular rate and rhythm without murmurs, gallops, or rubs. RESPIRATORY: Breath sounds decrease bilaterally. No accessory muscle use. GASTROINTESTINAL: Abdomen soft, non-tender, nondistended. MUSCULOSKELETAL: No cyanosis, or edema. BACK: Nontender without obvious deformity. No CVA tenderness. : Rectal bag in place Procedures Decompressive colonoscopy 12/02/16 Date of Insertion: Dec 05, 2016 Line: Central Venous Catheter A/P Problem List: (1) Atrial fibrillation ICD Code: I48.91 Status: Acute (2) Palpitations ICD Code: R00.2 Status: Acute (3) SOB (shortness of breath) ICD Code: R06.02 Status: Acute (4) Abdominal pain ICD Code: R10.9 Status: Acute (5) Adynamic ileus ICD Code: K56.0 Status: Acute (6) AFIA (acute kidney injury) ICD Code: N17.9 Status: Acute Assessment and Plan Every 5 year-old man with Adynamic Ileus Status post decompressive colonoscopy 12/02/16, S/p repeat decompressive colonoscopy on 12/06 with insertion of rectal tube. May need repeat decompressive colonoscopy. Continue with simethicone. Advance diet as tolerated Appreciate input from GI, general surgery. Case discussed this morning with Dr. Horowitz 12/13/16 Respiratory insufficiency Status post extubation Patient still requiring high oxygen output Check CT chest today 12/13/16 Start Solu-Medrol 20 mg IV every 12 hours today 12/13/16 Consult pulmonary medicine today DuoNeb when necessary, keep oxygen saturation above 90% Atrial fibrillation rapid ventricular response Currently on Cardizem 260 mg daily, amiodarone 400 mg daily and Eliquis 5 mg twice a day 2-D echo with EF 40-45% Hypertension Continue with Lopressor, Vasotec when necessary Hypothyroidism On Synthroid 25 g daily Acute renal failure Resolved GI prophylaxis: Protonix 40 mg PO daily. DVT prophylaxis: SCDs. On Eliquis 5mg BID Total critical care time spent 33 minutes Problem Qualifiers (1) Abdominal pain: Qualified Code: R10.84 - Generalized abdominal pain Amando Schulz MD Dec 13, 2016 12:55
--- NOTE | 2016-12-13 13:51 | HHI.PR ---
Subjective Subjective Notes Resting in bed Feels hungry Does not like the options on the full liquid diet Objective Vitals/I&O Vital Signs Date Time Temp Pulse Resp B/P Pulse Ox O2 Delivery O2 Flow Rate FiO2 12/13/16 12:00 80 12/13/16 12:00 98.0 22 164/76 97 12/13/16 07:29 Simple Mask 8.00 Radiology Last Impressions Chest X-Ray 12/01/16 1352 Signed Impressions: Service Date/Time: December 13:52 - CONCLUSION: Mild patchy bilateral lower lung zone parenchymal opacity and low lung volumes. Maninder Mg MD Abdomen/Pelvis CT 12/01/16 0000 Signed Impressions: Service Date/Time: December 19:21 - CONCLUSION: 1. Gas dilated colon without an obstructing mass or lesion. This suggests a colonic ileus. 2. Trace amount of free fluid. 3. Bibasilar atelectasis. 4. Coronary artery atherosclerotic calcifications. 5. 2.8 x 2.6 cm AAA 6. Atrophic right kidney Jem Segundo Jr., MD Abdomen X-Ray 12/01/16 0000 Signed Impressions: Service Date/Time: December 11:07 - CONCLUSION: Diffuse air-filled distention of the colon, likely representing ileus. Maninder Mg MD Cardiovascular: Regular Lungs: Clear Abdomen: Non-tender, Other (minimally distended (same exam findings as yesterday) ) Extremities: No edema A/P Problem List: (1) Adynamic ileus (2) Atrial fibrillation (3) Palpitations (4) SOB (shortness of breath) (5) Abdominal pain Assessment and Plan 75 year old male s/p cardiac catheterization; with 1 week of abdominal pain/ distention -CT chest today -Advance to soft diet -s/p Repeat decompressive colonoscopy -Rectal tube removed; +BM -Monitor labs; --nephrology following ---BUN/Cr trending down -Continue non op treatment Attending Note - Dr. Horowitz Has a large pleural effusion - to be drained tomorrow Abdomen remains benign Should have respiratory relief with thoracentesis The exam, history, and the medical decision-making described in the above note were completed with the assistance of the mid-level provider. I reviewed and agree with the findings presented. I attest that I had a [id number] encounter with the patient on the same day, and personally performed and documented my assessment and findings in the medical record. Problem Qualifiers (1) Abdominal pain: Qualified Code: R10.84 - Generalized abdominal pain Susanne Winslow Dec 13, 2016 13:51 Arnoldo Horowitz MD Dec 13, 2016 22:08
--- NOTE | 2016-12-13 16:05 | RADRPT ---
EXAM DATE/TIME: 12/13/2016 14:31 [facility] COMPARISON: CT ABDOMEN & PELVIS W CONTRAST, December 04, 2016, 20:28. INDICATIONS : Evaluate for Pneumonia. RADIATION DOSE: 9.89 CTDIvol (mGy) MEDICAL HISTORY : Cardiovascular disease. Hypertension. skin CA SURGICAL HISTORY : ENCOUNTER: Subsequent ACUITY: 2 days PAIN SCALE: 0/10 LOCATION: TECHNIQUE: Volumetric scanning of the chest was performed. Using automated exposure control and adjustment of t he mA and/or kV according to patient size, radiation dose was kept as low as reasonably achievable to obtain optimal diagnostic quality images. FINDINGS: The examination demonstrates a moderate-sized pleural effusion on the right. There is minimal effusio n on the left. There is considerable atelectasis of the right lower lobe. There is mild atelectasis a t the left lung base. The heart is enlarged. There is atherosclerotic plaquing in the coronary arteries. No pericardial eff usion is present. No significant hilar or mediastinal adenopathy is seen. No significant axillary dana nopathy is evident. The limited portions of upper abdomen visualized are unremarkable. There are degenerative changes throughout the spine. CONCLUSION: 1. Moderate size right pleural effusion with consolidation of the right lung base. This is worsened w hen compared to previous exam. 2. Atelectatic changes at the left lung base mildly worsened when compared to previous. Bernabe Pennington MD on December 13, 2016 at 15:53 Board Certified Radiologist. This report was verified electronically.
[2016-12-13] MEDS: CEFEPIME INJ 2,000 MG in SODIUM CHLORIDE 0.9% INJ 100 ML IV SCH (18:00)
[2016-12-13] MEDS: RESP: ALBUTEROL 2.5 MG/IPRATROPIUM 0.5 MG NEB (SCH) NEB (19:40)
--- NOTE | 2016-12-13 20:46 | RADRPT ---
EXAM DATE/TIME: 12/13/2016 19:41 [facility] COMPARISON: No previous studies available for comparison. INDICATIONS : Pleural effusion. MEDICAL HISTORY : Congestive heart failure. Chronic obstructive pulmonary disease. Hypercholesterolemia. Hypertension. Afib. Renal disease. Arthritis. Skin cancer. Thyroid disease. SURGICAL HISTORY : CABG. Bilateral cataract removal. Back and neck surgery. TURP. ENCOUNTER: Initial ACUITY: 1 day PAIN SCORE: 5/10 LOCATION: Right chest MEASUREMENTS: SKIN TO PARIETAL PLEURA: 2.3 cm SKIN TO MAX SAFE DEPTH: 3.4 cm ESTIMATED FLUID VOLUME: 170 cc FLUID COMPOSITION: simple FINDINGS: No marking was performed. Only a very small right pleural effusion is present. CONCLUSION: Small right pleural effusion not safely drainable. Titi Cueva MD on December 13, 2016 at 20:44 Board Certified Radiologist. This report was verified electronically.
[2016-12-13] MEDS: TAMSULOSIN HCL 0.4 MG CAP PO SCH (20:59)
[2016-12-13] MEDS: DULoxetine HCl DR 60 MG CAP PO SCH (20:59)
[2016-12-13] MEDS: methylPREDNISolone SOD SUCC 40 MG/1 ML VIAL IV PUSH SCH (21:00)
[2016-12-14] VITALS (18 sets, daily range): BP systolic 131–167; BP diastolic 68–89; PULSE 76–137; RESP 20–22; TEMP 98–98.6; O2SAT 93–98
[2016-12-14] MEDS: CEFEPIME INJ 2,000 MG in SODIUM CHLORIDE 0.9% INJ 100 ML IV SCH ×3 (01:58→18:03)
[2016-12-14] MEDS: RESP: IPRATROPIUM 0.5 MG/2.5 ML NEB NEB SCH ×3 (04:00→12:00)
[2016-12-14 04:16] LABS: AUTOMATED NEUTROPHIL # 8.3 TH/MM3 (1.8-7.7); BASOPHIL % 0.5 % (0.0-2.0); HEMATOCRIT 32.3 % (39.0-51.0); HEMO FLAGS DIFF FINAL; LYMPH % 4.2 % (9.0-44.0); LYMPHOCYTE # 0.4 TH/MM3 (1.0-4.8); MEAN CELL VOLUME 86.3 FL (80.0-100.0); MEAN CORPUSCULAR HEMOGLOBIN 27.9 PG (27.0-34.0); MEAN CORPUSCULAR HGB CONC 32.4 % (32.0-36.0); MONO % 2.5 % (0.0-8.0); NEUT % 92.8 % (16.0-70.0); PLATELET COUNT 369 TH/MM3 (150-450); RED BLOOD COUNT 3.75 MIL/MM3 (4.50-5.90); RED CELL DISTRIBUTION WIDTH 15.4 % (11.6-17.2); WHITE BLOOD COUNT 8.9 TH/MM3 (4.0-11.0)
[2016-12-14 04:37] LABS: BICARBONATE 31.3 MEQ/L (21.0-32.0); POTASSIUM 4.3 MEQ/L (3.5-5.1)
[2016-12-14 04:40] LABS: INTERNATIONAL NORMALIZED RATIO 1.1 RATIO
[2016-12-14] MEDS: LEVOTHYROXINE SODIUM 25 MCG TAB PO SCH (05:28)
[2016-12-14] MEDS: METOCLOPRAMIDE HCL 10 MG/2 ML VIAL IV PUSH SCH ×3 (05:28→20:20)
--- NOTE | 2016-12-14 07:16 | MB ---
cc: LAURE CHAVEZ DATE OF CONSULTATION 12/14/2016 REASON FOR CONSULTATION Respiratory insufficiency and pleural effusions HISTORY OF PRESENT ILLNESS This is a 75-year-old white male with a past history of atrial ablation, ASHD and coronary artery disease, as well as CHF who had an atrial ablation done a week ago and the patient apparently was having shortness of breath and palpitations and then was found to be back in atrial fibrillation with a rapid ventricular response. He was then brought to the emergency room and a cardioversion was done and he was placed on amiodarone and admitted to the hospital. The patient was hypotensive following admission and following his Cardizem drip and had to be given fluid boluses, was placed on oxygen and BiPap and has subsequently improved. He also was noted to have an abdominal ileus during the admission and had undergone a decompression colonoscopy two weeks ago. Presently the patient is on a Ventimask and doing better but still having some shortness of breath and complained of some dizziness. Chest x-ray was done earlier today shows evidence of basilar infiltrates with a moderate size right effusion. The patient also had a CT scan of the chest which does not show any evidence of pulmonary emboli, but does show a significant effusion on the right. The patient is not running any fever. Denies any hemoptysis. He did have some leg swelling and abdominal distension. PAST HISTORY Past history has included: 1. Coronary artery disease 2. COPD 3. CHF 4. He has had an abdominal aortic aneurysm. 5. History of coronary bypass grafting x3 6. He also has had peripheral vascular disease and benign prostatic hypertrophy. 7. He has had femoral artery stenting and coronary stenting done as well in the past. 8. Cataract repair. 9. The patient also had a TURP done in the past. HABITS The patient is a former smoker for over 25 years. No significant alcohol use. ALLERGIES No drug allergies listed. FAMILY HISTORY Noncontributory MEDICATIONS 1. Protonix 40 mg a day 2. Tamsulosin 0.4 mg at bedtime 3. Aldactone 25 mg daily 4. Meclizine 25 mg t.i.d. p.r.n. 5. Levothyroxine 25 mcg daily 6. DuoNeb nebs t.i.d. 7. Lasix 20 mg a day 8. Cymbalta 60 mg a day 9. Eliquis 2-1/2 mg b.i.d. REVIEW OF SYSTEMS The patient complains of shortness of breath, wheezing, epigastric distress and bloating. He has urinary frequency and he has joint pains of his extremities and anxiety with depression. PHYSICAL EXAMINATION This is an averagely built elderly man who is pale and mildly dyspneic at rest. VITAL SIGNS: Blood pressure 110/60, pulse is 104, respirations 22, temperature is 98.2. HEENT: Head normocephalic. Pupils are reactive. Sclerae were clear. Tongue is dry. Nasal mucosa injected. NECK: Supple. No bruits. Mild venous distension. Trachea midline. No thyromegaly. CHEST: Equal movements with decreased breath sounds at the bases with a few basilar crackles and occasional wheezes anteriorly. HEART: The heart sounds are irregular, S1 and S2 with no definite murmur. No S3. ABDOMEN: Soft and protuberant without masses. No organomegaly. Bowel sounds are active. EXTREMITIES: Minimal edema with diminished peripheral pulses. Reflexes are 1+ with no gross motor deficits. NEUROLOGIC: Cranial nerves grossly intact. RECTAL: Exam is deferred. SKIN: No lesions observed. IMPRESSION 1. Pulmonary edema with pleural effusions. 2. Status post cardiac ablation for atrial fibrillation 3. History of COPD and emphysema. 4. Hypertension 5. Peripheral vascular disease 6. Coronary artery disease 7. Abdominal ileus resolved PLAN The patient has been placed on O2 at 5 liters nasal cannula and will be weaned down, nebulized albuterol/Atrovent solution t.i.d. p.r.n. and will be sent for an ultrasound examination of the chest for effusion and if significant effusion, thoracentesis will be planned on the right side and incentive spirometry will be added every two hours. Follow up chest x-ray was ordered as well and the patient will be maintained on Solu-Medrol 20 mg twice daily and antibiotic coverage is ordered. If he desaturates, he will be placed on BiPap 12/5 and FIO2 of 35%. Thank you Dr. Schulz for this consultation. MD GRECIA York/SHOAIB /6:48 AM /7:07 AM
[2016-12-14] MEDS: RESP: ALBUTEROL 2.5 MG/IPRATROPIUM 0.5 MG NEB (SCH) NEB ×4 (07:35→15:44)
[2016-12-14] MEDS: CHLORHEXIDINE 0.12% (ORAL KIT) 15 ML CUP MT SCH ×2 (08:00→20:00)
[2016-12-14] MEDS: METOPROLOL TARTRATE 25 MG TAB PO SCH ×4 (08:17→20:20)
[2016-12-14] MEDS: DILTIAZEM-CD 180 MG CAP ER PO SCH (08:17)
[2016-12-14] MEDS: guaiFENesin E.R. 600 MG TAB PO SCH ×2 (08:17→20:20)
[2016-12-14] MEDS: methylPREDNISolone SOD SUCC 40 MG/1 ML VIAL IV PUSH SCH (08:17)
[2016-12-14] MEDS: APIXABAN 5 MG TABLET PO SCH ×2 (08:17→20:20)
[2016-12-14] MEDS: PANTOPRAZOLE SOD 40 MG DELAYED RELEASE TAB PO SCH (08:17)
[2016-12-14] MEDS: AMIODARONE 200 MG TAB PO SCH (08:17)
--- NOTE | 2016-12-14 12:38 | HHI.PR ---
Subjective Remarks He is doing better.O2 sat 95 on N/C . US of chest shows only 170 CC. Not marked HR was up to 135 Objective Vital Signs Date Time Temp Pulse Resp B/P Pulse Ox O2 Delivery O2 Flow Rate FiO2 12/14/16 12:00 98.0 76 22 142/88 97 12/14/16 08:00 98.2 117 22 157/76 97 12/14/16 07:36 96 Nasal Cannula 4.00 12/14/16 04:00 98.0 109 22 142/83 97 12/14/16 00:00 98.2 106 20 167/89 93 12/13/16 20:00 98.1 98 24 148/71 100 12/13/16 19:40 95 Simple Mask 10.00 12/13/16 18:00 80 12/13/16 16:00 80 12/13/16 16:00 98.0 118 22 164/76 97 12/13/16 14:00 80 I/O 12/13/16 12/13/16 12/13/16 12/14/16 12/14/16 12/14/16 07:00 15:00 23:00 07:00 15:00 23:00 Intake Total 300 ml 480 ml 480 ml 230 ml Output Total 250 ml 450 ml 300 ml 500 ml Balance 50 ml 30 ml 180 ml -270 ml Intake Oral 300 ml 480 ml 480 ml 100 ml IV Total 130 ml Output Urine Total 250 ml 450 ml 300 ml 500 ml # Bowel Movements 0 0 0 Result Diagram: 12/14/16 0400 12/14/16 0400 Objective Remarks This is an averagely built elderly man who is pale and mildly dyspneic at rest. HEENT: Head normocephalic. Pupils are reactive. Sclerae were clear. Tongue is dry. Nasal mucosa clear NECK: Supple. No bruits. Mild venous distension. Trachea midline. No thyromegaly. CHEST: Equal movements with decreased breath sounds at the bases with a few basilar crackles and occasional wheezes anteriorly. HEART: The heart sounds are irregular, S1 and S2 with no definite murmur. No S3. ABDOMEN: Soft and protuberant without masses. No organomegaly. Bowel sounds are active. EXTREMITIES: Minimal edema with diminished peripheral pulses. Reflexes are 1+ with no gross motor deficits. NEUROLOGIC: Cranial nerves grossly intact. RECTAL: Exam is deferred. SKIN: No lesions observed. Assessment and Plan Assessment and Plan IMPRESSION 1. Pulmonary edema with pleural effusions. 2. Status post cardiac ablation for atrial fibrillation 3. History of COPD and emphysema. 4. Hypertension 5. Peripheral vascular disease 6. Coronary artery disease 7. Abdominal ileus resolved. Plan; 1.Control HR and Rythm 2. O2 at 4 L 3. Hold nebs. 4. No need for thoracentesis 5. CXR ,BMP in am 6. Taper off solumedrol. Anju Monson MD Dec 14, 2016 12:37
--- NOTE | 2016-12-14 14:07 | HHI.PR ---
Subjective Remarks Follow-up for respiratory failure Patient stated breathing has improved. Denies any cough. He remains afebrile. Patient goes in and out of atrial fibrillation and he is currently running at a rate in the 130s. He denies any chest pain, palpitation, lightheadedness or dizziness. Patient has no complaints. Also spoke to patient's nurse Farzaneh. Objective Vitals Vital Signs Date Time Temp Pulse Resp B/P Pulse Ox O2 Delivery O2 Flow Rate FiO2 12/14/16 13:30 118 94 12/14/16 13:30 118 94 12/14/16 13:00 135 142/86 97 12/14/16 13:00 135 142/86 97 12/14/16 12:30 137 97 12/14/16 12:30 137 97 12/14/16 12:00 98.0 76 22 142/88 97 12/14/16 12:00 132 142/88 98 12/14/16 12:00 132 142/88 98 12/14/16 11:30 134 97 12/14/16 11:30 134 97 12/14/16 11:00 137 156/86 96 12/14/16 11:00 137 156/86 96 12/14/16 10:30 129 98 12/14/16 10:30 129 98 12/14/16 10:00 127 131/76 97 12/14/16 10:00 127 131/76 97 12/14/16 09:30 106 97 12/14/16 09:30 106 97 12/14/16 09:00 115 131/68 98 12/14/16 09:00 115 131/68 98 12/14/16 08:30 123 98 12/14/16 08:30 123 98 12/14/16 08:00 120 156/79 98 12/14/16 08:00 120 156/79 98 12/14/16 08:00 98.2 117 22 157/76 97 12/14/16 07:36 96 Nasal Cannula 4.00 12/14/16 04:00 98.0 109 22 142/83 97 12/14/16 00:00 98.2 106 20 167/89 93 12/13/16 20:00 98.1 98 24 148/71 100 12/13/16 19:40 95 Simple Mask 10.00 12/13/16 18:00 80 12/13/16 16:00 80 6/13/17 16:00 98.0 118 22 164/76 97 I/O 12/13/16 12/13/16 12/13/16 12/14/16 12/14/16 12/14/16 07:00 15:00 23:00 07:00 15:00 23:00 Intake Total 300 ml 480 ml 480 ml 230 ml Output Total 250 ml 450 ml 300 ml 500 ml Balance 50 ml 30 ml 180 ml -270 ml Intake Oral 300 ml 480 ml 480 ml 100 ml IV Total 130 ml Output Urine Total 250 ml 450 ml 300 ml 500 ml # Bowel Movements 0 0 0 Result Diagram: 12/14/16 04012/[id number] Objective Remarks GENERAL: in NAD SKIN: Warm and dry. HEAD: Normocephalic. EYES: No scleral icterus. No injection or drainage. NECK: Supple, trachea midline. No JVD or lymphadenopathy. CARDIOVASCULAR: Irregular rate and irregular rhythm without murmurs, gallops, or rubs. RESPIRATORY: Right lower base with decreased breath sounds otherwise clear to auscultation bilaterally. No accessory muscle use. GASTROINTESTINAL: Abdomen soft, non-tender, nondistended. Procedures Decompressive colonoscopy 12/02/16 Medications and IVs Current Medications Amiodarone HCl (Cordarone) 400 mg Q12HR PO Last administered on 12/01/16 08:03 ; Start 11/30/16 at 21:00; Stop 12/01/16 at 09:05; Status DC Amiodarone HCl (Cordarone) 200 mg DAILY PO ; Start 12/06/16 at 09:00; Stop at 09:00; Status DC Apixaban (Eliquis) 2.5 mg BID PO Last administered on 12/01/16 08:03; Start at 21:00; Stop 12/01/16 at 09:05; Status DC Duloxetine HCl (Cymbalta Dr) 60 mg DAILY PO Last administered on 12/03/16 21:46 ; Start 12/01/16 at 09:00; Stop 12/03/16 at 22:32; Status DC Furosemide (Lasix) 20 mg DAILY PO ; Start 12/01/16 at 09:00; Stop 12/01/16 at 09: 00; Status DC Ipratropium [place] (Atrovent Neb) 0.5 mg Q4HR NEB NEB Last administered on 22:59; Start 11/30/16 at 20:00 Levothyroxine Sodium (Synthroid) 25 mcg DAILY@06 PO Last administered on 05:28; Start 12/01/16 at 06:00 Losartan Potassium (Cozaar) 50 mg DAILY PO Last administered on 12/04/16 08:34 ; Start 12/01/16 at 09:00; Stop 12/05/16 at 07:57; Status DC Pantoprazole Sodium (Protonix) 40 mg DAILY PO Last administered on 12/14/16 08 :17; Start 12/01/16 at 09:00 Spironolactone (Aldactone) 25 mg DAILY PO Last administered on 12/04/16 08:34; Start 12/01/16 at 09:00; Stop 12/05/16 at 08:00; Status DC Tamsulosin HCl (Flomax) 0.4 mg HS PO Last administered on 12/13/16 20:59; Start 11/30/16 at 21:00 Furosemide (Lasix Inj) 40 mg Q8HR IV PUSH Last administered on 12/01/16 13:43; Start 11/30/16 at 19:30; Stop 12/01/16 at 19:00; Status DC Temazepam 15 mg 15 mg HS PRN PO SLEEP Last administered on 12/11/16 22:53; Start 11/30/16 at 19:30 Amiodarone HCl 300 mg/Dextrose 100 ml @ 600 mls/hr NOW ONCE IV Last administered on 12/01/16 11:04; Start 12/01/16 at 10:00; Stop 12/01/16 at 10:09; Status DC Amiodarone HCl/ Dextrose (Cordarone Inj/ D5W ([place]) Inj) 250 ml @ 0 mls/hr CONTINUOUS IV Last administered on 12/01/16 11:07; Start 12/01/16 at 10:20; Stop 12/02/16 at 15:21; Status DC Metoclopramide HCl (Reglan Inj) 5 mg Q8HR IV PUSH Last administered on 13:15; Start 12/01/16 at 14:00 Diatrizoate Meglum/ Diatrizoate Sod ( Gastroradha Liq) 18 ml ONCE ONCE PO Last administered on 12/01/16 14:19; Start 12/01/16 at 13:45; Stop 12/01/16 at 13: 46; Status DC Metoprolol Tartrate (Lopressor) 25 mg Q12HR PO Last administered on 12/01/16 14 :18; Start 12/01/16 at 14:00; Stop 12/01/16 at 18:19; Status DC Diltiazem HCl (Cardizem) 30 mg Q6HR PO ; Start 12/02/16 at 00:00; Stop 12/02/16 at 00:00; Status DC Diltiazem HCl (Cardizem) 60 mg Q6HR PO Last administered on 12/02/16 13:15; Start 12/02/16 at 00:00; Stop 12/02/16 at 15:21; Status DC Epinephrine HCl (EPINEPHrine (1:10,000) INJ) 1 mg STK-MED ONCE .ROUTE ; Start at 18:41; Stop 12/01/16 at 18:42; Status DC Atropine Sulfate (Atropine Inj) 1 mg STK-MED ONCE .ROUTE ; Start 12/01/16 at 18: 42; Stop 12/01/16 at 18:43; Status DC Iodixanol (VISIPAQUE 320 INJ (Rad CT)) 50 ml STK-MED ONCE IV ; Start 12/01/16 at 19:49; Stop 12/01/16 at 19:50; Status DC Sugammadex Sodium ([place] Inj) 400 mg STK-MED ONCE IV PUSH ; Start 12/02/16 at 10:51; Stop 12/02/16 at 10:52; Status DC Propofol (Diprivan 200 Mg/20 ml Inj) 150 mg STK-MED ONCE IV ; Start 12/02/16 at 10:48; Stop 12/02/16 at 11:08; Status DC Miscellaneous Information ALL NURSING DEPARTME... UNSCH PRN .XX SEE LABEL COMMENTS; Start 12/02/16 at 11:45; Stop 12/03/16 at 11:44; Status DC Diltiazem HCl (Cardizem Cd) 240 mg DAILY PO Last administered on 12/03/16 09:00 ; Start 12/02/16 at 18:00; Stop 12/03/16 at 09:19; Status DC Amiodarone HCl (Cordarone) 400 mg Q12HR PO Last administered on 12/07/16 08:09 ; Start 12/02/16 at 21:00; Stop 12/07/16 at 20:59; Status DC Amiodarone HCl (Cordarone) 200 mg DAILY PO Last administered on 12/14/16 08:17 ; Start 12/08/16 at 09:00 Potassium Chloride (KCl) 30 meq ONCE ONCE PO Last administered on 12/02/16 17: 18; Start 12/02/16 at 16:45; Stop 12/02/16 at 16:46; Status DC Diltiazem HCl 20 mg 20 mg ONCE ONCE IV Last administered on 12/03/16 00:32; Start 12/03/16 at 01:00; Stop 12/03/16 at 01:01; Status DC Amiodarone HCl 150 mg/Dextrose 100 ml @ 600 mls/hr NOW ONCE IV Last administered on 12/03/16 02:22; Start 12/03/16 at 02:15; Stop 12/03/16 at 02:24; Status DC Amiodarone HCl/ Dextrose (Cordarone Inj/ D5W ([place]) Inj) 250 ml @ 0 mls/hr CONTINUOUS IV Last administered on 12/04/16 03:32; Start 12/03/16 at 02:15; Stop 12/10/16 at 09:23; Status DC Diltiazem HCl (Cardizem Cd) 360 mg DAILY PO Last administered on 12/14/16 08: 17; Start 12/04/16 at 09:00 Apixaban (Eliquis) 2.5 mg BID PO ; Start 12/03/16 at 09:30; Stop 12/03/16 at 09:30 ; Status DC Apixaban 5 mg 5 mg BID PO Last administered on 12/14/16 08:17; Start 12/03/16 at 11:45 Amiodarone HCl/ Dextrose (Cordarone Inj/ D5W 100 ml Inj) 100 ml @ 600 mls/hr NOW ONCE IV Last administered on 12/03/16 09:55; Start 12/03/16 at 10:00; Stop 12/03/16 at 10:13; Status DC Diltiazem HCl (Cardizem Cd) 120 mg ONCE ONCE PO Last administered on 12/03/16 11:58; Start 12/03/16 at 11:45; Stop 12/03/16 at 11:46; Status DC Duloxetine HCl (Cymbalta Dr) 60 mg HS PO Last administered on 12/13/16 20:59; Start 12/04/16 at 21:00 Sodium Chloride (Sodium Chloride) 1 gm TID PO Last administered on 12/05/16 13: 00; Start 12/04/16 at 09:00; Stop 12/05/16 at 17:08; Status DC Potassium Bicarb/ Potassium Chloride (K-Lyte Cl Eff) 20 meq ONCE ONCE PO Last administered on 12/04/16 09:46; Start 12/04/16 at 08:45; Stop 12/04/16 at 08: 46; Status DC Furosemide (Lasix) 20 mg DAILY PO ; Start 12/05/16 at 09:00; Stop 12/05/16 at 09: 00; Status DC Metoprolol Tartrate 50 mg 50 mg Q12HR PO Last administered on 12/04/16 09:46; Start 12/04/16 at 10:00; Stop 12/05/16 at 07:57; Status DC Sodium Chloride 1,000 ml @ 50 mls/hr Q20H IV Last administered on 12/05/16 07: 45; Start 12/04/16 at 11:45; Stop 12/05/16 at 16:32; Status DC Sodium Chloride (NS 500 ml Inj) 500 ml @ 500 mls/hr BOLUS ONCE IV ; Start 12/04 at 11:45; Stop 12/04/16 at 12:44; Status DC Acetaminophen (Tylenol) 650 mg Q6HR PRN PO pain 1 TO 10 Last administered on 22:07; Start 12/04/16 at 13:15 Iohexol 90 ml 90 ml STK-MED ONCE IV Last administered on 12/04/16 20:38; Start 12/04/16 at 20:38; Stop 12/04/16 at 20:39; Status DC Sodium Chloride (NS 1000 ml Inj) 1,000 ml @ 100 mls/hr Q10H IV Last administered on 12/05/16 08:00; Start 12/05/16 at 08:00; Stop 12/05/16 at 17:08; Status DC Metoprolol Tartrate (Lopressor) 25 mg Q12HR PO Last administered on 12/09/16 08 :37; Start 12/05/16 at 09:00; Stop 12/09/16 at 13:53; Status DC Polyethylene Glycol/ Electrolytes (Colyte Liq) 4,000 ml ONCE ONCE PO Last administered on 12/05/16 16:00; Start 12/05/16 at 16:00; Stop 12/05/16 at 16:01; Status DC Bumetanide (Bumex Inj) 2 mg BID@18 IV PUSH Last administered on 12/06/16 08: 06; Start 12/05/16 at 18:00; Stop 12/06/16 at 12:23; Status DC Etomidate (Amidate Inj) 20 mg STK-MED ONCE .ROUTE ; Start 12/06/16 at 01:15; Stop 12/06/16 at 01:16; Status DC Fentanyl Citrate (fentaNYL INJ) 100 mcg STK-MED ONCE .ROUTE ; Start 12/06/16 at 01:28; Stop 12/06/16 at 01:29; Status DC Midazolam HCl 5 mg 5 mg STK-MED ONCE .ROUTE ; Start 12/06/16 at 01:28; Stop at 01:29; Status DC Propofol 100 ml @ As Directed STK-MED ONCE .ROUTE ; Start 12/06/16 at 01:29; Stop 12/06/16 at 01:30; Status DC Propofol 100 ml @ As Directed STK-MED ONCE .ROUTE ; Start 12/06/16 at 06:20; Stop 12/06/16 at 06:21; Status DC Propofol (Diprivan 1000 Mg/100ml Inj) 100 ml @ 0 mls/hr TITRATE IV Last administered on 12/08/16 02:38; Start 12/06/16 at 08:00; Stop 12/09/16 at 13:53; Status DC Bumetanide (Bumex Inj) 2 mg DAILY IV PUSH Last administered on 12/07/16 09:18; Start 12/07/16 at 09:00; Stop 12/07/16 at 12:05; Status DC Chlorhexidine Gluconate (Peridex 0.12% Liq) 15 ml BID@08,20 MT Last administered on 12/14/16 08:00; Start 12/06/16 at 20:00 Propofol 80 mg 80 mg STK-MED ONCE IV PUSH ; Start 12/06/16 at 16:52; Stop at 17:30; Status DC Potassium Chloride 100 ml @ 25 mls/hr ONCE ONCE IV ; Start 12/07/16 at 08:15; Stop 12/07/16 at 08:15; Status DC Potassium Chloride (KCl 40 Meq Premix Inj) 100 ml @ 25 mls/hr Q4H IV Last administered on 12/07/16 14:16; Start 12/07/16 at 08:15; Stop 12/07/16 at 20:14; Status DC Potassium Phos/ Sodium Phos 250 mg 250 mg ONCE ONCE PO Last administered on 10:49; Start 12/07/16 at 10:15; Stop 12/07/16 at 10:28; Status DC Sodium Chloride (NS 1000 ml Inj) 1,000 ml @ 30 mls/hr Q24H IV Last administered on 12/09/16 12:20; Start 12/07/16 at 12:15; Stop 12/10/16 at 09:24; Status DC Metoprolol Tartrate (Lopressor) 25 mg QID PO Last administered on 12/14/16 13: 16; Start 12/09/16 at 18:00 Labetalol HCl (Trandate Inj) 10 mg Q4H PRN IV PUSH SBP>160, DBP>90 Last administered on 12/10/16 20:52; Start 12/09/16 at 19:45 Labetalol HCl (Trandate Inj) 20 mg NOW IV Last administered on 12/09/16 22:26; Start 12/09/16 at 22:30; Stop 12/09/16 at 23:56; Status DC Guaifenesin (Mucinex Er) 600 mg BID PO Last administered on 12/14/16 08:17; Start 12/11/16 at 12:30 Albuterol/ Ipratropium (Duoneb Neb) 1 ampule Q2HR NEB PRN NEB SOB/WHEEZING Last administered on 12/12/16 11:17; Start 12/11/16 at 14:15 Enalaprilat (Vasotec Inj) 1.25 mg Q6H PRN IV PUSH SBP>160, DBP>90 Last administered on 12/13/16 11:59; Start 12/12/16 at 14:00 Methylprednisolone Sodium Succinate 20 mg 20 mg Q12HR IV PUSH Last administered on 12/14/16 08:17; Start 12/13/16 at 21:00; Stop 12/14/16 at 12:39 ; Status DC Cefepime HCl/ Sodium Chloride (Maxipime Inj/NS Inj) 100 ml @ 200 mls/hr Q8H IV Last administered on 12/14/16 10:51; Start 12/13/16 at 18:00 Albuterol/ Ipratropium (Duoneb Neb) 1 ampule QID NEB NEB Last administered on 12/14/16 11:19; Start 12/13/16 at 20:00 Methylprednisolone Sodium Succinate (SoluMEDROL INJ) 20 mg DAILY IV PUSH ; Start 12/15/16 at 09:00 Date of Insertion: Dec 05, 2016 Line: Central Venous Catheter A/P Problem List: (1) Atrial fibrillation ICD Code: I48.91 Status: Acute (2) Palpitations ICD Code: R00.2 Status: Acute (3) SOB (shortness of breath) ICD Code: R06.02 Status: Acute (4) Abdominal pain ICD Code: R10.9 Status: Acute (5) Adynamic ileus ICD Code: K56.0 Status: Acute (6) AFIA (acute kidney injury) ICD Code: N17.9 Status: Acute Assessment and Plan Every 5 year-old man with Adynamic Ileus Status post decompressive colonoscopy 12/02/16, S/p repeat decompressive colonoscopy on 12/06 with insertion of rectal tube. May need repeat decompressive colonoscopy. Continue with simethicone. Advance diet as tolerated Appreciate input from GI, general surgery. Seems to clinically improve. Respiratory insufficiency Status post extubation Oxygen requirement is improving. Patient is not on nasal cannula. CT scan of the chest on 12/13/16 showed right lower lobe pleural effusion. on Solu-Medrol 20 mg IV every 12 hours today 12/13/16 which line fixer stated to taper. Patternmaker Sample following. DuoNeb when necessary, keep oxygen saturation above 90% Clinically patient is improving. Per line fixer does not need thoracentesis at the moment. Atrial fibrillation rapid ventricular response Currently on Cardizem 360 mg daily, amiodarone 200 mg daily and Eliquis 5 mg twice a day 2-D echo with EF 40-45% Patient and RVR again. Will start Cardizem drip. Will reconsult learning manager Dr. Trevino to help with management. Hypertension Continue with Lopressor, Vasotec when necessary Hypothyroidism On Synthroid 25 g daily Acute renal failure Resolved GI prophylaxis: Protonix 40 mg PO daily. DVT prophylaxis: SCDs. On Eliquis 5mg BID Discharge Planning Patient continues to have uncontrolled heart rate. Will need to restart Cardizem and reconsult learning manager. Problem Qualifiers (1) Abdominal pain: Qualified Code: R10.84 - Generalized abdominal pain Leslie Dewey MD Dec 14, 2016 14:07
[2016-12-14] MEDS: DILTIAZEM INJ 125 MG in SODIUM CHLORIDE 0.9% INJ 100 ML IV SCH (14:56)
--- NOTE | 2016-12-14 18:21 | HHI.PR ---
Subjective Subjective Notes Breathing easier Tolerating diet Lots of flatus; no BM Objective Vitals/I&O Vital Signs Date Time Temp Pulse Resp B/P Pulse Ox O2 Delivery O2 Flow Rate FiO2 12/14/16 16:00 91 144/72 97 12/14/16 12:00 98.0 22 12/14/16 07:36 Nasal Cannula 4.00 Labs Laboratory Tests Test 12/14/16 04:00 White Blood Count 8.9 Red Blood Count 3.75 Hemoglobin 10.5 Hematocrit 32.3 Mean Corpuscular Volume 86.3 Mean Corpuscular Hemoglobin 27.9 Mean Corpuscular Hemoglobin 32.4 Concent Red Cell Distribution Width 15.4 Platelet Count 369 Mean Platelet Volume 6.9 Neutrophils (%) (Auto) 92.8 Lymphocytes (%) (Auto) 4.2 Monocytes (%) (Auto) 2.5 Eosinophils (%) (Auto) 0.0 Basophils (%) (Auto) 0.5 Neutrophils # (Auto) 8.3 Lymphocytes # (Auto) 0.4 Monocytes # (Auto) 0.2 Eosinophils # (Auto) 0.0 Basophils # (Auto) 0.0 CBC Comment DIFF FINAL Differential Comment Prothrombin Time 12.0 Prothromb Time International 1.1 Ratio Sodium Level 138 Potassium Level 4.3 Chloride Level 100 Carbon Dioxide Level 31.3 Anion Gap 7 Blood Urea Nitrogen 12 Creatinine 1.13 Estimat Glomerular Filtration 63 Rate Random Glucose 185 Calcium Level 9.1 Radiology Last Impressions Chest X-Ray 12/01/16 1352 Signed Impressions: Service Date/Time: December 13:52 - CONCLUSION: Mild patchy bilateral lower lung zone parenchymal opacity and low lung volumes. Maninder Mg MD Abdomen/Pelvis CT 12/01/16 0000 Signed Impressions: Service Date/Time: December 19:21 - CONCLUSION: 1. Gas dilated colon without an obstructing mass or lesion. This suggests a colonic ileus. 2. Trace amount of free fluid. 3. Bibasilar atelectasis. 4. Coronary artery atherosclerotic calcifications. 5. 2.8 x 2.6 cm AAA 6. Atrophic right kidney Jem Segundo Jr., MD Abdomen X-Ray 12/01/16 0000 Signed Impressions: Service Date/Time: December 11:07 - CONCLUSION: Diffuse air-filled distention of the colon, likely representing ileus. Maninder Mg MD Narrative Exam Minimal abdominal distention; nontender A/P Problem List: (1) Adynamic ileus (2) Atrial fibrillation (3) Palpitations (4) SOB (shortness of breath) (5) Abdominal pain Assessment and Plan 75 year old male s/p cardiac catheterization; with 1 week of abdominal pain/ distention -Not going to drain the effusion; on nasal cannula now -Continue non op treatment -Will sign off; reconsult if needed. Problem Qualifiers (1) Abdominal pain: Qualified Code: R10.84 - Generalized abdominal pain Arnoldo Horowitz MD Dec 14, 2016 18:21
[2016-12-14] MEDS: RESP: ALBUTEROL 2.5 MG/IPRATROPIUM 0.5 MG NEB (PRN) NEB (19:21)
[2016-12-14] MEDS: DULoxetine HCl DR 60 MG CAP PO SCH (20:20)
[2016-12-14] MEDS: TAMSULOSIN HCL 0.4 MG CAP PO SCH (20:20)
[2016-12-14] MEDS: TEMAZEPAM 15 MG CAP PO PRN (20:20)
--- NOTE | 2016-12-14 21:17 | HHI.PR ---
Subjective Remarks Doing ok Objective Vital Signs Date Time Temp Pulse Resp B/P Pulse Ox O2 Delivery O2 Flow Rate FiO2 12/14/16 19:21 95 Nasal Cannula 4.00 12/14/16 16:00 91 144/72 97 12/14/16 13:30 118 94 12/14/16 13:30 118 94 12/14/16 13:00 135 142/86 97 12/14/16 13:00 135 142/86 97 12/14/16 12:30 137 97 12/14/16 12:30 137 97 12/14/16 12:00 98.0 76 22 142/88 97 12/14/16 12:00 132 142/88 98 12/14/16 12:00 132 142/88 98 12/14/16 11:30 134 97 12/14/16 11:30 134 97 12/14/16 11:00 137 156/86 96 12/14/16 11:00 137 156/86 96 12/14/16 10:30 129 98 12/14/16 10:30 129 98 12/14/16 10:00 127 131/76 97 12/14/16 10:00 127 131/76 97 12/14/16 09:30 106 97 12/14/16 09:30 106 97 12/14/16 09:00 115 131/68 98 12/14/16 09:00 115 131/68 98 12/14/16 08:30 123 98 12/14/16 08:30 123 98 12/14/16 08:00 120 156/79 98 12/14/16 08:00 120 156/79 98 12/14/16 08:00 98.2 117 22 157/76 97 12/14/16 07:36 96 Nasal Cannula 4.00 12/14/16 04:00 98.0 109 22 142/83 97 12/14/16 00:00 98.2 106 20 167/89 93 I/O 12/13/16 12/13/16 12/13/16 12/14/16 12/14/16 12/14/16 07:00 15:00 23:00 07:00 15:00 23:00 Intake Total 300 ml 480 ml 480 ml 230 ml 505 ml Output Total 250 ml 450 ml 300 ml 500 ml 650 ml Balance 50 ml 30 ml 180 ml -270 ml -145 ml Intake Oral 300 ml 480 ml 480 ml 100 ml 380 ml IV Total 130 ml 125 ml Output Urine Total 250 ml 450 ml 300 ml 500 ml 650 ml # Bowel Movements 0 0 0 Result Diagram: 12/14/160 12/14/16 0400 Imaging Alert, fully oriented, watching TV Lungs: ventilated Heart: S1, S2 regular abdomen: soft, no mass Ext: no edema Last Impressions Chest Ultrasound 12/13/16 0000 Signed Impressions: Service Date/Time: Tuesday, December 13, 2016 19:41 - CONCLUSION: Small right pleural effusion not safely drainable. Titi Cueva MD Chest CT 12/13/16 0000 Signed Impressions: Service Date/Time: Tuesday, December 13, 2016 14:31 - CONCLUSION: 1. Moderate size right pleural effusion with consolidation of the right lung base. This is worsened when compared to previous exam. 2. Atelectatic changes at the left lung base mildly worsened when compared to previous. Bernabe Pennington MD Chest X-Ray 12/10/16 0000 Signed Impressions: Service Date/Time: Saturday, December 10, 2016 09:18 - CONCLUSION: Relatively stable chest following extubation. Chaitanya Pennington MD FACR Abdomen X-Ray 12/10/16 0000 Signed Impressions: Service Date/Time: Saturday, December 10, 2016 09:18 - CONCLUSION: Interval improvement with less gaseous distention. Chaitanya Pennington MD FACR Abdomen/Pelvis CT 12/04/16 0000 Signed Impressions: Service Date/Time: Sunday, December 04, 2016 20:28 - CONCLUSION: 1. Diverticulosis of the colon without diverticulitis. 2. Gaseous distention of the ascending and transverse colon likely ileus. No obstruction. 3. Atrophic right kidney. 4. Minimal perihepatic ascites. 5. Bibasilar consolidation. 6. Bulging of the abdominal aorta with extensive atherosclerotic changes but no Amando Alejandro De Jesus MD Current Medications Medications (Trade) Dose Ordered Sig/Manuel Route Start Time Stop Time Status Last Admin (Synthroid) 25 mcg DAILY@06 PO 12/01/16 06:00 12/14/16 05:28 (Protonix) 40 mg DAILY PO 12/01/16 09:00 12/14/16 08:17 (Flomax) 0.4 mg HS PO 11/30/16 21:00 12/14/16 20:20 (Restoril) 15 mg HS PRN PO 11/30/16 19:30 12/14/16 20:20 (Reglan Inj) 5 mg Q8HR IV PUSH 12/01/16 14:00 12/14/16 20:20 (Cordarone) 200 mg DAILY PO 12/08/16 09:00 12/14/16 08:17 (Cardizem Cd) 360 mg DAILY PO 12/04/16 09:00 12/14/16 08:17 (Eliquis) 5 mg BID PO 12/03/16 11:45 12/14/16 20:20 (Cymbalta Dr) 60 mg HS PO 12/04/16 21:00 12/14/16 20:20 (Tylenol) 650 mg Q6HR PRN PO 12/04/16 13:15 12/04/16 22:07 (Peridex 0.12% Liq) 15 ml BID@08,20 MT 12/06/16 20:00 12/14/16 08:00 (Lopressor) 25 mg QID PO 12/09/16 18:00 12/14/16 20:20 (Trandate Inj) 10 mg Q4H PRN IV PUSH 12/09/16 19:45 12/10/16 20:52 (Mucinex Er) 600 mg BID PO 12/11/16 12:30 12/14/16 20:20 Enalaprilat 1.25 mg 1.25 mg Q6H PRN IV PUSH 12/12/16 14:00 12/13/16 11:59 (Maxipime Inj/NS Inj) 100 ml @ 200 mls/hr Q8H IV 12/13/16 18:00 12/14/16 18:03 Methylprednisolone Sodium Succinate 20 mg 20 mg DAILY IV PUSH 12/15/16 09:00 (Cardizem Inj/NS Inj) 125 ml @ 0 mls/hr TITRATE IV 12/14/16 14:15 12/14/16 14:56 Assessment and Plan Problem List: (1) Atrial fibrillation Status: Acute Plan: In left atrial tach. On IV cardizem. HR in the 90s. Apparent bowel movement 2 days ago. Medical management until GI issues resolve. case discussed extensively with patient. (2) Palpitations Status: Acute Plan: No significant episode today (3) SOB (shortness of breath) Status: Acute Plan: Significantly improve Thoracocentesis cancel because of not enough fluid. (4) Abdominal pain Status: Acute Plan: Improving. But still not significant bowel movement Problem Qualifiers (1) Abdominal pain: Qualified Code: R10.84 - Generalized abdominal pain Sarina Sutton MD Dec 14, 2016 21:17
[2016-12-15] VITALS (19 sets, daily range): BP systolic 120–168; BP diastolic 65–93; PULSE 82–125; RESP 18–24; TEMP 98–98.8; O2SAT 92–97
[2016-12-15] MEDS: CEFEPIME INJ 2,000 MG in SODIUM CHLORIDE 0.9% INJ 100 ML IV SCH ×3 (02:36→18:00)
[2016-12-15] MEDS: LEVOTHYROXINE SODIUM 25 MCG TAB PO SCH (05:20)
[2016-12-15] MEDS: METOCLOPRAMIDE HCL 10 MG/2 ML VIAL IV PUSH SCH ×3 (05:20→20:47)
[2016-12-15] MEDS: RESP: ALBUTEROL 2.5 MG/IPRATROPIUM 0.5 MG NEB (SCH) NEB ×4 (07:32→20:08)
[2016-12-15] MEDS: CHLORHEXIDINE 0.12% (ORAL KIT) 15 ML CUP MT SCH ×2 (08:00→20:00)
[2016-12-15] MEDS: PANTOPRAZOLE SOD 40 MG DELAYED RELEASE TAB PO SCH (08:13)
[2016-12-15] MEDS: DILTIAZEM-CD 180 MG CAP ER PO SCH (08:13)
[2016-12-15] MEDS: METOPROLOL TARTRATE 25 MG TAB PO SCH ×4 (08:13→20:47)
[2016-12-15] MEDS: guaiFENesin E.R. 600 MG TAB PO SCH ×2 (08:13→20:46)
[2016-12-15] MEDS: APIXABAN 5 MG TABLET PO SCH ×2 (08:13→20:45)
[2016-12-15] MEDS: AMIODARONE 200 MG TAB PO SCH (08:13)
[2016-12-15] MEDS ORDERED: methylPREDNISolone SOD SUCC 40 MG/1 ML VIAL IV PUSH SCH (09:00)
--- NOTE | 2016-12-15 11:26 | HHI.PR ---
Subjective Remarks Follow-up for acute respiratory failure and atrial fibrillation with RVR Rate is better control on Cardizem drip in the 90s at bedside. Patient stated that breathing has improved drastically. Denies any cough. Patient also denies any chest pain, palpitation, lightheadedness or dizziness. He stated that he is not allowed to get out of bed so is unsure if he is able to ambulate easily. Patient remains afebrile. Objective Vitals Vital Signs Date Time Temp Pulse Resp B/P Pulse Ox O2 Delivery O2 Flow Rate FiO2 12/15/16 10:00 97 12/15/16 09:00 89 12/15/16 08:00 125 12/15/16 08:00 98.1 125 163/84 97 12/15/16 07:32 96 Nasal Cannula 4.00 12/15/16 04:00 98.4 105 24 120/65 95 12/15/16 00:00 98.8 88 22 154/76 96 12/14/16 20:00 98.6 92 20 151/88 93 12/14/16 19:21 95 Nasal Cannula 4.00 12/14/16 16:00 91 144/72 97 12/14/16 13:30 118 94 12/14/16 13:30 118 94 12/14/16 13:00 135 142/86 97 12/14/16 13:00 135 142/86 97 12/14/16 12:30 137 97 12/14/16 12:30 137 97 12/14/16 12:00 98.0 76 22 142/88 97 12/14/16 12:00 132 142/88 98 12/14/16 12:00 132 142/88 98 12/14/16 11:30 134 97 12/14/16 11:30 134 97 I/O 12/14/16 12/14/16 12/14/16 12/15/16 12/15/16 12/15/16 07:00 15:00 23:00 07:00 15:00 23:00 Intake Total 230 ml 505 ml 671 ml 480 ml Output Total 500 ml 650 ml 300 ml 600 ml Balance -270 ml -145 ml 371 ml -120 ml Intake Oral 100 ml 380 ml 480 ml 240 ml IV Total 130 ml 125 ml 191 ml 240 ml Output Urine Total 500 ml 650 ml 300 ml 600 ml # Bowel Movements 0 0 0 Result Diagram: 12/14/1639912/14/16399 Objective Remarks GENERAL: in NAD SKIN: Warm and dry. HEAD: Normocephalic. EYES: No scleral icterus. No injection or drainage. NECK: Supple, trachea midline. No JVD or lymphadenopathy. CARDIOVASCULAR: Irregular rate and irregular rhythm without murmurs, gallops, or rubs. RESPIRATORY: Clear to auscultation bilaterally. No accessory muscle use. GASTROINTESTINAL: Abdomen soft, non-tender, nondistended. Procedures Decompressive colonoscopy 12/02/16 Medications and IVs Current Medications Amiodarone HCl (Cordarone) 400 mg Q12HR PO Last administered on 12/01/16 08:03 ; Start 11/30/16 at 21:00; Stop 12/01/16 at 09:05; Status DC Amiodarone HCl (Cordarone) 200 mg DAILY PO ; Start 12/06/16 at 09:00; Stop at 09:00; Status DC Apixaban (Eliquis) 2.5 mg BID PO Last administered on 12/01/16 08:03; Start at 21:00; Stop 12/01/16 at 09:05; Status DC Duloxetine HCl (Cymbalta Dr) 60 mg DAILY PO Last administered on 12/03/16 21:46 ; Start 12/01/16 at 09:00; Stop 12/03/16 at 22:32; Status DC Furosemide (Lasix) 20 mg DAILY PO ; Start 12/01/16 at 09:00; Stop 12/01/16 at 09: 00; Status DC Ipratropium Preston (Atrovent Neb) 0.5 mg Q4HR NEB NEB Last administered on 22:59; Start 11/30/16 at 20:00 Levothyroxine Sodium (Synthroid) 25 mcg DAILY@06 PO Last administered on 05:20; Start 12/01/16 at 06:00 Losartan Potassium (Cozaar) 50 mg DAILY PO Last administered on 12/04/16 08:34 ; Start 12/01/16 at 09:00; Stop 12/05/16 at 07:57; Status DC Pantoprazole Sodium (Protonix) 40 mg DAILY PO Last administered on 12/15/16 08 :13; Start 12/01/16 at 09:00 Spironolactone (Aldactone) 25 mg DAILY PO Last administered on 12/04/16 08:34; Start 12/01/16 at 09:00; Stop 12/05/16 at 08:00; Status DC Tamsulosin HCl (Flomax) 0.4 mg HS PO Last administered on 12/14/16 20:20; Start 11/30/16 at 21:00 Furosemide (Lasix Inj) 40 mg Q8HR IV PUSH Last administered on 12/01/16 13:43; Start 11/30/16 at 19:30; Stop 12/01/16 at 19:00; Status DC Temazepam 15 mg 15 mg HS PRN PO SLEEP Last administered on 12/14/16 20:20; Start 11/30/16 at 19:30 Amiodarone HCl 300 mg/Dextrose 100 ml @ 600 mls/hr NOW ONCE IV Last administered on 12/01/16 11:04; Start 12/01/16 at 10:00; Stop 12/01/16 at 10:09; Status DC Amiodarone HCl/ Dextrose (Cordarone Inj/ D5W (Wesco) Inj) 250 ml @ 0 mls/hr CONTINUOUS IV Last administered on 12/01/16 11:07; Start 12/01/16 at 10:20; Stop 12/02/16 at 15:21; Status DC Metoclopramide HCl (Reglan Inj) 5 mg Q8HR IV PUSH Last administered on 05:20; Start 12/01/16 at 14:00 Diatrizoate Meglum/ Diatrizoate Sod ( Gastroview Liq) 18 ml ONCE ONCE PO Last administered on 12/01/16 14:19; Start 12/01/16 at 13:45; Stop 12/01/16 at 13: 46; Status DC Metoprolol Tartrate (Lopressor) 25 mg Q12HR PO Last administered on 12/01/16 14 :18; Start 12/01/16 at 14:00; Stop 12/01/16 at 18:19; Status DC Diltiazem HCl (Cardizem) 30 mg Q6HR PO ; Start 12/02/16 at 00:00; Stop 12/02/16 at 00:00; Status DC Diltiazem HCl (Cardizem) 60 mg Q6HR PO Last administered on 12/02/16 13:15; Start 12/02/16 at 00:00; Stop 12/02/16 at 15:21; Status DC Epinephrine HCl (EPINEPHrine (1:10,000) INJ) 1 mg STK-MED ONCE .ROUTE ; Start at 18:41; Stop 12/01/16 at 18:42; Status DC Atropine Sulfate (Atropine Inj) 1 mg STK-MED ONCE .ROUTE ; Start 12/01/16 at 18: 42; Stop 12/01/16 at 18:43; Status DC Iodixanol (VISIPAQUE 320 INJ (Rad CT)) 50 ml STK-MED ONCE IV ; Start 12/01/16 at 19:49; Stop 12/01/16 at 19:50; Status DC Sugammadex Sodium (Bridion Inj) 400 mg STK-MED ONCE IV PUSH ; Start 12/02/16 at 10:51; Stop 12/02/16 at 10:52; Status DC Propofol (Diprivan 200 Mg/20 ml Inj) 150 mg STK-MED ONCE IV ; Start 12/02/16 at 10:48; Stop 12/02/16 at 11:08; Status DC Miscellaneous Information ALL NURSING DEPARTME... UNSCH PRN .XX SEE LABEL COMMENTS; Start 12/02/16 at 11:45; Stop 12/03/16 at 11:44; Status DC Diltiazem HCl (Cardizem Cd) 240 mg DAILY PO Last administered on 12/03/16 09:00 ; Start 12/02/16 at 18:00; Stop 12/03/16 at 09:19; Status DC Amiodarone HCl (Cordarone) 400 mg Q12HR PO Last administered on 12/07/16 08:09 ; Start 12/02/16 at 21:00; Stop 12/07/16 at 20:59; Status DC Amiodarone HCl (Cordarone) 200 mg DAILY PO Last administered on 12/15/16 08:13 ; Start 12/08/16 at 09:00 Potassium Chloride (KCl) 30 meq ONCE ONCE PO Last administered on 12/02/16 17: 18; Start 12/02/16 at 16:45; Stop 12/02/16 at 16:46; Status DC Diltiazem HCl 20 mg 20 mg ONCE ONCE IV Last administered on 12/03/16 00:32; Start 12/03/16 at 01:00; Stop 12/03/16 at 01:01; Status DC Amiodarone HCl 150 mg/Dextrose 100 ml @ 600 mls/hr NOW ONCE IV Last administered on 12/03/16 02:22; Start 12/03/16 at 02:15; Stop 12/03/16 at 02:24; Status DC Amiodarone HCl/ Dextrose (Cordarone Inj/ D5W (Wesco) Inj) 250 ml @ 0 mls/hr CONTINUOUS IV Last administered on 12/04/16 03:32; Start 12/03/16 at 02:15; Stop 12/10/16 at 09:23; Status DC Diltiazem HCl (Cardizem Cd) 360 mg DAILY PO Last administered on 12/15/16 08: 13; Start 12/04/16 at 09:00 Apixaban (Eliquis) 2.5 mg BID PO ; Start 12/03/16 at 09:30; Stop 12/03/16 at 09:30 ; Status DC Apixaban 5 mg 5 mg BID PO Last administered on 12/15/16 08:13; Start 12/03/16 at 11:45 Amiodarone HCl/ Dextrose (Cordarone Inj/ D5W 100 ml Inj) 100 ml @ 600 mls/hr NOW ONCE IV Last administered on 12/03/16 09:55; Start 12/03/16 at 10:00; Stop 12/03/16 at 10:13; Status DC Diltiazem HCl (Cardizem Cd) 120 mg ONCE ONCE PO Last administered on 12/03/16 11:58; Start 12/03/16 at 11:45; Stop 12/03/16 at 11:46; Status DC Duloxetine HCl (Cymbalta Dr) 60 mg HS PO Last administered on 12/14/16 20:20; Start 12/04/16 at 21:00 Sodium Chloride (Sodium Chloride) 1 gm TID PO Last administered on 12/05/16 13: 00; Start 12/04/16 at 09:00; Stop 12/05/16 at 17:08; Status DC Potassium Bicarb/ Potassium Chloride (K-Lyte Cl Eff) 20 meq ONCE ONCE PO Last administered on 12/04/16 09:46; Start 12/04/16 at 08:45; Stop 12/04/16 at 08: 46; Status DC Furosemide (Lasix) 20 mg DAILY PO ; Start 12/05/16 at 09:00; Stop 12/05/16 at 09: 00; Status DC Metoprolol Tartrate 50 mg 50 mg Q12HR PO Last administered on 12/04/16 09:46; Start 12/04/16 at 10:00; Stop 12/05/16 at 07:57; Status DC Sodium Chloride 1,000 ml @ 50 mls/hr Q20H IV Last administered on 12/05/16 07: 45; Start 12/04/16 at 11:45; Stop 12/05/16 at 16:32; Status DC Sodium Chloride (NS 500 ml Inj) 500 ml @ 500 mls/hr BOLUS ONCE IV ; Start 12/04 at 11:45; Stop 12/04/16 at 12:44; Status DC Acetaminophen (Tylenol) 650 mg Q6HR PRN PO pain 1 TO 10 Last administered on 22:07; Start 12/04/16 at 13:15 Iohexol 90 ml 90 ml STK-MED ONCE IV Last administered on 12/04/16 20:38; Start 12/04/16 at 20:38; Stop 12/04/16 at 20:39; Status DC Sodium Chloride (NS 1000 ml Inj) 1,000 ml @ 100 mls/hr Q10H IV Last administered on 12/05/16 08:00; Start 12/05/16 at 08:00; Stop 12/05/16 at 17:08; Status DC Metoprolol Tartrate (Lopressor) 25 mg Q12HR PO Last administered on 12/09/16 08 :37; Start 12/05/16 at 09:00; Stop 12/09/16 at 13:53; Status DC Polyethylene Glycol/ Electrolytes (Colyte Liq) 4,000 ml ONCE ONCE PO Last administered on 12/05/16 16:00; Start 12/05/16 at 16:00; Stop 12/05/16 at 16:01; Status DC Bumetanide (Bumex Inj) 2 mg BID@,18 IV PUSH Last administered on 12/06/16 08: 06; Start 12/05/16 at 18:00; Stop 12/06/16 at 12:23; Status DC Etomidate (Amidate Inj) 20 mg STK-MED ONCE .ROUTE ; Start 12/06/16 at 01:15; Stop 12/06/16 at 01:16; Status DC Fentanyl Citrate (fentaNYL INJ) 100 mcg STK-MED ONCE .ROUTE ; Start 12/06/16 at 01:28; Stop 12/06/16 at 01:29; Status DC Midazolam HCl 5 mg 5 mg STK-MED ONCE .ROUTE ; Start 12/06/16 at 01:28; Stop at 01:29; Status DC Propofol 100 ml @ As Directed STK-MED ONCE .ROUTE ; Start 12/06/16 at 01:29; Stop 12/06/16 at 01:30; Status DC Propofol 100 ml @ As Directed STK-MED ONCE .ROUTE ; Start 12/06/16 at 06:20; Stop 12/06/16 at 06:21; Status DC Propofol (Diprivan 1000 Mg/100ml Inj) 100 ml @ 0 mls/hr TITRATE IV Last administered on 12/08/16 02:38; Start 12/06/16 at 08:00; Stop 12/09/16 at 13:53; Status DC Bumetanide (Bumex Inj) 2 mg DAILY IV PUSH Last administered on 12/07/16 09:18; Start 12/07/16 at 09:00; Stop 12/07/16 at 12:05; Status DC Chlorhexidine Gluconate (Peridex 0.12% Liq) 15 ml BID@08,20 MT Last administered on 12/14/16 08:00; Start 12/06/16 at 20:00 Propofol 80 mg 80 mg STK-MED ONCE IV PUSH ; Start 12/06/16 at 16:52; Stop at 17:30; Status DC Potassium Chloride 100 ml @ 25 mls/hr ONCE ONCE IV ; Start 12/07/16 at 08:15; Stop 12/07/16 at 08:15; Status DC Potassium Chloride (KCl 40 Meq Premix Inj) 100 ml @ 25 mls/hr Q4H IV Last administered on 12/07/16 14:16; Start 12/07/16 at 08:15; Stop 12/07/16 at 20:14; Status DC Potassium Phos/ Sodium Phos 250 mg 250 mg ONCE ONCE PO Last administered on 10:49; Start 12/07/16 at 10:15; Stop 12/07/16 at 10:28; Status DC Sodium Chloride (NS 1000 ml Inj) 1,000 ml @ 30 mls/hr Q24H IV Last administered on 12/09/16 12:20; Start 12/07/16 at 12:15; Stop 12/10/16 at 09:24; Status DC Metoprolol Tartrate (Lopressor) 25 mg QID PO Last administered on 12/15/16 08: 13; Start 12/09/16 at 18:00 Labetalol HCl (Trandate Inj) 10 mg Q4H PRN IV PUSH SBP>160, DBP>90 Last administered on 12/10/16 20:52; Start 12/09/16 at 19:45 Labetalol HCl (Trandate Inj) 20 mg NOW IV Last administered on 12/09/16 22:26; Start 12/09/16 at 22:30; Stop 12/09/16 at 23:56; Status DC Guaifenesin (Mucinex Er) 600 mg BID PO Last administered on 12/15/16 08:13; Start 12/11/16 at 12:30 Albuterol/ Ipratropium (Duoneb Neb) 1 ampule Q2HR NEB PRN NEB SOB/WHEEZING Last administered on 12/14/16 19:21; Start 12/11/16 at 14:15 Enalaprilat (Vasotec Inj) 1.25 mg Q6H PRN IV PUSH SBP>160, DBP>90 Last administered on 12/13/16 11:59; Start 12/12/16 at 14:00 Methylprednisolone Sodium Succinate 20 mg 20 mg Q12HR IV PUSH Last administered on 12/14/16 08:17; Start 12/13/16 at 21:00; Stop 12/14/16 at 12:39 ; Status DC Cefepime HCl/ Sodium Chloride (Maxipime Inj/NS Inj) 100 ml @ 200 mls/hr Q8H IV Last administered on 12/15/16 11:00; Start 12/13/16 at 18:00 Albuterol/ Ipratropium (Duoneb Neb) 1 ampule QID NEB NEB Last administered on 12/15/16 10:56; Start 12/13/16 at 20:00 Methylprednisolone Sodium Succinate 20 mg 20 mg DAILY IV PUSH Last administered on 12/15/16 08:14; Start 12/15/16 at 09:00 Diltiazem HCl/ Sodium Chloride (Cardizem Inj/NS Inj) 125 ml @ 0 mls/hr TITRATE IV Last administered on 12/14/16 14:56; Start 12/14/16 at 14:15 Date of Insertion: Dec 05, 2016 Line: Central Venous Catheter A/P Problem List: (1) Atrial fibrillation ICD Code: I48.91 Status: Acute (2) Palpitations ICD Code: R00.2 Status: Acute (3) SOB (shortness of breath) ICD Code: R06.02 Status: Acute (4) Abdominal pain ICD Code: R10.9 Status: Acute (5) Adynamic ileus ICD Code: K56.0 Status: Acute (6) AFIA (acute kidney injury) ICD Code: N17.9 Status: Acute Assessment and Plan Every 5 year-old man with Adynamic Ileus Status post decompressive colonoscopy 12/02/16, S/p repeat decompressive colonoscopy on 12/06 with insertion of rectal tube. May need repeat decompressive colonoscopy. Continue with simethicone. Advance diet as tolerated Appreciate input from GI, general surgery. Clinically improved/ Respiratory insufficiency Status post extubation Oxygen requirement is improving. Patient is not on nasal cannula. CT scan of the chest on 12/13/16 showed right lower lobe pleural effusion. on Solu-Medrol 20 mg IV daily. [place] following. DuoNeb when necessary, keep oxygen saturation above 90% Clinically patient is improving. Per fitness center attendant does not need thoracentesis at the moment. Atrial fibrillation rapid ventricular response on Cardizem 360 mg daily, amiodarone 200 mg daily and Eliquis 5 mg twice a day 2-D echo with EF 40-45% Cardizem drip started and at 5 and rate currently controlled. Dr. Sutton is following patient. Continue with treatment per beauty specialist. Hypertension Continue with Lopressor, Vasotec when necessary Hypothyroidism On Synthroid 25 g daily Acute renal failure Resolved GI prophylaxis: Protonix 40 mg PO daily. DVT prophylaxis: SCDs. On Eliquis 5mg BID Discharge Planning Breathing has improved drastically but patient currently on Cardizem drip. Patient stable to be transferred to [facility]. Problem Qualifiers (1) Abdominal pain: Qualified Code: R10.84 - Generalized abdominal pain Leslie Dewey MD Dec 15, 2016 11:26
[2016-12-15] MEDS: DILTIAZEM INJ 125 MG in SODIUM CHLORIDE 0.9% INJ 100 ML IV SCH (12:38)
[2016-12-15] MEDS: RESP: IPRATROPIUM 0.5 MG/2.5 ML NEB NEB SCH (16:03)
--- NOTE | 2016-12-15 17:57 | HHI.PR ---
Subjective Remarks He is doing better.O2 sat 96 on N/C 3 L US of chest shows only 170 CC. Not marked HR was better today Objective Vital Signs Date Time Temp Pulse Resp B/P Pulse Ox O2 Delivery O2 Flow Rate FiO2 12/15/16 16:23 98.0 101 20 168/90 97 12/15/16 16:19 101 12/15/16 16:19 93 Nasal Cannula 2.00 12/15/16 16:08 92 21 12/15/16 14:00 97 12/15/16 12:00 98.3 99 149/87 93 12/15/16 12:00 99 12/15/16 10:00 97 12/15/16 09:00 89 12/15/16 08:00 125 12/15/16 08:00 98.1 125 163/84 97 12/15/16 07:32 96 Nasal Cannula 4.00 12/15/16 04:00 98.4 105 24 120/65 95 12/15/16 00:00 98.8 88 22 154/76 96 12/14/16 20:00 98.6 92 20 151/88 93 12/14/16 19:21 95 Nasal Cannula 4.00 I/O 12/14/16 12/14/16 12/14/16 12/15/16 12/15/16 12/15/16 07:00 15:00 23:00 07:00 15:00 23:00 Intake Total 230 ml 505 ml 671 ml 480 ml 523 ml Output Total 500 ml 650 ml 300 ml 600 ml 550 ml Balance -270 ml -145 ml 371 ml -120 ml -27 ml Intake Oral 100 ml 380 ml 480 ml 240 ml 480 ml IV Total 130 ml 125 ml 191 ml 240 ml 43 ml Output Urine Total 500 ml 650 ml 300 ml 600 ml 550 ml # Bowel Movements 0 0 0 0 Result Diagram: 12/14/16 0400 12/14/16 0400 Objective Remarks This is an averagely built elderly man who is pale and not dyspneic at rest. HEENT: Head normocephalic. Pupils are reactive. Sclerae were clear. Tongue is dry. Nasal mucosa clear NECK: Supple. No bruits. Mild venous distension. Trachea midline. No thyromegaly. CHEST: Equal movements with decreased breath sounds at the bases with a few basilar crackles and occasional wheezes anteriorly. HEART: The heart sounds are irregular, S1 and S2 with no definite murmur. No S3. ABDOMEN: Soft and protuberant without masses. No organomegaly. Bowel sounds are active. EXTREMITIES: Minimal edema with diminished peripheral pulses. Reflexes are 1+ with no gross motor deficits. NEUROLOGIC: Cranial nerves grossly intact. RECTAL: Exam is deferred. SKIN: No lesions observed. Assessment and Plan Assessment and Plan IMPRESSION 1. Pulmonary edema with pleural effusions. 2. Status post cardiac ablation for atrial fibrillation 3. History of COPD and emphysema. 4. Hypertension 5. Peripheral vascular disease 6. Coronary artery disease 7. Abdominal ileus resolved. Plan; 1. D/C solumedrol 2. O2 at 2 L 3. Nebs tid PRN with atrovent 4. No need for thoracentesis 5. Prednisone 20mg daily 6. PFT when stable Anju Monson MD Dec 15, 2016 17:57
[2016-12-15] MEDS: TEMAZEPAM 15 MG CAP PO PRN (20:45)
[2016-12-15] MEDS: TAMSULOSIN HCL 0.4 MG CAP PO SCH (20:45)
[2016-12-15] MEDS: DULoxetine HCl DR 60 MG CAP PO SCH (20:46)
--- NOTE | 2016-12-15 23:02 | HHI.PR ---
Subjective Remarks Tired Objective Vital Signs Date Time Temp Pulse Resp B/P Pulse Ox O2 Delivery O2 Flow Rate FiO2 12/15/16 21:10 98.8 119 18 163/93 95 12/15/16 20:08 94 Nasal Cannula 2.00 12/15/16 18:03 113 12/15/16 16:23 98.0 101 20 168/90 97 12/15/16 16:19 101 12/15/16 16:19 93 Nasal Cannula 2.00 12/15/16 16:08 92 21 12/15/16 14:00 97 12/15/16 12:00 98.3 99 149/87 93 12/15/16 12:00 99 12/15/16 10:00 97 12/15/16 09:00 89 12/15/16 08:00 125 12/15/16 08:00 98.1 125 163/84 97 12/15/16 07:32 96 Nasal Cannula 4.00 12/15/16 04:00 98.4 105 24 120/65 95 12/15/16 00:00 98.8 88 22 154/76 96 I/O 12/14/16 12/14/16 12/14/16 12/15/16 12/15/16 12/15/16 07:00 15:00 23:00 07:00 15:00 23:00 Intake Total 230 ml 505 ml 671 ml 480 ml 523 ml Output Total 500 ml 650 ml 300 ml 600 ml 550 ml Balance -270 ml -145 ml 371 ml -120 ml -27 ml Intake Oral 100 ml 380 ml 480 ml 240 ml 480 ml IV Total 130 ml 125 ml 191 ml 240 ml 43 ml Output Urine Total 500 ml 650 ml 300 ml 600 ml 550 ml # Bowel Movements 0 0 0 0 Result Diagram: 12/14/16 0400 12/14/16 0400 Imaging Alert, fully oriented, in bed Lungs: ventilated Heart: S1, S2 regular, tachycardia Abdomen: soft, no mass Ext: no edema Last Impressions Chest Ultrasound 12/13/16 0000 Signed Impressions: Service Date/Time: Tuesday, December 13, 2016 19:41 - CONCLUSION: Small right pleural effusion not safely drainable. Titi Cueva MD Chest CT 12/13/16 0000 Signed Impressions: Service Date/Time: Tuesday, December 13, 2016 14:31 - CONCLUSION: 1. Moderate size right pleural effusion with consolidation of the right lung base. This is worsened when compared to previous exam. 2. Atelectatic changes at the left lung base mildly worsened when compared to previous. Bernabe Pennington MD Chest X-Ray 12/10/16 0000 Signed Impressions: Service Date/Time: Saturday, December 10, 2016 09:18 - CONCLUSION: Relatively stable chest following extubation. Chaitanya Pennington MD FACR Abdomen X-Ray 12/10/16 0000 Signed Impressions: Service Date/Time: Saturday, December 10, 2016 09:18 - CONCLUSION: Interval improvement with less gaseous distention. Chaitanya Pennington MD FACR Abdomen/Pelvis CT 12/04/16 0000 Signed Impressions: Service Date/Time: Sunday, December 04, 2016 20:28 - CONCLUSION: 1. Diverticulosis of the colon without diverticulitis. 2. Gaseous distention of the ascending and transverse colon likely ileus. No obstruction. 3. Atrophic right kidney. 4. Minimal perihepatic ascites. 5. Bibasilar consolidation. 6. Bulging of the abdominal aorta with extensive atherosclerotic changes but no Amando Alejandro De Jesus MD Current Medications Medications (Trade) Dose Ordered Sig/Manuel Route Start Time Stop Time Status Last Admin (Synthroid) 25 mcg DAILY@06 PO 12/01/16 06:00 12/15/16 05:20 (Protonix) 40 mg DAILY PO 12/01/16 09:00 12/15/16 08:13 (Flomax) 0.4 mg HS PO 11/30/16 21:00 12/15/16 20:45 (Restoril) 15 mg HS PRN PO 11/30/16 19:30 12/15/16 20:45 (Reglan Inj) 5 mg Q8HR IV PUSH 12/01/16 14:00 12/15/16 20:47 (Cordarone) 200 mg DAILY PO 12/08/16 09:00 12/15/16 08:13 (Cardizem Cd) 360 mg DAILY PO 12/04/16 09:00 12/15/16 08:13 (Eliquis) 5 mg BID PO 12/03/16 11:45 12/15/16 20:45 (Cymbalta Dr) 60 mg HS PO 12/04/16 21:00 12/15/16 20:46 (Tylenol) 650 mg Q6HR PRN PO 12/04/16 13:15 12/04/16 22:07 (Peridex 0.12% Liq) 15 ml BID@08,20 MT 12/06/16 20:00 12/14/16 08:00 (Lopressor) 25 mg QID PO 12/09/16 18:00 12/15/16 20:47 (Trandate Inj) 10 mg Q4H PRN IV PUSH 12/09/16 19:45 12/10/16 20:52 (Mucinex Er) 600 mg BID PO 12/11/16 12:30 12/15/16 20:46 Enalaprilat 1.25 mg 1.25 mg Q6H PRN IV PUSH 12/12/16 14:00 12/13/16 11:59 Cefepime HCl 2000 mg/Sodium Chloride 100 ml @ 200 mls/hr Q8H IV 12/13/16 18:00 12/15/16 18:00 (Cardizem Inj/NS Inj) 125 ml @ 0 mls/hr TITRATE IV 12/14/16 14:15 12/15/16 12:38 (Deltasone) 20 mg DAILY PO 12/16/16 09:00 Assessment and Plan Problem List: (1) Atrial fibrillation Status: Acute Plan: HR in the 120s. Cannot be controlled Apparent bowel movement couple of day ago. If HR still high and cleared by GI and ID, I will consider ablation Previous cardioversion fail Case discussed with patient. (2) Palpitations Status: Acute Plan: Symptomatic (3) SOB (shortness of breath) Status: Acute Plan: Significantly improve Thoracocentesis cancel because of not enough fluid. (4) Abdominal pain Status: Acute Plan: Doing better Problem Qualifiers (1) Abdominal pain: Qualified Code: R10.84 - Generalized abdominal pain Sarina Sutton MD Dec 15, 2016 23:02
[2016-12-16] VITALS (29 sets, daily range): BP systolic 114–154; BP diastolic 74–96; PULSE 68–139; RESP 16–20; TEMP 97.9–98.8; O2SAT 92–100
[2016-12-16] MEDS: RESP: IPRATROPIUM 0.5 MG/2.5 ML NEB NEB SCH ×3 (00:02→23:32)
[2016-12-16] MEDS: CEFEPIME INJ 2,000 MG in SODIUM CHLORIDE 0.9% INJ 100 ML IV SCH ×3 (02:09→18:00)
[2016-12-16] MEDS ORDERED: DILTIAZEM HCL 25 MG/5 ML VIAL IV PUSH ONE (05:00)
[2016-12-16] MEDS: DILTIAZEM INJ 125 MG in SODIUM CHLORIDE 0.9% INJ 100 ML IV SCH (05:53)
[2016-12-16] MEDS: METOCLOPRAMIDE HCL 10 MG/2 ML VIAL IV PUSH SCH ×3 (06:42→20:51)
[2016-12-16] MEDS: LEVOTHYROXINE SODIUM 25 MCG TAB PO SCH (06:42)
[2016-12-16] MEDS: CHLORHEXIDINE 0.12% (ORAL KIT) 15 ML CUP MT SCH ×2 (08:00→20:00)
[2016-12-16] MEDS: AMIODARONE 200 MG TAB PO SCH (08:16)
[2016-12-16] MEDS: predniSONE 20 MG TAB PO SCH (08:16)
[2016-12-16] MEDS: DILTIAZEM-CD 180 MG CAP ER PO SCH (08:16)
[2016-12-16] MEDS: METOPROLOL TARTRATE 25 MG TAB PO SCH ×3 (08:16→20:51)
[2016-12-16] MEDS: APIXABAN 5 MG TABLET PO SCH ×2 (08:17→20:52)
[2016-12-16] MEDS: guaiFENesin E.R. 600 MG TAB PO SCH ×2 (08:17→20:52)
[2016-12-16] MEDS: PANTOPRAZOLE SOD 40 MG DELAYED RELEASE TAB PO SCH (08:17)
[2016-12-16] MEDS: RESP: ALBUTEROL 2.5 MG/IPRATROPIUM 0.5 MG NEB (SCH) NEB ×4 (08:26→20:39)
--- NOTE | 2016-12-16 11:14 | PD.POD.CON ---
Patient Intake Chief Complaint Pressure wound right heel Consult Requested by Dr. Dewey Reason for Consult Evaluation and treatment of pressure wound right heel Primary Care Physician Non-Staff History of Present Illness Patient is a 76-year-old male seen in the cardiac care. Patient was in ICU for quite some time and developed a pressure wound on the right heel. It is not open or draining and is more ecchymotic Coded Allergies: Plavix (Verified Allergy, Unknown, hives, 12/02/16) Preferred Language to Discuss: Portuguese Barriers to Learning: None Teaching Method: Discussion Vital Signs Date Time Temp Pulse Resp B/P Pulse Ox O2 Delivery O2 Flow Rate FiO2 12/16/16 08:27 93 Nasal Cannula 4.00 12/16/16 08:00 97.9 128 20 142/85 97 12/16/16 06:47 98.6 100 16 151/92 97 12/16/16 06:00 104 12/16/16 05:00 99 12/16/16 04:00 110 12/16/16 03:00 114 12/16/16 02:00 110 12/16/16 01:00 102 12/16/16 00:00 90 12/16/16 00:00 98.6 101 16 154/94 92 12/15/16 23:00 82 12/15/16 22:00 92 12/15/16 21:10 98.8 119 18 163/93 95 12/15/16 21:00 120 12/15/16 20:08 94 Nasal Cannula 2.00 12/15/16 20:00 122 12/15/16 19:00 110 12/15/16 18:03 113 12/15/16 16:23 98.0 101 20 168/90 97 12/15/16 16:19 101 12/15/16 16:19 93 Nasal Cannula 2.00 12/15/16 16:08 92 21 12/15/16 14:00 97 12/15/16 12:00 98.3 99 149/87 93 12/15/16 12:00 99 Pain scale used: 0-10 numeric scale Pain score: 1 Medications Current Medications Amiodarone HCl (Cordarone) 400 mg Q12HR PO Last administered on 12/01/16t 08:03 ; Start 11/30/16 at 21:00; Stop 12/01/16 at 09:05; Status DC Amiodarone HCl (Cordarone) 200 mg DAILY PO ; Start 12/06/16 at 09:00; Stop at 09:00; Status DC Apixaban (Eliquis) 2.5 mg BID PO Last administered on 12/01/16 08:03; Start at 21:00; Stop 12/01/16 at 09:05; Status DC Duloxetine HCl (Cymbalta Dr) 60 mg DAILY PO Last administered on 12/03/16 21:46 ; Start 12/01/16 at 09:00; Stop 12/03/16 at 22:32; Status DC Furosemide (Lasix) 20 mg DAILY PO ; Start 12/01/16 at 09:00; Stop 12/01/16 at 09: 00; Status DC Ipratropium Cornell (Atrovent Neb) 0.5 mg Q4HR NEB NEB Last administered on 22:59; Start 11/30/16 at 20:00 Levothyroxine Sodium (Synthroid) 25 mcg DAILY@06 PO Last administered on 06:42; Start 12/01/16 at 06:00 Losartan Potassium (Cozaar) 50 mg DAILY PO Last administered on 12/04/16 08:34 ; Start 12/01/16 at 09:00; Stop 12/05/16 at 07:57; Status DC Pantoprazole Sodium (Protonix) 40 mg DAILY PO Last administered on 12/16/16 08 :17; Start 12/01/16 at 09:00 Spironolactone (Aldactone) 25 mg DAILY PO Last administered on 12/04/16 08:34; Start 12/01/16 at 09:00; Stop 12/05/16 at 08:00; Status DC Tamsulosin HCl (Flomax) 0.4 mg HS PO Last administered on 12/15/16 20:45; Start 11/30/16 at 21:00 Furosemide (Lasix Inj) 40 mg Q8HR IV PUSH Last administered on 12/01/16 13:43; Start 11/30/16 at 19:30; Stop 12/01/16 at 19:00; Status DC Temazepam 15 mg 15 mg HS PRN PO SLEEP Last administered on 12/15/16 20:45; Start 11/30/16 at 19:30 Amiodarone HCl 300 mg/Dextrose 100 ml @ 600 mls/hr NOW ONCE IV Last administered on 12/01/16 11:04; Start 12/01/16 at 10:00; Stop 12/01/16 at 10:09; Status DC Amiodarone HCl/ Dextrose (Cordarone Inj/ D5W ([place]) Inj) 250 ml @ 0 mls/hr CONTINUOUS IV Last administered on 12/01/16 11:07; Start 12/01/16 at 10:20; Stop 12/02/16 at 15:21; Status DC Metoclopramide HCl (Reglan Inj) 5 mg Q8HR IV PUSH Last administered on 06:42; Start 12/01/16 at 14:00 Diatrizoate Meglum/ Diatrizoate Sod ( Gastroview Liq) 18 ml ONCE ONCE PO Last administered on 12/01/16 14:19; Start 12/01/16 at 13:45; Stop 12/01/16 at 13: 46; Status DC Metoprolol Tartrate (Lopressor) 25 mg Q12HR PO Last administered on 12/01/16 14 :18; Start 12/01/16 at 14:00; Stop 12/01/16 at 18:19; Status DC Diltiazem HCl (Cardizem) 30 mg Q6HR PO ; Start 12/02/16 at 00:00; Stop 12/02/16 at 00:00; Status DC Diltiazem HCl (Cardizem) 60 mg Q6HR PO Last administered on 12/02/16 13:15; Start 12/02/16 at 00:00; Stop 12/02/16 at 15:21; Status DC Epinephrine HCl (EPINEPHrine (1:10,000) INJ) 1 mg STK-MED ONCE .ROUTE ; Start at 18:41; Stop 12/01/16 at 18:42; Status DC Atropine Sulfate (Atropine Inj) 1 mg STK-MED ONCE .ROUTE ; Start 12/01/16 at 18: 42; Stop 12/01/16 at 18:43; Status DC Iodixanol (VISIPAQUE 320 INJ (Rad CT)) 50 ml STK-MED ONCE IV ; Start 12/01/16 at 19:49; Stop 12/01/16 at 19:50; Status DC Sugammadex Sodium (Bridion Inj) 400 mg STK-MED ONCE IV PUSH ; Start 12/02/16 at 10:51; Stop 12/02/16 at 10:52; Status DC Propofol (Diprivan 200 Mg/20 ml Inj) 150 mg STK-MED ONCE IV ; Start 12/02/16 at 10:48; Stop 12/02/16 at 11:08; Status DC Miscellaneous Information ALL NURSING DEPARTME... UNSCH PRN .XX SEE LABEL COMMENTS; Start 12/02/16 at 11:45; Stop 12/03/16 at 11:44; Status DC Diltiazem HCl (Cardizem Cd) 240 mg DAILY PO Last administered on 12/03/16 09:00 ; Start 12/02/16 at 18:00; Stop 12/03/16 at 09:19; Status DC Amiodarone HCl (Cordarone) 400 mg Q12HR PO Last administered on 12/07/16 08:09 ; Start 12/02/16 at 21:00; Stop 12/07/16 at 20:59; Status DC Amiodarone HCl (Cordarone) 200 mg DAILY PO Last administered on 12/16/16 08:16 ; Start 12/08/16 at 09:00 Potassium Chloride (KCl) 30 meq ONCE ONCE PO Last administered on 12/02/16 17: 18; Start 12/02/16 at 16:45; Stop 12/02/16 at 16:46; Status DC Diltiazem HCl 20 mg 20 mg ONCE ONCE IV Last administered on 12/03/16 00:32; Start 12/03/16 at 01:00; Stop 12/03/16 at 01:01; Status DC Amiodarone HCl 150 mg/Dextrose 100 ml @ 600 mls/hr NOW ONCE IV Last administered on 12/03/16 02:22; Start 12/03/16 at 02:15; Stop 12/03/16 at 02:24; Status DC Amiodarone HCl/ Dextrose (Cordarone Inj/ D5W ([place]) Inj) 250 ml @ 0 mls/hr CONTINUOUS IV Last administered on 12/04/16 03:32; Start 12/03/16 at 02:15; Stop 12/10/16 at 09:23; Status DC Diltiazem HCl (Cardizem Cd) 360 mg DAILY PO Last administered on 12/16/16 08: 16; Start 12/04/16 at 09:00 Apixaban (Eliquis) 2.5 mg BID PO ; Start 12/03/16 at 09:30; Stop 12/03/16 at 09:30 ; Status DC Apixaban 5 mg 5 mg BID PO Last administered on 12/16/16 08:17; Start 12/03/16 at 11:45 Amiodarone HCl/ Dextrose (Cordarone Inj/ D5W 100 ml Inj) 100 ml @ 600 mls/hr NOW ONCE IV Last administered on 12/03/16 09:55; Start 12/03/16 at 10:00; Stop 12/03/16 at 10:13; Status DC Diltiazem HCl (Cardizem Cd) 120 mg ONCE ONCE PO Last administered on 12/03/16 11:58; Start 12/03/16 at 11:45; Stop 12/03/16 at 11:46; Status DC Duloxetine HCl (Cymbalta Dr) 60 mg HS PO Last administered on 12/15/16 20:46; Start 12/04/16 at 21:00 Sodium Chloride (Sodium Chloride) 1 gm TID PO Last administered on 12/05/16 13: 00; Start 12/04/16 at 09:00; Stop 12/05/16 at 17:08; Status DC Potassium Bicarb/ Potassium Chloride (K-Lyte Cl Eff) 20 meq ONCE ONCE PO Last administered on 12/04/16 09:46; Start 12/04/16 at 08:45; Stop 12/04/16 at 08: 46; Status DC Furosemide (Lasix) 20 mg DAILY PO ; Start 12/05/16 at 09:00; Stop 12/05/16 at 09: 00; Status DC Metoprolol Tartrate 50 mg 50 mg Q12HR PO Last administered on 12/04/16 09:46; Start 12/04/16 at 10:00; Stop 12/05/16 at 07:57; Status DC Sodium Chloride 1,000 ml @ 50 mls/hr Q20H IV Last administered on 12/05/16 07: 45; Start 12/04/16 at 11:45; Stop 12/05/16 at 16:32; Status DC Sodium Chloride (NS 500 ml Inj) 500 ml @ 500 mls/hr BOLUS ONCE IV ; Start 12/04 at 11:45; Stop 12/04/16 at 12:44; Status DC Acetaminophen (Tylenol) 650 mg Q6HR PRN PO pain 1 TO 10 Last administered on 22:07; Start 12/04/16 at 13:15 Iohexol 90 ml 90 ml STK-MED ONCE IV Last administered on 12/04/16 20:38; Start 12/04/16 at 20:38; Stop 12/04/16 at 20:39; Status DC Sodium Chloride (NS 1000 ml Inj) 1,000 ml @ 100 mls/hr Q10H IV Last administered on 12/05/16 08:00; Start 12/05/16 at 08:00; Stop 12/05/16 at 17:08; Status DC Metoprolol Tartrate (Lopressor) 25 mg Q12HR PO Last administered on 12/09/16 08 :37; Start 12/05/16 at 09:00; Stop 12/09/16 at 13:53; Status DC Polyethylene Glycol/ Electrolytes (Colyte Liq) 4,000 ml ONCE ONCE PO Last administered on 12/05/16 16:00; Start 12/05/16 at 16:00; Stop 12/05/16 at 16:01; Status DC Bumetanide (Bumex Inj) 2 mg BID@09,18 IV PUSH Last administered on 12/06/16 08: 06; Start 12/05/16 at 18:00; Stop 12/06/16 at 12:23; Status DC Etomidate (Amidate Inj) 20 mg STK-MED ONCE .ROUTE ; Start 12/06/16 at 01:15; Stop 12/06/16 at 01:16; Status DC Fentanyl Citrate (fentaNYL INJ) 100 mcg STK-MED ONCE .ROUTE ; Start 12/06/16 at 01:28; Stop 12/06/16 at 01:29; Status DC Midazolam HCl 5 mg 5 mg STK-MED ONCE .ROUTE ; Start 12/06/16 at 01:28; Stop at 01:29; Status DC Propofol 100 ml @ As Directed STK-MED ONCE .ROUTE ; Start 12/06/16 at 01:29; Stop 12/06/16 at 01:30; Status DC Propofol 100 ml @ As Directed STK-MED ONCE .ROUTE ; Start 12/06/16 at 06:20; Stop 12/06/16 at 06:21; Status DC Propofol (Diprivan 1000 Mg/100ml Inj) 100 ml @ 0 mls/hr TITRATE IV Last administered on 12/08/16 02:38; Start 12/06/16 at 08:00; Stop 12/09/16 at 13:53; Status DC Bumetanide (Bumex Inj) 2 mg DAILY IV PUSH Last administered on 12/07/16 09:18; Start 12/07/16 at 09:00; Stop 12/07/16 at 12:05; Status DC Chlorhexidine Gluconate (Peridex 0.12% Liq) 15 ml BID@08,20 MT Last administered on 12/14/16 08:00; Start 12/06/16 at 20:00 Propofol 80 mg 80 mg STK-MED ONCE IV PUSH ; Start 12/06/16 at 16:52; Stop at 17:30; Status DC Potassium Chloride 100 ml @ 25 mls/hr ONCE ONCE IV ; Start 12/07/16 at 08:15; Stop 12/07/16 at 08:15; Status DC Potassium Chloride (KCl 40 Meq Premix Inj) 100 ml @ 25 mls/hr Q4H IV Last administered on 12/07/16 14:16; Start 12/07/16 at 08:15; Stop 12/07/16 at 20:14; Status DC Potassium Phos/ Sodium Phos 250 mg 250 mg ONCE ONCE PO Last administered on 10:49; Start 12/07/16 at 10:15; Stop 12/07/16 at 10:28; Status DC Sodium Chloride (NS 1000 ml Inj) 1,000 ml @ 30 mls/hr Q24H IV Last administered on 12/09/16 12:20; Start 12/07/16 at 12:15; Stop 12/10/16 at 09:24; Status DC Metoprolol Tartrate (Lopressor) 25 mg QID PO Last administered on 12/16/16 08: 16; Start 12/09/16 at 18:00 Labetalol HCl (Trandate Inj) 10 mg Q4H PRN IV PUSH SBP>160, DBP>90 Last administered on 12/10/16 20:52; Start 12/09/16 at 19:45 Labetalol HCl (Trandate Inj) 20 mg NOW IV Last administered on 12/09/16 22:26; Start 12/09/16 at 22:30; Stop 12/09/16 at 23:56; Status DC Guaifenesin (Mucinex Er) 600 mg BID PO Last administered on 12/16/16 08:17; Start 12/11/16 at 12:30 Albuterol/ Ipratropium (Duoneb Neb) 1 ampule Q2HR NEB PRN NEB SOB/WHEEZING Last administered on 12/14/16 19:21; Start 12/11/16 at 14:15 Enalaprilat (Vasotec Inj) 1.25 mg Q6H PRN IV PUSH SBP>160, DBP>90 Last administered on 12/13/16 11:59; Start 12/12/16 at 14:00 Methylprednisolone Sodium Succinate 20 mg 20 mg Q12HR IV PUSH Last administered on 12/14/16 08:17; Start 12/13/16 at 21:00; Stop 12/14/16 at 12:39 ; Status DC Cefepime HCl/ Sodium Chloride (Maxipime Inj/NS Inj) 100 ml @ 200 mls/hr Q8H IV Last administered on 12/16/16 02:09; Start 12/13/16 at 18:00 Albuterol/ Ipratropium (Duoneb Neb) 1 ampule QID NEB NEB Last administered on 12/16/16 08:26; Start 12/13/16 at 20:00 Methylprednisolone Sodium Succinate 20 mg 20 mg DAILY IV PUSH Last administered on 12/15/16 08:14; Start 12/15/16 at 09:00; Stop 12/15/16 at 17:55 ; Status DC Diltiazem HCl/ Sodium Chloride (Cardizem Inj/NS Inj) 125 ml @ 0 mls/hr TITRATE IV Last administered on 12/16/16 05:53; Start 12/14/16 at 14:15 Prednisone (Deltasone) 20 mg DAILY PO Last administered on 12/16/16 08:16; Start 12/16/16 at 09:00 Diltiazem HCl (Cardizem Inj) 25 mg BOLUS ONCE IV PUSH ; Start 12/16/16 at 05:00 ; Stop 12/16/16 at 05:01; Status DC Past, Family & Social History Past Medical History Respiratory: REPORTS HX OF: Other respiratory history Cardiovascular: REPORTS HX OF: Atrial fibrillation Gastrointestinal: REPORTS HX OF: Other GI history Genitourinary: REPORTS HX OF: Kidney disease Past Surgical History Cardiovascular: REPORTS HX OF: Other cardiac surgery Gastrointestinal: REPORTS HX OF: Other GI surgery Review of Systems Genitourinary: COMPLAINS OF: Renal disease Musculoskeletal: COMPLAINS OF: Joint pain/swell/dysarthr Exam-Podiatry Constitutional General appearance: comfortable Nutritional status: normal Orientation: alert and oriented x3 Dermatological Exam Skin Temp - Right: Within Normal Limits Skin Texture - Right: Within Normal Limits Skin Elasticity - Right: Within Normal Limits Skin Tugor - Right: Within Normal Limits Hair Growth - Right: Within Normal Limits Pigmentation - Right: Within Normal Limits Skin Temp - Left: Within Normal Limits Skin Texture - Left: Within Normal Limits Skin Elasticity - Left: Within Normal Limits Skin Tugor - Left: Within Normal Limits Hair Growth - Left: Within Normal Limits Pigmentation - Left: Within Normal Limits Ulcers: Location/Measurements Unstageable pressure wound of the right heel. No open areas. The area appears to be ecchymosis with subcutaneous hemorrhage. No signs of infection or cellulitis Vascular/Lymphatic Exam R Dorsails Pedis: Palpable L Dorsails Pedis: Palpable R Posterior Tibial: Palpable L Posterior Tibial: Palpable Neurologic Exam Details No neurological deficits seen Muscle Strength Dorsiflexion (Right): Normal Plantarflexion (Right): Normal Inversion (Right): Normal Eversion (Right): Normal Digital (Right): Normal Dorsiflexion (Left): Normal Plantarflexion (Left): Normal Inversion (Left): Normal Eversion (Left): Normal Digital (Left): Normal Foot Range of Motion Dorsiflexion (Right): Normal Plantarflexion (Right): Normal Inversion (Right): Normal Eversion (Right): Normal Digital (Right): Normal Dorsiflexion (Left): Normal Plantarflexion (Left): Normal Inversion (Left): Normal Eversion (Left): Normal Digital (Left): Normal Lab and Radiology Results Radiology Last Impressions Chest Ultrasound 12/13/16 0000 Signed Impressions: Service Date/Time: Tuesday, December 13, 2016 19:41 - CONCLUSION: Small right pleural effusion not safely drainable. Titi Cueva MD Chest CT 12/13/16 0000 Signed Impressions: Service Date/Time: Tuesday, December 13, 2016 14:31 - CONCLUSION: 1. Moderate size right pleural effusion with consolidation of the right lung base. This is worsened when compared to previous exam. 2. Atelectatic changes at the left lung base mildly worsened when compared to previous. Bernabe Pennington MD Chest X-Ray 12/10/16 0000 Signed Impressions: Service Date/Time: Saturday, December 10, 2016 09:18 - CONCLUSION: Relatively stable chest following extubation. Chaitanya Pennington MD FACR Abdomen X-Ray 12/10/16 0000 Signed Impressions: Service Date/Time: Saturday, December 10, 2016 09:18 - CONCLUSION: Interval improvement with less gaseous distention. Chaitanya Pennington MD FACR Abdomen/Pelvis CT 12/04/16 0000 Signed Impressions: Service Date/Time: Sunday, December 04, 2016 20:28 - CONCLUSION: 1. Diverticulosis of the colon without diverticulitis. 2. Gaseous distention of the ascending and transverse colon likely ileus. No obstruction. 3. Atrophic right kidney. 4. Minimal perihepatic ascites. 5. Bibasilar consolidation. 6. Bulging of the abdominal aorta with extensive atherosclerotic changes but no Amando De Jesus MD Assessment/Plan Problem List: (1) Pressure ulcer with suspected deep tissue injury Status: Acute (2) Pressure injury of skin Status: Acute Additional Plans & Procedures PLAN: Discontinue offloading boot. Pillows under legs so heals rest off the bed. No topical treatment needed at this moment. Follow as needed. Problem Qualifiers (1) Pressure ulcer with suspected deep tissue injury: Qualified Code: L89.95 - Pressure ulcer with suspected deep tissue injury, unstageable (2) Pressure injury of skin: Qualified Code: L89.610 - Decubitus ulcer of right heel, unstageable Amando Fajardo DPM Dec 16, 2016 11:14
--- NOTE | 2016-12-16 11:27 | HHI.GIFU ---
Subjective Remarks Pt resting in bed, in no apparent distress. GI reconsulted for clearance for cardiac procedures. Pt says he had black stool maybe a year ago but non recently. No blood in stool, hematemesis. (Nova James) Objective Vitals I&O Vital Signs Date Time Temp Pulse Resp B/P Pulse Ox O2 Delivery O2 Flow Rate FiO2 12/16/16 08:27 93 Nasal Cannula 4.00 12/16/16 08:00 97.9 128 20 142/85 97 12/16/16 06:47 98.6 100 16 151/92 97 12/16/16 06:00 104 12/16/16 05:00 99 12/16/16 04:00 110 12/16/16 03:00 114 12/16/16 02:00 110 12/16/16 01:00 102 12/16/16 00:00 90 12/16/16 00:00 98.6 101 16 154/94 92 12/15/16 23:00 82 12/15/16 22:00 92 12/15/16 21:10 98.8 119 18 163/93 95 12/15/16 21:00 120 12/15/16 20:08 94 Nasal Cannula 2.00 12/15/16 20:00 122 12/15/16 19:00 110 12/15/16 18:03 113 12/15/16 16:23 98.0 101 20 168/90 97 12/15/16 16:19 101 12/15/16 16:19 93 Nasal Cannula 2.00 12/15/16 16:08 92 21 12/15/16 14:00 97 12/15/16 12:00 98.3 99 149/87 93 12/15/16 12:00 99 I/O 12/15/16 12/15/16 12/15/16 12/16/16 12/16/16 12/16/16 07:00 15:00 23:00 07:00 15:00 23:00 Intake Total 480 ml 523 ml 900 ml Output Total 600 ml 550 ml 1150 ml Balance -120 ml -27 ml -250 ml Intake Oral 240 ml 480 ml 720 ml IV Total 240 ml 43 ml 180 ml Output Urine Total 600 ml 550 ml 1150 ml # Bowel Movements 0 0 Imaging Last Impressions Chest Ultrasound 12/13/16 0000 Signed Impressions: Service Date/Time: Tuesday, December 13, 2016 19:41 - CONCLUSION: Small right pleural effusion not safely drainable. Titi Cueva MD Chest CT 12/13/16 0000 Signed Impressions: Service Date/Time: Tuesday, December 13, 2016 14:31 - CONCLUSION: 1. Moderate size right pleural effusion with consolidation of the right lung base. This is worsened when compared to previous exam. 2. Atelectatic changes at the left lung base mildly worsened when compared to previous. Bernabe Pennington MD Chest X-Ray 12/10/16 0000 Signed Impressions: Service Date/Time: Saturday, December 10, 2016 09:18 - CONCLUSION: Relatively stable chest following extubation. Chaitanya Pennington MD FACR Abdomen X-Ray 12/10/16 0000 Signed Impressions: Service Date/Time: Saturday, December 10, 2016 09:18 - CONCLUSION: Interval improvement with less gaseous distention. Chaitanya Pennington MD FACR Abdomen/Pelvis CT 12/04/16 0000 Signed Impressions: Service Date/Time: Sunday, December 04, 2016 20:28 - CONCLUSION: 1. Diverticulosis of the colon without diverticulitis. 2. Gaseous distention of the ascending and transverse colon likely ileus. No obstruction. 3. Atrophic right kidney. 4. Minimal perihepatic ascites. 5. Bibasilar consolidation. 6. Bulging of the abdominal aorta with extensive atherosclerotic changes but no Amando FEdil De Jesus MD Physical Exam HEENT: PERRLA, normocephalic; atraumatic; no jaundice. CHEST: diminished CARDIAC: irr HR ABDOMEN: Nondistended, soft, nontender; no hepatosplenomegaly; bowel sounds hypoactive EXTREMITIES: No clubbing, cyanosis, or edema. SKIN: Normal; no rash; no jaundice. INSTITUTIONAL AIDE: AO (Nova James) Assessment and Plan Plan ASSESSMENT - Ileus- improved. s/p [address] 12-04-16--> 1. Diverticulosis of the colon without diverticulitis. 2. Gaseous distention of the ascending and transverse colon likely ileus. No obstruction. 3. Atrophic right kidney. 4. Minimal perihepatic ascites S/P decompressive colonoscopy on (12/02/16)--Diverticulum in the sigmoid colon. Scope advanced to the right colon and air decompressed and suctioned out. Poor bowel prep limited mucosal inspection. KUB 12/01/16--shows diffuse air filled distention of colon, likely representing ileus. CT on (12/01/16) 1. Gas dilated colon without an obstructing mass or lesion. This suggests a colonic ileus. 2. Trace amount of free fluid. 3. Bibasilar atelectasis. 4. Coronary artery atherosclerotic calcifications. 5. 2.8 x 2.6 cm AAA 6. Atrophic right kidney Abdomen X-Ray 12/03/16--Diffuse air-filled distention of the transverse colon unchanged, likely representing ileus. - Anemia/heme (+) stools, No signs of bleeding, stable HH. PLAN - okay to proceed with cardiac procedures as needed - f/u as OP for EGD/colonoscopy - notify GI of active bleeding - Supportive care. - Ileus seems to have resolved - GI will sign off, reconsult if needed This pt seen by myself and DR Mahajan and this note is written on his behalf. (Nova James) Physician Comments Seen and examined with HOUSE ADMIN, reconsulted for clearance for cardiac ablation. No active gi bleed reported, H/H stable. Abdomen still distended but pt. states it is close to his baseline. Last BM this morning reported as small and meggan. One dose of mag citrate today, kub in am. Can proceed with cardiac staley as needed. thank you (Mona Mahajan MD) Nova James Dec 16, 2016 11:27 Mona Mahajan MD Dec 16, 2016 12:23
[2016-12-16] MEDS ORDERED: MAGNESIUM CITRATE SOLN 300 ML BTL PO ONE (12:15)
--- NOTE | 2016-12-16 13:07 | HHI.PR ---
Subjective Remarks Follow-up for atrial fibrillation with RVR and respiratory failure Patient is currently getting PFT done He has no complaints. Deny any shortness of breathing or cough. Patient anxious to go home. Heart rate has improved. Objective Vitals Vital Signs Date Time Temp Pulse Resp B/P Pulse Ox O2 Delivery O2 Flow Rate FiO2 12/16/16 08:27 93 Nasal Cannula 4.00 12/16/16 08:00 97.9 128 20 142/85 97 12/16/16 06:47 98.6 100 16 151/92 97 12/16/16 06:00 104 12/16/16 05:00 99 12/16/16 04:00 110 12/16/16 03:00 114 12/16/16 02:00 110 12/16/16 01:00 102 12/16/16 00:00 90 12/16/16 00:00 98.6 101 16 154/94 92 12/15/16 23:00 82 12/15/16 22:00 92 12/15/16 21:10 98.8 119 18 163/93 95 12/15/16 21:00 120 12/15/16 20:08 94 Nasal Cannula 2.00 12/15/16 20:00 122 12/15/16 19:00 110 12/15/16 18:03 113 12/15/16 16:23 98.0 101 20 168/90 97 12/15/16 16:19 101 12/15/16 16:19 93 Nasal Cannula 2.00 12/15/16 16:08 92 21 12/15/16 14:00 97 I/O 12/15/16 12/15/16 12/15/16 12/16/16 12/16/16 12/16/16 07:00 15:00 23:00 07:00 15:00 23:00 Intake Total 480 ml 523 ml 900 ml Output Total 600 ml 550 ml 1150 ml Balance -120 ml -27 ml -250 ml Intake Oral 240 ml 480 ml 720 ml IV Total 240 ml 43 ml 180 ml Output Urine Total 600 ml 550 ml 1150 ml # Bowel Movements 0 0 Result Diagram: 12/14/16 0400 12/14/16 0400 Objective Remarks GENERAL: in NAD SKIN: Warm and dry. HEAD: Normocephalic. EYES: No scleral icterus. No injection or drainage. NECK: Supple, trachea midline. No JVD or lymphadenopathy. CARDIOVASCULAR: Irregular rate and irregular rhythm without murmurs, gallops, or rubs. RESPIRATORY: Clear to auscultation bilaterally. No accessory muscle use. GASTROINTESTINAL: Abdomen soft, non-tender, nondistended. Procedures Decompressive colonoscopy 12/02/16 Medications and IVs Current Medications Amiodarone HCl (Cordarone) 400 mg Q12HR PO Last administered on 12/01/16 08:03 ; Start 11/30/16 at 21:00; Stop 12/01/16 at 09:05; Status DC Amiodarone HCl (Cordarone) 200 mg DAILY PO ; Start 12/06/16 at 09:00; Stop at 09:00; Status DC Apixaban (Eliquis) 2.5 mg BID PO Last administered on 12/01/16 08:03; Start at 21:00; Stop 12/01/16 at 09:05; Status DC Duloxetine HCl (Cymbalta Dr) 60 mg DAILY PO Last administered on 12/03/16 21:46 ; Start 12/01/16 at 09:00; Stop 12/03/16 at 22:32; Status DC Furosemide (Lasix) 20 mg DAILY PO ; Start 12/01/16 at 09:00; Stop 12/01/16 at 09: 00; Status DC Ipratropium [place] (Atrovent Neb) 0.5 mg Q4HR NEB NEB Last administered on 22:59; Start 11/30/16 at 20:00 Levothyroxine Sodium (Synthroid) 25 mcg DAILY@06 PO Last administered on 06:42; Start 12/01/16 at 06:00 Losartan Potassium (Cozaar) 50 mg DAILY PO Last administered on 12/04/16 08:34 ; Start 12/01/16 at 09:00; Stop 12/05/16 at 07:57; Status DC Pantoprazole Sodium (Protonix) 40 mg DAILY PO Last administered on 12/16/16 08 :17; Start 12/01/16 at 09:00 Spironolactone (Aldactone) 25 mg DAILY PO Last administered on 12/04/16 08:34; Start 12/01/16 at 09:00; Stop 12/05/16 at 08:00; Status DC Tamsulosin HCl (Flomax) 0.4 mg HS PO Last administered on 12/15/16 20:45; Start 11/30/16 at 21:00 Furosemide (Lasix Inj) 40 mg Q8HR IV PUSH Last administered on 12/01/16 13:43; Start 11/30/16 at 19:30; Stop 12/01/16 at 19:00; Status DC Temazepam 15 mg 15 mg HS PRN PO SLEEP Last administered on 12/15/16 20:45; Start 11/30/16 at 19:30 Amiodarone HCl 300 mg/Dextrose 100 ml @ 600 mls/hr NOW ONCE IV Last administered on 12/01/16 11:04; Start 12/01/16 at 10:00; Stop 12/01/16 at 10:09; Status DC Amiodarone HCl/ Dextrose (Cordarone Inj/ D5W ([place]) Inj) 250 ml @ 0 mls/hr CONTINUOUS IV Last administered on 12/01/16 11:07; Start 12/01/16 at 10:20; Stop 12/02/16 at 15:21; Status DC Metoclopramide HCl (Reglan Inj) 5 mg Q8HR IV PUSH Last administered on 06:42; Start 12/01/16 at 14:00 Diatrizoate Meglum/ Diatrizoate Sod ( Gastroview Liq) 18 ml ONCE ONCE PO Last administered on 12/01/16 14:19; Start 12/01/16 at 13:45; Stop 12/01/16 at 13: 46; Status DC Metoprolol Tartrate (Lopressor) 25 mg Q12HR PO Last administered on 12/01/16 14 :18; Start 12/01/16 at 14:00; Stop 12/01/16 at 18:19; Status DC Diltiazem HCl (Cardizem) 30 mg Q6HR PO ; Start 12/02/16 at 00:00; Stop 12/02/16 at 00:00; Status DC Diltiazem HCl (Cardizem) 60 mg Q6HR PO Last administered on 12/02/16 13:15; Start 12/02/16 at 00:00; Stop 12/02/16 at 15:21; Status DC Epinephrine HCl (EPINEPHrine (1:10,000) INJ) 1 mg STK-MED ONCE .ROUTE ; Start at 18:41; Stop 12/01/16 at 18:42; Status DC Atropine Sulfate (Atropine Inj) 1 mg STK-MED ONCE .ROUTE ; Start 12/01/16 at 18: 42; Stop 12/01/16 at 18:43; Status DC Iodixanol (VISIPAQUE 320 INJ (Rad CT)) 50 ml STK-MED ONCE IV ; Start 12/01/16 at 19:49; Stop 12/01/16 at 19:50; Status DC Sugammadex Sodium ([place] Inj) 400 mg STK-MED ONCE IV PUSH ; Start 12/02/16 at 10:51; Stop 12/02/16 at 10:52; Status DC Propofol (Diprivan 200 Mg/20 ml Inj) 150 mg STK-MED ONCE IV ; Start 12/02/16 at 10:48; Stop 12/02/16 at 11:08; Status DC Miscellaneous Information ALL NURSING DEPARTME... UNSCH PRN .XX SEE LABEL COMMENTS; Start 12/02/16 at 11:45; Stop 12/03/16 at 11:44; Status DC Diltiazem HCl (Cardizem Cd) 240 mg DAILY PO Last administered on 12/03/16 09:00 ; Start 12/02/16 at 18:00; Stop 12/03/16 at 09:19; Status DC Amiodarone HCl (Cordarone) 400 mg Q12HR PO Last administered on 12/07/16 08:09 ; Start 12/02/16 at 21:00; Stop 12/07/16 at 20:59; Status DC Amiodarone HCl (Cordarone) 200 mg DAILY PO Last administered on 12/16/16 08:16 ; Start 12/08/16 at 09:00 Potassium Chloride (KCl) 30 meq ONCE ONCE PO Last administered on 12/02/16 17: 18; Start 12/02/16 at 16:45; Stop 12/02/16 at 16:46; Status DC Diltiazem HCl 20 mg 20 mg ONCE ONCE IV Last administered on 12/03/16 00:32; Start 12/03/16 at 01:00; Stop 12/03/16 at 01:01; Status DC Amiodarone HCl 150 mg/Dextrose 100 ml @ 600 mls/hr NOW ONCE IV Last administered on 12/03/16 02:22; Start 12/03/16 at 02:15; Stop 12/03/16 at 02:24; Status DC Amiodarone HCl/ Dextrose (Cordarone Inj/ D5W ([place]) Inj) 250 ml @ 0 mls/hr CONTINUOUS IV Last administered on 12/04/16 03:32; Start 12/03/16 at 02:15; Stop 12/10/16 at 09:23; Status DC Diltiazem HCl (Cardizem Cd) 360 mg DAILY PO Last administered on 12/16/16 08: 16; Start 12/04/16 at 09:00 Apixaban (Eliquis) 2.5 mg BID PO ; Start 12/03/16 at 09:30; Stop 12/03/16 at 09:30 ; Status DC Apixaban 5 mg 5 mg BID PO Last administered on 12/16/16 08:17; Start 12/03/16 at 11:45 Amiodarone HCl/ Dextrose (Cordarone Inj/ D5W 100 ml Inj) 100 ml @ 600 mls/hr NOW ONCE IV Last administered on 12/03/16 09:55; Start 12/03/16 at 10:00; Stop 12/03/16 at 10:13; Status DC Diltiazem HCl (Cardizem Cd) 120 mg ONCE ONCE PO Last administered on 12/03/16 11:58; Start 12/03/16 at 11:45; Stop 12/03/16 at 11:46; Status DC Duloxetine HCl (Cymbalta Dr) 60 mg HS PO Last administered on 12/15/16 20:46; Start 12/04/16 at 21:00 Sodium Chloride (Sodium Chloride) 1 gm TID PO Last administered on 12/05/16 13: 00; Start 12/04/16 at 09:00; Stop 12/05/16 at 17:08; Status DC Potassium Bicarb/ Potassium Chloride (K-Lyte Cl Eff) 20 meq ONCE ONCE PO Last administered on 12/04/16 09:46; Start 12/04/16 at 08:45; Stop 12/04/16 at 08: 46; Status DC Furosemide (Lasix) 20 mg DAILY PO ; Start 12/05/16 at 09:00; Stop 12/05/16 at 09: 00; Status DC Metoprolol Tartrate 50 mg 50 mg Q12HR PO Last administered on 12/04/16 09:46; Start 12/04/16 at 10:00; Stop 12/05/16 at 07:57; Status DC Sodium Chloride 1,000 ml @ 50 mls/hr Q20H IV Last administered on 12/05/16 07: 45; Start 12/04/16 at 11:45; Stop 12/05/16 at 16:32; Status DC Sodium Chloride (NS 500 ml Inj) 500 ml @ 500 mls/hr BOLUS ONCE IV ; Start 12/04 at 11:45; Stop 12/04/16 at 12:44; Status DC Acetaminophen (Tylenol) 650 mg Q6HR PRN PO pain 1 TO 10 Last administered on 22:07; Start 12/04/16 at 13:15 Iohexol 90 ml 90 ml STK-MED ONCE IV Last administered on 12/04/16 20:38; Start 12/04/16 at 20:38; Stop 12/04/16 at 20:39; Status DC Sodium Chloride (NS 1000 ml Inj) 1,000 ml @ 100 mls/hr Q10H IV Last administered on 12/05/16 08:00; Start 12/05/16 at 08:00; Stop 12/05/16 at 17:08; Status DC Metoprolol Tartrate (Lopressor) 25 mg Q12HR PO Last administered on 12/09/16 08 :37; Start 12/05/16 at 09:00; Stop 12/09/16 at 13:53; Status DC Polyethylene Glycol/ Electrolytes (Colyte Liq) 4,000 ml ONCE ONCE PO Last administered on 12/05/16 16:00; Start 12/05/16 at 16:00; Stop 12/05/16 at 16:01; Status DC Bumetanide (Bumex Inj) 2 mg BID@09,18 IV PUSH Last administered on 12/06/16 08: 06; Start 12/05/16 at 18:00; Stop 12/06/16 at 12:23; Status DC Etomidate (Amidate Inj) 20 mg STK-MED ONCE .ROUTE ; Start 12/06/16 at 01:15; Stop 12/06/16 at 01:16; Status DC Fentanyl Citrate (fentaNYL INJ) 100 mcg STK-MED ONCE .ROUTE ; Start 12/06/16 at 01:28; Stop 12/06/16 at 01:29; Status DC Midazolam HCl 5 mg 5 mg STK-MED ONCE .ROUTE ; Start 12/06/16 at 01:28; Stop at 01:29; Status DC Propofol 100 ml @ As Directed STK-MED ONCE .ROUTE ; Start 12/06/16 at 01:29; Stop 12/06/16 at 01:30; Status DC Propofol 100 ml @ As Directed STK-MED ONCE .ROUTE ; Start 12/06/16 at 06:20; Stop 12/06/16 at 06:21; Status DC Propofol (Diprivan 1000 Mg/100ml Inj) 100 ml @ 0 mls/hr TITRATE IV Last administered on 12/08/16 02:38; Start 12/06/16 at 08:00; Stop 12/09/16 at 13:53; Status DC Bumetanide (Bumex Inj) 2 mg DAILY IV PUSH Last administered on 12/07/16 09:18; Start 12/07/16 at 09:00; Stop 12/07/16 at 12:05; Status DC Chlorhexidine Gluconate (Peridex 0.12% Liq) 15 ml BID@08,20 MT Last administered on 12/14/16 08:00; Start 12/06/16 at 20:00 Propofol 80 mg 80 mg STK-MED ONCE IV PUSH ; Start 12/06/16 at 16:52; Stop at 17:30; Status DC Potassium Chloride 100 ml @ 25 mls/hr ONCE ONCE IV ; Start 12/07/16 at 08:15; Stop 12/07/16 at 08:15; Status DC Potassium Chloride (KCl 40 Meq Premix Inj) 100 ml @ 25 mls/hr Q4H IV Last administered on 12/07/16 14:16; Start 12/07/16 at 08:15; Stop 12/07/16 at 20:14; Status DC Potassium Phos/ Sodium Phos 250 mg 250 mg ONCE ONCE PO Last administered on 10:49; Start 12/07/16 at 10:15; Stop 12/07/16 at 10:28; Status DC Sodium Chloride (NS 1000 ml Inj) 1,000 ml @ 30 mls/hr Q24H IV Last administered on 12/09/16 12:20; Start 12/07/16 at 12:15; Stop 12/10/16 at 09:24; Status DC Metoprolol Tartrate (Lopressor) 25 mg QID PO Last administered on 12/16/16 08: 16; Start 12/09/16 at 18:00 Labetalol HCl (Trandate Inj) 10 mg Q4H PRN IV PUSH SBP>160, DBP>90 Last administered on 12/10/16 20:52; Start 12/09/16 at 19:45 Labetalol HCl (Trandate Inj) 20 mg NOW IV Last administered on 12/09/16 22:26; Start 12/09/16 at 22:30; Stop 12/09/16 at 23:56; Status DC Guaifenesin (Mucinex Er) 600 mg BID PO Last administered on 12/16/16 08:17; Start 12/11/16 at 12:30 Albuterol/ Ipratropium (Duoneb Neb) 1 ampule Q2HR NEB PRN NEB SOB/WHEEZING Last administered on 12/14/16 19:21; Start 12/11/16 at 14:15 Enalaprilat (Vasotec Inj) 1.25 mg Q6H PRN IV PUSH SBP>160, DBP>90 Last administered on 12/13/16 11:59; Start 12/12/16 at 14:00 Methylprednisolone Sodium Succinate 20 mg 20 mg Q12HR IV PUSH Last administered on 12/14/16 08:17; Start 12/13/16 at 21:00; Stop 12/14/16 at 12:39 ; Status DC Cefepime HCl/ Sodium Chloride (Maxipime Inj/NS Inj) 100 ml @ 200 mls/hr Q8H IV Last administered on 12/16/16 10:00; Start 12/13/16 at 18:00 Albuterol/ Ipratropium (Duoneb Neb) 1 ampule QID NEB NEB Last administered on 12/16/16 12:28; Start 12/13/16 at 20:00 Methylprednisolone Sodium Succinate 20 mg 20 mg DAILY IV PUSH Last administered on 12/15/16 08:14; Start 12/15/16 at 09:00; Stop 12/15/16 at 17:55 ; Status DC Diltiazem HCl/ Sodium Chloride (Cardizem Inj/NS Inj) 125 ml @ 0 mls/hr TITRATE IV Last administered on 12/16/16 05:53; Start 12/14/16 at 14:15 Prednisone (Deltasone) 20 mg DAILY PO Last administered on 12/16/16 08:16; Start 12/16/16 at 09:00 Diltiazem HCl (Cardizem Inj) 25 mg BOLUS ONCE IV PUSH ; Start 12/16/16 at 05:00 ; Stop 12/16/16 at 05:01; Status DC Magnesium Citrate (Citroma Liq) 300 ml ONCE ONCE PO ; Start 12/16/16 at 12:15; Stop 12/16/16 at 12:16 Date of Insertion: Dec 05, 2016 Line: Central Venous Catheter A/P Problem List: (1) Atrial fibrillation ICD Code: I48.91 Status: Acute (2) Palpitations ICD Code: R00.2 Status: Acute (3) SOB (shortness of breath) ICD Code: R06.02 Status: Acute (4) Abdominal pain ICD Code: R10.9 Status: Acute (5) Adynamic ileus ICD Code: K56.0 Status: Acute (6) AFIA (acute kidney injury) ICD Code: N17.9 Status: Acute Assessment and Plan Every 5 year-old man with Adynamic Ileus Status post decompressive colonoscopy 12/02/16, S/p repeat decompressive colonoscopy on 12/06 with insertion of rectal tube. May need repeat decompressive colonoscopy. Continue with simethicone. Advance diet as tolerated Appreciate input from GI, general surgery. Clinically improved GI cleared for ablation. Respiratory insufficiency Status post extubation Oxygen requirement is improving. Patient is on nasal cannula. CT scan of the chest on 12/13/16 showed right lower lobe pleural effusion. Patient now on prednisone. He is getting a bedside PFT right now. Bilingual Medical Receptionist following. Atrovent 3 times a day. Clinically patient is improving. Per supervisor electronics testing does not need thoracentesis. Atrial fibrillation rapid ventricular response on Cardizem 360 mg daily, amiodarone 200 mg daily and Eliquis 5 mg twice a day 2-D echo with EF 40-45% On Cardizem. Per Dr. Sutton recommended an ablation. Hypertension Continue with Lopressor, Vasotec when necessary Hypothyroidism On Synthroid 25 g daily Acute renal failure Resolved GI prophylaxis: Protonix 40 mg PO daily. DVT prophylaxis: SCDs. On Eliquis 5mg BID Discharge Planning Patient scheduled for an ablation. Problem Qualifiers (1) Abdominal pain: Qualified Code: R10.84 - Generalized abdominal pain Leslie Dewey MD Dec 16, 2016 13:07
[2016-12-16 15:25] LABS: HEMATOCRIT 34.1 % (39.0-51.0); MEAN CELL VOLUME 86.7 FL (80.0-100.0); MEAN CORPUSCULAR HEMOGLOBIN 27.1 PG (27.0-34.0); MEAN CORPUSCULAR HGB CONC 31.3 % (32.0-36.0); PLATELET COUNT 362 TH/MM3 (150-450); RED BLOOD COUNT 3.93 MIL/MM3 (4.50-5.90); RED CELL DISTRIBUTION WIDTH 15.3 % (11.6-17.2); REVIEW FLAG FINAL; WHITE BLOOD COUNT 10.8 TH/MM3 (4.0-11.0)
[2016-12-16 15:45] LABS: POTASSIUM 4.3 MEQ/L (3.5-5.1)
--- NOTE | 2016-12-16 17:41 | HHI.PR ---
Subjective Remarks Feeling better. Ready to go home Objective Vital Signs Date Time Temp Pulse Resp B/P Pulse Ox O2 Delivery O2 Flow Rate FiO2 12/16/16 08:27 93 Nasal Cannula 4.00 12/16/16 08:00 97.9 128 20 142/85 97 12/16/16 06:47 98.6 100 16 151/92 97 12/16/16 06:00 104 12/16/16 05:00 99 12/16/16 04:00 110 12/16/16 03:00 114 12/16/16 02:00 110 12/16/16 01:00 102 12/16/16 00:00 90 12/16/16 00:00 98.6 101 16 154/94 92 12/15/16 23:00 82 12/15/16 22:00 92 12/15/16 21:10 98.8 119 18 163/93 95 12/15/16 21:00 120 12/15/16 20:08 94 Nasal Cannula 2.00 12/15/16 20:00 122 12/15/16 19:00 110 12/15/16 18:03 113 I/O 12/15/16 12/15/16 12/15/16 12/16/16 12/16/16 12/16/16 07:00 15:00 23:00 07:00 15:00 23:00 Intake Total 480 ml 523 ml 900 ml Output Total 600 ml 550 ml 1150 ml Balance -120 ml -27 ml -250 ml Intake Oral 240 ml 480 ml 720 ml IV Total 240 ml 43 ml 180 ml Output Urine Total 600 ml 550 ml 1150 ml # Bowel Movements 0 0 Result Diagram: 12/16/16 1445 12/16/16 1445 Imaging Alert, fully oriented Lungs: ventilated Heart: S1, S2 irregular Abdomen: soft, no mass Ext: no edema Last Impressions Chest Ultrasound 12/13/16 0000 Signed Impressions: Service Date/Time: Tuesday, December 13, 2016 19:41 - CONCLUSION: Small right pleural effusion not safely drainable. Titi Cueva MD Chest CT 12/13/16 0000 Signed Impressions: Service Date/Time: Tuesday, December 13, 2016 14:31 - CONCLUSION: 1. Moderate size right pleural effusion with consolidation of the right lung base. This is worsened when compared to previous exam. 2. Atelectatic changes at the left lung base mildly worsened when compared to previous. Bernabe Pennington MD Chest X-Ray 12/10/16 0000 Signed Impressions: Service Date/Time: Saturday, December 10, 2016 09:18 - CONCLUSION: Relatively stable chest following extubation. Chaitanya Pennington MD FACR Abdomen X-Ray 12/10/16 0000 Signed Impressions: Service Date/Time: Saturday, December 10, 2016 09:18 - CONCLUSION: Interval improvement with less gaseous distention. Chaitanya Pennington MD FACR Abdomen/Pelvis CT 12/04/16 0000 Signed Impressions: Service Date/Time: Sunday, December 04, 2016 20:28 - CONCLUSION: 1. Diverticulosis of the colon without diverticulitis. 2. Gaseous distention of the ascending and transverse colon likely ileus. No obstruction. 3. Atrophic right kidney. 4. Minimal perihepatic ascites. 5. Bibasilar consolidation. 6. Bulging of the abdominal aorta with extensive atherosclerotic changes but no Amando Alejandro De Jesus MD Current Medications Medications (Trade) Dose Ordered Sig/Manuel Route Start Time Stop Time Status Last Admin (Synthroid) 25 mcg DAILY@06 PO 12/01/16 06:00 12/16/16 06:42 (Protonix) 40 mg DAILY PO 12/01/16 09:00 12/16/16 08:17 (Flomax) 0.4 mg HS PO 11/30/16 21:00 12/15/16 20:45 (Restoril) 15 mg HS PRN PO 11/30/16 19:30 12/15/16 20:45 (Reglan Inj) 5 mg Q8HR IV PUSH 12/01/16 14:00 12/16/16 13:25 (Cordarone) 200 mg DAILY PO 12/08/16 09:00 12/16/16 08:16 (Cardizem Cd) 360 mg DAILY PO 12/04/16 09:00 12/16/16 08:16 (Eliquis) 5 mg BID PO 12/03/16 11:45 12/16/16 08:17 (Cymbalta Dr) 60 mg HS PO 12/04/16 21:00 12/15/16 20:46 (Tylenol) 650 mg Q6HR PRN PO 12/04/16 13:15 12/04/16 22:07 (Peridex 0.12% Liq) 15 ml BID@08,20 MT 12/06/16 20:00 12/14/16 08:00 (Lopressor) 25 mg QID PO 12/09/16 18:00 12/16/16 13:00 (Trandate Inj) 10 mg Q4H PRN IV PUSH 12/09/16 19:45 12/10/16 20:52 (Mucinex Er) 600 mg BID PO 12/11/16 12:30 12/16/16 08:17 Enalaprilat 1.25 mg 1.25 mg Q6H PRN IV PUSH 12/12/16 14:00 12/13/16 11:59 Cefepime HCl 2000 mg/Sodium Chloride 100 ml @ 200 mls/hr Q8H IV 12/13/16 18:00 12/16/16 10:00 (Cardizem Inj/NS Inj) 125 ml @ 0 mls/hr TITRATE IV 12/14/16 14:15 12/16/16 05:53 (Deltasone) 20 mg DAILY PO 12/16/16 09:00 12/16/16 08:16 Assessment and Plan Problem List: (1) Atrial fibrillation Status: Acute Plan: Heart rate control Not on anticoagulation Doing better Can be DH when stable Anticoagulation will be initiated ablation as OP. (2) Palpitations Status: Acute Plan: Doing better today (3) SOB (shortness of breath) Status: Acute Plan: Significantly improve Thoracocentesis cancel because of not enough fluid. (4) Abdominal pain Status: Acute Plan: Doing better Problem Qualifiers (1) Abdominal pain: Qualified Code: R10.84 - Generalized abdominal pain Sarina Sutton MD Dec 16, 2016 17:41
--- NOTE | 2016-12-16 18:33 | HHI.PR ---
Subjective Remarks He is about the same.No chest pain.O2 sat 95 on N/C 4 L Good output. HR was still >105 Objective Vital Signs Date Time Temp Pulse Resp B/P Pulse Ox O2 Delivery O2 Flow Rate FiO2 12/16/16 16:00 98.4 94 20 114/74 99 12/16/16 12:00 98.1 139 20 127/96 92 12/16/16 08:27 93 Nasal Cannula 4.00 12/16/16 08:00 97.9 128 20 142/85 97 12/16/16 06:47 98.6 100 16 151/92 97 12/16/16 06:00 104 12/16/16 05:00 99 12/16/16 04:00 110 12/16/16 03:00 114 12/16/16 02:00 110 12/16/16 01:00 102 12/16/16 00:00 90 12/16/16 00:00 98.6 101 16 154/94 92 12/15/16 23:00 82 12/15/16 22:00 92 12/15/16 21:10 98.8 119 18 163/93 95 12/15/16 21:00 120 12/15/16 20:08 94 Nasal Cannula 2.00 12/15/16 20:00 122 12/15/16 19:00 110 I/O 12/15/16 12/15/16 12/15/16 12/16/16 12/16/16 12/16/16 07:00 15:00 23:00 07:00 15:00 23:00 Intake Total 480 ml 523 ml 900 ml Output Total 600 ml 550 ml 1150 ml Balance -120 ml -27 ml -250 ml Intake Oral 240 ml 480 ml 720 ml IV Total 240 ml 43 ml 180 ml Output Urine Total 600 ml 550 ml 1150 ml # Bowel Movements 0 0 Result Diagram: 12/16/16 1445 12/16/16 1445 Objective Remarks This is an averagely built elderly man who is pale and not dyspneic at rest. HEENT: Head normocephalic. Pupils are reactive. Sclerae were clear. Tongue is dry. Nasal mucosa clear NECK: Supple. No bruits. Mild venous distension. Trachea midline. No thyromegaly. CHEST: Equal movements with decreased breath sounds at the bases with a few basilar crackles and occasional wheezes anteriorly. HEART: The heart sounds are irregular, S1 and S2 with no definite murmur. No S3. ABDOMEN: Soft and protuberant without masses. No organomegaly. Bowel sounds are active. EXTREMITIES: Minimal edema with diminished peripheral pulses. Reflexes are 1+ with no gross motor deficits. NEUROLOGIC: Cranial nerves grossly intact. RECTAL: Exam is deferred. SKIN: No lesions observed. Assessment and Plan Assessment and Plan IMPRESSION 1. Pulmonary edema with pleural effusions. 2. Status post cardiac ablation for atrial fibrillation 3. History of COPD and emphysema. 4. Hypertension 5. Peripheral vascular disease 6. Coronary artery disease 7. Abdominal ileus resolved. Plan; 1. Chest Xray in am 2. O2 at 3 L 3. Nebs tid PRN with atrovent 4. Cardizem and Amiodarone . 5. Prednisone 20mg daily 6. Get PFT when stable 7. BMP in am 8. Reduce Cefipime to 1 Gm IV q8h. Anju Monson MD Dec 16, 2016 18:33
[2016-12-16] MEDS: DULoxetine HCl DR 60 MG CAP PO SCH (20:52)
[2016-12-16] MEDS: TAMSULOSIN HCL 0.4 MG CAP PO SCH (20:53)
[2016-12-17] VITALS (26 sets, daily range): BP systolic 137–159; BP diastolic 76–98; PULSE 80–121; RESP 18–20; TEMP 97.8–98.7; O2SAT 94–100
[2016-12-17] MEDS: CEFEPIME INJ 1,000 MG in SODIUM CHLORIDE 0.9% INJ 100 ML IV SCH ×2 (01:50→10:00)
[2016-12-17] MEDS: RESP: IPRATROPIUM 0.5 MG/2.5 ML NEB NEB SCH ×4 (03:18→23:36)
--- NOTE | 2016-12-17 05:37 | RADRPT ---
EXAM DATE/TIME: 12/17/2016 04:24 [facility] COMPARISON: CT THORAX W/O CONTRAST, December 13, 2016, 14:31. INDICATIONS : Shortness of breath, possible pulmonary disease. MEDICAL HISTORY : Chronic obstructive pulmonary disease. Stroke. Cardiovascular disease. CHF SURGICAL HISTORY : CABG. ENCOUNTER: Subsequent ACUITY: 2 weeks PAIN SCORE: Non-responsive. LOCATION: Bilateral chest FINDINGS: A single view of the chest demonstrates bilateral mostly basilar airspace disease with small right ef fusion. Right central line in superior vena cava. Postoperative median sternotomy. No pneumothorax. P revious fusion cervical spine and lower thoracic spine. CONCLUSION: 1. Basilar airspace disease and right pleural effusion similar to December 10. Spine fixation. Josue Ibarra MD on December 17, 2016 at 5:34 Board Certified Radiologist. This report was verified electronically.
[2016-12-17] MEDS: METOPROLOL TARTRATE 25 MG TAB PO SCH ×3 (06:05→21:50)
[2016-12-17] MEDS: METOCLOPRAMIDE HCL 10 MG/2 ML VIAL IV PUSH SCH ×3 (06:05→21:50)
[2016-12-17] MEDS: LEVOTHYROXINE SODIUM 25 MCG TAB PO SCH (06:05)
[2016-12-17 06:23] LABS: BICARBONATE 33.2 MEQ/L (21.0-32.0); MAGNESIUM 1.9 MG/DL (1.5-2.5)
[2016-12-17] MEDS: RESP: ALBUTEROL 2.5 MG/IPRATROPIUM 0.5 MG NEB (SCH) NEB ×2 (07:49→12:09)
[2016-12-17] MEDS: CHLORHEXIDINE 0.12% (ORAL KIT) 15 ML CUP MT SCH ×2 (08:00→20:00)
[2016-12-17] MEDS: guaiFENesin E.R. 600 MG TAB PO SCH ×2 (08:40→21:50)
[2016-12-17] MEDS: AMIODARONE 200 MG TAB PO SCH (08:40)
[2016-12-17] MEDS: DILTIAZEM-CD 180 MG CAP ER PO SCH (08:40)
[2016-12-17] MEDS: predniSONE 20 MG TAB PO SCH (08:40)
[2016-12-17] MEDS: PANTOPRAZOLE SOD 40 MG DELAYED RELEASE TAB PO SCH (08:40)
[2016-12-17] MEDS: APIXABAN 5 MG TABLET PO SCH ×2 (08:40→21:50)
--- NOTE | 2016-12-17 11:23 | HHI.PR ---
Subjective Remarks Follow-up for pneumonia breast were failure Patient denies any shortness of breathing or cough. Patient's very anxious to go home today. Patient is on oxygen. He does not have any home oxygen. he remains afebrile. Objective Vitals Vital Signs Date Time Temp Pulse Resp B/P Pulse Ox O2 Delivery O2 Flow Rate FiO2 12/17/16 07:51 97 Nasal Cannula 2.00 12/17/16 06:00 110 12/17/16 05:00 92 12/17/16 04:00 97.8 94 20 148/87 94 12/17/16 04:00 90 12/17/16 03:00 88 12/17/16 02:00 88 12/17/16 01:00 90 12/17/16 00:17 98.5 91 20 147/76 95 12/17/16 00:00 86 12/16/16 23:00 68 12/16/16 22:00 68 12/16/16 21:00 104 12/16/16 20:39 98 Nasal Cannula 3.00 12/16/16 20:00 102 12/16/16 19:34 98.8 94 20 152/88 100 12/16/16 19:00 93 12/16/16 18:00 80 12/16/16 17:00 84 12/16/16 16:00 84 12/16/16 16:00 98.4 94 20 114/74 99 12/16/16 15:00 92 12/16/16 14:00 92 12/16/16 13:00 70 12/16/16 12:00 92 12/16/16 12:00 98.1 139 20 127/96 92 I/O 12/16/16 12/16/16 12/16/16 12/17/16 12/17/16 12/17/16 07:00 15:00 23:00 07:00 15:00 23:00 Intake Total 900 ml 580 ml Output Total 1150 ml 900 ml Balance -250 ml -320 ml Intake Oral 720 ml 480 ml IV Total 180 ml 100 ml Output Urine Total 1150 ml 900 ml # Bowel Movements 1 Result Diagram: 12/16/16 1445 12/17/16 0540 Objective Remarks GENERAL: in NAD SKIN: Warm and dry. HEAD: Normocephalic. EYES: No scleral icterus. No injection or drainage. NECK: Supple, trachea midline. No JVD or lymphadenopathy. CARDIOVASCULAR: Irregular rate and irregular rhythm without murmurs, gallops, or rubs. RESPIRATORY: Clear to auscultation bilaterally. No accessory muscle use. GASTROINTESTINAL: Abdomen soft, non-tender, nondistended. Procedures Decompressive colonoscopy 12/02/16 Medications and IVs Current Medications Amiodarone HCl (Cordarone) 400 mg Q12HR PO Last administered on 12/01/16 08:03 ; Start 11/30/16 at 21:00; Stop 12/01/16 at 09:05; Status DC Amiodarone HCl (Cordarone) 200 mg DAILY PO ; Start 12/06/16 at 09:00; Stop at 09:00; Status DC Apixaban (Eliquis) 2.5 mg BID PO Last administered on 12/01/16 08:03; Start at 21:00; Stop 12/01/16 at 09:05; Status DC Duloxetine HCl (Cymbalta Dr) 60 mg DAILY PO Last administered on 12/03/16 21:46 ; Start 12/01/16 at 09:00; Stop 12/03/16 at 22:32; Status DC Furosemide (Lasix) 20 mg DAILY PO ; Start 12/01/16 at 09:00; Stop 12/01/16 at 09: 00; Status DC Ipratropium [place] (Atrovent Neb) 0.5 mg Q4HR NEB NEB Last administered on 03:18; Start 11/30/16 at 20:00 Levothyroxine Sodium (Synthroid) 25 mcg DAILY@06 PO Last administered on 06:05; Start 12/01/16 at 06:00 Losartan Potassium (Cozaar) 50 mg DAILY PO Last administered on 12/04/16 08:34 ; Start 12/01/16 at 09:00; Stop 12/05/16 at 07:57; Status DC Pantoprazole Sodium (Protonix) 40 mg DAILY PO Last administered on 12/17/16 08 :40; Start 12/01/16 at 09:00 Spironolactone (Aldactone) 25 mg DAILY PO Last administered on 12/04/16 08:34; Start 12/01/16 at 09:00; Stop 12/05/16 at 08:00; Status DC Tamsulosin HCl (Flomax) 0.4 mg HS PO Last administered on 12/16/16 20:53; Start 11/30/16 at 21:00 Furosemide (Lasix Inj) 40 mg Q8HR IV PUSH Last administered on 12/01/16 13:43; Start 11/30/16 at 19:30; Stop 12/01/16 at 19:00; Status DC Temazepam 15 mg 15 mg HS PRN PO SLEEP Last administered on 12/15/16 20:45; Start 11/30/16 at 19:30 Amiodarone HCl 300 mg/Dextrose 100 ml @ 600 mls/hr NOW ONCE IV Last administered on 12/01/16 11:04; Start 12/01/16 at 10:00; Stop 12/01/16 at 10:09; Status DC Amiodarone HCl/ Dextrose (Cordarone Inj/ D5W ([place]) Inj) 250 ml @ 0 mls/hr CONTINUOUS IV Last administered on 12/01/16 11:07; Start 12/01/16 at 10:20; Stop 12/02/16 at 15:21; Status DC Metoclopramide HCl (Reglan Inj) 5 mg Q8HR IV PUSH Last administered on 06:05; Start 12/01/16 at 14:00 Diatrizoate Meglum/ Diatrizoate Sod ( Gastroview Liq) 18 ml ONCE ONCE PO Last administered on 12/01/16 14:19; Start 12/01/16 at 13:45; Stop 12/01/16 at 13: 46; Status DC Metoprolol Tartrate (Lopressor) 25 mg Q12HR PO Last administered on 12/01/16 14 :18; Start 12/01/16 at 14:00; Stop 12/01/16 at 18:19; Status DC Diltiazem HCl (Cardizem) 30 mg Q6HR PO ; Start 12/02/16 at 00:00; Stop 12/02/16 at 00:00; Status DC Diltiazem HCl (Cardizem) 60 mg Q6HR PO Last administered on 12/02/16 13:15; Start 12/02/16 at 00:00; Stop 12/02/16 at 15:21; Status DC Epinephrine HCl (EPINEPHrine (1:10,000) INJ) 1 mg STK-MED ONCE .ROUTE ; Start at 18:41; Stop 12/01/16 at 18:42; Status DC Atropine Sulfate (Atropine Inj) 1 mg STK-MED ONCE .ROUTE ; Start 12/01/16 at 18: 42; Stop 12/01/16 at 18:43; Status DC Iodixanol (VISIPAQUE 320 INJ (Rad CT)) 50 ml STK-MED ONCE IV ; Start 12/01/16 at 19:49; Stop 12/01/16 at 19:50; Status DC Sugammadex Sodium ([place] Inj) 400 mg STK-MED ONCE IV PUSH ; Start 12/02/16 at 10:51; Stop 12/02/16 at 10:52; Status DC Propofol (Diprivan 200 Mg/20 ml Inj) 150 mg STK-MED ONCE IV ; Start 12/02/16 at 10:48; Stop 12/02/16 at 11:08; Status DC Miscellaneous Information ALL NURSING DEPARTME... UNSCH PRN .XX SEE LABEL COMMENTS; Start 12/02/16 at 11:45; Stop 12/03/16 at 11:44; Status DC Diltiazem HCl (Cardizem Cd) 240 mg DAILY PO Last administered on 12/03/16 09:00 ; Start 12/02/16 at 18:00; Stop 12/03/16 at 09:19; Status DC Amiodarone HCl (Cordarone) 400 mg Q12HR PO Last administered on 12/07/16 08:09 ; Start 12/02/16 at 21:00; Stop 12/07/16 at 20:59; Status DC Amiodarone HCl (Cordarone) 200 mg DAILY PO Last administered on 12/17/16 08:40 ; Start 12/08/16 at 09:00 Potassium Chloride (KCl) 30 meq ONCE ONCE PO Last administered on 12/02/16 17: 18; Start 12/02/16 at 16:45; Stop 12/02/16 at 16:46; Status DC Diltiazem HCl 20 mg 20 mg ONCE ONCE IV Last administered on 12/03/16 00:32; Start 12/03/16 at 01:00; Stop 12/03/16 at 01:01; Status DC Amiodarone HCl 150 mg/Dextrose 100 ml @ 600 mls/hr NOW ONCE IV Last administered on 12/03/16 02:22; Start 12/03/16 at 02:15; Stop 12/03/16 at 02:24; Status DC Amiodarone HCl/ Dextrose (Cordarone Inj/ D5W ([place]) Inj) 250 ml @ 0 mls/hr CONTINUOUS IV Last administered on 12/04/16 03:32; Start 12/03/16 at 02:15; Stop 12/10/16 at 09:23; Status DC Diltiazem HCl (Cardizem Cd) 360 mg DAILY PO Last administered on 12/17/16 08: 40; Start 12/04/16 at 09:00 Apixaban (Eliquis) 2.5 mg BID PO ; Start 12/03/16 at 09:30; Stop 12/03/16 at 09:30 ; Status DC Apixaban 5 mg 5 mg BID PO Last administered on 12/17/16 08:40; Start 12/03/16 at 11:45 Amiodarone HCl/ Dextrose (Cordarone Inj/ D5W 100 ml Inj) 100 ml @ 600 mls/hr NOW ONCE IV Last administered on 12/03/16 09:55; Start 12/03/16 at 10:00; Stop 12/03/16 at 10:13; Status DC Diltiazem HCl (Cardizem Cd) 120 mg ONCE ONCE PO Last administered on 12/03/16 11:58; Start 12/03/16 at 11:45; Stop 12/03/16 at 11:46; Status DC Duloxetine HCl (Cymbalta Dr) 60 mg HS PO Last administered on 12/16/16 20:52; Start 12/04/16 at 21:00 Sodium Chloride (Sodium Chloride) 1 gm TID PO Last administered on 12/05/16 13: 00; Start 12/04/16 at 09:00; Stop 12/05/16 at 17:08; Status DC Potassium Bicarb/ Potassium Chloride (K-Lyte Cl Eff) 20 meq ONCE ONCE PO Last administered on 12/04/16 09:46; Start 12/04/16 at 08:45; Stop 12/04/16 at 08: 46; Status DC Furosemide (Lasix) 20 mg DAILY PO ; Start 12/05/16 at 09:00; Stop 12/05/16 at 09: 00; Status DC Metoprolol Tartrate 50 mg 50 mg Q12HR PO Last administered on 12/04/16 09:46; Start 12/04/16 at 10:00; Stop 12/05/16 at 07:57; Status DC Sodium Chloride 1,000 ml @ 50 mls/hr Q20H IV Last administered on 12/05/16 07: 45; Start 12/04/16 at 11:45; Stop 12/05/16 at 16:32; Status DC Sodium Chloride (NS 500 ml Inj) 500 ml @ 500 mls/hr BOLUS ONCE IV ; Start 12/04 at 11:45; Stop 12/04/16 at 12:44; Status DC Acetaminophen (Tylenol) 650 mg Q6HR PRN PO pain 1 TO 10 Last administered on 22:07; Start 12/04/16 at 13:15 Iohexol 90 ml 90 ml STK-MED ONCE IV Last administered on 12/04/16 20:38; Start 12/04/16 at 20:38; Stop 12/04/16 at 20:39; Status DC Sodium Chloride (NS 1000 ml Inj) 1,000 ml @ 100 mls/hr Q10H IV Last administered on 12/05/16 08:00; Start 12/05/16 at 08:00; Stop 12/05/16 at 17:08; Status DC Metoprolol Tartrate (Lopressor) 25 mg Q12HR PO Last administered on 12/09/16 08 :37; Start 12/05/16 at 09:00; Stop 12/09/16 at 13:53; Status DC Polyethylene Glycol/ Electrolytes (Colyte Liq) 4,000 ml ONCE ONCE PO Last administered on 12/05/16 16:00; Start 12/05/16 at 16:00; Stop 12/05/16 at 16:01; Status DC Bumetanide (Bumex Inj) 2 mg BID@09,18 IV PUSH Last administered on 12/06/16 08: 06; Start 12/05/16 at 18:00; Stop 12/06/16 at 12:23; Status DC Etomidate (Amidate Inj) 20 mg STK-MED ONCE .ROUTE ; Start 12/06/16 at 01:15; Stop 12/06/16 at 01:16; Status DC Fentanyl Citrate (fentaNYL INJ) 100 mcg STK-MED ONCE .ROUTE ; Start 12/06/16 at 01:28; Stop 12/06/16 at 01:29; Status DC Midazolam HCl 5 mg 5 mg STK-MED ONCE .ROUTE ; Start 12/06/16 at 01:28; Stop at 01:29; Status DC Propofol 100 ml @ As Directed STK-MED ONCE .ROUTE ; Start 12/06/16 at 01:29; Stop 12/06/16 at 01:30; Status DC Propofol 100 ml @ As Directed STK-MED ONCE .ROUTE ; Start 12/06/16 at 06:20; Stop 12/06/16 at 06:21; Status DC Propofol (Diprivan 1000 Mg/100ml Inj) 100 ml @ 0 mls/hr TITRATE IV Last administered on 12/08/16 02:38; Start 12/06/16 at 08:00; Stop 12/09/16 at 13:53; Status DC Bumetanide (Bumex Inj) 2 mg DAILY IV PUSH Last administered on 12/07/16 09:18; Start 12/07/16 at 09:00; Stop 12/07/16 at 12:05; Status DC Chlorhexidine Gluconate (Peridex 0.12% Liq) 15 ml BID@08,20 MT Last administered on 12/14/16 08:00; Start 12/06/16 at 20:00 Propofol 80 mg 80 mg STK-MED ONCE IV PUSH ; Start 12/06/16 at 16:52; Stop at 17:30; Status DC Potassium Chloride 100 ml @ 25 mls/hr ONCE ONCE IV ; Start 12/07/16 at 08:15; Stop 12/07/16 at 08:15; Status DC Potassium Chloride (KCl 40 Meq Premix Inj) 100 ml @ 25 mls/hr Q4H IV Last administered on 12/07/16 14:16; Start 12/07/16 at 08:15; Stop 12/07/16 at 20:14; Status DC Potassium Phos/ Sodium Phos 250 mg 250 mg ONCE ONCE PO Last administered on 10:49; Start 12/07/16 at 10:15; Stop 12/07/16 at 10:28; Status DC Sodium Chloride (NS 1000 ml Inj) 1,000 ml @ 30 mls/hr Q24H IV Last administered on 12/09/16 12:20; Start 12/07/16 at 12:15; Stop 12/10/16 at 09:24; Status DC Metoprolol Tartrate (Lopressor) 25 mg QID PO Last administered on 12/16/16 13: 00; Start 12/09/16 at 18:00; Stop 12/16/16 at 17:42; Status DC Labetalol HCl (Trandate Inj) 10 mg Q4H PRN IV PUSH SBP>160, DBP>90 Last administered on 12/10/16 20:52; Start 12/09/16 at 19:45 Labetalol HCl (Trandate Inj) 20 mg NOW IV Last administered on 12/09/16 22:26; Start 12/09/16 at 22:30; Stop 12/09/16 at 23:56; Status DC Guaifenesin (Mucinex Er) 600 mg BID PO Last administered on 12/17/16 08:40; Start 12/11/16 at 12:30 Albuterol/ Ipratropium (Duoneb Neb) 1 ampule Q2HR NEB PRN NEB SOB/WHEEZING Last administered on 12/14/16 19:21; Start 12/11/16 at 14:15 Enalaprilat (Vasotec Inj) 1.25 mg Q6H PRN IV PUSH SBP>160, DBP>90 Last administered on 12/13/16 11:59; Start 12/12/16 at 14:00 Methylprednisolone Sodium Succinate 20 mg 20 mg Q12HR IV PUSH Last administered on 12/14/16 08:17; Start 12/13/16 at 21:00; Stop 12/14/16 at 12:39 ; Status DC Cefepime HCl/ Sodium Chloride (Maxipime Inj/NS Inj) 100 ml @ 200 mls/hr Q8H IV Last administered on 12/16/16 18:00; Start 12/13/16 at 18:00; Stop 12/16/16 at 18:29; Status DC Albuterol/ Ipratropium (Duoneb Neb) 1 ampule QID NEB NEB Last administered on 12/17/16 07:49; Start 12/13/16 at 20:00 Methylprednisolone Sodium Succinate 20 mg 20 mg DAILY IV PUSH Last administered on 12/15/16 08:14; Start 12/15/16 at 09:00; Stop 12/15/16 at 17:55 ; Status DC Diltiazem HCl/ Sodium Chloride (Cardizem Inj/NS Inj) 125 ml @ 0 mls/hr TITRATE IV Last administered on 12/16/16 05:53; Start 12/14/16 at 14:15; Stop at 17:42; Status DC Prednisone (Deltasone) 20 mg DAILY PO Last administered on 12/17/16 08:40; Start 12/16/16 at 09:00 Diltiazem HCl (Cardizem Inj) 25 mg BOLUS ONCE IV PUSH ; Start 12/16/16 at 05:00 ; Stop 12/16/16 at 05:01; Status DC Magnesium Citrate (Citroma Liq) 300 ml ONCE ONCE PO Last administered on 12:15; Start 12/16/16 at 12:15; Stop 12/16/16 at 13:45; Status DC Metoprolol Tartrate 50 mg 50 mg Q8HR PO Last administered on 12/17/16 06:05; Start 12/16/16 at 22:00 Cefepime HCl/ Sodium Chloride (Maxipime Inj/NS Inj) 100 ml @ 200 mls/hr Q8H IV Last administered on 12/17/16 10:00; Start 12/17/16 at 02:00 Date of Insertion: Dec 05, 2016 Line: Central Venous Catheter A/P Problem List: (1) Atrial fibrillation ICD Code: I48.91 Status: Acute (2) Palpitations ICD Code: R00.2 Status: Acute (3) SOB (shortness of breath) ICD Code: R06.02 Status: Acute (4) Abdominal pain ICD Code: R10.9 Status: Acute (5) Adynamic ileus ICD Code: K56.0 Status: Acute (6) AFIA (acute kidney injury) ICD Code: N17.9 Status: Acute Assessment and Plan 76 year-old man with Adynamic Ileus Status post decompressive colonoscopy 12/02/16, S/p repeat decompressive colonoscopy on 12/06 with insertion of rectal tube. May need repeat decompressive colonoscopy. Continue with simethicone. Advance diet as tolerated Appreciate input from GI, general surgery. Clinically improved GI cleared for ablation. Respiratory insufficiency/pneumonia Status post extubation Oxygen requirement is improving. Patient is on nasal cannula. CT scan of the chest on 12/13/16 showed right lower lobe pleural effusion. on prednisone. PFT done in hospital on 12/16. Executive Chairman following. Atrovent 3 times a day. Clinically patient is improving. Per superintendent transportation does not need thoracentesis since not enough fluid. Patient is on cefepime in which dosage was decreased yesterday. Atrial fibrillation rapid ventricular response on Cardizem 360 mg daily, amiodarone 200 mg daily and Eliquis 5 mg twice a day 2-D echo with EF 40-45% Heart rate control. Per Dr. Sutton ablation can be done as outpatient. Hypertension Continue with Lopressor, Vasotec when necessary Hypothyroidism On Synthroid 25 g daily Acute renal failure Resolved GI prophylaxis: Protonix 40 mg PO daily. DVT prophylaxis: SCDs. On Eliquis 5mg BID Discharge Planning Patient is on IV antibiotics per superintendent transportation. Once patient is on oral oxygen and has oxygen if needed he can be discharged home. d/w nurse to notify me when walk test is completed. Problem Qualifiers (1) Abdominal pain: Qualified Code: R10.84 - Generalized abdominal pain Leslie Dewey MD Dec 17, 2016 11:23
--- NOTE | 2016-12-17 11:49 | PD.CARD.PN ---
Subjective Subjective Remarks Pt without complaints Objective Medications Current Medications Medications (Trade) Dose Ordered Sig/Manuel Route Start Time Stop Time Status Last Admin (Synthroid) 25 mcg DAILY@06 PO 12/01/16 06:00 12/17/16 06:05 (Protonix) 40 mg DAILY PO 12/01/16 09:00 12/17/16 08:40 (Flomax) 0.4 mg HS PO 11/30/16 21:00 12/16/16 20:53 (Restoril) 15 mg HS PRN PO 11/30/16 19:30 12/15/16 20:45 (Reglan Inj) 5 mg Q8HR IV PUSH 12/01/16 14:00 12/17/16 06:05 (Cordarone) 200 mg DAILY PO 12/08/16 09:00 12/17/16 08:40 (Cardizem Cd) 360 mg DAILY PO 12/04/16 09:00 12/17/16 08:40 (Eliquis) 5 mg BID PO 12/03/16 11:45 12/17/16 08:40 (Cymbalta Dr) 60 mg HS PO 12/04/16 21:00 12/16/16 20:52 (Tylenol) 650 mg Q6HR PRN PO 12/04/16 13:15 12/04/16 22:07 (Peridex 0.12% Liq) 15 ml BID@08,20 MT 12/06/16 20:00 12/14/16 08:00 (Trandate Inj) 10 mg Q4H PRN IV PUSH 12/09/16 19:45 12/10/16 20:52 (Mucinex Er) 600 mg BID PO 12/11/16 12:30 12/17/16 08:40 (Vasotec Inj) 1.25 mg Q6H PRN IV PUSH 12/12/16 14:00 12/13/16 11:59 (Deltasone) 20 mg DAILY PO 12/16/16 09:00 12/17/16 08:40 Metoprolol Tartrate 50 mg 50 mg Q8HR PO 12/16/16 22:00 12/17/16 06:05 (Maxipime Inj/NS Inj) 100 ml @ 200 mls/hr Q8H IV 12/17/16 02:00 12/17/16 10:00 Vital Signs / I&O Vital Signs Date Time Temp Pulse Resp B/P Pulse Ox O2 Delivery O2 Flow Rate FiO2 12/17/16 07:51 97 Nasal Cannula 2.00 12/17/16 06:00 110 12/17/16 05:00 92 12/17/16 04:00 97.8 94 20 148/87 94 12/17/16 04:00 90 12/17/16 03:00 88 12/17/16 02:00 88 12/17/16 01:00 90 12/17/16 00:17 98.5 91 20 147/76 95 12/17/16 00:00 86 12/16/16 23:00 68 12/16/16 22:00 68 12/16/16 21:00 104 12/16/16 20:39 98 Nasal Cannula 3.00 12/16/16 20:00 102 12/16/16 19:34 98.8 94 20 152/88 100 12/16/16 19:00 93 12/16/16 18:00 80 12/16/16 17:00 84 12/16/16 16:00 84 12/16/16 16:00 98.4 94 20 114/74 99 12/16/16 15:00 92 12/16/16 14:00 92 12/16/16 13:00 70 12/16/16 12:00 92 12/16/16 12:00 98.1 139 20 127/96 92 I/O 12/16/16 12/16/16 12/16/16 12/17/16 12/17/16 12/17/16 07:00 15:00 23:00 07:00 15:00 23:00 Intake Total 900 ml 580 ml Output Total 1150 ml 900 ml Balance -250 ml -320 ml Intake Oral 720 ml 480 ml IV Total 180 ml 100 ml Output Urine Total 1150 ml 900 ml # Bowel Movements 1 Physical Exam GENERAL: Well developed, well nourished. No acute distress. HEENT: Jugular venous pressure is normal. CHEST: Lungs clear to auscultation bilaterally. Unlabored respiratory effort. CARDIAC: irregular rate and rhythm without S3, S4, or murmur. ABDOMEN: Soft, nontender, no hepatosplenomegaly. Bowel sounds present. EXTREMITIES: No clubbing, cyanosis, or edema. Laboratory Laboratory Tests Test 12/16/16 12/17/16 14:45 05:40 White Blood Count 10.8 TH/MM3 Red Blood Count 3.93 MIL/MM3 Hemoglobin 10.7 GM/DL Hematocrit 34.1 % Mean Corpuscular Volume 86.7 FL Mean Corpuscular Hemoglobin 27.1 PG Mean Corpuscular Hemoglobin 31.3 % Concent Red Cell Distribution Width 15.3 % Platelet Count 362 TH/MM3 Mean Platelet Volume 7.2 FL Sodium Level 139 MEQ/L 138 MEQ/L Potassium Level 4.3 MEQ/L 4.0 MEQ/L Chloride Level 102 MEQ/L 99 MEQ/L Carbon Dioxide Level 33.0 MEQ/L 33.2 MEQ/L Anion Gap 4 MEQ/L 6 MEQ/L Blood Urea Nitrogen 18 MG/DL 20 MG/DL Creatinine 1.22 MG/DL 1.17 MG/DL Estimat Glomerular Filtration 58 ML/MIN 60 ML/MIN Rate Random Glucose 130 MG/DL 110 MG/DL Calcium Level 9.7 MG/DL 8.7 MG/DL Magnesium Level 2.0 MG/DL 1.9 MG/DL Assessment and Plan Problem List: (1) Atrial fibrillation Assessment and Plan: rates reasonable on present meds - some high HR with oxygen sat in 80's - hypoxia related--further eval per primary team -CV stable for d/c from CV perspective (2) AFIA (acute kidney injury) (3) Adynamic ileus (4) Cardiomyopathy Assessment and Plan: LVEF 40-45; on BB, sil/arb held due to AFIA Sabrina Alberts MD Dec 17, 2016 11:49
--- NOTE | 2016-12-17 14:03 | HHI.PR ---
Subjective Remarks Wants to go home .No chest pain.O2 sat 95 on N/C 4 L Good output. Objective Vital Signs Date Time Temp Pulse Resp B/P Pulse Ox O2 Delivery O2 Flow Rate FiO2 12/17/16 12:00 102 12/17/16 12:00 98.5 95 159/98 12/17/16 11:00 96 12/17/16 10:00 86 12/17/16 09:00 102 12/17/16 08:00 80 12/17/16 08:00 98.6 90 20 137/86 94 12/17/16 07:51 97 Nasal Cannula 2.00 12/17/16 07:00 90 12/17/16 06:00 110 12/17/16 05:00 92 12/17/16 04:00 97.8 94 20 148/87 94 12/17/16 04:00 90 12/17/16 03:00 88 12/17/16 02:00 88 12/17/16 01:00 90 12/17/16 00:17 98.5 91 20 147/76 95 12/17/16 00:00 86 12/16/16 23:00 68 12/16/16 22:00 68 12/16/16 21:00 104 12/16/16 20:39 98 Nasal Cannula 3.00 12/16/16 20:00 102 12/16/16 19:34 98.8 94 20 152/88 100 12/16/16 19:00 93 12/16/16 18:00 80 12/16/16 17:00 84 12/16/16 16:00 84 12/16/16 16:00 98.4 94 20 114/74 99 12/16/16 15:00 92 I/O 12/16/16 12/16/16 12/16/16 12/17/16 12/17/16 12/17/16 07:00 15:00 23:00 07:00 15:00 23:00 Intake Total 900 ml 580 ml Output Total 1150 ml 900 ml Balance -250 ml -320 ml Intake Oral 720 ml 480 ml IV Total 180 ml 100 ml Output Urine Total 1150 ml 900 ml # Bowel Movements 1 Result Diagram: 12/16/16 1445 12/17/16 0540 Objective Remarks This is an averagely built elderly man who is pale and not dyspneic at rest. HEENT: Head normocephalic. Pupils are reactive. Sclerae were clear. Tongue is dry. Nasal mucosa clear NECK: Supple. No bruits. Mild venous distension. Trachea midline. No thyromegaly. CHEST: Equal movements with decreased breath sounds at the bases with a few basilar crackles . HEART: The heart sounds are irregular, S1 and S2 with no definite murmur. No S3. ABDOMEN: Soft and protuberant without masses. No organomegaly. Bowel sounds are active. EXTREMITIES: Minimal edema with diminished peripheral pulses. Reflexes are 1+ with no gross motor deficits. NEUROLOGIC: Cranial nerves grossly intact. RECTAL: Exam is deferred. SKIN: No lesions observed. Assessment and Plan Assessment and Plan IMPRESSION 1. Pulmonary edema with pleural effusions. 2. Status post cardiac ablation for atrial fibrillation 3. History of COPD and emphysema. 4. Hypertension 5. Peripheral vascular disease 6. Coronary artery disease 7. Abdominal ileus resolved. Plan; 1. Arrange home O2 if sat <89 on walk test 2. O2 at 3 L 3. D/C Nebs 4. Cardizem and Amiodarone . 5. Prednisone 20mg daily 6. Ceftin 500 mg bid X 3 days 7. BMP in am 8.D/C Cefipime Anju Monson MD Dec 17, 2016 14:03
[2016-12-17] MEDS ORDERED: ALBUTEROL SULFATE 90 MCG/ACT HFA 8 GM INHALER INH PRN (14:15)
[2016-12-17] MEDS ORDERED: OXYGENDME NAS.CANULA (15:42)
[2016-12-17] MEDS: CEFUROXIME AXETIL 500 MG TAB PO SCH (21:50)
[2016-12-17] MEDS: DULoxetine HCl DR 60 MG CAP PO SCH (21:51)
[2016-12-17] MEDS: TAMSULOSIN HCL 0.4 MG CAP PO SCH (21:51)
[2016-12-18] VITALS (11 sets, daily range): BP systolic 138–157; BP diastolic 79–94; PULSE 87–122; RESP 20; TEMP 97.6–98.4; O2SAT 85–98
[2016-12-18] MEDS: RESP: IPRATROPIUM 0.5 MG/2.5 ML NEB NEB SCH ×4 (03:17→15:22)
[2016-12-18] MEDS: METOCLOPRAMIDE HCL 10 MG/2 ML VIAL IV PUSH SCH ×2 (06:13→14:47)
[2016-12-18] MEDS: LEVOTHYROXINE SODIUM 25 MCG TAB PO SCH (06:13)
[2016-12-18] MEDS: METOPROLOL TARTRATE 25 MG TAB PO SCH ×2 (06:13→14:47)
[2016-12-18] MEDS: DILTIAZEM-CD 180 MG CAP ER PO SCH (07:44)
[2016-12-18] MEDS: AMIODARONE 200 MG TAB PO SCH (07:44)
[2016-12-18] MEDS: PANTOPRAZOLE SOD 40 MG DELAYED RELEASE TAB PO SCH (07:44)
[2016-12-18] MEDS: guaiFENesin E.R. 600 MG TAB PO SCH (07:44)
[2016-12-18] MEDS: CEFUROXIME AXETIL 500 MG TAB PO SCH (07:45)
[2016-12-18] MEDS: predniSONE 20 MG TAB PO SCH (07:46)
[2016-12-18] MEDS: APIXABAN 5 MG TABLET PO SCH (07:46)
[2016-12-18] MEDS: CHLORHEXIDINE 0.12% (ORAL KIT) 15 ML CUP MT SCH (08:00)
--- NOTE | 2016-12-18 11:03 | HHI.PR ---
Subjective Remarks Follow-up for acute respiratory failure secondary to pneumonia Patient denies any shortness of breathing or cough. He remains afebrile. Patient is very anxious to go home. He continues to be hypoxic without oxygen. When asked patient if he was ambulating on his own he stated no. Patient feels like he just needs a rolling walker. I told patient what physical therapist recommended on 12/15/2016 in which they will suggest that he go to a rehabilitation center. Patient was adamant about going home and stated that he will not go to rehabilitation center. Patient is requesting to see physical therapist today. Objective Vitals Vital Signs Date Time Temp Pulse Resp B/P Pulse Ox O2 Delivery O2 Flow Rate FiO2 12/18/16 09:19 98 Nasal Cannula 3.00 12/18/16 08:00 98.1 104 20 147/84 95 12/18/16 07:52 85 21 12/18/16 07:00 95 Nasal Cannula 4.00 12/18/16 06:00 101 12/18/16 05:25 98 Simple Mask 8.00 12/18/16 05:00 111 12/18/16 04:00 114 12/18/16 03:00 Nasal Cannula 2.50 12/18/16 03:00 110 12/18/16 03:00 98.4 111 20 157/94 96 12/18/16 02:00 112 12/18/16 01:00 110 12/18/16 00:03 122 12/17/16 23:00 Nasal Cannula 2.50 12/17/16 23:00 121 12/17/16 23:00 98.6 115 20 146/93 98 12/17/16 22:00 113 12/17/16 21:00 101 12/17/16 20:50 96 Nasal Cannula 2.00 12/17/16 20:19 98.4 105 18 144/85 100 12/17/16 20:00 111 12/17/16 19:00 Nasal Cannula 2.50 12/17/16 19:00 101 12/17/16 16:00 98.7 112 20 142/93 100 12/17/16 16:00 118 12/17/16 15:00 100 12/17/16 14:33 2.00 12/17/16 14:00 106 12/17/16 13:00 82 12/17/16 12:00 102 12/17/16 12:00 98.5 95 159/98 12/17/16 11:00 96 I/O 12/17/16 12/17/16 12/17/16 12/18/16 12/18/16 12/18/16 07:00 15:00 23:00 07:00 15:00 23:00 Intake Total 580 ml 600 ml 240 ml Output Total 900 ml 850 ml 500 ml Balance -320 ml -250 ml -260 ml Intake Oral 480 ml 600 ml 240 ml IV Total 100 ml Output Urine Total 900 ml 850 ml 500 ml # Bowel Movements 1 4 1 Result Diagram: 12/16/16 1445 12/17/16 0540 Objective Remarks GENERAL: in NAD SKIN: Warm and dry. HEAD: Normocephalic. EYES: No scleral icterus. No injection or drainage. NECK: Supple, trachea midline. No JVD or lymphadenopathy. CARDIOVASCULAR: Irregular rate and irregular rhythm without murmurs, gallops, or rubs. RESPIRATORY: Clear to auscultation bilaterally. No accessory muscle use. GASTROINTESTINAL: Abdomen soft, non-tender, nondistended. Procedures Decompressive colonoscopy 12/02/16 Medications and IVs Current Medications Amiodarone HCl (Cordarone) 400 mg Q12HR PO Last administered on 12/01/16 08:03 ; Start 11/30/16 at 21:00; Stop 12/01/16 at 09:05; Status DC Amiodarone HCl (Cordarone) 200 mg DAILY PO ; Start 12/06/16 at 09:00; Stop at 09:00; Status DC Apixaban (Eliquis) 2.5 mg BID PO Last administered on 12/01/16 08:03; Start at 21:00; Stop 12/01/16 at 09:05; Status DC Duloxetine HCl (Cymbalta Dr) 60 mg DAILY PO Last administered on 12/03/16 21:46 ; Start 12/01/16 at 09:00; Stop 12/03/16 at 22:32; Status DC Furosemide (Lasix) 20 mg DAILY PO ; Start 12/01/16 at 09:00; Stop 12/01/16 at 09: 00; Status DC Ipratropium [place] (Atrovent Neb) 0.5 mg Q4HR NEB NEB Last administered on 07:49; Start 11/30/16 at 20:00 Levothyroxine Sodium (Synthroid) 25 mcg DAILY@06 PO Last administered on 06:13; Start 12/01/16 at 06:00 Losartan Potassium (Cozaar) 50 mg DAILY PO Last administered on 12/04/16 08:34 ; Start 12/01/16 at 09:00; Stop 12/05/16 at 07:57; Status DC Pantoprazole Sodium (Protonix) 40 mg DAILY PO Last administered on 12/18/16 07 :44; Start 12/01/16 at 09:00 Spironolactone (Aldactone) 25 mg DAILY PO Last administered on 12/04/16 08:34; Start 12/01/16 at 09:00; Stop 12/05/16 at 08:00; Status DC Tamsulosin HCl (Flomax) 0.4 mg HS PO Last administered on 12/17/16 21:51; Start 11/30/16 at 21:00 Furosemide (Lasix Inj) 40 mg Q8HR IV PUSH Last administered on 12/01/16 13:43; Start 11/30/16 at 19:30; Stop 12/01/16 at 19:00; Status DC Temazepam 15 mg 15 mg HS PRN PO SLEEP Last administered on 12/15/16 20:45; Start 11/30/16 at 19:30 Amiodarone HCl 300 mg/Dextrose 100 ml @ 600 mls/hr NOW ONCE IV Last administered on 12/01/16 11:04; Start 12/01/16 at 10:00; Stop 12/01/16 at 10:09; Status DC Amiodarone HCl/ Dextrose (Cordarone Inj/ D5W ([place]) Inj) 250 ml @ 0 mls/hr CONTINUOUS IV Last administered on 12/01/16 11:07; Start 12/01/16 at 10:20; Stop 12/02/16 at 15:21; Status DC Metoclopramide HCl (Reglan Inj) 5 mg Q8HR IV PUSH Last administered on 06:13; Start 12/01/16 at 14:00 Diatrizoate Meglum/ Diatrizoate Sod ( Gastroview Liq) 18 ml ONCE ONCE PO Last administered on 12/01/16 14:19; Start 12/01/16 at 13:45; Stop 12/01/16 at 13: 46; Status DC Metoprolol Tartrate (Lopressor) 25 mg Q12HR PO Last administered on 12/01/16 14 :18; Start 12/01/16 at 14:00; Stop 12/01/16 at 18:19; Status DC Diltiazem HCl (Cardizem) 30 mg Q6HR PO ; Start 12/02/16 at 00:00; Stop 12/02/16 at 00:00; Status DC Diltiazem HCl (Cardizem) 60 mg Q6HR PO Last administered on 12/02/16 13:15; Start 12/02/16 at 00:00; Stop 12/02/16 at 15:21; Status DC Epinephrine HCl (EPINEPHrine (1:10,000) INJ) 1 mg STK-MED ONCE .ROUTE ; Start at 18:41; Stop 12/01/16 at 18:42; Status DC Atropine Sulfate (Atropine Inj) 1 mg STK-MED ONCE .ROUTE ; Start 12/01/16 at 18: 42; Stop 12/01/16 at 18:43; Status DC Iodixanol (VISIPAQUE 320 INJ (Rad CT)) 50 ml STK-MED ONCE IV ; Start 12/01/16 at 19:49; Stop 12/01/16 at 19:50; Status DC Sugammadex Sodium ([place]ridion Inj) 400 mg STK-MED ONCE IV PUSH ; Start 12/02/16 at 10:51; Stop 12/02/16 at 10:52; Status DC Propofol (Diprivan 200 Mg/20 ml Inj) 150 mg STK-MED ONCE IV ; Start 12/02/16 at 10:48; Stop 12/02/16 at 11:08; Status DC Miscellaneous Information ALL NURSING DEPARTME... UNSCH PRN .XX SEE LABEL COMMENTS; Start 12/02/16 at 11:45; Stop 12/03/16 at 11:44; Status DC Diltiazem HCl (Cardizem Cd) 240 mg DAILY PO Last administered on 12/03/16 09:00 ; Start 12/02/16 at 18:00; Stop 12/03/16 at 09:19; Status DC Amiodarone HCl (Cordarone) 400 mg Q12HR PO Last administered on 12/07/16 08:09 ; Start 12/02/16 at 21:00; Stop 12/07/16 at 20:59; Status DC Amiodarone HCl (Cordarone) 200 mg DAILY PO Last administered on 12/18/16 07:44 ; Start 12/08/16 at 09:00 Potassium Chloride (KCl) 30 meq ONCE ONCE PO Last administered on 12/02/16 17: 18; Start 12/02/16 at 16:45; Stop 12/02/16 at 16:46; Status DC Diltiazem HCl 20 mg 20 mg ONCE ONCE IV Last administered on 12/03/16 00:32; Start 12/03/16 at 01:00; Stop 12/03/16 at 01:01; Status DC Amiodarone HCl 150 mg/Dextrose 100 ml @ 600 mls/hr NOW ONCE IV Last administered on 12/03/16 02:22; Start 12/03/16 at 02:15; Stop 12/03/16 at 02:24; Status DC Amiodarone HCl/ Dextrose (Cordarone Inj/ D5W ([place]) Inj) 250 ml @ 0 mls/hr CONTINUOUS IV Last administered on 12/04/16 03:32; Start 12/03/16 at 02:15; Stop 12/10/16 at 09:23; Status DC Diltiazem HCl (Cardizem Cd) 360 mg DAILY PO Last administered on 12/18/16 07: 44; Start 12/04/16 at 09:00 Apixaban (Eliquis) 2.5 mg BID PO ; Start 12/03/16 at 09:30; Stop 12/03/16 at 09:30 ; Status DC Apixaban 5 mg 5 mg BID PO Last administered on 12/18/16 07:46; Start 12/03/16 at 11:45 Amiodarone HCl/ Dextrose (Cordarone Inj/ D5W 100 ml Inj) 100 ml @ 600 mls/hr NOW ONCE IV Last administered on 12/03/16 09:55; Start 12/03/16 at 10:00; Stop 12/03/16 at 10:13; Status DC Diltiazem HCl (Cardizem Cd) 120 mg ONCE ONCE PO Last administered on 12/03/16 11:58; Start 12/03/16 at 11:45; Stop 12/03/16 at 11:46; Status DC Duloxetine HCl (Cymbalta Dr) 60 mg HS PO Last administered on 12/17/16 21:51; Start 12/04/16 at 21:00 Sodium Chloride (Sodium Chloride) 1 gm TID PO Last administered on 12/05/16 13: 00; Start 12/04/16 at 09:00; Stop 12/05/16 at 17:08; Status DC Potassium Bicarb/ Potassium Chloride (K-Lyte Cl Eff) 20 meq ONCE ONCE PO Last administered on 12/04/16 09:46; Start 12/04/16 at 08:45; Stop 12/04/16 at 08: 46; Status DC Furosemide (Lasix) 20 mg DAILY PO ; Start 12/05/16 at 09:00; Stop 12/05/16 at 09: 00; Status DC Metoprolol Tartrate 50 mg 50 mg Q12HR PO Last administered on 12/04/16 09:46; Start 12/04/16 at 10:00; Stop 12/05/16 at 07:57; Status DC Sodium Chloride 1,000 ml @ 50 mls/hr Q20H IV Last administered on 12/05/16 07: 45; Start 12/04/16 at 11:45; Stop 12/05/16 at 16:32; Status DC Sodium Chloride (NS 500 ml Inj) 500 ml @ 500 mls/hr BOLUS ONCE IV ; Start 12/04 at 11:45; Stop 12/04/16 at 12:44; Status DC Acetaminophen (Tylenol) 650 mg Q6HR PRN PO pain 1 TO 10 Last administered on 22:07; Start 12/04/16 at 13:15 Iohexol 90 ml 90 ml STK-MED ONCE IV Last administered on 12/04/16 20:38; Start 12/04/16 at 20:38; Stop 12/04/16 at 20:39; Status DC Sodium Chloride (NS 1000 ml Inj) 1,000 ml @ 100 mls/hr Q10H IV Last administered on 12/05/16 08:00; Start 12/05/16 at 08:00; Stop 12/05/16 at 17:08; Status DC Metoprolol Tartrate (Lopressor) 25 mg Q12HR PO Last administered on 12/09/16 08 :37; Start 12/05/16 at 09:00; Stop 12/09/16 at 13:53; Status DC Polyethylene Glycol/ Electrolytes (Colyte Liq) 4,000 ml ONCE ONCE PO Last administered on 12/05/16 16:00; Start 12/05/16 at 16:00; Stop 12/05/16 at 16:01; Status DC Bumetanide (Bumex Inj) 2 mg BID@,18 IV PUSH Last administered on 12/06/16 08: 06; Start 12/05/16 at 18:00; Stop 12/06/16 at 12:23; Status DC Etomidate (Amidate Inj) 20 mg STK-MED ONCE .ROUTE ; Start 12/06/16 at 01:15; Stop 12/06/16 at 01:16; Status DC Fentanyl Citrate (fentaNYL INJ) 100 mcg STK-MED ONCE .ROUTE ; Start 12/06/16 at 01:28; Stop 12/06/16 at 01:29; Status DC Midazolam HCl 5 mg 5 mg STK-MED ONCE .ROUTE ; Start 12/06/16 at 01:28; Stop at 01:29; Status DC Propofol 100 ml @ As Directed STK-MED ONCE .ROUTE ; Start 12/06/16 at 01:29; Stop 12/06/16 at 01:30; Status DC Propofol 100 ml @ As Directed STK-MED ONCE .ROUTE ; Start 12/06/16 at 06:20; Stop 12/06/16 at 06:21; Status DC Propofol (Diprivan 1000 Mg/100ml Inj) 100 ml @ 0 mls/hr TITRATE IV Last administered on 12/08/16 02:38; Start 12/06/16 at 08:00; Stop 12/09/16 at 13:53; Status DC Bumetanide (Bumex Inj) 2 mg DAILY IV PUSH Last administered on 12/07/16 09:18; Start 12/07/16 at 09:00; Stop 12/07/16 at 12:05; Status DC Chlorhexidine Gluconate (Peridex 0.12% Liq) 15 ml BID@08,20 MT Last administered on 12/14/16 08:00; Start 12/06/16 at 20:00 Propofol 80 mg 80 mg STK-MED ONCE IV PUSH ; Start 12/06/16 at 16:52; Stop at 17:30; Status DC Potassium Chloride 100 ml @ 25 mls/hr ONCE ONCE IV ; Start 12/07/16 at 08:15; Stop 12/07/16 at 08:15; Status DC Potassium Chloride (KCl 40 Meq Premix Inj) 100 ml @ 25 mls/hr Q4H IV Last administered on 12/07/16 14:16; Start 12/07/16 at 08:15; Stop 12/07/16 at 20:14; Status DC Potassium Phos/ Sodium Phos 250 mg 250 mg ONCE ONCE PO Last administered on 10:49; Start 12/07/16 at 10:15; Stop 12/07/16 at 10:28; Status DC Sodium Chloride (NS 1000 ml Inj) 1,000 ml @ 30 mls/hr Q24H IV Last administered on 12/09/16 12:20; Start 12/07/16 at 12:15; Stop 12/10/16 at 09:24; Status DC Metoprolol Tartrate (Lopressor) 25 mg QID PO Last administered on 12/16/16 13: 00; Start 12/09/16 at 18:00; Stop 12/16/16 at 17:42; Status DC Labetalol HCl (Trandate Inj) 10 mg Q4H PRN IV PUSH SBP>160, DBP>90 Last administered on 12/10/16 20:52; Start 12/09/16 at 19:45 Labetalol HCl (Trandate Inj) 20 mg NOW IV Last administered on 12/09/16 22:26; Start 12/09/16 at 22:30; Stop 12/09/16 at 23:56; Status DC Guaifenesin (Mucinex Er) 600 mg BID PO Last administered on 12/18/16 07:44; Start 12/11/16 at 12:30 Albuterol/ Ipratropium (Duoneb Neb) 1 ampule Q2HR NEB PRN NEB SOB/WHEEZING Last administered on 12/14/16 19:21; Start 12/11/16 at 14:15; Stop 12/17/16 at 14:06; Status DC Enalaprilat (Vasotec Inj) 1.25 mg Q6H PRN IV PUSH SBP>160, DBP>90 Last administered on 12/13/16 11:59; Start 12/12/16 at 14:00 Methylprednisolone Sodium Succinate 20 mg 20 mg Q12HR IV PUSH Last administered on 12/14/16 08:17; Start 12/13/16 at 21:00; Stop 12/14/16 at 12:39 ; Status DC Cefepime HCl/ Sodium Chloride (Maxipime Inj/NS Inj) 100 ml @ 200 mls/hr Q8H IV Last administered on 12/16/16 18:00; Start 12/13/16 at 18:00; Stop 12/16/16 at 18:29; Status DC Albuterol/ Ipratropium (Duoneb Neb) 1 ampule QID NEB NEB Last administered on 12/17/16 12:09; Start 12/13/16 at 20:00; Stop 12/17/16 at 14:06; Status DC Methylprednisolone Sodium Succinate 20 mg 20 mg DAILY IV PUSH Last administered on 12/15/16 08:14; Start 12/15/16 at 09:00; Stop 12/15/16 at 17:55 ; Status DC Diltiazem HCl/ Sodium Chloride (Cardizem Inj/NS Inj) 125 ml @ 0 mls/hr TITRATE IV Last administered on 12/16/16 05:53; Start 12/14/16 at 14:15; Stop at 17:42; Status DC Prednisone (Deltasone) 20 mg DAILY PO Last administered on 12/18/16 07:46; Start 12/16/16 at 09:00 Diltiazem HCl (Cardizem Inj) 25 mg BOLUS ONCE IV PUSH ; Start 12/16/16 at 05:00 ; Stop 12/16/16 at 05:01; Status DC Magnesium Citrate (Citroma Liq) 300 ml ONCE ONCE PO Last administered on 12:15; Start 12/16/16 at 12:15; Stop 12/16/16 at 13:45; Status DC Metoprolol Tartrate 50 mg 50 mg Q8HR PO Last administered on 12/18/16 06:13; Start 12/16/16 at 22:00 Cefepime HCl/ Sodium Chloride (Maxipime Inj/NS Inj) 100 ml @ 200 mls/hr Q8H IV Last administered on 12/17/16 10:00; Start 12/17/16 at 02:00; Stop 12/17/16 at 14:05; Status DC Cefuroxime Axetil (Ceftin) 500 mg Q12HR PO Last administered on 12/18/16 07:45 ; Start 12/17/16 at 21:00; Stop 12/19/16 at 20:59 Albuterol Sulfate (Proair Hfa Inh) 2 puff Q6H PRN INH WHEEZING; Start 12/17/16 at 14:15 Date of Insertion: Dec 05, 2016 Line: Central Venous Catheter A/P Problem List: (1) Atrial fibrillation ICD Code: I48.91 Status: Acute (2) Palpitations ICD Code: R00.2 Status: Acute (3) SOB (shortness of breath) ICD Code: R06.02 Status: Acute (4) Abdominal pain ICD Code: R10.9 Status: Acute (5) Adynamic ileus ICD Code: K56.0 Status: Acute (6) AFIA (acute kidney injury) ICD Code: N17.9 Status: Acute Assessment and Plan 76 year-old man with Adynamic Ileus Status post decompressive colonoscopy 12/02/16, S/p repeat decompressive colonoscopy on 12/06 with insertion of rectal tube. May need repeat decompressive colonoscopy. Continue with simethicone. Advance diet as tolerated Appreciate input from GI, general surgery. Clinically improved GI cleared for ablation. Respiratory insufficiency/pneumonia Status post extubation Oxygen requirement is improving. Patient is on nasal cannula. CT scan of the chest on 12/13/16 showed right lower lobe pleural effusion. on prednisone. PFT done in hospital on 12/16. [employer] Operators following. Atrovent 3 times a day. Clinically patient is improving. Per acid cleaner does not need thoracentesis since not enough fluid. Patient is on cefepime in which dosage was decreased on 12/18/16. Atrial fibrillation rapid ventricular response on Cardizem 360 mg daily, amiodarone 200 mg daily and Eliquis 5 mg twice a day 2-D echo with EF 40-45% Heart rate control. Per Dr. Sutton ablation can be done as outpatient. Hypertension Continue with Lopressor, Vasotec when necessary Hypothyroidism On Synthroid 25 g daily Acute renal failure Resolved GI prophylaxis: Protonix 40 mg PO daily. DVT prophylaxis: SCDs. On Eliquis 5mg BID Discharge Planning Patient refusing to go to rehabilitation center and stated that he wants to go home. I d/w patient's nurse and charge nurse in regards to having physical therapist evaluating patient today in regards to disposition since last evaluation was on 12/15/2016 and patient feels a lot better. Patient stated that he wants to see physical therapist today. Case management was not present in the room so will place another order for case management in regards to his disposition. Problem Qualifiers (1) Abdominal pain: Qualified Code: R10.84 - Generalized abdominal pain Leslie Dewey MD Dec 18, 2016 11:03
--- NOTE | 2016-12-18 12:54 | HHI.PR ---
Subjective Remarks Needs O2 with ambulation. No chest pain.O2 sat 95 on N/C 3 L Good output. Objective Vital Signs Date Time Temp Pulse Resp B/P Pulse Ox O2 Delivery O2 Flow Rate FiO2 12/18/16 09:19 98 Nasal Cannula 3.00 12/18/16 08:00 98.1 104 20 147/84 95 12/18/16 07:52 85 21 12/18/16 07:00 95 Nasal Cannula 4.00 12/18/16 06:00 101 12/18/16 05:25 98 Simple Mask 8.00 12/18/16 05:00 111 12/18/16 04:00 114 12/18/16 03:00 Nasal Cannula 2.50 12/18/16 03:00 110 12/18/16 03:00 98.4 111 20 157/94 96 12/18/16 02:00 112 12/18/16 01:00 110 12/18/16 00:03 122 12/17/16 23:00 Nasal Cannula 2.50 12/17/16 23:00 121 12/17/16 23:00 98.6 115 20 146/93 98 12/17/16 22:00 113 12/17/16 21:00 101 12/17/16 20:50 96 Nasal Cannula 2.00 12/17/16 20:19 98.4 105 18 144/85 100 12/17/16 20:00 111 12/17/16 19:00 Nasal Cannula 2.50 12/17/16 19:00 101 12/17/16 16:00 98.7 112 20 142/93 100 12/17/16 16:00 118 12/17/16 15:00 100 12/17/16 14:33 2.00 12/17/16 14:00 106 12/17/16 13:00 82 I/O 12/17/16 12/17/16 12/17/16 12/18/16 12/18/16 12/18/16 07:00 15:00 23:00 07:00 15:00 23:00 Intake Total 580 ml 600 ml 240 ml Output Total 900 ml 850 ml 500 ml Balance -320 ml -250 ml -260 ml Intake Oral 480 ml 600 ml 240 ml IV Total 100 ml Output Urine Total 900 ml 850 ml 500 ml # Bowel Movements 1 4 1 Result Diagram: 12/16/16 1445 12/17/16 0540 Objective Remarks This is an averagely built elderly man who is pale and not dyspneic at rest. HEENT: Head normocephalic. Pupils are reactive. Sclerae were clear. Tongue is dry. Nasal mucosa clear NECK: Supple. No bruits. Mild venous distension. Trachea midline. No thyromegaly. CHEST: Equal movements with a few basilar crackles . HEART: The heart sounds are irregular, S1 and S2 with no definite murmur. No S3. ABDOMEN: Soft and protuberant without masses. No organomegaly. Bowel sounds are active. EXTREMITIES: Minimal edema with diminished peripheral pulses. Reflexes are 1+ with no gross motor deficits. NEUROLOGIC: Cranial nerves grossly intact. RECTAL: Exam is deferred. SKIN: No lesions observed. Assessment and Plan Assessment and Plan IMPRESSION 1. Pulmonary edema with pleural effusions. 2. Status post cardiac ablation for atrial fibrillation 3. History of COPD and emphysema. 4. Hypertension 5. Peripheral vascular disease 6. Coronary artery disease 7. Abdominal ileus resolved. Plan; 1. Arrange home O2 at 3 l 2. Walk with help 3. D/C millie 4. Cardizem and Amiodarone . 5. Prednisone 10mg daily 6. Ceftin 500 mg bid X 3 days 7.Home soon Anju Monson MD Dec 18, 2016 12:54
[2016-12-18] MEDS ORDERED: METO25TA3 PO (15:54)
[2016-12-18] MEDS ORDERED: APIX5TAB PO (15:54)
[2016-12-18] MEDS ORDERED: CEFU1TAB20 PO (15:54)
[2016-12-18] MEDS ORDERED: PRED10 PO (15:54)
[2016-12-18] MEDS ORDERED: AMIO200T PO (15:54)
[2016-12-18] MEDS ORDERED: CARD180C5 PO (15:54)
[2016-12-18] MEDS ORDERED: guaiFENesin ER PO (15:54)
--- NOTE | 2016-12-18 15:55 | HHI.DS ---
Discharge Summary Admission Date November 30, 2016 at 15:25 Discharge Date: Dec 18, 2016 Admitting Diagnosis (1) Respiratory failure ICD Code: J96.90 (2) Adynamic ileus ICD Code: K56.0 Diagnosis: Principal (3) AFIA (acute kidney injury) ICD Code: N17.9 Diagnosis: Principal (4) Atrial fibrillation with RVR ICD Code: I48.91 Diagnosis: Principal (5) Pneumonia ICD Code: J18.9 Diagnosis: Principal Procedures Decompressive colonoscopy 12/02/16 Brief History - From Admission Mr. Drummond is a 75-year-old male patient with a known history of atrial fibrillation with history of ablation 1 week ago, COPD, HTN, CHF, AAA, PAD and CABG x 3 stents. Supposedly patient had an ablation one week ago with Dr. Sutton. Yesterday afternoon patient presented to his office for a follow up appointment. While in his office patient developed shortness of breath and palpitations. EKG was performed and patient was found to be in afib RVR, then sent to the ER immediately. Upon presentation, Dr. Sutton performed a cardioversion and placed on Amiodarone IV infusion with bolus. Hospitalist team consulted for assuming of care and medical management. Patient seen and examined today. He is lying in bed, short of breath and significant abdominal pain and distention. Patient states that he has had abdominal pain on and off for 3 days now, with diminished appetite and PO intake. At this time patient does admit to passing gas and belching. Does admit to dark colored stools with one bout of diarrhea last evening. Patient on iron supplements. Denies any n/v or diarrhea. Denies any recent fever, chills, cough, chest pain or dysuria. CBC/BMP: 12/16/16 1445 12/17/16 0540 Significant Findings Laboratory Tests Test 12/16/16 12/17/16 14:45 05:40 Red Blood Count 3.93 MIL/MM3 (4.50-5.90) Hemoglobin 10.7 GM/DL (13.0-17.0) Hematocrit 34.1 % (39.0-51.0) Mean Corpuscular Hemoglobin 31.3 % Concent (32.0-36.0) Carbon Dioxide Level 33.0 MEQ/L 33.2 MEQ/L (21.0-32.0) (21.0-32.0) Anion Gap 4 MEQ/L (5-15) Estimat Glomerular Filtration 58 ML/MIN (>89) 60 ML/MIN (>89) Rate Random Glucose 130 MG/DL 110 MG/DL (74-106) (74-106) Blood Urea Nitrogen 20 MG/DL (7-18) Imaging Last Impressions Chest X-Ray 12/17/16 0600 Signed Impressions: Service Date/Time: Saturday, December 17, 2016 04:24 - CONCLUSION: 1. Basilar airspace disease and right pleural effusion similar to December 10. Spine fixation. Josue Ibarra MD Chest Ultrasound 12/13/16 0000 Signed Impressions: Service Date/Time: Tuesday, December 13, 2016 19:41 - CONCLUSION: Small right pleural effusion not safely drainable. Titi Cueva MD Chest CT 12/13/16 0000 Signed Impressions: Service Date/Time: Tuesday, December 13, 2016 14:31 - CONCLUSION: 1. Moderate size right pleural effusion with consolidation of the right lung base. This is worsened when compared to previous exam. 2. Atelectatic changes at the left lung base mildly worsened when compared to previous. Bernabe Pennington MD Abdomen X-Ray 12/10/16 0000 Signed Impressions: Service Date/Time: Saturday, December 10, 2016 09:18 - CONCLUSION: Interval improvement with less gaseous distention. Chaitanya Pennington MD FACR Abdomen/Pelvis CT 12/04/16 0000 Signed Impressions: Service Date/Time: Sunday, December 04, 2016 20:28 - CONCLUSION: 1. Diverticulosis of the colon without diverticulitis. 2. Gaseous distention of the ascending and transverse colon likely ileus. No obstruction. 3. Atrophic right kidney. 4. Minimal perihepatic ascites. 5. Bibasilar consolidation. 6. Bulging of the abdominal aorta with extensive atherosclerotic changes but no Amando De Jesus MD PE at Discharge GENERAL: in NAD SKIN: Warm and dry. HEAD: Normocephalic. EYES: No scleral icterus. No injection or drainage. NECK: Supple, trachea midline. No JVD or lymphadenopathy. CARDIOVASCULAR: Irregular rate and irregular rhythm without murmurs, gallops, or rubs. RESPIRATORY: Clear to auscultation bilaterally. No accessory muscle use. GASTROINTESTINAL: Abdomen soft, non-tender, nondistended. Hospital Course 76 year-old man with Adynamic Ileus Machine Stonecutter and Surgeon consulted. patient had decompressive colonoscopy 12/02/16, S/p repeat decompressive colonoscopy on 12/06 with insertion of rectal tube. symptoms resolved with treatment. Respiratory insufficiency/pneumonia patient was intubated then extubated successfully. CT scan of the chest on 12/13/16 showed right lower lobe pleural effusion. he was treatment for PNA with cefepime then put on cefuroxime as outpatient. Initially on solumedrol then transition to PO on prednisone. PFT done in hospital on 12/16. Observation Assistant was consulted and assisted with management. He was on Atrovent 3 times a day. Patient was discharge on oxygen. patient educated on oxygen use and told stay away from flames or tank will explode. he stated he understood. Atrial fibrillation rapid ventricular response Fire Control Mechanic consulted. he was put on on Cardizem 360 mg daily, amiodarone 200 mg daily and Eliquis 5 mg twice a day 2-D echo with EF 40-45% Heart rate control. Per Dr. Sutton ablation can be done as outpatient. Hypertension Continue with Lopressor, Vasotec when necessary Hypothyroidism On Synthroid 25 g daily Acute renal failure patient given IVFs initially and ARF resolved. due to underlying condition. Pt Condition on Discharge: Good Discharge Disposition: Disch w/ Home Health Serv Discharge Time: > 30 minutes Discharge Instructions DIET: Follow Instructions for: Heart Healthy Diet Activities you can perform: Regular-No Restrictions Follow up Referrals: PCP Follow-up - 1 Week Pulmonology - 2 Weeks with Anju Monson MD New Medications: Oxygen (O2) (Oxygen (O2)) Device 2 LITER BAKARI.CANULA CONTINUOUS Oxygen Concentrator Portable Gaseous 2 L/min via Nasal Canula Continuous For 99 months Prevent Hypoxemia #2 CYLINDER Amiodarone (Amiodarone) 200 Mg Tab 200 MG PO DAILY atrial fibrillation #30 Ref 0 TAB Apixaban (Eliquis) 5 Mg Tab 5 MG PO BID atrial fibrillation #60 Ref 0 TAB Cefuroxime (Cefuroxime) 500 Mg Tab 500 MG PO Q12HR infection #6 Ref 0 TAB Diltiazem CD 24 HR (Cardizem CD 24 HR) 180 Mg Caper 360 MG PO DAILY atrial fibrillation #30 Ref 0 CAP Metoprolol Tartrate (Metoprolol Tartrate) 25 Mg Tab 50 MG PO Q8HR atrial fibrillation #90 Ref 0 TAB Prednisone (Prednisone) 10 Mg Tab 10 MG PO DAILY COPD/Pneumonia #4 Ref 0 TAB ([guaiFENesin ER]) 600 MG TABCR 600 MG PO BID PRN congestion #20 Ref 0 TAB.SR Continued Medications: Albuterol Neb (Albuterol Neb) 2.5 Mg/3 Ml Neb 2.5 MG NEB QID NEB Breathing Treatment #60 Ref [address] (Cymbalta DR) 60 Mg Capdr 60 MG PO DAILY #30 Ref 0 CAP Ipratropium Neb (Ipratropium Neb) 0.5 Mg/2.5 Ml Amp 0.5 MG NEB Q4HR NEB Breathing Treatment Ref 0 NEBULE Levothyroxine (Levothyroxine) 25 Mcg Tab 25 MCG PO DAILY Thyroid #30 Ref 0 TAB Meclizine HCl (Meclizine 25) 25 Mg Tab Nitroglycerin SL (Nitroglycerin SL) 0.4 Mg Subl 0.4 MG SL DIRECTED ONE TABLET UNDER THE TONGUE NEEDED FOR CHEST PAIN, MAY REPEAT EVERY FIVE MINUTES FOR A TOTAL OF 3 DOSES OR CALL 911 IF NO RELIEF PRN CHEST PAIN #100 Ref 0 TAB.SL Pantoprazole (Protonix) 40 Mg Tab 40 MG PO DAILY Reflux #30 Ref 0 TAB Tamsulosin (Tamsulosin) 0.4 Mg Cap 0.4 MG PO HS Manage Prostate Problems #30 Ref 0 CAP Discontinued Medications: Apixaban (Eliquis) 2.5 Mg Tab 2.5 MG PO BID Blood Clot Prevention Ref 0 TAB Baclofen (Baclofen) 10 Mg Tab 10 MG PO Q8HR PRN MUSCLE SPASM Ref 0 TAB Furosemide (Furosemide) 20 Mg Tab 20 MG PO DAILY #30 Ref 0 TAB Losartan (Losartan) 50 Mg Tab 50 MG PO DAILY Blood Pressure Management #30 Ref 0 TAB Spironolactone (Aldactone) 25 Mg Tab 25 MG PO DAILY #30 Ref 0 TAB Leslie Dewey MD Dec 18, 2016 15:55
--- NOTE | 2016-12-18 15:55 | HHI.FF ---
Face to Face Verification Diagnosis: (1) Respiratory failure with hypoxia (2) Cardiomyopathy (3) AFIA (acute kidney injury) (4) Adynamic ileus (5) Atrial fibrillation (6) Pneumonia Physical Therapy Order: Evaluate and Treat, Improve ambulation, Strength and gait training Home Health Nursing Order: Medical education Signs/symptoms of disease process CHF education Oxygen administration education Medication education-adverse effect Nursing assessment with vital signs I have seen patient Arnoldo Drummond on 12/18/16. My clinical findings support the need for the requested home health care services because: Ltd mobility - disease progression Patient has SOB Deconditioned w/ increased weakness High risk of falls I certify that my clinical findings support that this patient is homebound because: Unsteady gait/balance Poor cardiac reserve Leslie Dewey MD Dec 18, 2016 15:55
[2016-12-19] MEDS ORDERED: predniSONE 10 MG TAB PO SCH (09:00)
--- NOTE | 2017-01-05 09:26 | RSPPFT ---
DATE OF PROCEDURE: 12/16/16 COMMENTS: Spirometry demonstrates an FEV1 of 0.5 at 20% of predicted, FVC of 0.8 at 23%, FEF 25-75 at 12%. Post-bronchodilator study demonstrated significant improvements indicating reversibility. Flow volume loop suggests an obstructive defect. IMPRESSION: 1. Severe obstructive disease. 2. Significant response to use of bronchodilator indicating reversibility.
== END 2016-12-18 17:15 | disposition home or self-care (01) | DRG 388 ==
LOC: HCIN 15:25 → OBSVTOIN 15:25 → HCIN 16:59 → HIMN 12-04 11:57 → HCIS 12-15 14:38
PROVIDERS: ADMIT Family Medicine; ATTEND Family Medicine
PROC: 5A2204Z Restoration of Cardiac Rhythm, Single (ICD-10-PCS; principal; 2016-11-30)
PROC: 0DJD8ZZ Inspection of Lower Intestinal Tract, Via Natural or Artificial Opening Endoscopic (ICD-10-PCS; 2016-12-02)
PROC: 5A1945Z Respiratory Ventilation, 24-96 Consecutive Hours (ICD-10-PCS; 2016-12-06)
PROC: 0DJD8ZZ Inspection of Lower Intestinal Tract, Via Natural or Artificial Opening Endoscopic (ICD-10-PCS; 2016-12-06)
PROC: 0BH17EZ Insertion of Endotracheal Airway into Trachea, Via Natural or Artificial Opening (ICD-10-PCS; 2016-12-06)
PROC: 05H533Z Insertion of Infusion Device into Right Subclavian Vein, Percutaneous Approach (ICD-10-PCS; 2016-12-06)
DX: K56.0 Paralytic ileus (principal); N17.0 Acute kidney failure with tubular necrosis; J96.00 Acute respiratory failure, unspecified whether with hypoxia or hypercapnia; I50.33 Acute on chronic diastolic (congestive) heart failure; I42.9 Cardiomyopathy, unspecified; N18.4 Chronic kidney disease, stage 4 (severe); E87.1 Hypo-osmolality and hyponatremia; I13.0 Hypertensive heart and chronic kidney disease with heart failure and stage 1 through stage 4 chronic kidney disease, or unspecified chronic kidney disease; I48.92 Unspecified atrial flutter; I48.91 Unspecified atrial fibrillation; J44.9 Chronic obstructive pulmonary disease, unspecified; I95.2 Hypotension due to drugs; I25.10 Atherosclerotic heart disease of native coronary artery without angina pectoris; I73.9 Peripheral vascular disease, unspecified; I71.4 Abdominal aortic aneurysm, without rupture; F32.9 Major depressive disorder, single episode, unspecified; E03.9 Hypothyroidism, unspecified; E78.00 Pure hypercholesterolemia, unspecified; T46.1X5A Adverse effect of calcium-channel blockers, initial encounter; T44.7X5A Adverse effect of beta-adrenoreceptor antagonists, initial encounter; N40.1 Benign prostatic hyperplasia with lower urinary tract symptoms; R33.8 Other retention of urine; D64.9 Anemia, unspecified; K57.30 Diverticulosis of large intestine without perforation or abscess without bleeding; E87.6 Hypokalemia; D50.9 Iron deficiency anemia, unspecified; Z87.891 Personal history of nicotine dependence; Z95.1 Presence of aortocoronary bypass graft; Z95.5 Presence of coronary angioplasty implant and graft; Z85.46 Personal history of malignant neoplasm of prostate
CPT/HCPCS: 31500; 36556; 36600; 71010; 71250; 74000; 74177; 76604; 76937; 80048; 80053; 80069; 81001; 82272; 82805; 83735; 83880; 83930; 83935; 84100; 84439; 84443; 84481; 84484; 84550; 85025; 85027; 85610; 85730; 87086; 87641; 93005; 93306; 94002; 94003; 94060; 94620; 94640; 94664; J0171; J0282; J0461; J0692; J1940; J2250; J2765; J2920; J3010; J3480; J7030; J7060; J7512; J7644; Q9963; Q9967